=== PATIENT | male | born 1990 | race African-American/Black ===

== ENCOUNTER 2022-11-08 18:42 | Emergency (ER) | payer OTHER ==
[2022-11-08] MEDS ORDERED: ACETAMINOPHEN 325 MG TABLET ONE (19:11)
[2022-11-08] MEDS ORDERED: ONDANSETRON 4 MG (ODT) TAB ONE (19:11)
--- OUTSIDE RECORDS SUMMARY | 2022-11-08 19:25 | XMS REPORT | Continuity of Care Document ---
:1990 Author Organization [facility] t Address [address] [place] [address] Care Team Providers Name Role Phone .nader Attending Clinician Unavailable BHAVANI MCPHERSON Attending Clinician [phone] SAIRA JOHNSON Attending Clinician Unavailable SAIRA JOHNSON Attending Clinician [phone] NURSE, NURSE Attending Clinician Unavailable VENTURA, SON Attending Clinician Unavailable VENTURA, SON Attending Clinician [phone] SHAWANDA Attending Clinician Unavailable LAMONT AVILEZ Attending Clinician [phone] LEONIDES BOLANOS Attending Clinician [phone] bertram Attending Clinician Unavailable [facility] PROVIDER Attending Clinician Unavailable MARLEN IBANEZ Attending Clinician [phone] KAROLINA NAVARRO Attending Clinician Unavailable Jordan Box III Attending Clinician LOIS RUSSELL Attending Clinician Unavailable WILFRID MANCILLA Attending Clinician Unavailable WING BERRIOS Attending Clinician [phone] DAISHARAMIREZPat Admitting Clinician Unavailable bertram Admitting Clinician Unavailable Payers Payer Name Policy Type Policy Number Effective Date Expiration Date S ource *Avel Gordon [id number] 2015 2016 0-100% 00:00:00 00:00:00 *Avel Hillman [id number] 2017 2018 0-100% 00:00:00 00:00:00 ALLIED BENEFIT [id number] SYSTEMS (PPO) Problems Condition Condition Condition Status Onset Resolution Last Treating Co mments Source Name Details Category Date Date Treatment Clinician Date VOMITING VOMITING Diagnosis Active 2016-062017-05-17 Memoria Active 07-13 08:39:00 l 05/13/2017 08:00: Jose Cruz thomas [address] History of Past Illness Condition Condition Condition Status Onset Resolution Last Treating Co mments Source Name Details Category Date Date Treatment Clinician Date Fever, Fever, Problem 2016-062017-05-16 2017-05-16 Memoria unspecifie unspecifie 07-13 04:28:29 04:28:29 l d d 06:00: [facility] 05/13/2017 00 05/16/2017 [facility] Allergies, Adverse Reactions, Alerts Allergy Allergy Status Severity Reaction(s) Onset Inactive Treating Comm ents Source Name Type Date Date Clinician codeine drug Active Unknown 2020-0 [facility] - [facility] 00:00: 00 TRAMADOL drug Active Unknown 2019-0 [facility] HCL allergy - [facility] 00:00: 00 PENICILL drug Active Hives / Skin 0 [facility] IN allergy Rash 07-17 [facility] 00:00: 00 Social History Social Habit Start Date Stop Date Quantity Comments Source History of tobacco 2019-08-01 Cigarette smoker [facility] use 00:00:00 Health-related 2019-07-17 [facility] Behavior 00:00:00 Tobacco use and 2019-07-17 : No Details [facility] exposure 00:00:00 Available Quantity Details - : No Details Available Alcohol intake [facility] Sex Assigned At Male [facility] Smoking Status Start Date Stop Date Source Unknown if [facility] Never smoker [facility] Social History 2017-05-13 18:23:59 [facility] Medications Ordered Filled Start Stop Current Ordering Indication Dosage Frequency Signature Comments Components Source Medication Medication Date Date Medication? Clinician (SIG) Name Name amaris No take 1 [facility] rol 4-13 capsule by [facility] (vitamin 00:00: oral route D2) 1,250 00 every week mcg (50,000 unit) capsule Biktarvy 50 0 No 1{table Q1D take 1 [facility] mg-200 4-13 t} tablet by [facility]alth mg-25 mg 00:00: oral route tablet 00 every day ergocalcife No take 1 [facility] rol 4-13 capsule by [facility] (vitamin 00:00: oral route D2) 1,250 00 every week mcg (50,000 unit) capsule Biktarvy 50 0 No 1{table Q1D take 1 [facility] mg-200 4-13 t} tablet by [facility] mg-25 mg 00:00: oral route tablet 00 every day Biktarvy 50 0 No 1{table Q1D take 1 [facility] mg-200 1-19 t} tablet by [facility] mg-25 mg 00:00: oral route tablet 00 every day Biktarvy 50 0 No 1{table Q1D take 1 [facility] mg-200 1-19 t} tablet by [facility] mg-25 mg 00:00: oral route tablet 00 every day Biktarvy 50 2022-0 No 1{table Q1D take 1 [facility] mg-200 1-19 t} tablet by [facility] mg-25 mg 00:00: oral route tablet 00 every day Biktarvy 50 2022-0 No 1{table Q1D take 1 [facility] mg-200 1-19 t} tablet by [facility] mg-25 mg 00:00: oral route tablet 00 every day Biktarvy 50 0 No 1{table Q1D take 1 [facility] mg-200 1-19 t} tablet by [facility] mg-25 mg 00:00: oral route tablet 00 every day Biktarvy 50 0 2022- No 1{table Q1D take 1 [facility] mg-200 1-19 04-13 t} tablet by [facility] mg-25 mg 00:00: 00:00 oral route tablet 00 :00 every day Biktarvy 50 3- No 1{table Q1D take 1 [facility] mg-200 1-19 04-13 t} tablet by [facility] mg-25 mg 00:00: 00:00 oral route tablet 00 :00 every day Biktarvy 50 2021-06 No 1{table Q1D take 1 [facility] mg-200 2- t} tablet by [facility] mg-25 mg 00:00: oral route tablet 00 every day Biktarvy 50 2021-06- No 1{table Q1D take 1 [facility] mg-200 2-07-15 t} tablet by [facility] mg-25 mg 00:00: 00:00 oral route tablet 00 :00 every day Biktarvy 50 2021-06- No 1{table Q1D take 1 [facility] mg-200 2-07-15 t} tablet by [facility] mg-25 mg 00:00: 00:00 oral route tablet 00 :00 every day Biktarvy 50 2021-06- No 1{table Q1D take 1 [facility] mg-200 2-07-15 t} tablet by [facility] mg-25 mg 00:00: 00:00 oral route tablet 00 :00 every day Biktarvy 50 2021-06- No 1{table Q1D take 1 [facility] mg-200 2-07-15 t} tablet by [facility] mg-25 mg 00:00: 00:00 oral route tablet 00 :00 every day Biktarvy 50 2021-06- No 1{table Q1D take 1 [facility] mg-200 2-07-15 t} tablet by [facility] mg-25 mg 00:00: 00:00 oral route tablet 00 :00 every day Biktarvy 50 2021-06- No 1{table Q1D take 1 [facility] mg-200 2-07-15 t} tablet by [facility] mg-25 mg 00:00: 00:00 oral route tablet 00 :00 every day Biktarvy 50 2021-06- No 1{table Q1D take 1 [facility] mg-200 2-06 01-19 t} tablet by [facility] mg-25 mg 00:00: 00:00 oral route tablet 00 :00 every day ergocalcife 2022-0 No take 1 [facility] rol 5-13 capsule by [facility] (vitamin 00:00: oral route D2) 1,250 00 every week mcg (50,000 unit) capsule ergocalcife 2022-0 No take 1 [facility] rol 5-13 capsule by [facility] (vitamin 00:00: oral route D2) 1,250 00 every mcg (50,000 week unit) capsule ergocalcife 2-0 No take 1 [facility] rol 5-13 capsule by [facility] (vitamin 00:00: oral route D2) 1,250 00 every week mcg (50,000 unit) capsule ergocalcife 2-0 No take 1 [facility] rol 5-13 capsule by [facility] (vitamin 00:00: oral route D2) 1,250 00 every week mcg (50,000 unit) capsule ergocalcife 2-0 No take 1 [facility] rol 5-13 capsule by [facility] (vitamin 00:00: oral route D2) 1,250 00 every week mcg (50,000 unit) capsule ergocalcife 2-0 No take 1 [facility] rol 5-13 capsule by [facility] (vitamin 00:00: oral route D2) 1,250 00 every week mcg (50,000 unit) capsule Biktarvy 50 2021-0 No 1{table Q1D take 1 [facility] mg-200 5-13 t} tablet by [facility] mg-25 mg 00:00: oral route tablet 00 every day ergocalcife 2022-0 No take 1 [facility] rol 5-13 capsule by [facility] (vitamin 00:00: oral route D2) 1,250 00 every week mcg (50,000 unit) capsule Biktarvy 50 2021-0 No 1{table Q1D take 1 [facility] mg-200 5-13 t} tablet by [facility] mg-25 mg 00:00: oral route tablet 00 every day ergocalcife 2022-0 No take 1 [facility] rol 5-13 capsule by [facility] (vitamin 00:00: oral route D2) 1,250 00 every week mcg (50,000 unit) capsule Biktarvy 50 No 1{table Q1D take 1 [facility] mg-200 5-13 t} tablet by [facility] mg-25 mg 00:00: oral route tablet 00 every day ergocalcife 2021-0 No take 1 [facility] rol 5-13 capsule by [facility] (vitamin 00:00: oral route D2) 1,250 00 every week mcg (50,000 unit) capsule Biktarvy 50 0 No 1{table Q1D take 1 [facility] mg-200 5-13 t} tablet by [facility] mg-25 mg 00:00: oral route tablet 00 every day ergocalcife 0 No take 1 [facility] rol 5-13 capsule by [facility] (vitamin 00:00: oral route D2) 1,250 00 every week mcg (50,000 unit) capsule ergocalcife 2022- No take 1 [facility] rol 5-13 04-13 capsule by [facility] (vitamin 00:00: 00:00 oral route D2) 1,250 00 :00 every week mcg (50,000 unit) capsule ergocalcife 0 2022- No take 1 [facility] rol 5-13 04-13 capsule by [facility] (vitamin 00:00: 00:00 oral route D2) 1,250 00 :00 every week mcg (50,000 unit) capsule Biktarvy 50 2021- No 1{table Q1D take 1 [facility] mg-200 5-13 12-06 t} tablet by [facility] mg-25 mg 00:00: 00:00 oral route tablet 00 :00 every day Biktarvy 50 2021- No 1{table Q1D take 1 [facility] mg-200 5-13 12-06 t} tablet by [facility] mg-25 mg 00:00: 00:00 oral route tablet 00 :00 every day Biktarvy 50 2021- No 1{table Q1D take 1 [facility] mg-200 5-13 12-06 t} tablet by [facility] mg-25 mg 00:00: 00:00 oral route tablet 00 :00 every day Biktarvy 50 0 2021- No 1{table Q1D take 1 [facility] mg-200 5-13 12-06 t} tablet by [facility] mg-25 mg 00:00: 00:00 oral route tablet 00 :00 every day Biktarvy 50 0 2021- No 1{table Q1D take 1 [facility] mg-200 5-13 12-06 t} tablet by [facility] mg-25 mg 00:00: 00:00 oral route tablet 00 :00 every day Biktarvy 50 0 2021- No 1{table Q1D take 1 [facility] mg-200 5-13 12-06 t} tablet by [facility] mg-25 mg 00:00: 00:00 oral route tablet 00 :00 every day Biktarvy 50 0 2021- No 1{table Q1D take 1 [facility] mg-200 5-13 12-06 t} tablet by [facility] mg-25 mg 00:00: 00:00 oral route tablet 00 :00 every day Biktarvy 50 0 2021- No 1{table Q1D take 1 [facility] mg-200 5-13 12-06 t} tablet by [facility] mg-25 mg 00:00: 00:00 oral route tablet 00 :00 every day Biktarvy 50 2021-0 No 1{table Q1D take 1 [facility] mg-200 2-17 t} tablet by [facility] mg-25 mg 00:00: oral route tablet 00 every day Biktarvy 50 2021-0 No 1{table Q1D take 1 [facility] mg-200 2-17 t} tablet by [facility] mg-25 mg 00:00: oral route tablet 00 every day Biktarvy 50 0 No 1{table Q1D take 1 [facility] mg-200 2-17 t} tablet by [facility] mg-25 mg 00:00: oral route tablet 00 every day Biktarvy 50 0 2021- No 1{table Q1D take 1 [facility] mg-200 2-17 05-13 t} tablet by [facility] mg-25 mg 00:00: 00:00 oral route tablet 00 :00 every day Biktarvy 50 2021- No 1{table Q1D take 1 [facility] mg-200 2-17 05-13 t} tablet by [facility] mg-25 mg 00:00: 00:00 oral route tablet 00 :00 every day Biktarvy 50 2021- No 1{table Q1D take 1 [facility] mg-200 2-17 05-13 t} tablet by [facility] mg-25 mg 00:00: 00:00 oral route tablet 00 :00 every day Biktarvy 50 2021- No 1{table Q1D take 1 [facility] mg-200 2-17 05-13 t} tablet by [facility] mg-25 mg 00:00: 00:00 oral route tablet 00 :00 every day Biktarvy 50 2021- No 1{table Q1D take 1 [facility] mg-200 2-17 05-13 t} tablet by [facility] mg-25 mg 00:00: 00:00 oral route tablet 00 :00 every day ktarvy 50 2021- No 1{table Q1D take 1 [facility] mg-200 2-17 05-13 t} tablet by [facility] mg-25 mg 00:00: 00:00 oral route tablet 00 :00 every day ktarvy 50 2021- No 1{table Q1D take 1 [facility] mg-200 2-17 05-13 t} tablet by [facility] mg-25 mg 00:00: 00:00 oral route tablet 00 :00 every day ktarvy 50 2021- No 1{table Q1D take 1 [facility] mg-200 2-17 05-13 t} tablet by [facility] mg-25 mg 00:00: 00:00 oral route tablet 00 :00 every day Biktarvy 50 2021- No 1{table Q1D take 1 [facility] mg-200 2-17 05-13 t} tablet by [facility] mg-25 mg 00:00: 00:00 oral route tablet 00 :00 every day Biktarvy 50 2021- No 1{table Q1D take 1 [facility] mg-200 2-17 05-13 t} tablet by [facility] mg-25 mg 00:00: 00:00 oral route tablet 00 :00 every day Biktarvy 50 0 2021- No 1{table Q1D take 1 [facility] mg-200 2-17 05-13 t} tablet by [facility] mg-25 mg 00:00: 00:00 oral route tablet 00 :00 every day Biktarvy 50 0 2021- No 1{table Q1D take 1 [facility] mg-200 2-17 05-13 t} tablet by [facility] mg-25 mg 00:00: 00:00 oral route tablet 00 :00 every day Biktarvy 50 0 No 1{table Q1D take 1 [facility] mg-200 8-31 t} tablet by [facility] mg-25 mg 00:00: oral route tablet 00 every day ergocalcife No take 1 [facility] rol 8-31 capsule by [facility] (vitamin 00:00: oral route D2) 1,250 00 every week mcg (50,000 unit) capsule Biktarvy 50 No 1{table Q1D take 1 [facility] mg-200 8-31 t} tablet by [facility] mg-25 mg 00:00: oral route tablet 00 every day ergocalcife No take 1 [facility] rol 8-31 capsule by [facility] (vitamin 00:00: oral route D2) 1,250 00 every week mcg (50,000 unit) capsule Biktarvy 50 No 1{table Q1D take 1 [facility] mg-200 8-31 t} tablet by [facility] mg-25 mg 00:00: oral route tablet 00 every day ergocalcife No take 1 [facility] rol 8-31 capsule by [facility] (vitamin 00:00: oral route D2) 1,250 00 every week mcg (50,000 unit) capsule ergocalcife 0 No take 1 [facility] rol 8-31 capsule by [facility] (vitamin 00:00: oral route D2) 1,250 00 every week mcg (50,000 unit) capsule ergocalcife 0 No take 1 [facility] rol 8-31 capsule by [facility] (vitamin 00:00: oral route D2) 1,250 00 every week mcg (50,000 unit) capsule ergocalcife 0 No take 1 [facility] rol 8-31 capsule by [facility] (vitamin 00:00: oral route D2) 1,250 00 every week mcg (50,000 unit) capsule ergocalcife 2020-2021- No take 1 [facility]:00 oral route D2) 1,250 00 :00 every week mcg (50,000 unit) capsule ergocalcife 2020-2021- No take 1 [facility]:00: 00:00 oral route D2) 1,250 00 :00 every week mcg (50,000 unit) capsule ergocalcife 2020-2021- No take 1 [facility] rol 8-31 [facility]:00: 00:00 oral route D2) 1,250 00 :00 every week mcg (50,000 unit) capsule ergocalcife 2020-2021- No take 1 [facility] rol 8-31 [facility]:00: 00:00 oral route D2) 1,250 00 :00 every week mcg (50,000 unit) capsule ergocalcife 2020-2021- No take 1 [facility] rol 8-31 [facility]:00: 00:00 oral route D2) 1,250 00 :00 every week mcg (50,000 unit) capsule ergocalcife 2020-0 2021- No take 1 [facility] rol 8-31 [facility]:00: 00:00 oral route D2) 1,250 00 :00 every week mcg (50,000 unit) capsule ergocalcife 2020-0 2021- No take 1 [facility] rol 8-31 05-13 capsule by [facility] (vitamin 00:00: 00:00 oral route D2) 1,250 00 :00 every week mcg (50,000 unit) capsule ergocalcife 2020-0 2021- No take 1 [facility] rol 8-31 05-13 capsule by [facility] (vitamin 00:00: 00:00 oral route D2) 1,250 00 :00 every week mcg (50,000 unit) capsule ergocalcife 2021- No take 1 [facility] rol 811-06 capsule by [facility] (vitamin 00:00: 00:00 oral route D2) 1,250 00 :00 every week mcg (50,000 unit) capsule ergocalcife 2021- No take 1 [facility]:00: 00:00 oral route D2) 1,250 00 :00 every week mcg (50,000 unit) capsule ergocalcife 2021- No take 1 [facility] rol 811-[facility] 00:00: 00:00 oral route D2) 1,250 00 :00 every week mcg (50,000 unit) capsule ergocalcife 2021- No take 1 [facility] 00:00: 00:00 oral route D2) 1,250 00 :00 every week mcg (50,000 unit) capsule Biktarvy 50 2021- No 1{table Q1D take 1 [facility] mg-200 02-24-17 t} tablet by [facility] mg-25 mg 00:00: 00:00 oral route tablet 00 :00 every day Biktarvy 50 2021- No 1{table Q1D take 1 [facility] mg-200 02-24-17 t} tablet by [facility] mg-25 mg 00:00: 00:00 oral route tablet 00 :00 every day Biktarvy 50 2021- No 1{table Q1D take 1 [facility] mg-200 8 02-17 t} tablet by [facility] mg-25 mg 00:00: 00:00 oral route tablet 00 :00 every day Biktarvy 50 2021- No 1{table Q1D take 1 [facility] mg-200 8 02-17 t} tablet by [facility] mg-25 mg 00:00: 00:00 oral route tablet 00 :00 every day Biktarvy 50 0 2021- No 1{table Q1D take 1 [facility] mg-200 8-31 02-17 t} tablet by [facility] mg-25 mg 00:00: 00:00 oral route tablet 00 :00 every day Biktarvy 50 0 2021- No 1{table Q1D take 1 [facility] mg-200 8-31 02-17 t} tablet by [facility] mg-25 mg 00:00: 00:00 oral route tablet 00 :00 every day Biktarvy 50 2021- No 1{table Q1D take 1 [facility] mg-200 8- 02-17 t} tablet by [facility] mg-25 mg 00:00: 00:00 oral route tablet 00 :00 every day Biktarvy 50 2021- No 1{table Q1D take 1 [facility] mg-200 8- 02-17 t} tablet by [facility] mg-25 mg 00:00: 00:00 oral route tablet 00 :00 every day Biktarvy 50 2021- No 1{table Q1D take 1 [facility] mg-200 8--17 t} tablet by [facility] mg-25 mg 00:00: 00:00 oral route tablet 00 :00 every day Biktarvy 50 2021- No 1{table Q1D take 1 [facility] mg-200 8--17 t} tablet by [facility] mg-25 mg 00:00: 00:00 oral route tablet 00 :00 every day Biktarvy 50 2021- No 1{table Q1D take 1 [facility] mg-200 8- 02-17 t} tablet by [facility] mg-25 mg 00:00: 00:00 oral route tablet 00 :00 every day Biktarvy 50 0 2021- No 1{table Q1D take 1 [facility] mg-200 8- 02-17 t} tablet by [facility] mg-25 mg 00:00: 00:00 oral route tablet 00 :00 every day Biktarvy 50 2021- No 1{table Q1D take 1 [facility] mg-200 8- 02-17 t} tablet by [facility] mg-25 mg 00:00: 00:00 oral route tablet 00 :00 every day Biktarvy 50 0 2021- No 1{table Q1D take 1 [facility] mg-200 8-31 02-17 t} tablet by [facility] mg-25 mg 00:00: 00:00 oral route tablet 00 :00 every day Biktarvy 50 0 2021- No 1{table Q1D take 1 [facility] mg-200 8-31 02-17 t} tablet by [facility] mg-25 mg 00:00: 00:00 oral route tablet 00 :00 every day Biktarvy 50 0 No 1{table Q1D take 1 [facility] mg-200 7-22 t} tablet by [facility] mg-25 mg 00:00: oral route tablet 00 every day Biktarvy 50 2020-0 No 1{table Q1D take 1 [facility] mg-200 7-22 t} tablet by [facility] mg-25 mg 00:00: oral route tablet 00 every day Biktarvy 50 0 2020- No 1{table Q1D take 1 [facility] mg-200 7-22 08-31 t} tablet by [facility] mg-25 mg 00:00: 00:00 oral route tablet 00 :00 every day Biktarvy 50 0 2020- No 1{table Q1D take 1 [facility] mg-200 7-22 08-31 t} tablet by [facility] mg-25 mg 00:00: 00:00 oral route tablet 00 :00 every day Biktarvy 50 0 2020- No 1{table Q1D take 1 [facility] mg-200 7-22 08-31 t} tablet by [facility] mg-25 mg 00:00: 00:00 oral route tablet 00 :00 every day Biktarvy 50 0 2020- No 1{table Q1D take 1 [facility] mg-200 7-22 08-31 t} tablet by [facility] mg-25 mg 00:00: 00:00 oral route tablet 00 :00 every day Biktarvy 50 0 2020- No 1{table Q1D take 1 [facility] mg-200 7-22 08-31 t} tablet by [facility] mg-25 mg 00:00: 00:00 oral route tablet 00 :00 every day Biktarvy 50 0 2020- No 1{table Q1D take 1 [facility] mg-200 7-22 08-31 t} tablet by [facility] mg-25 mg 00:00: 00:00 oral route tablet 00 :00 every day Biktarvy 50 0 202- No 1{table Q1D take 1 [facility] mg-200 7-22 08-31 t} tablet by [facility] mg-25 mg 00:00: 00:00 oral route tablet 00 :00 every day Biktarvy 50 0 2020- No 1{table Q1D take 1 [facility] mg-200 7-22 08-31 t} tablet by [facility] mg-25 mg 00:00: 00:00 oral route tablet 00 :00 every day Biktarvy 50 0 2020- No 1{table Q1D take 1 [facility] mg-200 7-22 08-31 t} tablet by [facility] mg-25 mg 00:00: 00:00 oral route tablet 00 :00 every day Biktarvy 50 0 202- No 1{table Q1D take 1 [facility] mg-200 7-22 08-31 t} tablet by [facility] mg-25 mg 00:00: 00:00 oral route tablet 00 :00 every day Biktarvy 50 0 202- No 1{table Q1D take 1 [facility] mg-200 7-22 08-31 t} tablet by [facility] mg-25 mg 00:00: 00:00 oral route tablet 00 :00 every day Biktarvy 50 0 202- No 1{table Q1D take 1 [facility] mg-200 7-22 08-31 t} tablet by [facility] mg-25 mg 00:00: 00:00 oral route tablet 00 :00 every day Biktarvy 50 0 202- No 1{table Q1D take 1 [facility] mg-200 7-22 08-31 t} tablet by [facility] mg-25 mg 00:00: 00:00 oral route tablet 00 :00 every day Biktarvy 50 2021-0 202- No 1{table Q1D take 1 [facility] mg-200 7-22 08-31 t} tablet by [facility] mg-25 mg 00:00: 00:00 oral route tablet 00 :00 every day Biktarvy 50 0 2020- No 1{table Q1D take 1 [facility] mg-200 7-22 08-31 t} tablet by [facility] mg-25 mg 00:00: 00:00 oral route tablet 00 :00 every day Biktarvy 50 0 2020- No 1{table Q1D take 1 [facility] mg-200 7-22 08-31 t} tablet by [facility] mg-25 mg 00:00: 00:00 oral route tablet 00 :00 every day Biktarvy 50 2020- No 1{table Q1D take 1 [facility] mg-200 7-22 08-31 t} tablet by [facility] mg-25 mg 00:00: 00:00 oral route tablet 00 :00 every day Biktarvy 50 0 2020- No 1{table Q1D take 1 [facility] mg-200 7-22 08-31 t} tablet by [facility] mg-25 mg 00:00: 00:00 oral route tablet 00 :00 every day Biktarvy 50 0 No 1{table Q1D take 1 [facility] mg-200 3-18 t} tablet by [facility] mg-25 mg 00:00: oral route tablet 00 every day Biktarvy 50 0 2020- No 1{table Q1D take 1 [facility] mg-200 3-18 07-22 t} tablet by [facility] mg-25 mg 00:00: 00:00 oral route tablet 00 :00 every day Biktarvy 50 0 2020- No 1{table Q1D take 1 [facility] mg-200 3-18 07-22 t} tablet by [facility] mg-25 mg 00:00: 00:00 oral route tablet 00 :00 every day Biktarvy 50 0 2020- No 1{table Q1D take 1 [facility] mg-200 3-18 07-22 t} tablet by [facility] mg-25 mg 00:00: 00:00 oral route tablet 00 :00 every day Biktarvy 50 2020- No 1{table Q1D take 1 [facility] mg-200 3-18 07-22 t} tablet by [facility] mg-25 mg 00:00: 00:00 oral route tablet 00 :00 every day Biktarvy 50 2020- No 1{table Q1D take 1 [facility] mg-200 3-18 07-22 t} tablet by [facility] mg-25 mg 00:00: 00:00 oral route tablet 00 :00 every day Biktarvy 50 2020- No 1{table Q1D take 1 [facility] mg-200 3-18 07-22 t} tablet by [facility] mg-25 mg 00:00: 00:00 oral route tablet 00 :00 every day Biktarvy 50 2020- No 1{table Q1D take 1 [facility] mg-200 3-18 07-22 t} tablet by [facility] mg-25 mg 00:00: 00:00 oral route tablet 00 :00 every day Biktarvy 50 2020- No 1{table Q1D take 1 [facility] mg-200 3-18 07-22 t} tablet by [facility] mg-25 mg 00:00: 00:00 oral route tablet 00 :00 every day Biktarvy 50 2020- No 1{table Q1D take 1 [facility] mg-200 3-18 07-22 t} tablet by [facility] mg-25 mg 00:00: 00:00 oral route tablet 00 :00 every day Biktarvy 50 2020- No 1{table Q1D take 1 [facility] mg-200 3-18 07-22 t} tablet by [facility] mg-25 mg 00:00: 00:00 oral route tablet 00 :00 every day Biktarvy 50 2020- No 1{table Q1D take 1 [facility] mg-200 3-18 07-22 t} tablet by [facility] mg-25 mg 00:00: 00:00 oral route tablet 00 :00 every day Biktarvy 50 2020- No 1{table Q1D take 1 [facility] mg-200 3-18 07-22 t} tablet by [facility] mg-25 mg 00:00: 00:00 oral route tablet 00 :00 every day Biktarvy 50 0 2020- No 1{table Q1D take 1 [facility] mg-200 3-18 07-22 t} tablet by [facility] mg-25 mg 00:00: 00:00 oral route tablet 00 :00 every day Biktarvy 50 0 2020- No 1{table Q1D take 1 [facility] mg-200 3-18 07-22 t} tablet by [facility] mg-25 mg 00:00: 00:00 oral route tablet 00 :00 every day Biktarvy 50 0 2020- No 1{table Q1D take 1 [facility] mg-200 3-18 07-22 t} tablet by [facility] mg-25 mg 00:00: 00:00 oral route tablet 00 :00 every day Biktarvy 50 2020- No 1{table Q1D take 1 [facility] mg-200 3-18 07-22 t} tablet by [facility] mg-25 mg 00:00: 00:00 oral route tablet 00 :00 every day Biktarvy 50 0 2020- No 1{table Q1D take 1 [facility] mg-200 3-18 07-22 t} tablet by [facility] mg-25 mg 00:00: 00:00 oral route tablet 00 :00 every day Biktarvy 50 0 2020- No 1{table Q1D take 1 [facility] mg-200 3-18 07-22 t} tablet by [facility] mg-25 mg 00:00: 00:00 oral route tablet 00 :00 every day Biktarvy 50 0 2020- No 1{table Q1D take 1 [facility] mg-200 3-18 07-22 t} tablet by [facility] mg-25 mg 00:00: 00:00 oral route tablet 00 :00 every day Biktarvy 50 0 2020- No 1{table Q1D take 1 [facility] mg-200 3-18 07-22 t} tablet by [facility] mg-25 mg 00:00: 00:00 oral route tablet 00 :00 every day Biktarvy 50 2020-1 No 1{table Q1D take 1 needs f/u [facility] mg-200 2-16 t} tablet by [facility] mg-25 mg 00:00: oral route tablet 00 every day [place] [id number] 2019-06 No 1{table Q1D take 1 needs f/u [facility] mg-200 2-16 03-18 t} tablet by [facility]t [facility] mg-25 mg 00:00: 00:00 oral route tablet 00 :00 every day [place] [id number] 2019-06- No 1{table Q1D take 1 needs f/u [facility] mg-200 2-16 03-18 t} tablet by [facility]t [facility] mg-25 mg 00:00: 00:00 oral route tablet 00 :00 every day [place] [id number] 2019-06- No 1{table Q1D take 1 needs f/u [facility] mg-200 2-16 03-18 t} tablet by appt ealth mg-25 mg 00:00: 00:00 oral route tablet 00 :00 every day [place] [id number] 2019-06- No 1{table Q1D take 1 needs f/u [facility] mg-200 2-16 03-18 t} tablet by appt ealth mg-25 mg 00:00: 00:00 oral route tablet 00 :00 every day [place] [id number] 2019-06- No 1{table Q1D take 1 needs f/u [facility] mg-200 2-16 03-18 t} tablet by appt ealth mg-25 mg 00:00: 00:00 oral route tablet 00 :00 every day [place] [id number] 2019-06- No 1{table Q1D take 1 needs f/u [facility] mg-200 2-16 03-18 t} tablet by appt ealth mg-25 mg 00:00: 00:00 oral route tablet 00 :00 every day [place] [id number] 2019-06 No 1{table Q1D take 1 needs f/u [facility] mg-200 2-16 03-18 t} tablet by appt ealth mg-25 mg 00:00: 00:00 oral route tablet 00 :00 every day [place] [id number] 2019-06- No 1{table Q1D take 1 needs f/u [facility] mg-200 2-16 03-18 t} tablet by appt ealth mg-25 mg 00:00: 00:00 oral route tablet 00 :00 every day [place] [id number] 2019-06- No 1{table Q1D take 1 needs f/u [facility] mg-200 2-16 03-18 t} tablet by appt ealth mg-25 mg 00:00: 00:00 oral route tablet 00 :00 every day [place] [id number] 2019-06- No 1{table Q1D take 1 needs f/u [facility] mg-200 2-16 03-18 t} tablet by appt [facility] mg-25 mg 00:00: 00:00 oral route tablet 00 :00 every day [place] [address] 2019-06- No 1{table Q1D take 1 needs f/u [facility] mg-200 2-16 03-18 t} tablet by appt [facility] mg-25 mg 00:00: 00:00 oral route tablet 00 :00 every day [place] [address] 2019-06- No 1{table Q1D take 1 needs f/u [facility] mg-200 2-16 03-18 t} tablet by appt [facility] mg-25 mg 00:00: 00:00 oral route tablet 00 :00 every day [place] [address] 2019-06- No 1{table Q1D take 1 needs f/u [facility] mg-200 2-16 03-18 t} tablet by appt [facility] mg-25 mg 00:00: 00:00 oral route tablet 00 :00 every day [place] [address] 2019-06- No 1{table Q1D take 1 needs f/u [facility] mg-200 2-16 03-18 t} tablet by appt [facility] mg-25 mg 00:00: 00:00 oral route tablet 00 :00 every day [place] 50 2019-06- No 1{table Q1D take 1 needs f/u [facility] mg-200 2-16 03-18 t} tablet by appt [facility] mg-25 mg 00:00: 00:00 oral route tablet 00 :00 every day [place] [address] 2019-06- No 1{table Q1D take 1 needs f/u [facility] mg-200 2-16 03-18 t} tablet by appt [facility] mg-25 mg 00:00: 00:00 oral route tablet 00 :00 every day [place] [address] 2019-06- No 1{table Q1D take 1 needs f/u [facility] mg-200 2-16 03-18 t} tablet by appt [facility] mg-25 mg 00:00: 00:00 oral route tablet 00 :00 every day [place] [address] 2019-06- No 1{table Q1D take 1 needs f/u [facility] mg-200 2-16 03-18 t} tablet by appt [facility] mg-25 mg 00:00: 00:00 oral route tablet 00 :00 every day [place] [address] 2019-06- No 1{table Q1D take 1 needs f/u [facility] mg-200 2-16 03-18 t} tablet by appt [facility] mg-25 mg 00:00: 00:00 oral route tablet 00 :00 every day [place] [address] 2019-06- No 1{table Q1D take 1 needs f/u [facility] mg-200 2-16 03-18 t} tablet by appt [facility] mg-25 mg 00:00: 00:00 oral route tablet 00 :00 every day [place] [address] 2019-06- No 1{table Q1D take 1 needs f/u [facility] mg-200 2-16 03-18 t} tablet by appt [facility] mg-25 mg 00:00: 00:00 oral route tablet 00 :00 every day [place] [address] 2019- No 1{table Q1D take 1 [facility] mg-200 4-14 12-16 t} tablet by ealth mg-25 mg 00:00: 00:00 oral route tablet 00 :00 [facility] day [facility] No 1{table Q1D take 1 [facility] mg-200 4-14 12-16 t} tablet by ealth mg-25 mg 00:00: 00:00 oral route tablet 00 :00 every day ktarv 50 2019- No 1{table Q1D take 1 [facility] mg-200 4-14 12-16 t} tablet by ealth mg-25 mg 00:00: 00:00 oral route tablet 00 :00 every day Bik[place] 50 2019- 2020- No 1{table Q1D take 1 [facility] mg-200 4-14 12-16 t} tablet by ealth mg-25 mg 00:00: 00:00 oral route tablet 00 :00 every day Bik[place] 50 2020- No 1{table Q1D take 1 [facility] mg-200 4-14 12-16 t} tablet by ealth mg-25 mg 00:00: 00:00 oral route tablet 00 :00 every day Biktarvy 50 2020- No 1{table Q1D take 1 [facility] mg-200 4-14 12-16 t} tablet by ealth mg-25 mg 00:00: 00:00 oral route tablet 00 :00 every day Biktarvy 50 2020- No 1{table Q1D take 1 [facility] mg-200 4-14 12-16 t} tablet by ealth mg-25 mg 00:00: 00:00 oral route tablet 00 :00 every day Bik[place] 50 2020- No 1{table Q1D take 1 [facility] mg-200 4-14 12-16 t} tablet by ealth mg-25 mg 00:00: 00:00 oral route tablet 00 :00 every day Biktarvy 50 2020- No 1{table Q1D take 1 [facility] mg-200 4-14 12-16 t} tablet by ealth mg-25 mg 00:00: 00:00 oral route tablet 00 :00 every day Biktarvy 50 2020- No 1{table Q1D take 1 [facility] mg-200 4-14 12-16 t} tablet by ealth mg-25 mg 00:00: 00:00 oral route tablet 00 :00 every day Biktarvy 50 2020- No 1{table Q1D take 1 [facility] mg-200 4-14 12-16 t} tablet by ealth mg-25 mg 00:00: 00:00 oral route tablet 00 :00 every day Biktarvy 50 2020- No 1{table Q1D take 1 [facility] mg-200 4-14 12-16 t} tablet by ealth mg-25 mg 00:00: 00:00 oral route tablet 00 :00 every day Bik[place] 50 2019- 2020- No 1{table Q1D take 1 [facility] mg-200 4-14 12-16 t} tablet by ealth mg-25 mg 00:00: 00:00 oral route tablet 00 :00 every day Biktar[place] 50 2020- No 1{table Q1D take 1 [facility] mg-200 4-14 12-16 t} tablet by ealth mg-25 mg 00:00: 00:00 oral route tablet 00 :00 every day Bik[place] 50 2020- No 1{table Q1D take 1 [facility] mg-200 4-14 12-16 t} tablet by ealth mg-25 mg 00:00: 00:00 oral route tablet 00 :00 every day Biktar[place] 50 2020- No 1{table Q1D take 1 [facility] mg-200 4-14 12-16 t} tablet by ealth mg-25 mg 00:00: 00:00 oral route tablet 00 :00 every day Biktarvy 50 2020- No 1{table Q1D take 1 [facility] mg-200 4-14 12-16 t} tablet by ealth mg-25 mg 00:00: 00:00 oral route tablet 00 :00 every day Biktar[place] 50 2020- No 1{table Q1D take 1 [facility] mg-200 4-14 12-16 t} tablet by ealth mg-25 mg 00:00: 00:00 oral route tablet 00 :00 every day Bik[place] 50 2020- No 1{table Q1D take 1 [facility] mg-200 4-14 12-16 t} tablet by ealth mg-25 mg 00:00: 00:00 oral route tablet 00 :00 every day [place] 50 2019-0 2020- No 1{table Q1D take 1 [facility] mg-200 4-14 12-16 t} tablet by ealth mg-25 mg 00:00: 00:00 oral route tablet 00 :00 every day Biktar[place] 50 2020- No 1{table Q1D take 1 [facility] mg-200 4-14 12-16 t} tablet by ealth mg-25 mg 00:00: 00:00 oral route tablet 00 :00 every day [facility] 50 2020-0 2020- No 1{table Q1D take 1 [facility] mg-200 4-14 12-16 t} tablet by ealth mg-25 mg 00:00: 00:00 oral route tablet 00 :00 every day ergocalcife 2020-0 No take 1 [facility] rol 2-05 capsule by [facility] (vitamin 00:00: oral route D2) 50,000 00 every week unit capsule ergocalcife 2020-0 No take 1 [facility] rol 2-05 capsule by [facility] (vitamin 00:00: oral route D2) 50,000 00 every week unit capsule ergocalcife 2020-0 No take 1 [facility] rol 2-05 capsule by e[facility] (vitamin 00:00: oral route D2) 50,000 00 every week unit capsule ergocalcife 2020-0 No take 1 [facility] rol 2-05 capsule by [facility] (vitamin 00:00: oral route D2) 50,000 00 every week unit capsule ergocalcife 2020-0 2020- No take 1 [facility] rol 2-05 08-31 capsule by [facility] (vitamin 00:00: 00:00 oral route D2) 50,000 00 :00 every week unit capsule ergocalcife 2020-0 2021- No take 1 [facility] rol 2-05 08-31 capsule by [facility] (vitamin 00:00: 00:00 oral route D2) 50,000 00 :00 every week unit capsule ergocalcife 2020-0 2020- No take 1 [facility] rol 2-05 08-31 capsule by [facility] (vitamin 00:00: 00:00 oral route D2) 50,000 00 :00 every week unit capsule ergocalcife 2020-0 1- No take 1 [facility] rol 2-05 08-31 capsule by [facility] (vitamin 00:00: 00:00 oral route D2) 50,000 00 :00 every week unit capsule ergocalcife 2020-0 2020- No take 1 [facility] rol 2-05 08-31 capsule by [facility] (vitamin 00:00: 00:00 oral route D2) 50,000 00 :00 every week unit capsule ergocalcife 2020-0 202- No take 1 [facility] rol 2-05 08-31 capsule by e[facility] (vitamin 00:00: 00:00 oral route D2) 50,000 00 :00 every week unit capsule ergocalcife 2020-0 202- No take 1 [facility] rol 2-05 08-31 capsule by [facility] (vitamin 00:00: 00:00 oral route D2) 50,000 00 :00 every week unit capsule ergocalcife 2020-0 202- No take 1 [facility] rol 2-05 08-31 capsule by [facility] (vitamin 00:00: 00:00 oral route D2) 50,000 00 :00 every week unit capsule ergocalcife 2020-0 202- No take 1 [facility] rol 2-05 08-31 capsule by [facility] (vitamin 00:00: 00:00 oral route D2) 50,000 00 :00 every week unit capsule ergocalcife 2020-0 202- No take 1 [facility] rol 2-05 08-31 capsule by [facility] (vitamin 00:00: 00:00 oral route D2) 50,000 00 :00 every week unit capsule ergocalcife 2020-0 202- No take 1 [facility] rol 2-05 08-31 capsule by [facility] (vitamin 00:00: 00:00 oral route D2) 50,000 00 :00 every week unit capsule ergocalcife 2020-0 2021- No take 1 [facility] rol 2-05 08-31 capsule by [facility] (vitamin 00:00: 00:00 oral route D2) 50,000 00 :00 every week unit capsule ergocalcife 2020-0 202- No take 1 [facility] rol 2-05 08-31 capsule by [facility] (vitamin 00:00: 00:00 oral route D2) 50,000 00 :00 every week unit capsule ergocalcife 2020-0 202- No take 1 [facility] rol 2-05 08-31 capsule by [facility] (vitamin 00:00: 00:00 oral route D2) 50,000 00 :00 every week unit capsule ergocalcife 2020-0 202- No take 1 [facility] rol 2-05 08-31 capsule by [facility] (vitamin 00:00: 00:00 oral route D2) 50,000 00 :00 every week unit capsule ergocalcife 2020-0 2020- No take 1 [facility] rol 2-05 08-31 capsule by [facility] (vitamin 00:00: 00:00 oral route D2) 50,000 00 :00 every week unit capsule ergocalcife 2020-0 2020- No take 1 [facility] oral route D2) 50,000 00 :00 every week unit capsule ergocalcife 2019-0 2020- No take 1 [facility]: 00:00 oral route D2) 50,000 00 :00 every week unit capsule doxycycline 2019-0 2020- No 1{capsu Q12H take 1 [facility] hyclate 100 2-05 05-05 le} capsule by e alth mg capsule 00:00: 00:00 oral route 00 :00 2 times every day doxycycline 2020-0 2020- No 1{capsu Q12H take 1 [facility] hyclate 100 2-05 05-05 le} capsule by e alth mg capsule 00:00: 00:00 oral route 00 :00 2 times every day doxycycline 2020-0 2020- No 1{capsu Q12H take 1 [facility] hyclate 100 2-05 05-05 le} capsule by e alth mg capsule 00:00: 00:00 oral route 00 :00 2 times every day doxycycline 2020-0 2020- No 1{capsu Q12H take 1 [facility] hyclate 100 2-05 05-05 le} capsule by e alth mg capsule 00:00: 00:00 oral route 00 :00 2 times every day doxycycline 2020-0 2020- No 1{capsu Q12H take 1 [facility] hyclate 100 2-05 05-05 le} capsule by e alth mg capsule 00:00: 00:00 oral route 00 :00 2 times every day doxycycline 2020-0 2020- No 1{capsu Q12H take 1 [facility] hyclate 100 2-05 05-05 le} capsule by e alth mg capsule 00:00: 00:00 oral route 00 :00 2 times every day doxycycline 2020-0 2020- No 1{capsu Q12H take 1 [facility] hyclate 100 2-05 05-05 le} capsule by e alth mg capsule 00:00: 00:00 oral route 00 :00 2 times every day doxycycline 2020-0 2020- No 1{capsu Q12H take 1 [facility] hyclate 100 2-05 05-05 le} capsule by e alth mg capsule 00:00: 00:00 oral route 00 :00 2 times every day doxycycline 2019-0 2020- No 1{capsu Q12H take 1 [facility] hyclate 100 2-05 05-05 le} capsule by e alth mg capsule 00:00: 00:00 oral route 00 :00 2 times every day doxycycline 2019-0 2020- No 1{capsu Q12H take 1 [facility] hyclate 100 2-05 05-05 le} capsule by e alth mg capsule 00:00: 00:00 oral route 00 :00 2 times every day doxycycline 2020-0 2020- No 1{capsu Q12H take 1 [facility] hyclate 100 2-05 05-05 le} capsule by e alth mg capsule 00:00: 00:00 oral route 00 :00 2 times every day doxycycline 2020-0 2020- No 1{capsu Q12H take 1 [facility] hyclate 100 2-05 05-05 le} capsule by e alth mg capsule 00:00: 00:00 oral route 00 :00 2 times every day doxycycline 2020-0 2020- No 1{capsu Q12H take 1 [facility] hyclate 100 2-05 05-05 le} capsule by e alth mg capsule 00:00: 00:00 oral route 00 :00 2 times every day doxycycline 2020-0 2020- No 1{capsu Q12H take 1 [facility] hyclate 100 2-05 05-05 le} capsule by e alth mg capsule 00:00: 00:00 oral route 00 :00 2 times every day doxycycline 2020-0 2020- No 1{capsu Q12H take 1 [facility] hyclate 100 2-05 05-05 le} capsule by e alth mg capsule 00:00: 00:00 oral route 00 :00 2 times every day doxycycline 2020-0 2020- No 1{capsu Q12H take 1 [facility] hyclate 100 2-05 05-05 le} capsule by e alth mg capsule 00:00: 00:00 oral route 00 :00 2 times every day doxycycline 2020-0 2020- No 1{capsu Q12H take 1 [facility] hyclate 100 2-05 05-05 le} capsule by e alth mg capsule 00:00: 00:00 oral route 00 :00 2 times every day doxycycline 2020-0 2020- No 1{capsu Q12H take 1 [facility] hyclate 100 2-05 05-05 le} capsule by e alth mg capsule 00:00: 00:00 oral route 00 :00 2 times every day doxycycline 2019-0 2020- No 1{capsu Q12H take 1 [facility] hyclate 100 2-05 05-05 le} capsule by e alth mg capsule 00:00: 00:00 oral route 00 :00 2 times every day doxycycline 2019-0 2020- No 1{capsu Q12H take 1 [facility] hyclate 100 2-05 05-05 le} capsule by e alth mg capsule 00:00: 00:00 oral route 00 :00 2 times every day doxycycline 2019-0 2020- No 1{capsu Q12H take 1 [facility] hyclate 100 2-05 05-05 le} capsule by e alth mg capsule 00:00: 00:00 oral route 00 :00 2 times every day doxycycline 2020-0 2020- No 1{capsu Q12H take 1 [facility] hyclate 100 2-05 05-05 le} capsule by e alth mg capsule 00:00: 00:00 oral route 00 :00 2 times every day [place] 50 2019-0 2020- No 1{table Q1D take 1 [facility] mg-200 1-21 04-14 t} tablet by ealth mg-25 mg 00:00: 00:00 oral route tablet 00 :00 every day [place]ik[place] 50 2019-0 2020- No 1{table Q1D take 1 [facility] mg-200 1-21 04-14 t} tablet by ealth mg-25 mg 00:00: 00:00 oral route tablet 00 :00 every day Bik[place] 50 2019-0 2020- No 1{table Q1D take 1 [facility] mg-200 1-21 04-14 t} tablet by ealth mg-25 mg 00:00: 00:00 oral route tablet 00 :00 every day Bik[place] 50 2019-0 2020- No 1{table Q1D take 1 [facility] mg-200 1-21 04-14 t} tablet by ealth mg-25 mg 00:00: 00:00 oral route tablet 00 :00 every day Biktarvy 50 2019-0 2020- No 1{table Q1D take 1 [facility] mg-200 1-21 04-14 t} tablet by ealth mg-25 mg 00:00: 00:00 oral route tablet 00 :00 every day Biktarvy 50 2020- No 1{table Q1D take 1 [facility] mg-200 1-21 04-14 t} tablet by ealth mg-25 mg 00:00: 00:00 oral route tablet 00 :00 every day Biktarvy 50 2019- No 1{table Q1D take 1 [facility] mg-200 1-21 04-14 t} tablet by ealth mg-25 mg 00:00: 00:00 oral route tablet 00 :00 every day Biktarvy 50 2019- No 1{table Q1D take 1 [facility] mg-200 1-21 04-14 t} tablet by ealth mg-25 mg 00:00: 00:00 oral route tablet 00 :00 every day Biktarvy 50 2020- No 1{table Q1D take 1 [facility] mg-200 1-21 04-14 t} tablet by ealth mg-25 mg 00:00: 00:00 oral route tablet 00 :00 every day Biktar[place] 50 0 2020- No 1{table Q1D take 1 [facility] mg-200 1-21 04-14 t} tablet by ealth mg-25 mg 00:00: 00:00 oral route tablet 00 :00 every day Biktarvy 50 0 2020- No 1{table Q1D take 1 [facility] mg-200 1-21 04-14 t} tablet by ealth mg-25 mg 00:00: 00:00 oral route tablet 00 :00 every day Biktarvy 50 2019-0 2020- No 1{table Q1D take 1 [facility] mg-200 1-21 04-14 t} tablet by ealth mg-25 mg 00:00: 00:00 oral route tablet 00 :00 every day Biktarvy 50 2020-0 2020- No 1{table Q1D take 1 [facility] mg-200 1-21 04-14 t} tablet by ealth mg-25 mg 00:00: 00:00 oral route tablet 00 :00 every day Biktarvy 50 2019-0 2020- No 1{table Q1D take 1 [facility] mg-200 1-21 04-14 t} tablet by ealth mg-25 mg 00:00: 00:00 oral route tablet 00 :00 every day Biktarvy 50 2019-0 2020- No 1{table Q1D take 1 [facility] mg-200 1-21 04-14 t} tablet by ealth mg-25 mg 00:00: 00:00 oral route tablet 00 :00 every day Biktarvy 50 0 2020- No 1{table Q1D take 1 [facility] mg-200 1-21 04-14 t} tablet by ealth mg-25 mg 00:00: 00:00 oral route tablet 00 :00 every day Biktarvy 50 0 2020- No 1{table Q1D take 1 [facility] mg-200 1-21 04-14 t} tablet by ealth mg-25 mg 00:00: 00:00 oral route tablet 00 :00 every day Biktarvy 50 2019-0 2020- No 1{table Q1D take 1 [facility] mg-200 1-21 04-14 t} tablet by ealth mg-25 mg 00:00: 00:00 oral route tablet 00 :00 every day Biktarvy 50 2019-0 2020- No 1{table Q1D take 1 [facility] mg-200 1-21 04-14 t} tablet by ealth mg-25 mg 00:00: 00:00 oral route tablet 00 :00 every day Biktarvy 50 2019-0 2020- No 1{table Q1D take 1 [facility] mg-200 1-21 04-14 t} tablet by ealth mg-25 mg 00:00: 00:00 oral route tablet 00 :00 every day Biktarvy 50 2019-0 2020- No 1{table Q1D take 1 [facility] mg-200 1-21 04-14 t} tablet by ealth mg-25 mg 00:00: 00:00 oral route tablet 00 :00 every day Biktarvy 50 2019- 1{table Q1D take 1 [facility] mg-200 1-21 04-14 t} tablet by ealth mg-25 mg 00:00: 00:00 oral route tablet 00 :00 every day [place] 150 2019- take 1 [facility] mg-150 -30 -21 tablet by [facility]alth mg-200 00:00: 00:00 oral route mg-10 mg 00 :00 once daily tablet with food [place] 150 take 1 [facility] mg-150 30 - tablet by [facility] mg-200 00:00: 00:00 oral route mg-10 mg 00 :00 once daily tablet with food [place] 150 take 1 [facility] mg-150 30 - tablet by [facility] mg-200 00:00: 00:00 oral route mg-10 mg 00 :00 once daily tablet with food [place] 150 take 1 [facility] mg-150 07-26- tablet by ealth mg-200 00:00: 00:00 oral route mg-10 mg 00 :00 once daily tablet with food [place] 150 take 1 [facility] mg-150 30 - tablet by [facility] mg-200 00:00: 00:00 oral route mg-10 mg 00 :00 once daily tablet with food [place] 150 take 1 [facility] mg-150 30 - tablet by [facility] mg-200 00:00: 00:00 oral route mg-10 mg 00 :00 once daily tablet with food [place] 150 take 1 [facility] mg-150 30 - tablet by [facility] mg-200 00:00: 00:00 oral route mg-10 mg 00 :00 once daily tablet with food [place] 150 take 1 [facility] mg-150 30 - tablet by [facility] mg-200 00:00: 00:00 oral route mg-10 mg 00 :00 once daily tablet with food [place] 150 take 1 [facility] mg-150 1-30 - tablet by ealth mg-200 00:00: 00:00 oral route mg-10 mg 00 :00 once daily tablet with food [place] 150 take 1 [facility] mg-150 -30 - tablet by [facility]alth mg-200 00:00: 00:00 oral route mg-10 mg 00 :00 once daily tablet with food [place] 150 take 1 [facility] mg-150 30 - tablet by [facility] mg-200 00:00: 00:00 oral route mg-10 mg 00 :00 once daily tablet with food [place] 150 take 1 [facility] mg-150 07-26 tablet by ealth mg-200 00:00: 00:00 oral route mg-10 mg 00 :00 once daily tablet with food [place] 150 take 1 [facility] mg-150 07-26 tablet by ealth mg-200 00:00: 00:00 oral route mg-10 mg 00 :00 once daily tablet with food [place] 150 take 1 [facility] mg-150 07-26 tablet by ealth mg-200 00:00: 00:00 oral route mg-10 mg 00 :00 once daily tablet with food [place] 150 take 1 [facility] mg-150 07-26 tablet by ealth mg-200 00:00: 00:00 oral route mg-10 mg 00 :00 once daily tablet with food [place] 150 take 1 [facility] mg-150 30 07-17 tablet by ealth mg-200 00:00: 00:00 oral route mg-10 mg 00 :00 once daily tablet with food [place] 150 take 1 [facility] mg-150 30 - tablet by [facility] mg-200 00:00: 00:00 oral route mg-10 mg 00 :00 once daily tablet with food [place] 150 take 1 [facility] mg-150 30 - tablet by [facility] mg-200 00:00: 00:00 oral route mg-10 mg 00 :00 once daily tablet with food [place] 150 2019- No take 1 [facility] mg-150 -30 - tablet by [facility] mg-200 00:00: 00:00 oral route mg-10 mg 00 :00 once daily tablet with food [place] 150 No take 1 [facility] mg-150 -30 - tablet by [facility] mg-200 00:00: 00:00 oral route mg-10 mg 00 :00 once daily tablet with food [place] 150 2019- No take 1 [facility] mg-150 -30 07-17 tablet by ealth mg-200 00:00: 00:00 oral route mg-10 mg 00 :00 once daily tablet with food [place] 150 No take 1 [facility] mg-150 -30 07-17 tablet by ealth mg-200 00:00: 00:00 oral route mg-10 mg 00 :00 once daily tablet with food cetirizine No take 1 [facility] 10 mg 9-24 tablet (10 ealth tablet 00:00: mg) by 00 oral route once daily cetirizine No take 1 [facility] 10 mg 9-24 tablet (10 [facility] tablet 00:00: mg) by 00 oral route once daily cetirizine No take 1 [facility] 10 mg 9-24 tablet (10 [facility] tablet 00:00: mg) by 00 oral route once daily cetirizine No take 1 [facility] 10 mg 9-24 tablet (10 e[facility] tablet 00:00: mg) by 00 oral route once daily cetirizine No take 1 [facility] 10 mg 9-24 tablet (10 e[facility] tablet 00:00: mg) by 00 oral route once daily cetirizine No take 1 [facility] 10 mg 9-24 tablet (10 e[facility] tablet 00:00: mg) by 00 oral route once daily cetirizine No take 1 [facility] 10 mg 9-24 tablet (10 e[facility] tablet 00:00: mg) by 00 oral route once daily cetirizine No take 1 [facility] 10 mg 9-24 tablet (10 ealth tablet 00:00: mg) by 00 oral route once daily cetirizine No take 1 [facility] 10 mg 9-24 tablet (10 e[facility] tablet 00:00: mg) by 00 oral route once daily cetirizine No take 1 [facility] 10 mg 9-24 tablet (10 e[facility] tablet 00:00: mg) by 00 oral route once daily cetirizine No take 1 [facility] 10 mg 9-24 tablet (10 e[facility] tablet 00:00: mg) by 00 oral route once daily cetirizine No take 1 [facility] 10 mg 9-24 tablet (10 ealth tablet 00:00: mg) by 00 oral route once daily cetirizine No take 1 [facility] 10 mg 9-24 tablet (10 ealth tablet 00:00: mg) by 00 oral route once daily cetirizine No take 1 [facility] 10 mg 9-24 tablet (10 e[facility] tablet 00:00: mg) by 00 oral route once daily cetirizine No take 1 [facility] 10 mg 9-24 tablet (10 e[facility] tablet 00:00: mg) by 00 oral route once daily cetirizine No take 1 [facility] 10 mg 9-24 tablet (10 ealth tablet 00:00: mg) by 00 oral route once daily cetirizine No take 1 [facility] 10 mg 9-24 tablet (10 e[facility] tablet 00:00: mg) by 00 oral route once daily cetirizine No take 1 [facility] 10 mg 9-24 tablet (10 e[facility] tablet 00:00: mg) by 00 oral route once daily cetirizine No take 1 [facility] 10 mg 9-24 tablet (10 ealth tablet 00:00: mg) by 00 oral route once daily cetirizine No take 1 [facility] 10 mg 9-24 tablet (10 ealth tablet 00:00: mg) by 00 oral route once daily cetirizine No take 1 [facility] 10 mg 9-24 tablet (10 e[facility] tablet 00:00: mg) by 00 oral route once daily cetirizine 2018-0 No take 1 [facility] 10 mg 9-24 tablet (10 e[facility] tablet 00:00: mg) by 00 oral route once daily permethrin 2018-0 No apply by [facility] 5 % topical 6-21 Topical [facility] cream 00:00: route 1 00 time per day apply to skin from neck down and leave it for 8-14 hours. then rinse. permethrin 2018-0 No apply by [facility] 5 % topical 6-21 Topical ealth cream 00:00: route 1 00 time per day apply to skin from neck down and leave it for 8-14 hours. then rinse. permethrin 2018-0 No apply by [facility] 5 % topical 6-21 Topical ealth cream 00:00: route 1 00 time per day apply to skin from neck down and leave it for 8-14 hours. then rinse. permethrin 2018-0 No apply by [facility] 5 % topical 6-21 Topical ealth cream 00:00: route 1 00 time per day apply to skin from neck down and leave it for 8-14 hours. then rinse. permethrin 2018-0 No apply by [facility] 5 % topical 6-21 Topical ealth cream 00:00: route 1 00 time per day apply to skin from neck down and leave it for 8-14 hours. then rinse. permethrin 2018-0 No apply by [facility] 5 % topical 6-21 Topical ealth cream 00:00: route 1 00 time per day apply to skin from neck down and leave it for 8-14 hours. then rinse. permethrin 2018-0 No apply by [facility] 5 % topical 6-21 Topical ealth cream 00:00: route 1 00 time per day apply to skin from neck down and leave it for 8-14 hours. then rinse. permethrin 2018-0 No apply by [facility] 5 % topical 6-21 Topical ealth cream 00:00: route 1 00 time per day apply to skin from neck down and leave it for 8-14 hours. then rinse. permethrin 2018-0 No apply by [facility] 5 % topical 6-21 Topical ealth cream 00:00: route 1 00 time per day apply to skin from neck down and leave it for 8-14 hours. then rinse. permethrin 2018-0 No apply by [facility] 5 % topical 6-21 Topical ealth cream 00:00: route 1 00 time per day apply to skin from neck down and leave it for 8-14 hours. then rinse. permethrin 2018-0 No apply by [facility] 5 % topical 6-21 Topical ealth cream 00:00: route 1 00 time per day apply to skin from neck down and leave it for 8-14 hours. then rinse. permethrin 2018-0 No apply by [facility] 5 % topical 6-21 Topical ealth cream 00:00: route 1 00 time per day apply to skin from neck down and leave it for 8-14 hours. then rinse. permethrin 2018-0 No apply by [facility] 5 % topical 6-21 Topical ealth cream 00:00: route 1 00 time per day apply to skin from neck down and leave it for 8-14 hours. then rinse. permethrin 2018-0 No apply by [facility] 5 % topical 6-21 Topical ealth cream 00:00: route 1 00 time per day apply to skin from neck down and leave it for 8-14 hours. then rinse. permethrin 2018-0 No apply by [facility] 5 % topical 6-21 Topical ealth cream 00:00: route 1 00 time per day apply to skin from neck down and leave it for 8-14 hours. then rinse. permethrin 2018-0 No apply by [facility] 5 % topical 6-21 Topical ealth cream 00:00: route 1 00 time per day apply to skin from neck down and leave it for 8-14 hours. then rinse. permethrin 2018-0 No apply by [facility] 5 % topical 6-21 Topical ealth cream 00:00: route 1 00 time per day apply to skin from neck down and leave it for 8-14 hours. then rinse. permethrin 2018-0 No apply by [facility] 5 % topical 6-21 Topical ealth cream 00:00: route 1 00 time per day apply to skin from neck down and leave it for 8-14 hours. then rinse. permethrin 2018-0 No apply by [facility] 5 % topical 6-21 Topical ealth cream 00:00: route 1 00 time per day apply to skin from neck down and leave it for 8-14 hours. then rinse. permethrin 2018-0 No apply by [facility] 5 % topical 6-21 Topical ealth cream 00:00: route 1 00 time per day apply to skin from neck down and leave it for 8-14 hours. then rinse. permethrin 2018-0 No apply by [facility] 5 % topical 6-21 Topical ealth cream 00:00: route 1 00 time per day apply to skin from neck down and leave it for 8-14 hours. then rinse. permethrin 2018-0 No apply by [facility] 5 % topical 6-21 Topical ealth cream 00:00: route 1 00 time per day apply to skin from neck down and leave it for 8-14 hours. then rinse. Acetaminoph 2016- No Notes: Do M emoria en 17 not exceed l 18:07: 4 gm/day. Oneil 00 (Same as: Tylenol) Immunizations Ordered Filled Date Status Comments Source Immunization Name Immunization Name Tdap 2022-09-25 Completed Source: [facility] 3 Immunization 00:00:00 Record Tdap 2022-09-25 Completed Source: [facility] 3 Immunization 00:00:00 Record Vital Signs Vital Name Observation Time Observation Value Comments Source Body height 2022-10-07 15:08:00 162.56 cm [facility] Body Weight 2022-10-07 15:08:00 59.058 kg [facility] Systolic 2022-10-07 15:08:00 117 mm[Hg] [facility] 2022-10-07 15:08:00 83 mm[Hg] [facility] Diastolic Heart Rate 2022-10-07 15:08:00 100 /min [facility] Body Temperature 2022-10-07 15:08:00 36.44 [facility] Respiratory rate 2022-10-07 15:08:00 18 /min [facility] Body mass index 2022-10-07 15:08:00 22.35 [facility]2 [facility] 2022-10-07 15:08:00 96 /min [facility] Body height 2022-06-01 15:42:00 162.56 cm [facility] Body Weight 2022-06-01 15:42:00 60.781 kg [facility] Systolic 2022-06-01 15:42:00 111 mm[Hg] [facility] 2022-06-01 15:42:00 78 mm[Hg] [facility] Diastolic Heart Rate 2022-06-01 15:42:00 90 /min [facility] Body Temperature 2022-06-01 15:42:00 36.89 [facility] Respiratory rate 2022-06-01 15:42:00 18 /min [facility] Body mass index 2022-06-01 15:42:00 23.00 [facility] P[facility]Ox 2022-06-01 15:42:00 96 /min [facility] Body height 2021-10-27 16:34:00 162.56 cm [facility] Body Weight 2021-10-27 16:34:00 58.060 kg [facility] Systolic 2021-10-27 16:34:00 112 mm[Hg] [facility] 2021-10-27 16:34:00 73 mm[Hg] [facility] Diastolic Heart Rate 2021-10-27 16:34:00 79 /min [facility] Body Temperature 2021-10-27 16:34:00 36.89 [facility] Respiratory rate 2021-10-27 16:34:00 18 /min [facility] Body mass index 2021-10-27 16:34:00 21.97 kg/m2 [facility] % [facility] PulseOx 2021-10-27 16:34:00 98 /min [facility] Body height 2021-02-17 09:44:00 162.56 cm [facility] Body Weight 2021-02-17 09:44:00 58.967 kg [facility] Systolic 2021-02-17 09:44:00 107 mm[Hg] [facility] 2021-02-17 09:44:00 71 mm[Hg] [facility] Diastolic Heart Rate 2021-02-17 09:44:00 96 /min [facility] Body Temperature 2021-02-17 09:44:00 37.00 [facility] Body mass index 2021-02-17 09:44:00 22.31 kg/m2 [facility] Body height 2019-08-01 07:48:00 162.56 cm [facility] Body Weight 2019-08-01 07:48:00 55.973 kg [facility] Systolic 2019-08-01 07:48:00 105 mm[Hg] [facility] 2019-08-01 07:48:00 65 mm[Hg] [facility] Diastolic Heart Rate 2019-08-01 07:48:00 92 /min [facility] Body Temperature 2019-08-01 07:48:00 36.67 [facility] Respiratory rate 2019-08-01 07:48:00 18 /min [facility] Body mass index 2019-08-01 07:48:00 21.18 kg/m2 [facility] Body height 2019-07-17 09:49:00 162.56 cm [facility] Body Weight 2019-07-17 09:49:00 54.613 kg [facility] Systolic 2019-07-17 09:49:00 104 mm[Hg] [facility] 2019-07-17 09:49:00 69 mm[Hg] [facility] Diastolic Heart Rate 2019-07-17 09:49:00 73 /min [facility] Body Temperature 2019-07-17 09:49:00 36.89 [facility] Respiratory rate 2019-07-17 09:49:00 18 /min [facility] Body mass index 2019-07-17 09:49:00 20.67 kg/m2 [facility] Body height 2018-07-26 11:23:00 64.00 [in_i] [facility] Body Weight 2018-07-26 11:23:00 115.40 [lb_av] [facility] Systolic 2018-07-26 11:23:00 110 mm[Hg] [facility] 2018-07-26 11:23:00 74 mm[Hg] [facility] Diastolic Heart Rate 2018-07-26 11:23:00 95 /min [facility] Body Temperature 2018-07-26 11:23:00 97.20 [degF] [facility] Respiratory rate 2018-07-26 11:23:00 18 /min [facility] Body mass index 2018-07-26 11:23:00 19.80 kg/m2 [facility] Body height 2018-01-04 08:43:00 64.00 [in_i] [facility] Body Weight 2018-01-04 08:43:00 119.20 [lb_av] [facility] Systolic 2018-01-04 08:43:00 109 mm[Hg] [facility] 2018-01-04 08:43:00 71 mm[Hg] [facility] Diastolic Heart Rate 2018-01-04 08:43:00 99 /min [facility] Body Temperature 2018-01-04 08:43:00 98.90 [degF] [facility] Respiratory rate 2018-01-04 08:43:00 18 /min [facility] Body mass index 2018-01-04 08:43:00 20.50 kg/m2 [facility] Body height 2017-12-15 10:17:00 64.00 [in_i] [facility] Body Weight 2017-12-15 10:17:00 120.00 [lb_av] [facility] Systolic 2017-12-15 10:17:00 94 mm[Hg] [facility] 2017-12-15 10:17:00 62 mm[Hg] [facility] Diastolic Heart Rate 2017-12-15 10:17:00 117 /min [facility] Body Temperature 2017-12-15 10:17:00 99.30 [degF] [facility] Respiratory rate 2017-12-15 10:17:00 18 /min [facility] Body mass index 2017-12-15 10:17:00 20.60 kg/m2 [facility] Body height 2017-08-19 08:44:00 64.00 [in_i] [facility] Body Weight 2017-08-19 08:44:00 119.40 [lb_av] [facility] Systolic 2017-08-19 08:44:00 106 mm[Hg] [facility] 2017-08-19 08:44:00 60 mm[Hg] [facility] Diastolic Heart Rate 2017-08-19 08:44:00 77 /min [facility] Body Temperature 2017-08-19 08:44:00 96.80 [degF] [facility] Respiratory rate 2017-08-19 08:44:00 18 /min [facility] Body mass index 2017-08-19 08:44:00 20.50 kg/m2 [facility] Diastolic (mm Hg) 2017-05-13 20:13:00 [facility] Temperature Oral (F) 2017-05-13 20:13:00 100.4 F [facility] Heart Rate 2017-05-13 20:13:00 [facility] Respitory Rate 2017-05-13 20:13:00 [facility] Systolic (mm Hg) 2017-05-13 20:13:00 [facility] Temperature Oral (F) 2017-05-13 18:26:00 100.3 F [facility] Weight 2017-05-13 16:17:00 [facility] BMI Calculated 2017-05-13 16:17:00 [facility] Heart Rate 2017-05-13 16:17:00 [facility] Temperature Oral (F) 2017-05-13 16:17:00 100 F [facility] Respitory Rate 2017-05-13 16:17:00 [facility] Height 2017-05-13 16:17:00 160.02 cm [facility] Systolic (mm Hg) 2017-05-13 16:17:00 [facility] Diastolic (mm Hg) 2017-05-13 16:17:00 [facility] Body height 2016-07-28 14:26:00 64.00 [in_i] [facility] Body Weight 2016-07-28 14:26:00 117.40 [lb_av] [facility] Systolic 2016-07-28 14:26:00 110 mm[Hg] [facility] 2016-07-28 14:26:00 71 mm[Hg] [facility] Diastolic Heart Rate 2016-07-28 14:26:00 86 /min [facility] Body Temperature 2016-07-28 14:26:00 98.10 [degF] [facility] Respiratory rate 2016-07-28 14:26:00 18 /min [facility] Body mass index 2016-07-28 14:26:00 20.10 kg/m2 [facility] Body height 2016-05-31 13:56:00 64.00 [in_i] [facility] Body Weight 2016-05-31 13:56:00 115.08 [lb_av] [facility] Systolic 2016-05-31 13:56:00 111 mm[Hg] [facility] 2016-05-31 13:56:00 80 mm[Hg] [facility] Diastolic Heart Rate 2016-05-31 13:56:00 74 /min [facility] Body Temperature 2016-05-31 13:56:00 98.00 [degF] [facility] Respiratory rate 2016-05-31 13:56:00 16 /min [facility] Body mass index 2016-05-31 13:56:00 19.80 kg/m2 [facility] Body height 2016-03-10 11:18:00 64.00 [in_i] [facility] Body Weight 2016-03-10 11:18:00 117.04 [lb_av] [facility] Systolic 2016-03-10 11:18:00 117 mm[Hg] [facility] 2016-03-10 11:18:00 71 mm[Hg] [facility] Diastolic Heart Rate 2016-03-10 11:18:00 88 /min [facility] Body Temperature 2016-03-10 11:18:00 97.90 [degF] [facility] Respiratory rate 2016-03-10 11:18:00 16 /min [facility] Body mass index 2016-03-10 11:18:00 20.10 kg/m2 [facility] Body height 2015-12-18 10:59:00 64.00 [in_i] [facility] Body Weight 2015-12-18 10:59:00 115.00 [lb_av] [facility] Systolic 2015-12-18 10:59:00 113 mm[Hg] [facility] 2015-12-18 10:59:00 79 mm[Hg] [facility] Diastolic Heart Rate 2015-12-18 10:59:00 107 /min [facility] Body Temperature 2015-12-18 10:59:00 98.30 [degF] [facility] Respiratory rate 2015-12-18 10:59:00 20 /min [facility] Body mass index 2015-12-18 10:59:00 19.70 kg/m2 [facility] Body height 2015-10-22 15:23:00 64.00 [in_i] [facility] Body Weight 2015-10-22 15:23:00 118.00 [lb_av] [facility] Systolic 2015-10-22 15:23:00 120 mm[Hg] [facility] 2015-10-22 15:23:00 83 mm[Hg] [facility] Diastolic Heart Rate 2015-10-22 15:23:00 75 /min [facility] Body Temperature 2015-10-22 15:23:00 97.80 [degF] [facility] Respiratory rate 2015-10-22 15:23:00 18 /min [facility] Body mass index 2015-10-22 15:23:00 20.30 kg/m2 [facility] Procedures Procedure Date / Time Performed Performing Clinician [facility] e IMMUNIZATION ADMIN 2022-10-07 00:00:00 [facility] TDAP VACCINE 7 YRS/> IM 2022-10-07 00:00:00 [facility] OFFICE/OUTPATIENT VISIT EST 2022-10-07 00:[facility]/RATIO 2022-09-21 00:00[facility] COMPREHEN METABOLIC PANEL 2022-09-21 00:00:00 [facility] LIPID PANEL 2022-09-21 00:00:00 [facility] ACUTE HEPATITIS PANEL 2022-09-21 00:00:00 [facility] CHYLMD TRACH DNA AMP PROBE 2022-09-21 00:00:00 [facility] HIV-1 QUANT&REVRSE TRNSCRPJ 2022-09-21 00:00:00 [facility] IMMUNOASSAY INFECTIOUS AGENT 2022-09-21 00:00:00 [facility] VITAMIN D 25 HYDROXY 2022-09-21 00:00:00 [facility] PREV VISIT EST AGE 18-39 2022-06-01 00:00[facility] 2021-10-27 00:00[facility] T CELL ABSOLUTE COUNT/RATIO 2021-10-27 00:00:00 [facility] COMPREHEN METABOLIC PANEL 2021-10-27 00:00:00 [facility] LIPID PANEL 2021-10-27 00:00:00 [facility] HIV-1 QUANT&REVRSE TRNSCRPJ 2021-10-27 00:00:00 [facility] VITAMIN D 25 HYDROXY 2021-10-27 00:00:00 [facility] MEDICAL LEGAL PROGRAM 2021-04-23 00:00:00 [facility] PHONE CALL TO 2021-04-23 00:00:[facility] 2021-04-23 00:00:00 [facility] PHONE CALL TO 2021-04-23 00:00:00 [facility] OFFICE/OUTPATIENT VISIT EST 2021-02-17 00:00:00 [facility] T CELL ABSOLUTE COUNT/RATIO 2021-02-17 00:00:00 [facility] COMPREHEN METABOLIC PANEL 2021-02-17 00:00:00 [facility] CHYLMD TRACH DNA AMP PROBE 2021-02-17 00:00:00 [facility] HIV-1 QUANT&REVRSE TRNSCRPJ 2021-02-17 00:00:00 [facility] SYPHILIS TEST NON-TREP QUAL 2021-02-17 00:00:00 [facility] VIT D 1 25-DIHYDROXY 2021-02-17 00:00:00 [facility] T CELL ABSOLUTE COUNT/RATIO 2019-11-06 00:00:00 [facility] COMPREHEN METABOLIC PANEL 2019-11-06 00:00:00 [facility] LIPID PANEL 2019-11-06 00:00:00 [facility] HIV-1 QUANT&REVRSE TRNSCRPJ 2019-11-06 00:00:00 [facility] SYPHILIS TEST NON-TREP QUAL 2019-11-06 00:00:00 [facility] OFFICE/OUTPATIENT VISIT EST 2019-10-30 00:00:00 [facility] OFFICE/OUTPATIENT VISIT EST 2019-08-01 00:00:00 [facility] PREV VISIT EST AGE 18-39 2019-07-17 00:00:00 [facility] T CELL ABSOLUTE COUNT/RATIO 2019-07-17 00:00:00 [facility] COMPREHEN METABOLIC PANEL 2019-07-17 00:00:00 [facility] LIPID PANEL 2019-07-17 00:00:00 [facility] CHYLMD TRACH DNA AMP PROBE 2019-07-17 00:00:00 [facility] HIV-1 QUANT&REVRSE TRNSCRPJ 2019-07-17 00:00:00 [facility] VITAMIN D 25 HYDROXY 2019-07-17 00:00:00 [facility] SYPHILIS TEST NON-TREP QUAL 2019-07-17 00:00:00 [facility] Encounters Start End Encounter Admission Attending Care Care Encounter Source Date/Time Date/Time Type Type Clinicians Facility Department ID 2022-09-30 Outpatient l[facility] [id number] [facility] 15:49:03 [id number] [facility] 2022-09-24 Outpatient .[facility] [id number] [facility] 14:07:05 [id number] Critical access hospital 2022-09-23 Outpatient l[facility] [id number] [facility] 07:55:01 [id number] Critical access hospital 2022-10-18 2022-10-18 Outpatient [facility], [facility] [id number] Access 13:13:00 13:13:00 BHAVANI [facility] 2022-10-18 2022-10-18 Outpatient [facility], [facility] [id number] Access 13:13:00 13:13:00 BHAVANI [id number] [facility] [id number] c82 [id number] 2022-10-07 2022-10-07 Outpatient JOHNSON, [facility] [id number] [facility] 14:45:00 14:45:00 SAIRA [facility] 2022-10-07 2022-10-07 OFFICE/OUT JOHNSON, [facility] [id number] [facility] 14:45:00 14:45:00 PATIENT SAIRA [id number] [facility] [id number] [id number] 2022-09-28 2022-09-28 Outpatient JOHNSON, [facility] [id number] [facility] 12:24:00 12:24:00 SAIRA [facility] 2022-09-28 2022-09-28 Outpatient JOHNSON, [facility] [id number] Access 12:24:00 12:24:00 SAIRA [id number] [id number] [facility] [id number] 0f4 [id number] 2022-09-27 2022-09-27 Outpatient [facility], [facility] [id number] [facility] 09:37:00 09:37:00 BHAVANI [facility] 2022-09-23 2022-09-23 Outpatient [facility], [facility] [id number] [facility] 01:38:00 01:38:00 BHAVANI macias 2022-09-23 2022-09-23 [id number] Access 01:38:00 01:38:00 BHAVANI [id number] ealth [id number] 2022-09-22 2022-09-22 Outpatient VIDA, [facility] [id number] Access 11:29:00 11:29:00 BHAVNAI ea 2022-09-22 2022-09-22 [id number] Access 11:29:00 11:29:00 BHAVANI [id number] ealt [id number] 2022-09-21 2022-09-21 Outpatient VIDA, [facility] [id number] Access 15:25:00 15:25:00 BHAVANI ealt 2022-09-21 2022-09-21 [id number] Access 15:25:00 15:25:00 BHAVANI [id number] ealt [id number] [id number] 2022-09-21 2022-09-21 Outpatient VIDA, [facility] [id number] Access 14:42:00 14:42:00 BHAVANI ealt 2022-09-21 2022-09-21 [id number] Access 14:42:00 14:42:00 BHAVANI [id number] ealt [id number] [id number] 2022-09-21 2022-09-21 Outpatient VIDA, [facility] [id number] Access 14:39:00 14:39:00 BHAVANI ealt 2022-07-19 2022-07-19 Outpatient NURSE, [facility] [id number] [facility] 10:19:00 10:19:00 [facility] 2022-07-19 2022-07-19 Outpatient NURSE, [facility] [id number] [facility] 10:19:00 10:19:00 NURSE [id number] [id number] [facility] [id number] 0f4 [id number] 2022-07-15 2022-07-15 Outpatient JOHNSON, [facility] [id number] Access 06:52:00 06:52:00 KATELINE ealt 2022-07-15 2022-07-15 Outpatient JOHNSON, [facility] [id number] [facility] 06:52:00 06:52:00 KATELINE [id number] [id number] lt [id number] [id number] 2022-07-14 2022-07-14 Outpatient JOHNSON, [facility] [id number] Access 16:13:00 16:13:00 KATELINE ealt 2022-07-14 2022-07-14 Outpatient JOHNSON, [facility] [id number] [facility] 16:13:00 16:13:00 KATELINE [id number] [facility] [id number] c82 [id number] 2022-06-01 2022-06-01 Outpatient JOHNSON, [facility] [id number] [facility] 16:00:00 16:00:00 KATELINE ealt 2022-06-01 2022-06-01 PREV VISIT JOHNSON, [facility] [id number] [facility] 16:00:00 16:00:00 EST AGE KATELINE [id number] [id number] [facility] [id number] 2022-04-14 2022-04-14 Outpatient VENTURA, [facility] [id number] [facility] 13:05:00 13:05:00 ealt 2022-04-14 2022-04-14 Outpatient YEE VENTURA [facility] [id number] [facility] 13:05:00 13:05:00 [id number] [id number] ealt [id number] 0f4 [id number] 2022-01-11 2022-01-11 [facility] [id number] [place] 02:47:00 02:47:00 HAN 0718 [facility] 2021-12-15 2021-12-15 Outpatient JOHNSON, [facility] [id number] Access 14:33:00 14:33:00 KATELINE ealt 2021-12-15 2021-12-15 Outpatient JOHNSON, [facility] [id number] Access 14:33:00 14:33:00 KATELINE [id number] [id number] [facility] [id number] 0f4 [id number] 2021-11-18 2021-11-18 Outpatient JOHNSON, [facility] [id number] Access 14:30:00 14:30:00 KATELINE ealt 2021-11-18 2021-11-18 Outpatient JOHNSON, [facility] [id number] Access 14:30:00 14:30:00 KATELINE e2-2qv5-94g [id number] ealt [id number] 0f4 [id number] 2021-11-06 2021-11-06 Outpatient JOHNSON, [facility] [id number] Access 09:50:00 09:50:00 KATELINE ealt 2021-11-06 2021-11-06 Outpatient JOHNSON, [facility] [id number] [facility] 09:50:00 09:50:00 SAIRA e2-5sa1-14u [id number] [facility] [id number] 2021-10-27 2021-10-27 Outpatient JOHNSON, [facility] [id number] Access 16:00:00 16:00:00 SAIRA [facility] 2021-10-27 2021-10-27 OFFICE/OUT JOHNSON, [facility] [id number] Access 16:00:00 16:00:00 PATIENT SAIRA [id number] [id number] [facility] VISIT [facility] [id number] 2021-09-08 2021-09-08 Outpatient NURSE, [facility] [id number] Access 07:18:00 07:18:00 NURSE [facility] 2021-09-08 2021-09-08 Outpatient NURSE, [facility] [id number] Access 07:18:00 07:18:00 NURSE [id number] [facility] [id number] c82 [id number] 2021-08-13 2021-08-13 Outpatient NURSE, [facility] [id number] Access 14:34:00 14:34:00 NURSE [facility] 2021-08-13 2021-08-13 Outpatient NURSE, [facility] [id number] Access 14:34:00 14:34:00 NURSE e2-3yz7-42i [id number] [facility] [id number] [id number] [id number] 2021-04-23 2021-04-23 Outpatient LAMONT AVILEZ [facility] [id number] Access 14:48:00 14:48:00 [facility] 2021-04-23 2021-04-23 Outpatient LAMONT AVILEZ [facility] [id number] Access 14:48:00 14:48:00 e2-5af1-81p [id number] [facility] [id number] [id number] 2021-02-24 2021-02-24 Outpatient NURSE, [facility] [id number] Access 09:15:00 09:15:00 NURSE [facility] 2021-02-24 2021-02-24 Outpatient NURSE, [facility] [id number] Access 09:15:00 09:15:00 NURSE [id number] [facility] [id number] 2021-02-17 Outpatient BOLANOS, [facility] [id number] Access 11:13:00 11:13:00 LEONIDES [facility] 2021-02-17 2021-02-17 Outpatient CICI, [facility] [id number] Access 11:13:00 11:13:00 LEONIDES [id number] [facility] [id number] c82 [id number] 2021-02-17 2021-02-17 Outpatient JOHNSON, [facility] [id number] Access 09:30:00 09:30:00 KATYSABEL [facility] 2021-02-17 2021-02-17 OFFICE/OUT JOHNSON, [facility] [id number] Access 09:30:00 09:30:00 PATIENT SAIRA [id number] [facility] VISIT EST [id number] 2021-01-21 2021-01-21 Outpatient CICI, [facility] [id number] Access 09:22:00 09:22:00 LEONIDES lt 2021-01-21 2021-01-21 Outpatient CICI, [facility] [id number] Access 09:22:00 09:22:00 LEONIDES [id number] 2021-01-15 2021-01-15 Outpatient CICI, [facility] [id number] Access 15:19:00 15:19:00 LEONIDES [facility] 2021-01-15 2021-01-15 Outpatient CICI, [facility] gttl53xq-b4 e8b ty57m-y Access 15:19:00 15:19:00 LEONIDES e9-44df-910 t86-0hs0-2 lt 4-2j8s7pt46 81d-941145 c82 76476n 2020-09-11 2020-09-11 Outpatient NURSE, [facility] [id number] Access 13:07:00 13:07:00 NURSE [facility] 2020-09-11 2020-09-11 Outpatient NURSE, [facility] 7tp2c7q1-5d 72f 0002d-8 Access 13:07:00 13:07:00 NURSE e2-7nk2-18i 43d-4af5-b ealt 0-ia5ojd366 120-43r306 0f4 6aaff9 2020-06-11 2020-06-11 Outpatient NURSE, [facility] [id number] Access 09:56:00 09:56:00 NURSE [facility] 2020-06-11 2020-06-11 Outpatient NURSE, [facility] 7of6t4n1-3v 897 m621e-s Access 09:56:00 09:56:00 NURSE e2-7eb6-19u 223-47b8-a lt 0-mv7qru694 491-1x784h 0f4 8a4ac9 2020-05-14 2020-05-14 Outpatient baljinder_nam [facility] [address] 02:38:00 02:38:00 [facility] 2019-11-21 2019-11-21 Outpatient NURSE, [facility] 5fb7i1w5-2i e0d [id number]-h Access 15:45:00 15:45:00 NURSE e2-5dx4-76f 44c-4e3d-b ealt 0-ps9tjq018 301-s7455n 0f4 31beab 2019-11-21 2019-11-21 Outpatient NURSE, [facility] 3vo5e6f6-0d 59b [id number]-1 [facility] 10:40:00 10:40:00 NURSE e2-2bg4-59d 517-43ea-b ealth 0-hh0vpj369 99b-d986b7 0f4 2l593u 2019-11-14 2019-11-14 Outpatient JOHNSON, [facility] 5ig2l5r8-5j b6c 46z91-0 [facility] 16:23:00 16:23:00 KATELINE e2-2lz2-13w 920-41e5- 9 ealth 0-il6rhf239 aaf-8a5dca 0f4 rz0619 2019-10-30 2019-10-30 OFFICE/OUT JOHNSON, [facility] 5rn0a8n5-3o e89 736fe-7 [facility] 14:32:00 14:32:00 PATIENT KATELINE e2-8sg2-14n 3p5-9fn2- 9 ealth VISIT EST 0-pj8woi336 bed-d33d53 0f4 8adf63 2019-10-30 2019-10-30 Outpatient JOHNSON, [facility] 1cj2u0i8-6g 32f 8d15b-3 [facility] 14:30:00 14:30:00 KATELINE e2-4yb1-95u c46-503q- b ealth 0-dd6aje867 05d-lk3646 0f4 9ef5bf 2019-10-24 2019-10-24 Outpatient JOHNSON, [facility] 7kd2x2s5-7p 8fb x8nq3-6 [facility] 14:37:00 14:37:00 KATELINE e2-2oz0-91z 7k5-4gg9- a ealth 0-na0xsn615 5cf-d881fd 0f4 bf35bc 2019-10-08 2019-10-08 Outpatient JOHNSON, [facility] jcus93xr-u1 6c7 dy8l1-4 [facility] 16:07:00 16:07:00 KATELINE e9-44df-910 f58-9911- 9 ealth 4-7g6w1jd22 2e3-o12838 c82 af73ae 2019-08-08 2019-08-08 Outpatient NURSE, [facility] 7jx9o6e6-8n e1d [id number] [facility] 10:50:00 10:50:00 NURSE e2-9vz4-81m 4x3-2814-l ealth 0-gy2ydn270 5l8-5b3z58 0f4 75v318 2019-08-01 2019-08-01 OFFICE/OUT JOHNSON, [facility] 3jv6w2p4-2z cbf 365h1-3 Access[facility] 07:30:00 07:30:00 PATIENT SAIRA e2-4xp3-19a ac6-4667- 8 ealth VISIT EST 0-nl0itz993 de4-387d93 0f4 63605s 2019-07-26 2019-07-26 Outpatient NURSE, [facility] 1vo9j5g4-8o ab4 [id number] [facility] 09:43:00 09:43:00 NURSE e2-6tc5-25v 090-4a04-b ealth 0-hm1pie778 2g3-579128 0f4 4fcaca 2019-07-25 2019-07-25 Outpatient JOHNSON, [facility] 4pz7h1s9-9w 021 fec08-b Access[facility] 15:54:00 15:54:00 SAIRA e2-9lx5-11q 86e-4991- a ealth 0-pz9eth303 04c-e01ff7 0f4 c2fcc7 2019-07-17 2019-07-17 Outpatient BOLANOS, [facility] 3vp6l2w2-6e 390 7963f-7 Access[facility] 15:59:00 15:59:00 LEONIDES e2-2wt6-97g c4p-56a1-9 ealth 0-jn8tzo753 404-7t1921 0f4 3l446s 2019-07-17 2019-07-17 PREV VISIT JOHNSON, [facility] 3lj8g6f1-2f 4b4 7n38r-7 Access[facility] 09:30:00 09:30:00 EST AGE SAIRA e2-9im6-36u ff6-428c- 9 ealth 18-39 0-ph0bdv975 253-t28462 0f4 ozj692 2018-08-07 2018-08-07 Outpatient JOHNSON, [facility] 0kp3u8u0-8d 05f j4731-1 Access[facility] 00:00:00 00:00:00 KATELINE e2-4ih4-18v 870-4c7e- 8 ealt 0-nr4acb372 8bf-6bcaee 0f4 5dc7bc 2018-07-26 2018-07-26 Outpatient JOHNSON, HC 8vv1c4m5-1t 4eb 19bbe-3 Access[facility] 11:23:00 11:23:00 KATELINE e2-9cz4-53e 832-4030- b ealt 0-gx7ofr862 8q4-9gje17 0f4 f46f43 2018-07-26 2018-07-26 Outpatient [facility] 126 [id number] Access[facility] 00:00:00 00:00:00 H, PROVIDER samantha [facility] 2018-07-26 2018-07-26 Outpatient [facility] 2nq9d6j1-2m x1000s65-s Access[facility] 00:00:00 00:00:00 H, PROVIDER e2-3qm1-45v 85c-4a 21-8 ealt 0-sa9yiz270 72e-n9109m 0f4 4k0214 2018-07-26 2018-07-26 Outpatient [facility] 8rr3u3f8-4u 1n5p7fq2-7 Access[facility] 00:00:00 00:00:00 , e2-0nm2-41p 218-4917-8 ealt MARLEN 0-ra7uzv253 029-e18cf 6 0f4 32714a 2018-06-14 2018-06-14 Outpatient [facility] 126 [id number] Access[facility] 00:00:00 00:00:00 H, PROVIDER [facility] 2018-06-14 2018-06-14 Outpatient [facility] 5hj2i0w1-9w c1y3s92t-u Access[facility] 00:00:00 00:00:00 H, PROVIDER e2-2cc9-95j 6bb-49 76-a ealth 0-rk2uxi258 769-5acbe3 0f4 6962d3 2018-03-28 2018-03-28 Outpatient [facility] 126 [id number] Access 00:00:00 00:00:00 H, PROVIDER samantha sequeira 2018-03-28 2018-03-28 Outpatient [facility] 2ar7q9k1-8l 2r4h6742-e Access 00:00:00 00:00:00 H, PROVIDER derick3gx1-12p 015-40 38-a [facility] 0-tl5tje192 dbc-c043c2 0f4 d0c42e 2018-03-22 2018-03-22 Outpatient [facility] 126 [id number] Access 00:00:00 00:00:00 H, PROVIDER samantha sequeira 2018-03-22 2018-03-22 Outpatient [facility] 7si9k7v5-8s tu82ehee-5 Access 00:00:00 00:00:00 H, PROVIDER mona3im3-77d 5d7-47 6f-b [facility] 0-xt5ayz699 c1r-j8914b 0f4 d625c5 2018-03-20 2018-03-20 Outpatient [facility] 126 [id number] Access 00:00:00 00:00:00 H, PROVIDER samantha sequeira 2018-03-20 2018-03-20 Outpatient [facility] 9if7x7g8-0a 9f7634q9-6 Access 00:00:00 00:00:00 H, PROVIDER pratik9na9-36v 1f9-41 f3-9 [facility] 0-rb6vtp024 280-a4j044 0f4 adbcef 2018-03-20 2018-03-20 Outpatient JOHNSON, HC 2jv5q5b7-9z d78 m6zo9-2 Access 00:00:00 00:00:00 KATELINE yuly-4cd4-92i 3s6-611c- b [facility] 0-gr2yzl280 2ea-50cb25 0f4 f11cc6 2018-03-10 2018-03-10 Outpatient [facility] 126 [id number] Access 00:00:00 00:00:00 H, PROVIDER [facility] 2018-03-10 2018-03-10 Outpatient [facility] 2zm5g5w6-4b n34w0428-4 Access[facility] 00:00:00 00:00:00 H, PROVIDER e2-2it7-68b a00-41 e4-9 ealt 0-ds2hho625 q88-0ja474 0f4 c1ed76 2018-03-10 2018-03-10 Outpatient [facility] 9tl7b8x9-0u 1n384198-1 Access[facility] 00:00:00 00:00:00 , e2-0cm7-51v 991-46aa-8 [facility] MARLEN 0-dh9yma306 df9-4005c 3 0f4 q42812 2018-03-09 2018-03-09 Outpatient [facility] 126 [id number] Access[facility] 00:00:00 00:00:00 H, PROVIDER [facility] 2018-03-09 2018-03-09 Outpatient [facility] 9gk2f2d0-2t uy8yx5e9-7 Access[facility] 00:00:00 00:00:00 H, PROVIDER e2-6fi0-33o 0c7-4b c7-9 [facility] 0-js0brs256 17d-c6f66a 0f4 b3ad68 2018-02-17 2018-02-17 Outpatient [facility] 126 [id number] Access[facility] 00:00:00 00:00:00 H, PROVIDER [facility] 2018-02-17 2018-02-17 Outpatient JOHNSON, [facility] 1ty4y5a9-8v d07 2554a-8 Access[facility] 00:00:00 00:00:00 KATELINE e2-5gg6-12d v23-1ofu- a ealt 0-aw7iea853 63c-043a56 0f4 517ca5 2018-02-17 2018-02-17 Outpatient JOHNSON, [facility] uwow44sh-r7 e2b 01b7f-7 Access[facility] 00:00:00 00:00:00 KATELINE e9-44df-910 j17-770t- b ealt 4-9g4l0zg69 311-5s233l c82 b397be 2018-02-17 2018-02-17 Outpatient [facility] 4je3e1c3-7j 56586g96-2 Access[facility] 00:00:00 00:00:00 H, PROVIDER e2-5es6-13l 93e-47 88-9 ealt 0-iv6fih473 80b-822069 0f4 bc3ffc 2018-02-14 2018-02-14 Outpatient [facility] 126 [id number] Access[facility] 00:00:00 00:00:00 H, PROVIDER samantha lt 2018-02-14 2018-02-14 Outpatient [facility] 0lb8m8k4-7k 534g1877-y Access[facility] 00:00:00 00:00:00 H, PROVIDER e2-6ru1-60p 219-43 41-9 ealth 0-bd0qpt540 79f-l93515 0f4 a737f1 2018-02-14 2018-02-14 Outpatient JOHNSON, HC 0ml4d2f7-2p 843 814i1-8 Access[facility] 00:00:00 00:00:00 KATELINE e2-4lq5-54d 9fd-4d54- 8 ealt 0-gn4qak479 g49-5z7647 0f4 7e9395 2018-02-14 2018-02-14 Outpatient [facility] 0ua4h8t5-7t 5sg6ml2k-i Access[facility] 00:00:00 00:00:00 , e2-9mv2-52t 0k1-51ff-u ealth MARLEN 0-qm6ybe553 7eb-d0547 a 0f4 8db6c9 2018-02-07 2018-02-07 Outpatient [facility] 126 [id number] Access[facility] 00:00:00 00:00:00 H, PROVIDER samantha ltshagufta 2018-02-07 2018-02-07 Outpatient [facility] 4wt6d6t6-3f h2w372mb-1 Access[facility] 00:00:00 00:00:00 H, PROVIDER e2-8ne0-47j 5e7-4a 45-a ealth 0-qt7wch752 bf5-41ca6a 0f4 a93cef 2018-02-02 2018-02-02 Outpatient [facility] 126 [id number] Access[facility] 00:00:00 00:00:00 H, PROVIDER [facility] 2018-02-02 2018-02-02 Outpatient [facility] 4zp9f0c9-3c ylo52t8s-v Access[facility] 00:00:00 00:00:00 H, PROVIDER e2-6kt8-88n 3a4-4f d4-b ealt 0-jt5vsy569 10a-529033 0f4 32f544 2018-01-05 2018-01-05 Outpatient JOHNSON, HC 8jq8c3n3-4h 760 06re6-h Access[facility] 00:00:00 00:00:00 KATELINE e2-4fb7-70a x13-6ht5- 9 ealt 0-xo8cjn967 732-27dfc9 0f4 442308 7337-07-11 2018-01-04 Outpatient JOHNSON, HC 7kc4i1n2-8q 112 q90s4-j Access[facility] 08:43:00 08:43:00 KATELINE e2-8pg9-33h 298-417b- 8 ealt 0-nm6bpr915 9i9-pq38e1 0f4 519267 5703-07-11 2018-01-04 Outpatient [facility] 126 [id number] Access[facility] 00:00:00 00:00:00 H, PROVIDER [facility] 2018-01-04 2018-01-04 Outpatient [facility] 6wp8y7l3-9t 7d7f10d5-1 Access[facility] 00:00:00 00:00:00 H, PROVIDER e2-4qi6-65m 0eb-47 39-9 ealth 0-cu7sol184 k8c-9224i3 0f4 51de0b 2018-01-04 2018-01-04 Outpatient [facility] 9su0q0m6-9y 0vc315b3-8 Access[facility] 00:00:00 00:00:00 , e2-1ur8-18m v3g-1827-7 ealth MARLEN 0-oq0edd989 h8p-83t43 2 0f4 f2d88e 2018-01-04 2018-01-04 Outpatient BELLOW, HC 6zy0p1i5-8u 615 bc253-p Access[facility] 00:00:00 00:00:00 KAROLINA e2-4fb7-81w 9z0-9a13-s ealth 0-bg3him202 3u9-7t74tz 0f4 ho800m 2017-12-26 2017-12-26 Outpatient JOHNSON, HC 6oo0i6g1-2h b98 06076-1 Access[facility] 00:00:00 00:00:00 KATELINE e2-6zp2-70k 14c-4f1d- b ealth 0-uh8ibx854 dbd-f839fb 0f4 hr491n 2017-12-22 2017-12-22 Outpatient [facility] 126 [id number] Access[facility] 00:00:00 00:00:00 H, PROVIDER samantha sequeira 2017-12-22 2017-12-22 Outpatient [facility] 2tj7r4l2-7s 34fqx85k-9 Access[facility] 00:00:00 00:00:00 H, PROVIDER e2-5sl0-01f 836-42 e4-9 ealth 0-gx2fco725 0t3-300q7s 0f4 4sd426 2017-12-19 2017-12-19 Outpatient JOHNSON, HC 2dl6g8j4-0d d55 769a3-q Access[facility] 00:00:00 00:00:00 KATELINE e2-3qz8-01w 7eb-440e- 8 ealth 0-iu3voa340 34e-75f0b9 0f4 000892 5657-06-21 2017-12-15 Outpatient JOHNSON, HC 0bg2j8q8-3o 144 979j8-k Access[facility] 10:17:00 10:17:00 KATELINE e2-7kd5-99w y67-67l0- 9 ealth 0-pr1iqr204 s41-i1g568 0f4 i6g188 2017-12-15 2017-12-15 Outpatient [facility] 126 [id number] Access[facility] 00:00:00 00:00:00 H, PROVIDER [facility] 2017-12-15 2017-12-15 Outpatient [facility] 4sp4l7i3-0x 37c3d886-3 Access[facility] 00:00:00 00:00:00 H, PROVIDER derick3ze6-27v 4e2-4c 78-b ealt 0-qs8qss939 671-ce5f39 0f4 6e590b 2017-12-15 2017-12-15 Outpatient BELLOW, [facility] 1yr6z4z9-9l 6d5 c57fp-l Access[facility] 00:00:00 00:00:00 KAROLINA yuly-6pl4-68e ba2-4055-b ealt 0-kn4eua685 83c-d317e5 0f4 97w580 2017-12-15 2017-12-15 Outpatient [facility] 8am9l6w2-1s 79033k0q-9 Access[facility] 00:00:00 00:00:00 , pratik8tc6-68f h1i-2965-s [facility] MARLEN 0-di9hub864 5df-56078 a 0f4 e420d5 2017-12-14 2017-12-14 Outpatient [facility] 126 [id number] Access[facility] 00:00:00 00:00:00 H, PROVIDER [facility] 2017-12-14 2017-12-14 Outpatient [facility] 0ro3b7f3-0q o540548s-d Access[facility] 00:00:00 00:00:00 H, PROVIDER derick8xw8-99q 239-43 83-b ealt 0-zy1ifi947 0h0-54s93b 0f4 622262 1814-06-13 2017-12-07 Outpatient [facility] 126 [id number] Access[facility] 00:00:00 00:00:00 H, PROVIDER samantha azul 2017-12-07 2017-12-07 Outpatient [facility] 2op2i2h4-0y gp268t8m-9 Access[facility] 00:00:00 00:00:00 H, PROVIDER pratik7dv9-08v 46e-47 42-9 ealt 0-an4gcs896 5l0-z60zr5 0f4 e3t963 2017-09-26 2017-09-26 Outpatient [facility] 126 [id number] Access[facility] 00:00:00 00:00:00 H, PROVIDER samantha azul 2017-09-26 2017-09-26 Outpatient [facility] 4ng0k3f2-9c 5j249w16-2 Access[facility] 00:00:00 00:00:00 H, PROVIDER pratik9mz3-26t ae8-46 b4-b [facility] 0-gc9zhw174 7h3-1yhx24 0f4 8c1b9b 2017-08-31 2017-08-31 Outpatient [facility] 126 [id number] Access[facility] 00:00:00 00:00:00 H, PROVIDER samantha sequeira 2017-08-31 2017-08-31 Outpatient [facility] 2vh9e1q4-3d 0w2040hl-g Access 00:00:00 00:00:00 H, PROVIDER pratik9yp8-31h 9f3-49 68-8 [facility] 0-ay4ycw075 6dc-9d49ab 0f4 ef0df0 2017-08-29 2017-08-29 Outpatient [facility] 126 [id number] Access 00:00:00 00:00:00 H, PROVIDER samantha azul 2017-08-29 2017-08-29 Outpatient [facility] 6os3p8a6-8f a34n7641-2 Access 00:00:00 00:00:00 H, PROVIDER pratik7xo8-14n 120-49 70-8 [facility] 0-uz6odh409 3h4-021254 0f4 9g192p 2017-08-25 2017-08-25 Outpatient JOHNSON, HC 4hm5f0o1-2n 51c t3795-9 Access[facility] 00:00:00 00:00:00 KATELINE pratik1xo6-54s 571-447e- a [facility] 0-ta2bvx032 58d-8v0806 0f4 586d81 2017-08-19 2017-08-19 Outpatient JOHNSON, HC 6sm5t6i0-1d 75d 110eb-f Access[facility] 08:44:00 08:44:00 KATELINE e2-2bl1-63j cc7-4e4a- b ealth 0-on6tqg781 3i3-0363a8 0f4 388caa 2017-08-19 2017-08-19 Outpatient [facility] [id number] Access[facility] 00:00:00 00:00:00 H, PROVIDER samantha lt 2017-08-19 2017-08-19 Outpatient [facility] 6gv6p3s5-1q 33y00f4p-8 Access[facility] 00:00:00 00:00:00 H, PROVIDER e2-8oq4-82h 32c-43 b5-8 ealt 0-jx5joa063 9z4-0309bu 0f4 bv3093 2017-08-19 2017-08-19 Outpatient BELLOW, [facility] 7at6p5n6-1g e4c x6e76-w Access[facility] 00:00:00 00:00:00 KAROLINA e2-3if3-15n o34-1389-7 ealt 0-yf1nzd234 be9-cb2da8 0f4 7p355l 2017-08-19 2017-08-19 Outpatient [facility] 1fa7j4g3-0w 5237d2dd-9 Access[facility] 00:00:00 00:00:00 , e2-9pv2-67q 8e0-156f-c ealt MARLEN 0-zo7xvt345 4cb-8b460 d 0f4 mxa622 2017-08-09 2017-08-09 Outpatient JOHNSON, [facility] 8zz3d4c9-4g 78c 2gqq4-0 Access[facility] 00:00:00 00:00:00 KATELINE e2-1ve5-68h 63b-4bd0- b ealth 0-hj6mew982 8b7-74q1wj 0f4 505ece 2017-07-29 2017-07-29 Outpatient [facility] [id number] Access[facility] 00:00:00 00:00:00 H, PROVIDER samantha lth 2017-07-29 2017-07-29 Outpatient [facility] 8ch9x9v5-1b lq7ng669-7 Access[facility] 00:00:00 00:00:00 H, PROVIDER e2-6fg4-90g 662-43 b9-a ealt 0-fn5pri529 203-1b4d38 0f4 95ca7e 2017-07-29 2017-07-29 Outpatient JOHNSON, HC 3da1p6m6-9e 8b4 n2h52-l [facility] 00:00:00 00:00:00 KATELINE e2-1jd1-81p 2ee-4b7d- 8 ealt 0-ur4qvw407 45c-cd01ae 0f4 d0w324 2017-07-29 2017-07-29 Outpatient [facility] 9nc6q4c5-8f 338a3cz5-5 [facility] 00:00:00 00:00:00 , e2-8wg6-22b 185-4185-a ealt MARLEN 0-th8sjf925 68d-af4ef 1 0f4 220149 4134-01-30 2017-07-26 Outpatient [facility] 126 [id number] [facility] 00:00:00 00:00:00 H, PROVIDER [facility] 2017-07-26 2017-07-26 Outpatient [facility] 8rv5g5y4-9l x5h9p44y-8 Access[facility] 00:00:00 00:00:00 H, PROVIDER e2-5bd9-89p 2c5-46 ae-b ealt 0-tx8pmt456 706-94be52 0f4 91323w 2017-05-13 2017-05-13 Emergency [facility] [id number] [facility] 20:28:00 nadeen Riggs 00 [facility] 2017-05-13 2017-05-[address] [facility] [id number] 10:09:00 14:28:00 Jordan Self 2016-12-08 2016-12-08 Outpatient [facility] 126 [id number] [facility] 00:00:00 00:00:00 H, PROVIDER [facility] 2016-12-08 2016-12-08 Outpatient [facility] 3mi0r9l6-6h hmc65487-0 Access[facility] 00:00:00 00:00:00 H, PROVIDER e2-0tf2-77p eee-4d b1-a ealth 0-yv5lio363 ef6-d34c9f 0f4 2a36c7 2016-08-17 2016-08-17 Outpatient [facility] 126 [id number] [facility] 00:00:00 00:00:00 H, PROVIDER samantha sequeira 2016-08-17 2016-08-17 Outpatient [facility] 1am3w8q4-5t 857j79k3-4 Access[facility] 00:00:00 00:00:00 H, PROVIDER e2-3vs0-03l fad-4c 25-a ealth 0-az0jxi797 2c8-o76u5y 0f4 j0587k 2016-08-13 2016-08-13 Outpatient [facility] 126 [id number] [facility] 00:00:00 00:00:00 H, PROVIDER samantha sequeira 2016-08-13 2016-08-13 Outpatient [facility] 8bm1v2n2-3j h724a8uv-h Access[facility] 00:00:00 00:00:00 H, PROVIDER e2-1lh2-15p fe3-4c e8-9 ealth 0-ao8moo052 r79-69rbw1 0f4 d7f41d 2016-08-06 2016-08-06 Outpatient [place], [facility] 0tq1x5n6-9j ffb s250c-l Access[facility] 00:00:00 00:00:00 MEHJABIN e2-5he4-28c 679-4152- b ealth 0-an3iyw224 520-3d42fe 0f4 9f99fb 2016-07-28 2016-07-28 Outpatient [place], [facility] 2zl0w1e1-1z 72b uz793-w Access[facility] 14:26:00 14:26:00 MEHJABIN e2-3ia5-60v 8l2-71te- 9 ealth 0-qz7fwm620 aeb-4669dd 0f4 f7da75 2016-07-28 2016-07-28 Outpatient [facility] [id number] Access 00:00:00 00:00:00 H, PROVIDER [facility] 2016-07-28 2016-07-28 Outpatient [facility] 9sb2r3k3-4f 55h7i77d-e Access[facility] 00:00:00 00:00:00 H, PROVIDER e2-6pf2-62h a0d-49 fd-b ealth 0-vy8ajm454 85f-ee08d6 0f4 279b6e 2016-07-28 2016-07-28 [facility] 7jq5a3y9-4q b76r525c-9 [facility] 00:00:00 00:00:00 , e2-4uf8-96m 7c2-6g0h-7 ealth MARLEN 0-vw2kub562 067-2c30a a 0f4 51569u 2016-05-31 2016-05-31 Outpatient [facility] 126 [id number] [facility] 00:00:00 00:00:00 H, PROVIDER [facility] 2016-05-31 2016-05-31 Outpatient [facility] 6tg9p8g0-7r 41kx4xdk-b Access[facility] 00:00:00 00:00:00 H, PROVIDER e2-8au0-52b 4d8-4f 11-a ealth 0-fm3hjf646 7j0-j0am21 0f4 ff5abb 2016-05-31 2016-05-31 [facility] 1td4p4l3-2p g21wr09e-5 [facility] 00:00:00 00:00:00 , e2-7tu9-54r be2-4ce4-b ealth MARLEN 0-dj5rda190 l6v-12202 a 0f4 daca3a 2016-05-31 2016-05-31 Outpatient CHARO, [facility] 0do4x4b4-4e 73ir0302-1 Access[facility] 00:00:00 00:00:00 WILFRID e2-6zt9-47t 979-4b7d-a ealth 0-xa3zoz651 433-46fd0b 0f4 3t4134 2016-05-28 2016-05-28 Outpatient [facility] [id number] [facility] 00:00:00 00:00:00 H, PROVIDER [facility] 2016-05-28 2016-05-28 Outpatient [facility] 3at1o1g6-1s h7315331-w [facility] 00:00:00 00:00:00 H, PROVIDER yuly-9im9-33j 1b6-49 22-a ealt 0-cw0xeg704 fbf-14376h 0f4 5e0e2f 2016-05-07 2016-05-07 Outpatient [facility] 126 [id number] [facility] 00:00:00 00:00:00 H, PROVIDER [facility] 2016-05-07 2016-05-07 Outpatient [facility] 3yg9s0m1-5f v1816grs-c [facility] 00:00:00 00:00:00 H, PROVIDER yuly-6yf1-32s 512-43 c6-a [facility] 0-ez1mkw732 eed-2bc1b7 0f4 24cf55 2016-05-07 2016-05-07 Outpatient [facility] 4co7x7u4-2l 38gx644h-2 [facility] 00:00:00 00:00:00 , yuly-8rp8-82l bcd-4c70-a [facility] MARLEN 0-sk6oab611 959-bb523 3 0f4 b53148 2016-05-06 2016-05-06 Outpatient [facility] [id number] Access 00:00:00 00:00:00 H, PROVIDER [facility] 2016-05-06 2016-05-06 Outpatient [facility] 0nd3l5n2-1a 480389gs-v [facility] 00:00:00 00:00:00 , e2-6ku6-11f dfc-4d0f-9 ealth MARLEN 0-tp4dpd206 x00-b51ib 0 0f4 e209a1 2016-05-06 2016-05-06 Outpatient [facility] 1ig3k7y0-3w 0mi5059g-3 [facility] 00:00:00 00:00:00 H, PROVIDER yuly-4tm4-40y 5b7-4a 0a-8 [facility] 0-qx9fuj623 385-20e3d0 0f4 u8403v 2016-04-30 2016-04-30 Outpatient [facility] [id number] [facility] 00:00:00 00:00:00 H, PROVIDER [facility] 2016-04-30 2016-04-30 Outpatient [facility] 0kx9w8u6-5m dup9n300-c [facility] 00:00:00 00:00:00 H, PROVIDER e2-1lj9-54g cf1-4f 32-b ealt 0-wt2aec937 1g7-avk1gw 0f4 efb98a 2016-04-30 2016-04-30 Outpatient [facility] 4dq9y3f6-7y ajwg4632-8 [facility] 00:00:00 00:00:00 , yuly-5eq8-39f fc3-4e58-b ealth MARLEN 0-da0lgq831 f0q-330qd b 0f4 eo399b 2016-04-29 2016-04-29 Outpatient [facility] [id number] [facility] 00:00:00 00:00:00 H, PROVIDER [facility] 2016-04-29 2016-04-29 Outpatient [facility] [id number] Access 00:00:00 00:00:00 H, PROVIDER yuly-1vu4-98p 930-49 d4-9 ealt 0-pf7ecg230 9ca-1x6974 0f4 99eb50 2016-04-29 2016-04-29 Outpatient [facility] [id number] [id number] Access[facility] 00:00:00 00:00:00 , e2-1zx7-24y 33e-441e-9 ealth MARLEN 0-fa6ukp220 p4c-720b1 7 0f4 e8c9af 2016-04-07 2016-04-07 Outpatient CHARO, [facility] 4fl6f4n4-3f [id number]-p Access[facility] 00:00:00 00:00:00 [place] e2-4oa1-81f 5cc-4856-a [facility] 0-ig0icj061 78c-5t248w 0f4 3edda2 2016-04-06 2016-04-06 Outpatient [facility] [id number] Access[facility] 00:00:00 00:00:00 H, PROVIDER [facility] 2016-04-06 2016-04-06 Outpatient [facility] 8oj3a2g5-6m [id number]-q Access[facility] 00:00:00 00:00:00 H, PROVIDER e2-9it6-21v 0f1-4c 7b-a [facility] 0-jt6ryn835 2f2-7v677z 0f4 s03093 2016-04-06 2016-04-06 Outpatient [facility] [id number] [id number] Access[facility] 00:00:00 00:00:00 , e2-6cm8-67n o56-658m-u [facility] MARLEN 0-ja7ngj935 2a5-6h626 2 0f4 8f0d60 2016-03-13 2016-03-13 Outpatient CHARO [facility] 2ns7b8l0-2u [id number] Access[facility] 00:00:00 00:00:00 [place] e2-7ku8-30v o3q-64r8-9 lt 0-en7rlj288 t9w-75l1io 0f4 31s185 2016-03-10 2016-03-10 Outpatient CHARO [facility] 4zq0v0x8-6e [id number] Access[facility] 11:18:00 11:18:00 [place] e2-8pc2-96s 0f6-2owe-0 ealt 0-uv4sld277 h6e-s02got 0f4 35b336 2016-03-10 2016-03-10 Outpatient [facility] [id number] Access[facility] 00:00:00 00:00:00 H, PROVIDER [facility] 2016-03-10 2016-03-10 [facility] 0bu4q1h9-6s [id number] Access[facility] 00:00:00 00:00:00 , e2-9ci7-71y c7h-16q4-c ealt MARLEN 0-po3amm887 af4-eb20e 5 0f4 995dcf 2016-03-10 2016-03-10 Outpatient OMORI, [facility] 1ik1v5s3-8v 53b xa98x-u Access[facility] 00:00:00 00:00:00 WING e2-8ip4-24m 762-4ae2- a ealt 0-zp0kgs826 92e-39y566 0f4 9837cf 2016-03-10 2016-03-10 Outpatient [facility] 1tg2v0r0-3v [id number]-[id number] Access[facility] 00:00:00 00:00:00 H, PROVIDER e2-8oc3-95q 30b-44 5d-a ealt 0-au5gcw488 85d-66845i 0f4 57ec84 2016-02-16 2016-02-16 Outpatient [facility] [id number] Access[facility] 00:00:00 00:00:00 H, PROVIDER [facility] 2016-02-16 2016-02-16 Outpatient [facility] 7hq8k2i8-1q [id number]-y Access[facility] 00:00:00 00:00:00 H, PROVIDER e2-7vi5-48d 8ca-4a 7a-[facility] 0-eu5uku577 690-013e39 0f4 74j306 2016-02-16 2016-02-16 Outpatient [facility] 6bt3b2p2-3w [id number] Access[facility] 00:00:00 00:00:00 , e2-9va5-64q l8k-708c-3 ealt MARLEN 0-bt2jnx638 u2a-it5mv b 0f4 fd27c4 2016-01-27 2016-01-27 Outpatient [facility] [id number] [facility] 00:00:00 00:00:00 H, PROVIDER [facility] 2016-01-27 2016-01-27 Outpatient [facility] 2xb9o3x6-4q [id number] Access[facility] 00:00:00 00:00:00 H, PROVIDER e2-5bd8-77u 8a2-4b 24-b ealt 0-ei6eqa292 r0u-o12008 0f4 x4e653 2016-01-27 2016-01-27 Outpatient [facility] 9jg6e9z2-4q [id number] Access[facility] 00:00:00 00:00:00 , e2-8ug0-92j d49-5g39-g [facility] 0-pl0fst005 487-90d60 7 0f4 f506f7 2016-01-23 2016-01-23 Outpatient [facility] [id number] [facility] 00:00:00 00:00:00 H, PROVIDER [facility] 2016-01-23 2016-01-23 Outpatient [facility] 7df4n6j0-6m [id number]-p Access[facility] 00:00:00 00:00:00 H, PROVIDER e2-1eu3-89z 825-47 04-b ealt 0-zw6gek718 2bc-24w069 0f4 057ffd 2016-01-23 2016-01-23 Outpatient [facility] 0sm8m8q3-9a [id number] Access[facility] 00:00:00 00:00:00 , e2-2ph6-38f u7m-3692-l ealt [facility] 0-nw5axx559 aef-ac63f 8 0f4 878ed7 2016-01-21 2016-01-21 Outpatient [facility] [id number] [facility] 00:00:00 00:00:00 H, PROVIDER [facility] 2016-01-21 2016-01-21 Outpatient [facility] [id number] [id number] Access[facility] 00:00:00 00:00:00 H, PROVIDER e2-9fe2-79g 774-41 33-8 ealth 0-sh3pci457 y75-i9n80c 0f4 25770s 2016-01-21 2016-01-21 [facility] 7ne8v1k7-6g [id number] Access[facility] 00:00:00 00:00:00 , e2-8uu5-56a 228-4e1c-8 [facility] 0-nb9ylz495 1p8-5818x 9 0f4 [id number] 2016-01-12 2016-01-12 Outpatient [facility] [id number] [facility] 00:00:00 00:00:00 H, PROVIDER [facility] 2016-01-12 2016-01-12 Outpatient [facility] 1ai5p2t2-2y [id number] Access[facility] 00:00:00 00:00:00 H, PROVIDER e2-5dr1-87m f55-4c e0-b ealt 0-vb2uok007 ecf-2lg671 0f4 80383a 2016-01-12 2016-01-12 [facility] 4wk4k[facility]-6x dn1uq0t2-6 [facility] 00:00:00 00:00:00 , e2-1wf0-90z 3be-4b1b-9 [facility] 0-gl6flh115 d1c-yhc32 1 0f4 cc5c86 2016-01-02 2016-01-02 Outpatient [facility] [id number] [facility] 00:00:00 00:00:00 H, PROVIDER [facility] 2016-01-02 2016-01-02 Outpatient [facility] 3nu3k8u7-6u [id number] Access[facility] 00:00:00 00:00:00 H, PROVIDER yuly-2sq2-27s 918-43 2a-b ealt 0-bm8nos495 ebc-ccb102 0f4 504a64 2015-12-31 2015-12-31 Outpatient [facility] [id number] [facility] 00:00:00 00:00:00 H, PROVIDER [facility] 2015-12-31 2015-12-31 Outpatient [facility] 4tr7o9a7-8z [id number] Access[facility] 00:00:00 00:00:00 H, PROVIDER e2-6eq9-28k fa9-44 5e-8 [facility] 0-vx0ztf706 461-08df0e 0f4 34db1e 2015-12-31 2015-12-31 Outpatient [facility] 4dq2q4i1-9c [id number] [facility] 00:00:00 00:00:00 , e2-5fp0-90d 76a-4fc7-9 [facility] MARLEN 0-jc1fur772 y8o-385y0 0 0f4 f11dbc 2015-12-23 2015-12-23 Outpatient [facility] [id number] [facility] 00:00:00 00:00:00 H, PROVIDER [facility] 2015-12-23 2015-12-23 Outpatient [facility] 8ji6l9a9-9x [id number] [facility] 00:00:00 00:00:00 H, PROVIDER yuly-0jk7-91z b94-47 50-b [facility] 0-lj8vol304 024-eedc32 0f4 47a5b9 2015-12-19 2015-12-19 Outpatient [facility] [id number] [facility] 00:00:00 00:00:00 H, PROVIDER [facility] 2015-12-19 2015-12-19 Outpatient [facility] [id number] [id number] [facility] 00:00:00 00:00:00 H, PROVIDER e2-5fq3-43p b58-49 48-8 [facility] 0-xy4hby241 6l0-e2s996 0f4 bf7a17 2015-12-18 2015-12-18 Outpatient OMORI, [facility] [id number] Access[facility] 10:59:00 10:59:00 WING 22-4926-a4f ae9-4f1e- a [facility] f-87636149o 894-5ff5b0 natasha 6w1287 2015-12-18 2015-12-18 Outpatient [facility] [id number] [facility] 00:00:00 00:00:00 H, PROVIDER [facility] 2015-12-18 2015-12-18 Outpatient [facility] 2ah0d9f3-4p [id number] [facility] 00:00:00 00:00:00 H, PROVIDER e2-9sg0-53t f01-44 d7-9 [facility] 0-uz9hcn787 34b-68d3af 0f4 a645cd 2015-12-18 2015-12-18 [facility] 3mi3w8s7-2z [id number] [facility] 00:00:00 00:00:00 , e2-0uv2-16d 9p7-18x2-c ealth MAR[facility] 0-nq5ctj267 640-f9c58 4 0f4 27b8b2 2015-12-18 2015-12-18 [address]patient [facility] umd701kf-5o [id number] [facility] 00:00:00 00:00:00 , 22-4926-a4f cd6-48d8-b ealth MARLEN f-78280277g n6m-k4756 7 natasha 7a59ff 2015-12-17 2015-12-17 Outpatient [facility] [id number] [facility] 00:00:00 00:00:00 H, PROVIDER samantha ltshagufta 2015-12-17 2015-12-17 Outpatient [facility] 8hi1d2k6-0f [id number] [facility] 00:00:00 00:00:00 H, PROVIDER e2-7oe9-03f add-48 cf-8 [facility] 0-ky9pmh731 da1-ad99d9 0f4 n26875 2015-12-17 2015-12-17 Outpatient [facility] 4gy8l1k2-1o [id number] [facility] 00:00:00 00:00:00 , e2-4nu0-96o o81-4v4g-i ealth [facility] 0-bn8cwj431 64d-72ac2 c 0f4 4a8f09 2015-12-12 2015-12-12 Outpatient [facility] [id number] Access 00:00:00 00:00:00 H, PROVIDER [facility] 2015-12-12 2015-12-12 Outpatient [facility] 7kn3k0e8-7q [id number] [facility] 00:00:00 00:00:00 H, PROVIDER yuly-7kn2-06f 70c-4b 32-8 [facility] 0-qs8ial609 u88-e37022 0f4 2ql730 2015-12-11 2015-12-11 Outpatient [facility] [id number] Access 00:00:00 00:00:00 H, PROVIDER [facility] 2015-12-11 2015-12-11 Outpatient [facility] 5os9f0g2-2h [id number] [facility] 00:00:00 00:00:00 H, PROVIDER derick1xp6-37h 05c-41 a4-a [facility] 0-tf9pxg993 869-n75295 0f4 cd05ac 2015-12-08 2015-12-08 Outpatient [facility] [id number] Access 00:00:00 00:00:00 H, PROVIDER [facility] 2015-12-08 2015-12-08 Outpatient [facility] 2rj6k3l9-0a [id number] [facility] 00:00:00 00:00:00 H, PROVIDER yuly-3yf1-72c 0b5-45 78-a [facility] 0-bb6rhu151 ffd-529a72 0f4 f09a9d 2015-12-08 2015-12-08 [facility]patient [facility] 8gw4w6s0-1p [id number] [facility] 00:00:00 00:00:00 , yuly-6xi9-03a 0a8-5475-7 [facility] MARLEN 0-ri2xzi395 69f-41d08 c 0f4 e6fad9 2015-12-05 2015-12-05 Outpatient [facility] [id number] [facility] 00:00:00 00:00:00 H, PROVIDER [facility] 2015-12-05 2015-12-05 Outpatient [facility] 3yx8k3i6-6o [id number] [facility] 00:00:00 00:00:00 H, PROVIDER e2-7pj4-05x 874-4e 8d-9 [facility] 0-fw4zap318 4fb-x5o888 0f4 19eb25 2015-12-05 2015-12-05 Outpatient [facility] 9mx4w2r8-7m [id number] [facility] 00:00:00 00:00:00 , e2-9pk8-72b bca-45af-a [facility] MARLEN 0-ta2dlm319 62b-7ef95 9 0f4 84d917 2015-12-03 2015-12-03 Outpatient [facility] [id number] Access 00:00:00 00:00:00 H, PROVIDER samantha azul 2015-12-03 2015-12-03 Outpatient [facility] 7jv2w1l5-8c [id number]-d Access 00:00:00 00:00:00 H, PROVIDER yuly-9od5-36f 721-46 d2-a [facility] 0-td4amo264 8v1-36zgr2 0f4 257269 8896-06-06 2015-12-01 Outpatient [facility] [id number] Access 00:00:00 00:00:00 H, PROVIDER samantha azul 2015-12-01 2015-12-01 Outpatient [facility] 9nm1s0w9-4y [id number] Access 00:00:00 00:00:00 H, PROVIDER yuly-6kh1-25x a81-4c c2-b [facility] 0-ji1jyk476 5j6-xz007x 0f4 2dfcb7 2015-12-01 2015-12-01 [facility] 3ud7d5n4-3p [id number] [facility] 00:00:00 00:00:00 , e2-5pb2-41p 05b-4d18-9 [facility] MARLEN 0-yb9gtb725 q40-2oqrf 1 0f4 04dfd3 2015-11-11 2015-11-11 Outpatient [facility] [id number] [facility] 00:00:00 00:00:00 H, PROVIDER [facility] 2015-11-11 2015-11-11 Outpatient [facility] 6cq7i1l0-8y [id number] Access[facility] 00:00:00 00:00:00 H, PROVIDER e2-7kd4-77b 9b6-4b 8e-b ealt 0-vw9kvv487 489-18c90d 0f4 2a9e55 2015-11-10 2015-11-10 Outpatient CHARO, [facility] 8zo4m7z6-0h [id number]-n Access[facility] 00:00:00 00:00:00 WILFRID yuly-6kf7-55b 6k3-2j58-y [facility] 0-po1nbu010 g15-804zkb 0f4 7b0a4b 2015-11-08 2015-11-08 Outpatient CHARO, [facility] 4et9c9l0-0o [id number] [facility] 00:00:00 00:00:00 WILFRID yuly-7rd1-15y 9u5-40i6-c ealt 0-lu1ucz650 80f-4e3b5c 0f4 c0d054 2015-11-05 2015-11-05 Outpatient [facility] [id number] Access 00:00:00 00:00:00 H, PROVIDER [facility] 2015-11-05 2015-11-05 Outpatient [facility] 9rr5h2o8-2n [id number] Access 00:00:00 00:00:00 , e2-9li7-19z 883-4ecc-9 [facility] MARLEN 0-oj7gcc661 08c-2d45e 4 0f4 7b60f6 2015-11-05 2015-11-05 Outpatient CHARO, [facility] 2ya7m6m0-7a [id number] [facility] 00:00:00 00:00:00 WILFRID e2-4ok9-42d 132-4998-b ealt 0-ou8xux797 dab-o27436 0f4 68w409 2015-11-05 2015-11-05 Outpatient [facility] 2yz7s1z2-2y [id number] [facility] 00:00:00 00:00:00 H, PROVIDER yuly-3gx2-10s c62-42 f4-8 [facility] 0-bk3nzc749 7l7-28c299 0f4 2785e5 2015-11-04 2015-11-04 Outpatient [facility] [id number] [facility] 00:00:00 00:00:00 H, PROVIDER [facility] 2015-11-04 2015-11-04 Outpatient [facility] 5nb2y0t7-5s [id number] [facility] 00:00:00 00:00:00 H, PROVIDER yuly-8la8-49o a9b-4f 59-a [facility] 0-nt9pmn595 ceb-1b87e1 0f4 1wh697 2015-11-04 2015-11-04 Outpatient [facility] 7vx0o4t9-9m [id number] [facility] 00:00:00 00:00:00 , mnoa9hx4-10j j8k-7ot0-1 [facility] MARLEN 0-qf4cxn554 3i9-95a26 1 0f4 2146bb 2015-10-28 2015-10-28 Outpatient [facility] [id number] [facility] 00:00:00 00:00:00 H, PROVIDER [facility] 2015-10-28 2015-10-28 Outpatient [facility] 1ok3f8d0-1g [id number] [facility] 00:00:00 00:00:00 H, PROVIDER pratik7mb0-64f 927-4f f5-a [facility] 0-rs8wpy045 0ee-f746b3 0f4 9c87eb 2015-10-24 2015-10-24 Outpatient [facility] [id number] [facility] 00:00:00 00:00:00 H, PROVIDER [facility] 2015-10-24 2015-10-24 Outpatient [facility] 6xm9w7n5-6p [id number]-j [facility] 00:00:00 00:00:00 H, PROVIDER pratik0zm8-86p 798-49 ed-9 ealt 0-uf5rqz051 9bf-c37dc7 0f4 a1de3c 2015-10-22 2015-10-22 Outpatient MELANIE, [facility] 7sm3e5o6-4e 641 s4r3a-v [facility] 15:23:00 15:23:00 KAROLINA e2-8zu1-25u 51d-4e5f-9 [facility] 0-or2axb053 dc9-bf9b22 0f4 afe6d7 2015-10-22 2015-10-22 Outpatient [facility] [id number] [facility] 00:00:00 00:00:00 H, PROVIDER [facility] 2015-10-22 2015-10-22 Outpatient [facility] 9kw9u0d7-1t [id number] [facility] 00:00:00 00:00:00 H, PROVIDER e2Kal9ih2-56g 236-43 ca-a [facility] 0-ua0ftj691 151-e2e022 0f4 5e0cd6 2015-10-22 2015-10-22 Outpatient [facility] 1gi3k1q1-8a [id number] [facility] 00:00:00 00:00:00 , e2-0mr4-35e a6q-3b5g-h [facility] MARLEN 0-ic7giw555 10d-ca9b4 f 0f4 c80f73 2015-10-20 2015-10-20 Outpatient [facility] [id number] [facility] 00:00:00 00:00:00 H, PROVIDER [facility] 2015-10-20 2015-10-20 Outpatient [facility] 4lp4j7j6-2o [id number] [facility] 00:00:00 00:00:00 H, PROVIDER e2-6yy0-96s judith-4d e2-a ealth 0-qt4gwn761 5v3-57c229 0f4 b08ee9 2015-10-20 2015-10-20 Outpatient [facility] 2if9w4x8-6j [id number] [facility] 00:00:00 00:00:00 , e2-1mm0-73m 932-497c-9 [facility] MARLEN 0-os4xru710 fb6-29ae5 f 0f4 0k0846 2015-10-03 2015-10-03 Outpatient [facility] [id number] [facility] 00:00:00 00:00:00 H, PROVIDER [facility] 2015-10-03 2015-10-03 Outpatient [facility] 8ez3l0d4-4i [id number] [facility] 00:00:00 00:00:00 , e2-8yd2-32a 0a0-5844-t [facility] MARLEN 0-oy5mwm370 432-6d7f3 8 0f4 3c50c1 2015-10-03 2015-10-03 Outpatient [facility] 9iw8p1x5-0q [id number] [facility] 00:00:00 00:00:00 H, PROVIDER e2-7au5-17l c7b-43 8a-b [facility] 0-hf9pvy765 1c5-j23095 0f4 f1t186 2015-08-19 2015-08-19 Outpatient OMORI, [facility] 6vp9l6d0-9q da7 j6cx9-l [facility] 00:00:00 00:00:00 WING e2-3hc7-97r 12b-4f56- 8 [facility] 0-of5ump959 00d-b48cb0 0f4 019241 3641-02-19 2015-08-15 Outpatient [facility] [id number] Access 00:00:00 00:00:00 H, PROVIDER [facility] 2015-08-15 2015-08-15 Outpatient [facility] 4xy7p5r9-6j [id number] [facility] 00:00:00 00:00:00 H, PROVIDER e2-9uo7-57n 531-40 0d-8 ealt 0-iz5sqi277 r52-8d29u0 0f4 1180da 2015-08-14 2015-08-14 Outpatient [facility] [id number] Access 00:00:00 00:00:00 H, PROVIDER samantha sequeira 2015-08-14 2015-08-14 Outpatient [facility] 8ak8u1q0-4n [id number] [facility] 00:00:00 00:00:00 H, PROVIDER e2-9uj1-90x 8f8-49 3d-b ealt 0-jr2vfe638 da9-dddefc 0f4 0k009s 2015-08-14 2015-08-14 Outpatient OMORI, [facility] 8lw5j2f9-9q 0ac 1962a-c [facility] 00:00:00 00:00:00 WING e2-2rs9-93l 8dc-4fc9- b ealt 0-tq4gby359 g85-776182 0f4 fadd56 2015-08-14 2015-08-14 Outpatient [facility] 2lg4i7c4-8k [id number] [facility] 00:00:00 00:00:00 , yuly-1qe2-14m 78b-4de8-9 [facility] MARLEN 0-aq2hfn061 fc4-bf012 2 0f4 mf388r 2015-05-29 2015-05-29 Outpatient [facility] [id number] [facility] 00:00:00 00:00:00 H, PROVIDER samantha azul 2015-05-29 2015-05-29 [facility]patient [facility] 3wu9z3o0-3s 3sx5xp9l-c [facility] 00:00:00 00:00:00 H, PROVIDER yuly-1ig9-31b 376-4d c3-9 ealt 0-lf7lyc399 u2u-4m8fst 0f4 d8d8a8 2015-05-09 2015-05-09 Outpatient [facility] [id number] [facility] 00:00:00 00:00:00 H, PROVIDER samantha azul 2015-05-09 2015-05-09 [facility]patient [facility] 1gu2n8n3-3s 1oxj7v0l-3 [facility] 00:00:00 00:00:00 H, PROVIDER derick5xx8-76s 3bf-47 99-a ealt 0-tt6vfs659 j08-4ij7id 0f4 22v256 2015-05-08 2015-05-08 Outpatient [facility] [id number] [facility] 00:00:00 00:00:00 H, PROVIDER samantha azul 2015-05-08 2015-05-08 Outpatient [facility] 9zg1t2l9-6r 1ch2n3u8-t [facility] 00:00:00 00:00:00 H, PROVIDER yuly-8sn8-43d 2be-4d fc-8 [facility] 0-wb9akj450 690-d432fc 0f4 wge239 2015-05-07 2015-05-07 Outpatient [facility] [id number] [facility] 00:00:00 00:00:00 H, PROVIDER samantha azul 2015-05-07 2015-05-07 Outpatient [facility] 6ne1h6u9-4v [id number] [facility] 00:00:00 00:00:00 H, PROVIDER derick9fx3-62w 77c-4e 5d-9 [facility] 0-hh1rab753 6r2-62891l 0f4 l51686 2015-04-15 2015-04-15 Outpatient [facility] [id number] [facility] 00:00:00 00:00:00 H, PROVIDER samantha azul 2015-04-15 2015-04-15 [facility]patient [facility] 8bs2e0n5-3x [id number] [facility] 00:00:00 00:00:00 H, PROVIDER derick0sr9-72m bf1-49 46-8 [facility] 0-nm4vyq470 cb9-d8ce48 0f4 f6811u 2015-04-14 2015-04-14 Outpatient [facility] [id number] [facility] 00:00:00 00:00:00 H, PROVIDER samantha sequeira 2015-04-14 2015-04-14 [facility]patient [facility] 0ij9l8c0-5s [id number]-6 [facility] 00:00:00 00:00:00 H, PROVIDER derick3gg1-85d a42-4c 93-9 [facility] 0-kc6jcx218 013-f9eebe 0f4 11b54c 2015-04-09 2015-04-09 Outpatient [facility] [id number] [facility] 00:00:00 00:00:00 H, PROVIDER samantha sequeira 2015-04-09 2015-04-09 Outpatient [facility] 1wz0m6k9-1s [id number] [facility] 00:00:00 00:00:00 H, PROVIDER derick2kb0-22l 1bc-4f 2c-9 [facility] 0-hs4dby612 2cc-dbcc00 0f4 9d5fa0 2015-02-06 2015-02-06 Outpatient [facility] [id number] [facility] 00:00:00 00:00:00 H, PROVIDER samantha sequeira 2015-02-06 2015-02-06 Outpatient [facility] 1hw4d2m1-3l t56yfve3-6 [facility] 00:00:00 00:00:00 H, PROVIDER yuly-5yk0-97z 25f-4e 69-9 [facility] 0-sm6ebo568 6t9-961620 0f4 cf6de3 2015-02-03 2015-02-03 Outpatient [facility] [id number] [facility] 00:00:00 00:00:00 H, PROVIDER samantha sequeira 2015-02-03 2015-02-03 Outpatient [facility] 4fj3v1w1-4l [id number] [facility] 00:00:00 00:00:00 H, PROVIDER yuly-1oh1-64s 7b3-4e 11-9 [facility] 0-xk9htl128 9e3-u150m7 0f4 395273 8943-07-28 2015-01-21 Outpatient [facility] [id number] [facility] 00:00:00 00:00:00 H, PROVIDER samantha sequeira 2015-01-21 2015-01-21 Outpatient [facility] 3bi6c5t1-3g [id number] [facility] 00:00:00 00:00:00 H, PROVIDER yuly-7qv1-20m b86-4f 22-8 [facility] 0-au6csx946 6t1-4cd46o 0f4 b2cc01 2015-01-08 2015-01-08 Outpatient [facility] [id number] Access 00:00:00 00:00:00 H, PROVIDER samantha sequeira 2015-01-08 2015-01-08 Outpatient [facility] 9up2e2a4-4w [id number] [facility] 00:00:00 00:00:00 H, PROVIDER e2-7nz4-28j cbc-4e 29-9 [facility] 0-vk6nwz906 c66-n7jtty 0f4 2li352 2014-11-14 2014-11-14 Outpatient [facility] [id number] Access 00:00:00 00:00:00 H, PROVIDER samantha sequeira 2014-11-14 2014-11-14 Outpatient [facility] 0qf4a6g2-3o [id number] [facility] 00:00:00 00:00:00 H, PROVIDER yuly-0mb5-36c e04-43 07-8 [facility] 0-bg5unf402 4de-7ffec7 0f4 65ce44 2014-11-07 2014-11-07 Outpatient [facility] [id number] Access 00:00:00 00:00:00 H, PROVIDER samantha sequeira 2014-11-07 2014-11-07 Outpatient [facility] 4zs4i3w8-9c [id number] Access 00:00:00 00:00:00 H, PROVIDER yuly-4qu4-15q 949-47 05-9 [facility] 0-bv6ccs586 14c-591851 0f4 043648 7029-04-29 2014-10-23 Outpatient [facility] [id number] Access 00:00:00 00:00:00 H, PROVIDER samantha azul 2014-10-23 2014-10-23 Outpatient [facility] 2mc1s7f0-3t [id number] [facility] 00:00:00 00:00:00 H, PROVIDER yuly-5hu7-76r b45-43 79-9 ealt 0-jj4dft393 5m1-hi17y4 0f4 e674f1 2014-10-21 2014-10-21 Outpatient [facility] [id number] Access 00:00:00 00:00:00 H, PROVIDER samantha azul 2014-10-21 2014-10-21 Outpatient [facility] 6lw1v7h0-3k [id number] [facility] 00:00:00 00:00:00 H, PROVIDER derick9rc7-04q 021-4e fe-8 [facility] 0-gw5qkm069 022-07m999 0f4 71113j 2014-10-08 2014-10-08 Outpatient [facility] [id number] Access 00:00:00 00:00:00 H, PROVIDER samantha azul 2014-10-08 2014-10-08 Outpatient [facility] 6jq4e9r4-0s [id number] Access 00:00:00 00:00:00 H, PROVIDER derick2mw8-06z b2d-4e 76-b [facility] 0-ta6hqc743 h1w-76764e 0f4 19d8d1 2014-10-03 2014-10-03 Outpatient [facility] [id number] Access 00:00:00 00:00:00 H, PROVIDER samantha azul 2014-10-03 2014-10-03 Outpatient [facility] 8lg9t6u1-8h [id number] Access 00:00:00 00:00:00 H, PROVIDER derick0ma5-57k 3ed-4f 7b-b [facility] 0-sg8boy135 a8i-z6z71b 0f4 m4071p 2014-09-04 2014-09-04 Outpatient [facility] [id number] Access 00:00:00 00:00:00 H, PROVIDER samantha azul 2014-09-04 2014-09-04 Outpatient [facility] 6zd2e2g7-0a [id number] Access 00:00:00 00:00:00 H, PROVIDER derick4sw7-13y 4ed-46 18-b ealt 0-zb0pwf353 eb9-1d2ad4 0f4 dcda11 2014-08-27 2014-08-27 Outpatient [facility] [id number] Access 00:00:00 00:00:00 H, PROVIDER samantha azul 2014-08-27 2014-08-27 Outpatient [facility] 9li3g7a7-2r [id number]-q [facility] 00:00:00 00:00:00 H, PROVIDER derick1uc3-89w da5-49 6c-8 [facility] 0-jh1xwi993 24a-bd7c89 0f4 fge506 2014-07-05 2014-07-05 Outpatient [facility] [id number] Access 00:00:00 00:00:00 H, PROVIDER [facility] 2014-07-05 2014-07-05 Outpatient [facility] 6om4t5i6-1a [id number] Access 00:00:00 00:00:00 H, PROVIDER derick6yi6-00q 67b-42 a6-8 [facility] 0-ak8lzm494 k96-40239w 0f4 a33ecd 2014-07-02 2014-07-02 Outpatient [facility] [id number] Access 00:00:00 00:00:00 H, PROVIDER [facility] 2014-07-02 2014-07-02 Outpatient [facility] 0pm5y8b2-1r [id number] Access 00:00:00 00:00:00 H, PROVIDER derick5tn7-26i 3fa-45 1b-9 [facility] 0-tq7kbd690 bd3-53dee5 0f4 1da88b 2014-05-09 2014-05-09 Outpatient [facility] [id number] Access 00:00:00 00:00:00 H, PROVIDER [facility] 2014-05-09 2014-05-09 Outpatient [facility] 2mv9w6n9-6c [id number] Access 00:00:00 00:00:00 H, PROVIDER derick4cn9-46u afb-49 3d-a [facility] 0-hw4hsw685 836-d05f98 0f4 018e74 2014-05-07 2014-05-07 Outpatient [facility] [id number] Access 00:00:00 00:00:00 H, PROVIDER [facility] 2014-05-07 2014-05-07 Outpatient [facility] 6pc1u8l3-1g [id number] [facility] 00:00:00 00:00:00 H, PROVIDER derick2zx4-32u f21-41 23-8 [facility] 0-aw9qvb970 t12-9546kr 0f4 1rj345 2014-05-03 2014-05-03 Outpatient [facility] [id number] Access 00:00:00 00:00:00 H, PROVIDER [facility] 2014-05-03 2014-05-03 Outpatient [facility] 0kj8z6g9-0u [id number] Access 00:00:00 00:00:00 H, PROVIDER derick5cs5-10c b24-46 7a-b [facility] 0-fl0rwo890 i5w-s11305 0f4 f79ca7 2014-05-02 2014-05-02 Outpatient [facility] [id number] Access 00:00:00 00:00:00 H, PROVIDER samantha [facility] 2014-05-02 2014-05-02 Outpatient [facility] [id number] Access 00:00:00 00:00:00 H, PROVIDER derick9bz6-13p 2c8-48 fc-9 [facility] [id number] 0f4 [id number] 2014-04-22 2014-04-22 Outpatient [facility] [id number] Access 00:00:00 00:00:00 H, PROVIDER samantha [facility] 2014-04-22 2014-04-22 Outpatient [facility] [id number] Access 00:00:00 00:00:00 H, PROVIDER derick6iw8-53d 880-43 9c-b [facility] [id number] 0f4 [id number] 2014-03-20 2014-03-20 Outpatient [facility] [id number] Access 00:00:00 00:00:00 H, PROVIDER samantha sequeira 2014-03-20 2014-03-20 Outpatient [facility] [id number] AccessH 00:00:00 00:00:00 H, PROVIDER derick8dm9-04s 9fb-46 71-a [facility] [id number] 0f4 [id number] 2014-03-19 2014-03-19 Outpatient [facility] [id number] Access 00:00:00 00:00:00 H, PROVIDER samantha [facility] 2014-03-19 2014-03-19 Outpatient [facility] [id number] AccessH 00:00:00 00:00:00 H, PROVIDER derick4rq5-87j a7c-43 0e-8 [facility] [id number] 0f4 [id number] 2014-03-18 2014-03-18 Outpatient [facility] [id number] Access 00:00:00 00:00:00 H, PROVIDER samantha azul 2014-03-18 2014-03-18 Outpatient [facility] [id number] Access 00:00:00 00:00:00 H, PROVIDER derick5qc8-22e 303-4d e8-9 [facility] [id number] 0f4 [id number] 2014-02-26 2014-02-26 Outpatient [facility] [id number] Access 00:00:00 00:00:00 H, PROVIDER samantha azul 2014-02-26 2014-02-26 Outpatient [facility] [id number] AccessH 00:00:00 00:00:00 H, PROVIDER pratik4af3-21t 935-45 0f-9 [facility] [id number] 0f4 [id number] 2014-02-08 2014-02-08 Outpatient [facility] [id number] Access 00:00:00 00:00:00 H, PROVIDER samantha [facility] 2014-02-08 2014-02-08 Outpatient [facility] [id number] AccessH 00:00:00 00:00:00 H, PROVIDER derick3xl6-69p 86d-48 7d-a [facility] [id number] 0f4 [id number] 2014-02-04 2014-02-04 Outpatient [facility] [id number] AccessH 00:00:00 00:00:00 H, PROVIDER samantha [facility] 2014-02-04 2014-02-04 Outpatient [facility] [id number] AccessH 00:00:00 00:00:00 H, PROVIDER derick4wi3-95n ea3-45 1b-a [facility] [id number] 0f4 [id number] 2014-01-31 2014-01-31 Outpatient [facility] [id number] Access[facility] 00:00:00 00:00:00 H, PROVIDER samantha [facility] 2014-01-31 2014-01-31 Outpatient [facility] [id number] AccessH 00:00:00 00:00:00 H, PROVIDER derick8if9-65n 40c-45 93-9 [facility] [id number] 0f4 [id number] 2013-12-12 2013-12-12 Outpatient [facility] [id number] Access[facility] 00:00:00 00:00:00 H, PROVIDER samantha [facility] 2013-12-12 2013-12-12 Outpatient [facility] [id number] AccessH 00:00:00 00:00:00 H, PROVIDER derick7cb2-52w a2b-47 0b-b [facility] [id number] 0f4 [id number] 2013-11-29 2013-11-29 Outpatient [facility] [id number] Access[facility] 00:00:00 00:00:00 H, PROVIDER samantha azul 2013-11-29 2013-11-29 Outpatient [facility] [id number] Access[facility] 00:00:00 00:00:00 H, PROVIDER derick6pk0-13k a01-45 2f-8 [facility] 0-[id number] 0f4 [id number] 2013-11-28 2013-11-28 Outpatient [facility] [id number] Access[facility] 00:00:00 00:00:00 H, PROVIDER samantha [facility] 2013-11-28 2013-11-28 Outpatient [facility] [id number] Access[facility] 00:00:00 00:00:00 H, PROVIDER derick4op7-01d e79-4b 4c-b [facility] [id number] 0f4 [id number] 2013-11-23 2013-11-23 Outpatient [facility] [id number] Access[facility] 00:00:00 00:00:00 H, PROVIDER samantha [facility] 2013-11-23 2013-11-23 Outpatient [facility] [id number] Access[facility] 00:00:00 00:00:00 H, PROVIDER derick4wc0-65j d45-48 9e-9 [facility] 0-[id number] 0f4 [id number] 2013-11-21 2013-11-21 Outpatient [facility] [id number] Access 00:00:00 00:00:00 H, PROVIDER samantha [facility] 2013-11-21 2013-11-21 Outpatient [facility] [id number] AccessH 00:00:00 00:00:00 H, PROVIDER derick7ax4-56p 01b-41 ca-a [facility] [id number] 0f4 [id number] 2013-11-13 2013-11-13 Outpatient [facility] [id number] Access[facility] 00:00:00 00:00:00 H, PROVIDER samantha [facility] 2013-11-13 2013-11-13 Outpatient [facility] [id number] AccessH 00:00:00 00:00:00 H, PROVIDER [id number] 494-4c 7f-9 [facility] [id number] 0f4 [id number] 2013-11-07 2013-11-07 Outpatient [facility] [id number] Access[facility] 00:00:00 00:00:00 H, PROVIDER [facility] 2013-11-07 2013-11-07 Outpatient [facility] [id number] [facility] 00:00:00 00:00:00 H, PROVIDER [id number] cf-b [facility] [id number] 2013-10-22 2013-10-22 Outpatient [facility] [id number] [facility] 00:00:00 00:00:00 H, PROVIDER [facility] 2013-10-22 2013-10-22 [facility] [id number] [facility] 00:00:00 00:00:00 H, PROVIDER [id number] bf-a [facility] [id number] Results Test Description Test Time Test Comments Results Result Comments Source Panel Description: Chlamydia/GC Amplification 2022-09-23 10: 05:00 Test Item Value Reference Range Interpretation Comme nts Chlamydia trachomatis, ULYSSES (test code = 23687-4) Negative Negat eleonora Neisseria gonorrhoeae, ULYSSES (test code = 95491-2) Negative Negat eleonora [facility] Description: Chlamydia/GC [id number] 10:05:00 Test Item Value Reference Range Interpretation Comments Chlamydia trachomatis, ULYSSES (test Negative Negative code = 09423-0) Neisseria gonorrhoeae, ULYSSES (test Negative Negative code = 13120-2) [facility] Description: Chlamydia/GC [id number] 10:05:00 Test Item Value Reference Range Interpretation Comments Chlamydia trachomatis, ULYSSES (test Negative Negative code = 03774-0) Neisseria gonorrhoeae, ULYSSES (test Negative Negative code = 05276-2) [facility] Description: Chlamydia/GC [id number] 10:05:00 Test Item Value Reference Range Interpretation Comments Chlamydia trachomatis, ULYSSES (test Negative Negative code = 62743-1) Neisseria gonorrhoeae, ULYSSES (test Negative Negative code = 92398-9) [facility] Description: QuantiFERON-TB Gold [id number] 21:52:00 Test Item Value Reference Range Interpretation Comments QuantiFERON Comment QuantiFERON-TB Gold Plus Criteria (test is a qualitat eleonora indirect code = 8251-1) test forM tub erculosis infection (incl uding disease) and is intended for usein conju nction with risk assessment , radiography, an d other medicaland diag nostic evaluations. Th e QuantiFERON-TB Gold Plus result isdeterm ined by subtracting the Nil value from either TB antigen (Ag)value. The Mitogen tube serves as a control for the test.Pe rformed by:[facility] [place] ([place]) QuantiFERON TB1 Ag 0.17 IU/mL Value (test code = 95356-6) QuantiFERON TB2 Ag 0.16 IU/mL Value (test code = 18075-0) QuantiFERON Nil 0.21 IU/mL Value (test code = 12998-4) QuantiFERON >10.00 Mitogen Value (test code = 78324-9) QuantiFERON-TB Negative Negative No response t o M Gold Plus (test tuberculosis antigens code = 58528-6) detected.Inf ection with M tuberculosis is unlikely, but high riskin dividuals should be consi dered for additional testing(ATS/IDS A/CDC Clinical Practi ce Guidelines, 201 7). Thereference ra nge is an Antigen minus N il result of <0.35 IU/mL.Chemilumi nescence immunoassay methodologyPerf ormed by:[facility] [place] ([place]) [facility] Description: QuantiFERON-TB Gold [id number] 21:52:00 Test Item Value Reference Range Interpretation Comments QuantiFERON Comment QuantiFERON-TB Gold Plus Criteria (test is a qualitat eleonora indirect code = 8251-1) test forM tub erculosis infection (incl uding disease) and is intended for usein conju nction with risk assessment , radiography, an d other medicaland diag nostic evaluations. Th e QuantiFERON-TB Gold Plus result isdeterm ined by subtracting the Nil value from either TB antigen (Ag)value. The Mitogen tube serves as a control for the test.Pe rformed by:[facility] [place] [facility] ([place]) QuantiFERON TB1 Ag 0.17 IU/mL Value (test code = 26496-3) QuantiFERON TB2 Ag 0.16 IU/mL Value (test code = 58866-8) QuantiFERON Nil 0.21 IU/mL Value (test code = 07633-7) QuantiFERON >10.00 Mitogen Value (test code = 44877-7) QuantiFERON-TB Negative Negative No response t o M Gold Plus (test tuberculosis antigens code = 49270-4) detected.Inf ection with M tuberculosis is unlikely, but high riskin dividuals should be consi dered for additional testing(ATS/IDS A/CDC Clinical Practi ce Guidelines, 201 7). Thereference ra nge is an Antigen minus N il result of <0.35 IU/mL.Chemilumi nescence immunoassay methodologyPerf ormed by:[facility] gonzalez ([place]) [facility] Description: QuantiFERON-TB Gold [id number] 21:52:00 Test Item Value Reference Range Interpretation Comments QuantiFERON Comment QuantiFERON-TB Gold Plus Criteria (test is a qualitat eleonora indirect code = 8251-1) test forM tub erculosis infection (incl uding disease) and is intended for usein conju nction with risk assessment , radiography, an d other medicaland diag nostic evaluations. Th e QuantiFERON-TB Gold Plus result isdeterm ined by subtracting the Nil value from either TB antigen (Ag)value. The Mitogen tube serves as a control for the test.Pe rformed by:[facility] ([place]) QuantiFERON TB1 Ag 0.17 IU/mL Value (test code = 41168-5) QuantiFERON TB2 Ag 0.16 IU/mL Value (test code = 11699-0) QuantiFERON Nil 0.21 IU/mL Value (test code = 01290-8) QuantiFERON >10.00 Mitogen Value (test code = 31987-9) QuantiFERON-TB Negative Negative No response t o M Gold Plus (test tuberculosis antigens code = 53554-0) detected.Inf ection with M tuberculosis is unlikely, but high riskin dividuals should be consi dered for additional testing(ATS/IDS A/CDC Clinical Practi ce Guidelines, 201 7). Thereference ra nge is an Antigen minus N il result of <0.35 IU/mL.Chemilumi nescence immunoassay methodologyPerf ormed by:[facility] ([place]) [facility] Description: QuantiFERON-TB Gold [id number] 21:52:00 Test Item Value Reference Range Interpretation Comments QuantiFERON Comment QuantiFERON-TB Gold Plus Criteria (test is a qualitat eleonora indirect code = 8251-1) test forM tub erculosis infection (incl uding disease) and is intended for usein conju nction with risk assessment , radiography, an d other medicaland diag nostic evaluations. Th e QuantiFERON-TB Gold Plus result isdeterm ined by subtracting the Nil value from either TB antigen (Ag)value. The Mitogen tube serves as a control for the test.Pe rformed by:[facility] [place] ([place]) QuantiFERON TB1 Ag 0.17 IU/mL Value (test code = 51730-2) QuantiFERON TB2 Ag 0.16 IU/mL Value (test code = 46499-2) QuantiFERON Nil 0.21 IU/mL Value (test code = 77397-5) QuantiFERON >10.00 Mitogen Value (test code = 27567-7) QuantiFERON-TB Negative Negative No response t o M Gold Plus (test tuberculosis antigens code = 29706-0) detected.Inf ection with M tuberculosis is unlikely, but high riskin dividuals should be consi dered for additional testing(ATS/IDS A/CDC Clinical Practi ce Guidelines, 201 7). Thereference ra nge is an Antigen minus N il result of <0.35 IU/mL.Chemilumi nescence immunoassay methodologyPerf ormed by:[facility] ([place]) [facility] Description: CD4/CD8 Ratio [id number] 16:02:00 Test Item Value Reference Range Interpretation Comments Absolute CD 4 [place] (test code 1160 /uL 359-1519 = 96293-0) % CD 4 Pos. Lymph. (test code = 46.4 % 30.8-58.5 8123-2) Abs. CD 8 Suppressor (test code 785 /uL 109-897 = 34647-3) % CD 8 Pos. Lymph. (test code = 31.4 % 12.0-35.5 8101-8) CD4/CD8 Ratio (test code = 1.48 0.92-3.72 24858-9) WBC (test code = 6690-2) 6.0 x10E3/uL 3.4-10.8 RBC (test code = 789-8) 4.90 x10E6/uL 4.14-5.80 Hemoglobin (test code = 718-7) 15.3 g/dL 13.0-17.7 Hematocrit (test code = 4544-3) 44.7 % 37.5-51.0 MCV (test code = 787-2) 91 fL 79-97 MCH (test code = 785-6) 31.2 pg 26.6-33.0 MCHC (test code = 786-4) 34.2 g/dL 31.5-35.7 RDW (test code = 788-0) 12.6 % 11.6-15.4 Platelets (test code = 777-3) 280 x10E3/uL 150-450 Neutrophils (test code = 770-8) 44 % Not Estab. Lymphs (test code = 736-9) 41 % Not Estab. Monocytes (test code = 5905-5) 13 % Not Estab. Eos (test code = 713-8) 2 % Not Estab. Basos (test code = 706-2) 0 % Not Estab. Neutrophils (Absolute) (test 2.6 x10E3/uL 1.4-7.0 code = 751-8) Lymphs (Absolute) (test code = 2.5 x10E3/uL 0.7-3.1 731-0) Monocytes(Absolute) (test code 0.8 x10E3/uL 0.1-0.9 = 742-7) Eos (Absolute) (test code = 0.1 x10E3/uL 0.0-0.4 711-2) Baso (Absolute) (test code = 0.0 x10E3/uL 0.0-0.2 704-7) Immature Granulocytes (test 0 % Not Estab. code = 66093-4) Immature Grans (Abs) (test code 0.0 x10E3/uL 0.0-0.1 = 95368-9) NRBC (test code = 65995-6) Hematology Comments: (test code = 05031-5) [facility] Description: CD4/CD8 Ratio [id number] 16:02:00 Test Item Value Reference Range Interpretation Comments Absolute CD 4 [place] (test code 1160 /uL 359-1519 = 67106-9) % CD 4 Pos. Lymph. (test code = 46.4 % 30.8-58.5 8123-2) Abs. CD 8 Suppressor (test code 785 /uL 109-897 = 06937-5) % CD 8 Pos. Lymph. (test code = 31.4 % 12.0-35.5 8101-8) CD4/CD8 Ratio (test code = 1.48 0.92-3.72 52583-0) WBC (test code = 6690-2) 6.0 x10E3/uL 3.4-10.8 RBC (test code = 789-8) 4.90 x10E6/uL 4.14-5.80 Hemoglobin (test code = 718-7) 15.3 g/dL 13.0-17.7 Hematocrit (test code = 4544-3) 44.7 % 37.5-51.0 MCV (test code = 787-2) 91 fL 79-97 MCH (test code = 785-6) 31.2 pg 26.6-33.0 MCHC (test code = 786-4) 34.2 g/dL 31.5-35.7 RDW (test code = 788-0) 12.6 % 11.6-15.4 Platelets (test code = 777-3) 280 x10E3/uL 150-450 Neutrophils (test code = 770-8) 44 % Not Estab. Lymphs (test code = 736-9) 41 % Not Estab. Monocytes (test code = 5905-5) 13 % Not Estab. Eos (test code = 713-8) 2 % Not Estab. Basos (test code = 706-2) 0 % Not Estab. Neutrophils (Absolute) (test 2.6 x10E3/uL 1.4-7.0 code = 751-8) Lymphs (Absolute) (test code = 2.5 x10E3/uL 0.7-3.1 731-0) Monocytes(Absolute) (test code 0.8 x10E3/uL 0.1-0.9 = 742-7) Eos (Absolute) (test code = 0.1 x10E3/uL 0.0-0.4 711-2) Baso (Absolute) (test code = 0.0 x10E3/uL 0.0-0.2 704-7) Immature Granulocytes (test 0 % Not Estab. code = 79844-2) Immature Grans (Abs) (test code 0.0 x10E3/uL 0.0-0.1 = 50242-9) NRBC (test code = 55537-9) Hematology Comments: (test code = 40617-9) [facility] Description: CD4/CD8 Ratio [id number] 16:02:00 Test Item Value Reference Range Interpretation Comments Absolute CD 4 [place] (test code 1160 /uL 359-1519 = 67446-2) % CD 4 Pos. Lymph. (test code = 46.4 % 30.8-58.5 8123-2) Abs. CD 8 Suppressor (test code 785 /uL 109-897 = 33515-1) % CD 8 Pos. Lymph. (test code = 31.4 % 12.0-35.5 8101-8) CD4/CD8 Ratio (test code = 1.48 0.92-3.72 31268-3) WBC (test code = 6690-2) 6.0 x10E3/uL 3.4-10.8 RBC (test code = 789-8) 4.90 x10E6/uL 4.14-5.80 Hemoglobin (test code = 718-7) 15.3 g/dL 13.0-17.7 Hematocrit (test code = 4544-3) 44.7 % 37.5-51.0 MCV (test code = 787-2) 91 fL 79-97 MCH (test code = 785-6) 31.2 pg 26.6-33.0 MCHC (test code = 786-4) 34.2 g/dL 31.5-35.7 RDW (test code = 788-0) 12.6 % 11.6-15.4 Platelets (test code = 777-3) 280 x10E3/uL 150-450 Neutrophils (test code = 770-8) 44 % Not Estab. Lymphs (test code = 736-9) 41 % Not Estab. Monocytes (test code = 5905-5) 13 % Not Estab. Eos (test code = 713-8) 2 % Not Estab. Basos (test code = 706-2) 0 % Not Estab. Neutrophils (Absolute) (test 2.6 x10E3/uL 1.4-7.0 code = 751-8) Lymphs (Absolute) (test code = 2.5 x10E3/uL 0.7-3.1 731-0) Monocytes(Absolute) (test code 0.8 x10E3/uL 0.1-0.9 = 742-7) Eos (Absolute) (test code = 0.1 x10E3/uL 0.0-0.4 711-2) Baso (Absolute) (test code = 0.0 x10E3/uL 0.0-0.2 704-7) Immature Granulocytes (test 0 % Not Estab. code = 75030-8) Immature Grans (Abs) (test code 0.0 x10E3/uL 0.0-0.1 = 80436-1) NRBC (test code = 50354-5) Hematology Comments: (test code = 41663-2) [facility] Description: CD4/CD8 Ratio [id number] 16:02:00 Test Item Value Reference Range Interpretation Comments Absolute CD 4 [place] (test code 1160 /uL 359-1519 = 03654-1) % CD 4 Pos. Lymph. (test code = 46.4 % 30.8-58.5 8123-2) Abs. CD 8 Suppressor (test code 785 /uL 109-897 = 78079-5) % CD 8 Pos. Lymph. (test code = 31.4 % 12.0-35.5 8101-8) CD4/CD8 Ratio (test code = 1.48 0.92-3.72 44629-6) WBC (test code = 6690-2) 6.0 x10E3/uL 3.4-10.8 RBC (test code = 789-8) 4.90 x10E6/uL 4.14-5.80 Hemoglobin (test code = 718-7) 15.3 g/dL 13.0-17.7 Hematocrit (test code = 4544-3) 44.7 % 37.5-51.0 MCV (test code = 787-2) 91 fL 79-97 MCH (test code = 785-6) 31.2 pg 26.6-33.0 MCHC (test code = 786-4) 34.2 g/dL 31.5-35.7 RDW (test code = 788-0) 12.6 % 11.6-15.4 Platelets (test code = 777-3) 280 x10E3/uL 150-450 Neutrophils (test code = 770-8) 44 % Not Estab. Lymphs (test code = 736-9) 41 % Not Estab. Monocytes (test code = 5905-5) 13 % Not Estab. Eos (test code = 713-8) 2 % Not Estab. Basos (test code = 706-2) 0 % Not Estab. Neutrophils (Absolute) (test 2.6 x10E3/uL 1.4-7.0 code = 751-8) Lymphs (Absolute) (test code = 2.5 x10E3/uL 0.7-3.1 731-0) Monocytes(Absolute) (test code 0.8 x10E3/uL 0.1-0.9 = 742-7) Eos (Absolute) (test code = 0.1 x10E3/uL 0.0-0.4 711-2) Baso (Absolute) (test code = 0.0 x10E3/uL 0.0-0.2 704-7) Immature Granulocytes (test 0 % Not Estab. code = 18804-7) Immature Grans (Abs) (test code 0.0 x10E3/uL 0.0-0.1 = 36844-7) NRBC (test code = 87962-8) Hematology Comments: (test code = 16010-7) [facility] Description: 25-hydroxyvitamin D3 [Mass/volume] in Serum or [id number] 06:01:00 Test Item Value Reference Range Interpretation Comments Vitamin D, 9.1 ng/mL 30.0-100.0 L Vitamin D defic iency has 25-Hydroxy (test been define d by the code = 84207-5) [place] of [employer] and an Endocrine [facility] guidel ine as alevel of serum 25-OH vitamin D less than 20 ng/mL (1,2).The Endocrine Society went on to further define vitamin Dinsufficiency as a level between 21 and 29 ng/mL (2).1. IOM (Ins titute of Medicine). 2010 . Dietary reference intak es for calcium and D. [facility]: [employer] .2. Savanna Macias, Nadege KINCAID, et al. Evaluation, treatment, and prevention of vitamin D de ficiency: an Endocrine So [facility] clinical practi ce guideline. JCEM . 2010; 96(7):1911-30.P erformed by:[facility] ([place]) [facility] Description: 25-hydroxyvitamin D3 [Mass/volume] in Serum or [id number] 06:01:00 Test Item Value Reference Range Interpretation Comments Vitamin D, 9.1 ng/mL 30.0-100.0 L Vitamin D defic iency has 25-Hydroxy (test been define d by the code = 95066-6) [place] [employer] and an Endocrine So [facility] practice guidel ine as alevel of serum 25-OH vitamin D less than 20 ng/mL (1,2).The Endocrine Society went on to further define vitamin Dinsufficiency as a level between 21 and 29 ng/mL (2).1. IOM (Ins titute of Medicine). 2010 . Dietary reference intak es for calcium and D. [facility]: [employer] .2. Savanna Macias, Nadege KINCAID, et al. Evaluation, treatment, and prevention of vitamin D de ficiency: an Endocrine So [facility] clinical practi ce guideline. JCEM . 2010; 96(7):1911-.P erformed by:[facility] ([place]) [facility] Description: 25-hydroxyvitamin D3 [Mass/volume] in Serum or [id number] 06:01:00 Test Item Value Reference Range Interpretation Comments Vitamin D, 9.1 ng/mL 30.0-100.0 L Vitamin D defic iency has 25-Hydroxy (test been define d by the code = 52571-8) [place] [employer] and an Endocrine [facility] guidel ine as alevel of serum 25-OH vitamin D less than 20 ng/mL (1,2).The Endocrine Society went on to further define vitamin Dinsufficiency as a level between 21 and 29 ng/mL (2).1. IOM (Ins titute of Medicine). 2010 . Dietary reference intak es for calcium and D. [place]: [employer] .2. Savanna Macias, Nadege KINCAID, et al. Evaluation, treatment, and prevention of vitamin D de ficiency: an Endocrine So [facility] clinical practi ce guideline. JCEM . 2010; 96(7):191-.P erformed by:[facility] [place] ([place]) [facility] Description: 25-hydroxyvitamin D3 [Mass/volume] in Serum or [id number] 06:01:00 Test Item Value Reference Range Interpretation Comments Vitamin D, 9.1 ng/mL 30.0-100.0 L Vitamin D defic iency has 25-Hydroxy (test been define d by the code = 96082-1) [place] [employer] and an Endocrine So [facility] practice guidel ine as alevel of serum 25-OH vitamin D less than 20 ng/mL (1,2).The Endocrine Society went on to further define vitamin Dinsufficiency as a level between 21 and 29 ng/mL (2).1. IOM (Ins titute of Medicine). 2010 . Dietary reference intak es for calcium and D. [place]: [employer] .2. Savanna Macias, Nadege KINCAID, et al. Evaluation, treatment, and prevention of vitamin D de ficiency: an Endocrine So [facility] clinical practi ce guideline. JCEM . 2010; 96(7):1911-30.P erformed by:Jania gonzalez ([place]) [facility] Description: Acute [id number] 05:36:00 Test Item Value Reference Range Interpretation Comments Hep A Ab, IgM (test code = Negative Negative 53181-5) HBsAg Screen (test code = Negative Negative 5196-1) Hep B Core Ab, IgM (test code = Negative Negative 28331-1) HCV Ab (test code = 91765-4) Non Reactive Non Reactive [facility] Description: Interpretation:2022-09-22 05:36:00 Test Item Value Reference Range Interpretation Comments Interpretation: Comment Not infected with HCV (test code = unless early or acute 51318-7) infection issus pected (which may be d elayed in an immunocompromis edindividua l), or other ev idence exists to indic ate HCV infection.Perfo rmed by:Jania gonzalez ([place]) [facility] Description: Hepatitis B Surf Ab [id number] 05:36:00 Test Item Value Reference Range Interpretation Comments Hepatitis B Surf Ab 262.7 mIU/mL See_Comment Status of Immunity Quant (test code = Anti-HBs Level 46673-7) --- Inconsistent wi th Immunity 0.0 - 9.9 Consistent with Immunity >9.9Pe rformed by:Jania gonzalez ([place]) [Automated message] The sy stem which generated this result transmit lucrecia reference range : Immunity>9.9. T he reference range was not used to int erpret this result as normal/abnormal . [facility] Description: Acute [id number] 05:36:00 Test Item Value Reference Range Interpretation Comments Hep A Ab, IgM (test code = Negative Negative 38477-1) HBsAg Screen (test code = Negative Negative 5196-1) Hep B Core Ab, IgM (test code = Negative Negative 89963-2) HCV Ab (test code = 70414-9) Non Reactive Non Reactive [facility] Description: Interpretation:2022-09-22 05:36:00 Test Item Value Reference Range Interpretation Comments Interpretation: Comment Not infected with HCV (test code = unless early or acute 31418-7) infection issus pected (which may be d elayed in an immunocompromis edindividua l), or other ev idence exists to indic ate HCV infection.Perfo rmed by:Jania gonzalez ([place]) [facility] Description: Hepatitis B Surf Ab [id number] 05:36:00 Test Item Value Reference Range Interpretation Comments Hepatitis B Surf Ab 262.7 mIU/mL See_Comment Status of Immunity Quant (test code = Anti-HBs Level 27037-1) --- Inconsistent wi th Immunity 0.0 - 9.9 Consistent with Immunity >9.9Pe rformed by:Jania gonzalez ([place]) [Automated message] The [employer] stem which generated this result transmit lucrecia reference range : Immunity>9.9. T he reference range was not used to int erpret this result as normal/abnormal . [facility] Description: Acute [id number] 05:36:00 Test Item Value Reference Range Interpretation Comments Hep A Ab, IgM (test code = Negative Negative 74748-9) HBsAg Screen (test code = Negative Negative 5196-1) Hep B Core Ab, IgM (test code = Negative Negative 22049-6) HCV Ab (test code = 36206-4) Non Reactive Non Reactive [facility] Description: Interpretation:2022-09-22 05:36:00 Test Item Value Reference Range Interpretation Comments Interpretation: Comment Not infected with HCV (test code = unless early or acute 42034-1) infection issus pected (which may be d elayed in an immunocompromis edindividua l), or other ev idence exists to indic ate HCV infection.Perfo rmed by:Jania gonzalez ([place]) [facility] Description: Hepatitis B Surf Ab [id number] 05:36:00 Test Item Value Reference Range Interpretation Comments Hepatitis B Surf Ab 262.7 mIU/mL See_Comment Status of Immunity Quant (test code = Anti-HBs Level 25531-5) --- Inconsistent wi th Immunity 0.0 - 9.9 Consistent with Immunity >9.9Performed by:Jania gonzalez ([employer]) [Automated message] The sy stem which generated this result transmit lucrecia reference range : Immunity>9.9. T he reference range was not used to int erpret this result as normal/abnormal . [facility] Description: Acute [id number] 05:36:00 Test Item Value Reference Range Interpretation Comments Hep A Ab, IgM (test code = Negative Negative 51633-3) HBsAg Screen (test code = Negative Negative 5196-1) Hep B Core Ab, IgM (test code = Negative Negative 73189-8) HCV Ab (test code = 44989-9) Non Reactive Non Reactive [facility] Description: Interpretation:2022-09-22 05:36:00 Test Item Value Reference Range Interpretation Comments Interpretation: Comment Not infected with HCV (test code = unless early or acute 70257-7) infection issus pected (which may be d elayed in an immunocompromis edindividua l), or other ev idence exists to indic ate HCV infection.Perfo rmed by:Jania gonzalez ([employer]) [facility] Description: Hepatitis B Surf Ab [id number] 05:36:00 Test Item Value Reference Range Interpretation Comments Hepatitis B Surf Ab 262.7 mIU/mL See_Comment Status of Immunity Quant (test code = Anti-HBs Level 14933-5) --- Inconsistent wi th Immunity 0.0 - 9.9 Consistent with Immunity >9.9Pe rformed by:Jania gonzalez ([place]) [Automated message] The sy stem which generated this result transmit lucrecia reference range : Immunity>9.9. T he reference range was not used to int erpret this result as normal/abnormal . [facility] Description: Lipid [id number] 03:10:00 Test Item Value Reference Range Interpretation Comments Cholesterol, Total (test code = 159 mg/dL 673-028 2916-3) Triglycerides (test code = 2571-8) 110 mg/dL 0-149 HDL Cholesterol (test code = 50 mg/dL >39 2084-9) VLDL Cholesterol Geoffrey (test code = 20 mg/dL 5-40 08931-9) LDL Chol Calc (NIH) (test code = 89 mg/dL 0-99 44236-8) Comment: (test code = 60394-6) [facility] Description: Lipid [id number] 03:10:00 Test Item Value Reference Range Interpretation Comments Cholesterol, Total (test code = 159 mg/dL 887-652 0976-3) Triglycerides (test code = 2571-8) 110 mg/dL 0-149 HDL Cholesterol (test code = 50 mg/dL >39 2085-9) VLDL Cholesterol Geoffrey (test code = 20 mg/dL 5-40 71459-4) LDL Chol Calc (NIH) (test code = 89 mg/dL 0-99 67481-9) Comment: (test code = 50314-1) [facility] Description: Lipid [id number] 03:10:00 Test Item Value Reference Range Interpretation Comments Cholesterol, Total (test code = 159 mg/dL 882-532 4495-3) Triglycerides (test code = 2571-8) 110 mg/dL 0-149 HDL Cholesterol (test code = 50 mg/dL >39 2085-9) VLDL Cholesterol Geoffrey (test code = 20 mg/dL 5-40 75703-2) LDL Chol Calc (NIH) (test code = 89 mg/dL 0-99 26152-3) Comment: (test code = 75707-4) [facility] Description: Lipid [id number] 03:10:00 Test Item Value Reference Range Interpretation Comments Cholesterol, Total (test code = 159 mg/dL 664-715 4141-3) Triglycerides (test code = 2571-8) 110 mg/dL 0-149 HDL Cholesterol (test code = 50 mg/dL >39 2085-9) VLDL Cholesterol Geoffrey (test code = 20 mg/dL 5-40 10574-5) LDL Chol Calc (NIH) (test code = 89 mg/dL 0-99 59782-1) Comment: (test code = 98630-4) [facility] Description: Comp. Metabolic Panel (14)2022-09-22 02:26:00 Test Item Value Reference Range Interpretation Comments Glucose (test code = 2345-7) 85 mg/dL 70-99 BUN (test code = 3094-0) 13 mg/dL 6-20 Creatinine (test code = 1.02 mg/dL 0.76-1.27 2160-0) eGFR (test code = 53271-8) 100 mL/min/1.73 >59 BUN/Creatinine Ratio (test 03-16 code = 3097-3) Sodium (test code = 2951-2) 138 mmol/L 134-144 Potassium (test code = 4.0 mmol/L 3.5-5.2 2823-3) Chloride (test code = 2075-0) 98 mmol/L 96-106 Carbon Dioxide, Total (test 26 mmol/L code = 8-9) Calcium (test code = 27109-3) 9.7 mg/dL 8.7-10.2 Protein, Total (test code = 7.7 g/dL 6.0-8.5 2885-2) Albumin (test code = 1751-7) 4.8 g/dL 4.0-5.0 Globulin, Total (test code = 2.9 g/dL 1.5-4.5 19906-1) A/G Ratio (test code = 1.7 1.2-2.2 1759-0) Bilirubin, Total (test code = 0.3 mg/dL 0.0-1.2 1975-2) Alkaline Phosphatase (test 101 IU/L 44-121 code = 6768-6) AST (SGOT) (test code = 24 IU/L 0-40 1920-8) ALT (SGPT) (test code = 21 IU/L 0-44 1742-6) [facility] Description: Comp. Metabolic Panel (14)2022-09-22 02:26:00 Test Item Value Reference Range Interpretation Comments Glucose (test code = 2345-7) 85 mg/dL 70-99 BUN (test code = 3094-0) 13 mg/dL 6-20 Creatinine (test code = 1.02 mg/dL 0.76-1.27 2160-0) eGFR (test code = 57042-9) 100 mL/min/1.73 >59 BUN/Creatinine Ratio (test 13 03-16 code = 3097-3) Sodium (test code = 2951-2) 138 mmol/L 134-144 Potassium (test code = 4.0 mmol/L 3.5-5.2 2823-3) Chloride (test code = 2075-0) 98 mmol/L 96-106 Carbon Dioxide, Total (test 26 mmol/L code = 2027-) Calcium (test code = 40432-0) 9.7 mg/dL 8.7-10.2 Protein, Total (test code = 7.7 g/dL 6.0-8.5 2885-2) Albumin (test code = 1751-7) 4.8 g/dL 4.0-5.0 Globulin, Total (test code = 2.9 g/dL 1.5-4.5 32079-3) A/G Ratio (test code = 1.7 1.2-2.2 1759-0) Bilirubin, Total (test code = 0.3 mg/dL 0.0-1.2 1975-2) Alkaline Phosphatase (test 101 IU/L 44-121 code = 6768-6) AST (SGOT) (test code = 24 IU/L 0-40 1920-8) ALT (SGPT) (test code = 21 IU/L 0-44 1742-6) [facility] Description: Comp. Metabolic Panel (14)2022-09-22 02:26:00 Test Item Value Reference Range Interpretation Comments Glucose (test code = 2345-7) 85 mg/dL 70-99 BUN (test code = 3094-0) 13 mg/dL 6-20 Creatinine (test code = 1.02 mg/dL 0.76-1.27 2160-0) eGFR (test code = 32498-2) 100 mL/min/1.73 >59 BUN/Creatinine Ratio (test 13 -20 code = 3097-3) Sodium (test code = 2951-2) 138 mmol/L 134-144 Potassium (test code = 4.0 mmol/L 3.5-5.2 2823-3) Chloride (test code = 2075-0) 98 mmol/L 96-106 Carbon Dioxide, Total (test 26 mmol/L code = 2027-9) Calcium (test code = 67837-1) 9.7 mg/dL 8.7-10.2 Protein, Total (test code = 7.7 g/dL 6.0-8.5 2885-2) Albumin (test code = 1751-7) 4.8 g/dL 4.0-5.0 Globulin, Total (test code = 2.9 g/dL 1.5-4.5 23162-3) A/G Ratio (test code = 1.7 1.2-2.2 1759-0) Bilirubin, Total (test code = 0.3 mg/dL 0.0-1.2 1974-) Alkaline Phosphatase (test 101 IU/L 44-121 code = 6768-6) AST (SGOT) (test code = 24 IU/L 0-40 1920-8) ALT (SGPT) (test code = 21 IU/L 0-44 1742-6) [facility] Description: Comp. Metabolic Panel (14)2022-09-22 02:26:00 Test Item Value Reference Range Interpretation Comments Glucose (test code = 2345-7) 85 mg/dL 70-99 BUN (test code = 3094-0) 13 mg/dL 6-20 Creatinine (test code = 1.02 mg/dL 0.76-1.27 2160-0) eGFR (test code = 34645-1) 100 mL/min/1.73 >59 BUN/Creatinine Ratio (test 13 9-20 code = 3097-3) Sodium (test code = 2951-2) 138 mmol/L 134-144 Potassium (test code = 4.0 mmol/L 3.5-5.2 2823-3) Chloride (test code = 2075-0) 98 mmol/L 96-106 Carbon Dioxide, Total (test 26 mmol/L - code = 8-9) Calcium (test code = 41246-0) 9.7 mg/dL 8.7-10.2 Protein, Total (test code = 7.7 g/dL 6.0-8.5 2885-2) Albumin (test code = 1751-7) 4.8 g/dL 4.0-5.0 Globulin, Total (test code = 2.9 g/dL 1.5-4.5 94606-6) A/G Ratio (test code = 1.7 1.2-2.2 1759-0) Bilirubin, Total (test code = 0.3 mg/dL 0.0-1.2 1974-) Alkaline Phosphatase (test 101 IU/L 44-121 code = 6768-6) AST (SGOT) (test code = 24 IU/L 0-40 1920-8) ALT (SGPT) (test code = 21 IU/L 0-44 1742-6) [facility] Description: RealTime [id number] 02:14:00 Test Item Value Reference Range Interpretation Comments HIV-1 RNA by PCR <40 HIV-1 RNA not detected .The (test code = reportable rang e for this ) assay is 40 to 10,000,000copie s HIV-1 RNA/mL. .Perfor med by:Jania gonzalez () log10 HIV-1 RNA TNP Unable to ca lculate result (test code = [place] result 55131-4) obtained forcom ponent test.Performed by:CyrusOne [place] () [facility] Description: RealTime [id number] 02:14:00 Test Item Value Reference Range Interpretation Comments HIV-1 RNA by PCR <40 HIV-1 RNA not detected .The (test code = reportable rang e for this ) assay is 40 to 10,000,000copie s HIV-1 RNA/mL. .Perfor med by:Jania gonzalez () log10 HIV-1 RNA TNP Unable to ca lculate result (test code = since non-numer ic result 47157-6) obtained forcom ponent test.Performed by:[facility] [place] () [facility] Description: RealTime [id number] 02:14:00 Test Item Value Reference Range Interpretation Comments HIV-1 RNA by PCR <40 HIV-1 RNA not detected .The (test code = reportable rang e for this ) assay is 40 to 10,000,000copie s HIV-1 RNA/mL. .Perfor med by:Jania gonzalez () log10 HIV-1 RNA TNP Unable to ca lculate result (test code = since non-numer ic result 71665-3) obtained forcom ponent test.Performed by:CyrusOne Tate () [facility] Description: RealTime [id number] 02:14:00 Test Item Value Reference Range Interpretation Comments HIV-1 RNA by PCR <40 HIV-1 RNA not detected (test code = .The reportable range for ) this assay is 4 0 to 10,000,000copie s HIV-1 RNA/mL. .Perfor med by:Jania gonzalez () log10 HIV-1 RNA TNP Unable to ca lculate result (test code = since non-numer ic result 24364-2) obtained forcom ponent test.Performed by:Jania Tate () [facility] Description: RealTime [id number] 02:14:00 Test Item Value Reference Range Interpretation Comments HIV-1 RNA by PCR <40 HIV-1 RNA not detected (test code = .The reportable range for ) this assay is 4 0 to 10,000,000copie s HIV-1 RNA/mL. .Perfor med by:Jania gonzalez () log10 HIV-1 RNA TNP Unable to ca lculate result (test code = since non-numer ic result 23491-9) obtained forcom ponent test.Performed by:Jania Tate () [facility] Description: RealTime [id number] 02:14:00 Test Item Value Reference Range Interpretation Comments HIV-1 RNA by PCR <40 HIV-1 RNA not detected (test code = .The reportable range for ) this assay is 4 0 to 10,000,000copie s HIV-1 RNA/mL. .Perfor med by:Jania gonzalez () log10 HIV-1 RNA TNP Unable to ca lculate result (test code = since non-numer ic result 06696-4) obtained forcom ponent test.Performed by:Jania Tate () [facility] Description: RealTime [id number] 02:14:00 Test Item Value Reference Range Interpretation Comments HIV-1 RNA by PCR <40 HIV-1 RNA not detected (test code = .The reportable range for ) this assay is 4 0 to 10,000,000copie s HIV-1 RNA/mL. .Perfor med by:Jania gonzalez () log10 HIV-1 RNA TNP Unable to ca lculate result (test code = since non-numer ic result 68928-7) obtained forcom ponent test.Performed by:Jania Tate () [facility] Description: RealTime [id number] 02:14:00 Test Item Value Reference Range Interpretation Comments HIV-1 RNA by PCR <40 HIV-1 RNA not detected (test code = .The reportable range for ) this assay is 4 0 to 10,000,000copie s HIV-1 RNA/mL. .Perfor med by:Jania gonzalez () log10 HIV-1 RNA TNP Unable to ca lculate result (test code = since non-numer ic result 44189-0) obtained forcom ponent test.Performed by:Coupz [place] () [facility] Description: RealTime [id number] 02:14:00 Test Item Value Reference Range Interpretation Comments HIV-1 RNA by PCR <40 HIV-1 RNA not detected (test code = .The reportable range for ) this assay is 4 0 to 10,000,000copie s HIV-1 RNA/mL. .Perfor med by:Jania gonzalez () log10 HIV-1 RNA TNP Unable to ca lculate result (test code = since non-numer ic result 65443-8) obtained forcom ponent test.Performed by:Jordani[facility]se Mediachristiano Tate () [facility] Description: RealTime [id number] 02:14:00 Test Item Value Reference Range Interpretation Comments HIV-1 RNA by PCR <40 HIV-1 RNA not detected (test code = .The reportable range for ) this assay is 4 0 to 10,000,000copie s HIV-1 RNA/mL. .
< br/>Performed by:
Jania Tate ()

log10 HIV-1 RNA TNP Unable to ca lculate result (test code = since non-numer ic result 83694-5) obtained forcom ponent test.

Performed by:
Jania Tate ()

[facility] Description: RealTime [id number] 02:14:00 Test Item Value Reference Range Interpretation Comments HIV-1 RNA by PCR <40 HIV-1 RNA not detected .The (test code = reportable rang e for this ) assay is 40 to 10,000,000copie s HIV-1 RNA/mL. .
< br/>Performed by:
[facility] [place] ([place])

log10 HIV-1 RNA TNP Unable to ca lculate result (test code = since non-numer ic result 97590-5) obtained forcom ponent test.

Performed by:
[facility] [place] ()

[facility] Description: RealTime [id number] 02:14:00 Test Item Value Reference Range Interpretation Comments HIV-1 RNA by PCR <40 HIV-1 RNA not detected .The (test code = reportable rang e for this ) assay is 40 to 10,000,000copie s HIV-1 RNA/mL. .
< br/>Performed by:
CyrusOne Tate ()

log10 HIV-1 RNA TNP Unable to ca lculate result (test code = since non-numer ic result 20836-6) obtained forcom ponent test.

Performed by:
[facility] [place] ()

[facility] Description: CD4/CD8 Ratio [id number] 16:09:00 Test Item Value Reference Range Interpretation Comments Absolute CD 4 [place] (test code 1076 /uL 359-1519 = 27034-9) % CD 4 Pos. Lymph. (test code = 41.4 % 30.8-58.5 8123-2) Abs. CD 8 Suppressor (test code 894 /uL 109-897 = 74219-6) % CD 8 Pos. Lymph. (test code = 34.4 % 12.0-35.5 8101-8) CD4/CD8 Ratio (test code = 1.20 0.92-3.72 53401-2) WBC (test code = 6690-2) 5.8 x10E3/uL 3.4-10.8 RBC (test code = 789-8) 4.29 x10E6/uL 4.14-5.80 Hemoglobin (test code = 718-7) 13.4 g/dL 13.0-17.7 Hematocrit (test code = 4544-3) 39.6 % 37.5-51.0 MCV (test code = 787-2) 92 fL 79-97 MCH (test code = 785-6) 31.2 pg 26.6-33.0 MCHC (test code = 786-4) 33.8 g/dL 31.5-35.7 RDW (test code = 788-0) 14.2 % 11.6-15.4 Platelets (test code = 777-3) 240 x10E3/uL 150-450 Neutrophils (test code = 770-8) 43 % Not Estab. Lymphs (test code = 736-9) 45 % Not Estab. Monocytes (test code = 5905-5) 11 % Not Estab. Eos (test code = 713-8) 1 % Not Estab. Basos (test code = 706-2) 0 % Not Estab. Neutrophils (Absolute) (test 2.5 x10E3/uL 1.4-7.0 code = 751-8) Lymphs (Absolute) (test code = 2.6 x10E3/uL 0.7-3.1 731-0) Monocytes(Absolute) (test code 0.6 x10E3/uL 0.1-0.9 = 742-7) Eos (Absolute) (test code = 0.0 x10E3/uL 0.0-0.4 711-2) Baso (Absolute) (test code = 0.0 x10E3/uL 0.0-0.2 704-7) Immature Granulocytes (test 0 % Not Estab. code = 07629-3) Immature Grans (Abs) (test code 0.0 x10E3/uL 0.0-0.1 = 31771-5) NRBC (test code = 23514-8) Hematology Comments: (test code = 56355-5) [facility] Description: CD4/CD8 Ratio [id number] 16:09:00 Test Item Value Reference Range Interpretation Comments Absolute CD 4 [place] (test code 1076 /uL 359-1519 = 32024-6) % CD 4 Pos. Lymph. (test code = 41.4 % 30.8-58.5 8123-2) Abs. CD 8 Suppressor (test code 894 /uL 109-897 = 38286-7) % CD 8 Pos. Lymph. (test code = 34.4 % 12.0-35.5 8101-8) CD4/CD8 Ratio (test code = 1.20 0.92-3.72 68753-3) WBC (test code = 6690-2) 5.8 x10E3/uL 3.4-10.8 RBC (test code = 789-8) 4.29 x10E6/uL 4.14-5.80 Hemoglobin (test code = 718-7) 13.4 g/dL 13.0-17.7 Hematocrit (test code = 4544-3) 39.6 % 37.5-51.0 MCV (test code = 787-2) 92 fL 79-97 MCH (test code = 785-6) 31.2 pg 26.6-33.0 MCHC (test code = 786-4) 33.8 g/dL 31.5-35.7 RDW (test code = 788-0) 14.2 % 11.6-15.4 Platelets (test code = 777-3) 240 x10E3/uL 150-450 Neutrophils (test code = 770-8) 43 % Not Estab. Lymphs (test code = 736-9) 45 % Not Estab. Monocytes (test code = 5905-5) 11 % Not Estab. Eos (test code = 713-8) 1 % Not Estab. Basos (test code = 706-2) 0 % Not Estab. Neutrophils (Absolute) (test 2.5 x10E3/uL 1.4-7.0 code = 751-8) Lymphs (Absolute) (test code = 2.6 x10E3/uL 0.7-3.1 731-0) Monocytes(Absolute) (test code 0.6 x10E3/uL 0.1-0.9 = 742-7) Eos (Absolute) (test code = 0.0 x10E3/uL 0.0-0.4 711-2) Baso (Absolute) (test code = 0.0 x10E3/uL 0.0-0.2 704-7) Immature Granulocytes (test 0 % Not Estab. code = 57496-5) Immature Grans (Abs) (test code 0.0 x10E3/uL 0.0-0.1 = 45847-1) NRBC (test code = 23237-3) Hematology Comments: (test code = 33292-7) [facility] Description: CD4/CD8 Ratio [id number] 16:09:00 Test Item Value Reference Range Interpretation Comments Absolute CD 4 [place] (test code 1076 /uL 359-1519 = 22936-9) % CD 4 Pos. Lymph. (test code = 41.4 % 30.8-58.5 8123-2) Abs. CD 8 Suppressor (test code 894 /uL 109-897 = 23746-7) % CD 8 Pos. Lymph. (test code = 34.4 % 12.0-35.5 8101-8) CD4/CD8 Ratio (test code = 1.20 0.92-3.72 36357-0) WBC (test code = 6690-2) 5.8 x10E3/uL 3.4-10.8 RBC (test code = 789-8) 4.29 x10E6/uL 4.14-5.80 Hemoglobin (test code = 718-7) 13.4 g/dL 13.0-17.7 Hematocrit (test code = 4544-3) 39.6 % 37.5-51.0 MCV (test code = 787-2) 92 fL 79-97 MCH (test code = 785-6) 31.2 pg 26.6-33.0 MCHC (test code = 786-4) 33.8 g/dL 31.5-35.7 RDW (test code = 788-0) 14.2 % 11.6-15.4 Platelets (test code = 777-3) 240 x10E3/uL 150-450 Neutrophils (test code = 770-8) 43 % Not Estab. Lymphs (test code = 736-9) 45 % Not Estab. Monocytes (test code = 5905-5) 11 % Not Estab. Eos (test code = 713-8) 1 % Not Estab. Basos (test code = 706-2) 0 % Not Estab. Neutrophils (Absolute) (test 2.5 x10E3/uL 1.4-7.0 code = 751-8) Lymphs (Absolute) (test code = 2.6 x10E3/uL 0.7-3.1 731-0) Monocytes(Absolute) (test code 0.6 x10E3/uL 0.1-0.9 = 742-7) Eos (Absolute) (test code = 0.0 x10E3/uL 0.0-0.4 711-2) Baso (Absolute) (test code = 0.0 x10E3/uL 0.0-0.2 704-7) Immature Granulocytes (test 0 % Not Estab. code = 50381-6) Immature Grans (Abs) (test code 0.0 x10E3/uL 0.0-0.1 = 72741-1) NRBC (test code = 01454-9) Hematology Comments: (test code = 70976-9) [facility] Description: CD4/CD8 Ratio [id number] 16:09:00 Test Item Value Reference Range Interpretation Comments Absolute CD 4 [place] (test code 1076 /uL 359-1519 = 37290-3) % CD 4 Pos. Lymph. (test code = 41.4 % 30.8-58.5 8123-2) Abs. CD 8 Suppressor (test code 894 /uL 109-897 = 54040-3) % CD 8 Pos. Lymph. (test code = 34.4 % 12.0-35.5 8101-8) CD4/CD8 Ratio (test code = 1.20 0.92-3.72 64667-1) WBC (test code = 6690-2) 5.8 x10E3/uL 3.4-10.8 RBC (test code = 789-8) 4.29 x10E6/uL 4.14-5.80 Hemoglobin (test code = 718-7) 13.4 g/dL 13.0-17.7 Hematocrit (test code = 4544-3) 39.6 % 37.5-51.0 MCV (test code = 787-2) 92 fL 79-97 MCH (test code = 785-6) 31.2 pg 26.6-33.0 MCHC (test code = 786-4) 33.8 g/dL 31.5-35.7 RDW (test code = 788-0) 14.2 % 11.6-15.4 Platelets (test code = 777-3) 240 x10E3/uL 150-450 Neutrophils (test code = 770-8) 43 % Not Estab. Lymphs (test code = 736-9) 45 % Not Estab. Monocytes (test code = 5905-5) 11 % Not Estab. Eos (test code = 713-8) 1 % Not Estab. Basos (test code = 706-2) 0 % Not Estab. Neutrophils (Absolute) (test 2.5 x10E3/uL 1.4-7.0 code = 751-8) Lymphs (Absolute) (test code = 2.6 x10E3/uL 0.7-3.1 731-0) Monocytes(Absolute) (test code 0.6 x10E3/uL 0.1-0.9 = 742-7) Eos (Absolute) (test code = 0.0 x10E3/uL 0.0-0.4 711-2) Baso (Absolute) (test code = 0.0 x10E3/uL 0.0-0.2 704-7) Immature Granulocytes (test 0 % Not Estab. code = 36748-0) Immature Grans (Abs) (test code 0.0 x10E3/uL 0.0-0.1 = 59760-9) NRBC (test code = 67748-3) Hematology Comments: (test code = 39518-4) [facility] Description: CD4/CD8 Ratio [id number] 16:09:00 Test Item Value Reference Range Interpretation Comments Absolute CD 4 [place] (test code 1076 /uL 359-1519 = 88196-8) % CD 4 Pos. Lymph. (test code = 41.4 % 30.8-58.5 8123-2) Abs. CD 8 Suppressor (test code 894 /uL 109-897 = 36337-0) % CD 8 Pos. Lymph. (test code = 34.4 % 12.0-35.5 8101-8) CD4/CD8 Ratio (test code = 1.20 0.92-3.72 83298-1) WBC (test code = 6690-2) 5.8 x10E3/uL 3.4-10.8 RBC (test code = 789-8) 4.29 x10E6/uL 4.14-5.80 Hemoglobin (test code = 718-7) 13.4 g/dL 13.0-17.7 Hematocrit (test code = 4544-3) 39.6 % 37.5-51.0 MCV (test code = 787-2) 92 fL 79-97 MCH (test code = 785-6) 31.2 pg 26.6-33.0 MCHC (test code = 786-4) 33.8 g/dL 31.5-35.7 RDW (test code = 788-0) 14.2 % 11.6-15.4 Platelets (test code = 777-3) 240 x10E3/uL 150-450 Neutrophils (test code = 770-8) 43 % Not Estab. Lymphs (test code = 736-9) 45 % Not Estab. Monocytes (test code = 5905-5) 11 % Not Estab. Eos (test code = 713-8) 1 % Not Estab. Basos (test code = 706-2) 0 % Not Estab. Neutrophils (Absolute) (test 2.5 x10E3/uL 1.4-7.0 code = 751-8) Lymphs (Absolute) (test code = 2.6 x10E3/uL 0.7-3.1 731-0) Monocytes(Absolute) (test code 0.6 x10E3/uL 0.1-0.9 = 742-7) Eos (Absolute) (test code = 0.0 x10E3/uL 0.0-0.4 711-2) Baso (Absolute) (test code = 0.0 x10E3/uL 0.0-0.2 704-7) Immature Granulocytes (test 0 % Not Estab. code = 16860-7) Immature Grans (Abs) (test code 0.0 x10E3/uL 0.0-0.1 = 95170-0) NRBC (test code = 67788-3) Hematology Comments: (test code = 53542-3) [facility] Description: CD4/CD8 Ratio [id number] 16:09:00 Test Item Value Reference Range Interpretation Comments Absolute CD 4 [place] (test code 1076 /uL 359-1519 = 90752-5) % CD 4 Pos. Lymph. (test code = 41.4 % 30.8-58.5 8123-2) Abs. CD 8 Suppressor (test code 894 /uL 109-897 = 07597-7) % CD 8 Pos. Lymph. (test code = 34.4 % 12.0-35.5 8101-8) CD4/CD8 Ratio (test code = 1.20 0.92-3.72 60536-3) WBC (test code = 6690-2) 5.8 x10E3/uL 3.4-10.8 RBC (test code = 789-8) 4.29 x10E6/uL 4.14-5.80 Hemoglobin (test code = 718-7) 13.4 g/dL 13.0-17.7 Hematocrit (test code = 4544-3) 39.6 % 37.5-51.0 MCV (test code = 787-2) 92 fL 79-97 MCH (test code = 785-6) 31.2 pg 26.6-33.0 MCHC (test code = 786-4) 33.8 g/dL 31.5-35.7 RDW (test code = 788-0) 14.2 % 11.6-15.4 Platelets (test code = 777-3) 240 x10E3/uL 150-450 Neutrophils (test code = 770-8) 43 % Not Estab. Lymphs (test code = 736-9) 45 % Not Estab. Monocytes (test code = 5905-5) 11 % Not Estab. Eos (test code = 713-8) 1 % Not Estab. Basos (test code = 706-2) 0 % Not Estab. Neutrophils (Absolute) (test 2.5 x10E3/uL 1.4-7.0 code = 751-8) Lymphs (Absolute) (test code = 2.6 x10E3/uL 0.7-3.1 731-0) Monocytes(Absolute) (test code 0.6 x10E3/uL 0.1-0.9 = 742-7) Eos (Absolute) (test code = 0.0 x10E3/uL 0.0-0.4 711-2) Baso (Absolute) (test code = 0.0 x10E3/uL 0.0-0.2 704-7) Immature Granulocytes (test 0 % Not Estab. code = 19245-5) Immature Grans (Abs) (test code 0.0 x10E3/uL 0.0-0.1 = 91297-3) NRBC (test code = 50338-3) Hematology Comments: (test code = 27679-0) [facility] Description: CD4/CD8 Ratio [id number] 16:09:00 Test Item Value Reference Range Interpretation Comments Absolute CD 4 [place] (test code 1076 /uL 359-1519 = 37817-5) % CD 4 Pos. Lymph. (test code = 41.4 % 30.8-58.5 8123-2) Abs. CD 8 Suppressor (test code 894 /uL 109-897 = 89193-8) % CD 8 Pos. Lymph. (test code = 34.4 % 12.0-35.5 8101-8) CD4/CD8 Ratio (test code = 1.20 0.92-3.72 84641-4) WBC (test code = 6690-2) 5.8 x10E3/uL 3.4-10.8 RBC (test code = 789-8) 4.29 x10E6/uL 4.14-5.80 Hemoglobin (test code = 718-7) 13.4 g/dL 13.0-17.7 Hematocrit (test code = 4544-3) 39.6 % 37.5-51.0 MCV (test code = 787-2) 92 fL 79-97 MCH (test code = 785-6) 31.2 pg 26.6-33.0 MCHC (test code = 786-4) 33.8 g/dL 31.5-35.7 RDW (test code = 788-0) 14.2 % 11.6-15.4 Platelets (test code = 777-3) 240 x10E3/uL 150-450 Neutrophils (test code = 770-8) 43 % Not Estab. Lymphs (test code = 736-9) 45 % Not Estab. Monocytes (test code = 5905-5) 11 % Not Estab. Eos (test code = 713-8) 1 % Not Estab. Basos (test code = 706-2) 0 % Not Estab. Neutrophils (Absolute) (test 2.5 x10E3/uL 1.4-7.0 code = 751-8) Lymphs (Absolute) (test code = 2.6 x10E3/uL 0.7-3.1 731-0) Monocytes(Absolute) (test code 0.6 x10E3/uL 0.1-0.9 = 742-7) Eos (Absolute) (test code = 0.0 x10E3/uL 0.0-0.4 711-2) Baso (Absolute) (test code = 0.0 x10E3/uL 0.0-0.2 704-7) Immature Granulocytes (test 0 % Not Estab. code = 30742-6) Immature Grans (Abs) (test code 0.0 x10E3/uL 0.0-0.1 = 57057-7) NRBC (test code = 04569-9) Hematology Comments: (test code = 25747-7) [facility] Description: CD4/CD8 Ratio [id number] 16:09:00 Test Item Value Reference Range Interpretation Comments Absolute CD 4 [place] (test code 1076 /uL 359-1519 = 36444-6) % CD 4 Pos. Lymph. (test code = 41.4 % 30.8-58.5 8123-2) Abs. CD 8 Suppressor (test code 894 /uL 109-897 = 47271-3) % CD 8 Pos. Lymph. (test code = 34.4 % 12.0-35.5 8101-8) CD4/CD8 Ratio (test code = 1.20 0.92-3.72 30196-9) WBC (test code = 6690-2) 5.8 x10E3/uL 3.4-10.8 RBC (test code = 789-8) 4.29 x10E6/uL 4.14-5.80 Hemoglobin (test code = 718-7) 13.4 g/dL 13.0-17.7 Hematocrit (test code = 4544-3) 39.6 % 37.5-51.0 MCV (test code = 787-2) 92 fL 79-97 MCH (test code = 785-6) 31.2 pg 26.6-33.0 MCHC (test code = 786-4) 33.8 g/dL 31.5-35.7 RDW (test code = 788-0) 14.2 % 11.6-15.4 Platelets (test code = 777-3) 240 x10E3/uL 150-450 Neutrophils (test code = 770-8) 43 % Not Estab. Lymphs (test code = 736-9) 45 % Not Estab. Monocytes (test code = 5905-5) 11 % Not Estab. Eos (test code = 713-8) 1 % Not Estab. Basos (test code = 706-2) 0 % Not Estab. Neutrophils (Absolute) (test 2.5 x10E3/uL 1.4-7.0 code = 751-8) Lymphs (Absolute) (test code = 2.6 x10E3/uL 0.7-3.1 731-0) Monocytes(Absolute) (test code 0.6 x10E3/uL 0.1-0.9 = 742-7) Eos (Absolute) (test code = 0.0 x10E3/uL 0.0-0.4 711-2) Baso (Absolute) (test code = 0.0 x10E3/uL 0.0-0.2 704-7) Immature Granulocytes (test 0 % Not Estab. code = 56865-6) Immature Grans (Abs) (test code 0.0 x10E3/uL 0.0-0.1 = 45054-7) NRBC (test code = 37640-5) Hematology Comments: (test code = 79492-9) [facility] Description: CD4/CD8 Ratio [id number] 16:09:00 Test Item Value Reference Range Interpretation Comments Absolute CD 4 [place] (test code 1076 /uL 359-1519 = 27671-8) % CD 4 Pos. Lymph. (test code = 41.4 % 30.8-58.5 8123-2) Abs. CD 8 Suppressor (test code 894 /uL 109-897 = 42370-0) % CD 8 Pos. Lymph. (test code = 34.4 % 12.0-35.5 8101-8) CD4/CD8 Ratio (test code = 1.20 0.92-3.72 71096-6) WBC (test code = 6690-2) 5.8 x10E3/uL 3.4-10.8 RBC (test code = 789-8) 4.29 x10E6/uL 4.14-5.80 Hemoglobin (test code = 718-7) 13.4 g/dL 13.0-17.7 Hematocrit (test code = 4544-3) 39.6 % 37.5-51.0 MCV (test code = 787-2) 92 fL 79-97 MCH (test code = 785-6) 31.2 pg 26.6-33.0 MCHC (test code = 786-4) 33.8 g/dL 31.5-35.7 RDW (test code = 788-0) 14.2 % 11.6-15.4 Platelets (test code = 777-3) 240 x10E3/uL 150-450 Neutrophils (test code = 770-8) 43 % Not Estab. Lymphs (test code = 736-9) 45 % Not Estab. Monocytes (test code = 5905-5) 11 % Not Estab. Eos (test code = 713-8) 1 % Not Estab. Basos (test code = 706-2) 0 % Not Estab. Neutrophils (Absolute) (test 2.5 x10E3/uL 1.4-7.0 code = 751-8) Lymphs (Absolute) (test code = 2.6 x10E3/uL 0.7-3.1 731-0) Monocytes(Absolute) (test code 0.6 x10E3/uL 0.1-0.9 = 742-7) Eos (Absolute) (test code = 0.0 x10E3/uL 0.0-0.4 711-2) Baso (Absolute) (test code = 0.0 x10E3/uL 0.0-0.2 704-7) Immature Granulocytes (test 0 % Not Estab. code = 91828-4) Immature Grans (Abs) (test code 0.0 x10E3/uL 0.0-0.1 = 97625-2) NRBC (test code = 40285-0) Hematology Comments: (test code = 80416-3) [facility] Description: CD4/CD8 Ratio [id number] 16:09:00 Test Item Value Reference Range Interpretation Comments Absolute CD 4 [place] (test code 1076 /uL 359-1519 = 86814-7) % CD 4 Pos. Lymph. (test code = 41.4 % 30.8-58.5 8123-2) Abs. CD 8 Suppressor (test code 894 /uL 109-897 = 04114-7) % CD 8 Pos. Lymph. (test code = 34.4 % 12.0-35.5 8101-8) CD4/CD8 Ratio (test code = 1.20 0.92-3.72 25520-9) WBC (test code = 6690-2) 5.8 x10E3/uL 3.4-10.8 RBC (test code = 789-8) 4.29 x10E6/uL 4.14-5.80 Hemoglobin (test code = 718-7) 13.4 g/dL 13.0-17.7 Hematocrit (test code = 4544-3) 39.6 % 37.5-51.0 MCV (test code = 787-2) 92 fL 79-97 MCH (test code = 785-6) 31.2 pg 26.6-33.0 MCHC (test code = 786-4) 33.8 g/dL 31.5-35.7 RDW (test code = 788-0) 14.2 % 11.6-15.4 Platelets (test code = 777-3) 240 x10E3/uL 150-450 Neutrophils (test code = 770-8) 43 % Not Estab. Lymphs (test code = 736-9) 45 % Not Estab. Monocytes (test code = 5905-5) 11 % Not Estab. Eos (test code = 713-8) 1 % Not Estab. Basos (test code = 706-2) 0 % Not Estab. Neutrophils (Absolute) (test 2.5 x10E3/uL 1.4-7.0 code = 751-8) Lymphs (Absolute) (test code = 2.6 x10E3/uL 0.7-3.1 731-0) Monocytes(Absolute) (test code 0.6 x10E3/uL 0.1-0.9 = 742-7) Eos (Absolute) (test code = 0.0 x10E3/uL 0.0-0.4 711-2) Baso (Absolute) (test code = 0.0 x10E3/uL 0.0-0.2 704-7) Immature Granulocytes (test 0 % Not Estab. code = 86608-4) Immature Grans (Abs) (test code 0.0 x10E3/uL 0.0-0.1 = 36611-3) NRBC (test code = 55381-2) Hematology Comments: (test code = 94258-7) [facility] Description: CD4/CD8 Ratio [id number] 16:09:00 Test Item Value Reference Range Interpretation Comments Absolute CD 4 [place] (test code 1076 /uL 359-1519 = 44648-3) % CD 4 Pos. Lymph. (test code = 41.4 % 30.8-58.5 8123-2) Abs. CD 8 Suppressor (test code 894 /uL 109-897 = 98313-4) % CD 8 Pos. Lymph. (test code = 34.4 % 12.0-35.5 8101-8) CD4/CD8 Ratio (test code = 1.20 0.92-3.72 41921-3) WBC (test code = 6690-2) 5.8 x10E3/uL 3.4-10.8 RBC (test code = 789-8) 4.29 x10E6/uL 4.14-5.80 Hemoglobin (test code = 718-7) 13.4 g/dL 13.0-17.7 Hematocrit (test code = 4544-3) 39.6 % 37.5-51.0 MCV (test code = 787-2) 92 fL 79-97 MCH (test code = 785-6) 31.2 pg 26.6-33.0 MCHC (test code = 786-4) 33.8 g/dL 31.5-35.7 RDW (test code = 788-0) 14.2 % 11.6-15.4 Platelets (test code = 777-3) 240 x10E3/uL 150-450 Neutrophils (test code = 770-8) 43 % Not Estab. Lymphs (test code = 736-9) 45 % Not Estab. Monocytes (test code = 5905-5) 11 % Not Estab. Eos (test code = 713-8) 1 % Not Estab. Basos (test code = 706-2) 0 % Not Estab. Neutrophils (Absolute) (test 2.5 x10E3/uL 1.4-7.0 code = 751-8) Lymphs (Absolute) (test code = 2.6 x10E3/uL 0.7-3.1 731-0) Monocytes(Absolute) (test code 0.6 x10E3/uL 0.1-0.9 = 742-7) Eos (Absolute) (test code = 0.0 x10E3/uL 0.0-0.4 711-2) Baso (Absolute) (test code = 0.0 x10E3/uL 0.0-0.2 704-7) Immature Granulocytes (test 0 % Not Estab. code = 42818-2) Immature Grans (Abs) (test code 0.0 x10E3/uL 0.0-0.1 = 03873-6) NRBC (test code = 97914-2) Hematology Comments: (test code = 38223-9) [facility] Description: CD4/CD8 Ratio [id number] 16:09:00 Test Item Value Reference Range Interpretation Comments Absolute CD 4 [place] (test code 1076 /uL 359-1519 = 06326-3) % CD 4 Pos. Lymph. (test code = 41.4 % 30.8-58.5 8123-2) Abs. CD 8 Suppressor (test code 894 /uL 109-897 = 83891-8) % CD 8 Pos. Lymph. (test code = 34.4 % 12.0-35.5 8101-8) CD4/CD8 Ratio (test code = 1.20 0.92-3.72 96653-2) WBC (test code = 6690-2) 5.8 x10E3/uL 3.4-10.8 RBC (test code = 789-8) 4.29 x10E6/uL 4.14-5.80 Hemoglobin (test code = 718-7) 13.4 g/dL 13.0-17.7 Hematocrit (test code = 4544-3) 39.6 % 37.5-51.0 MCV (test code = 787-2) 92 fL 79-97 MCH (test code = 785-6) 31.2 pg 26.6-33.0 MCHC (test code = 786-4) 33.8 g/dL 31.5-35.7 RDW (test code = 788-0) 14.2 % 11.6-15.4 Platelets (test code = 777-3) 240 x10E3/uL 150-450 Neutrophils (test code = 770-8) 43 % Not Estab. Lymphs (test code = 736-9) 45 % Not Estab. Monocytes (test code = 5905-5) 11 % Not Estab. Eos (test code = 713-8) 1 % Not Estab. Basos (test code = 706-2) 0 % Not Estab. Neutrophils (Absolute) (test 2.5 x10E3/uL 1.4-7.0 code = 751-8) Lymphs (Absolute) (test code = 2.6 x10E3/uL 0.7-3.1 731-0) Monocytes(Absolute) (test code 0.6 x10E3/uL 0.1-0.9 = 742-7) Eos (Absolute) (test code = 0.0 x10E3/uL 0.0-0.4 711-2) Baso (Absolute) (test code = 0.0 x10E3/uL 0.0-0.2 704-7) Immature Granulocytes (test 0 % Not Estab. code = 71341-3) Immature Grans (Abs) (test code 0.0 x10E3/uL 0.0-0.1 = 67614-5) NRBC (test code = 17528-1) Hematology Comments: (test code = 15424-2) [facility] Description: 25-hydroxyvitamin D3 [Mass/volume] in Serum or [id number] 08:25:00 Test Item Value Reference Range Interpretation Comments Vitamin D, 25.8 ng/mL 30.0-100.0 L Vitamin D defic iency has 25-Hydroxy (test been define d by the code = 63869-0) [place] [employer] and an Endocrine [facility] practice guidel ine as alevel of serum 25-OH vitamin D less than 20 ng/mL (1,2).The Endocrine Society went on to further define vitamin Dinsufficiency as a level between 21 and 29 ng/mL (2).1. IOM (Ins titute of Medicine). 2010 . Dietary reference intak es for calcium and D. [facility]: [employer] .2. Mary Ellen BRYAN, Savanna NARAYAN, Nadege KINCAID, et al. Evaluation, treatment, and prevention of vitamin D de ficiency: an Endocrine [facility] clinical practi ce guideline. JCEM . 2010; 96(7):1911-30.P erformed by:[facility] ([place]) [facility] Description: 25-hydroxyvitamin D3 [Mass/volume] in Serum or [id number] 08:25:00 Test Item Value Reference Range Interpretation Comments Vitamin D, 25.8 ng/mL 30.0-100.0 L Vitamin D defic iency has 25-Hydroxy (test been define d by the code = 07878-1) [place] [employer] [place] and an Endocrine [facility] practice guidel ine as alevel of serum 25-OH vitamin D less than 20 ng/mL (1,2).The Endocrine Society went on to further define vitamin Dinsufficiency as a level between 21 and 29 ng/mL (2).1. IOM (Ins titute of Medicine). 2010 . Dietary reference intak es for calcium and D. [facility]: [employer] .2. Mary Ellen BRYAN, Savanna NARAYAN, Nadege KINCAID, et al. Evaluation, treatment, and prevention of vitamin D de ficiency: an Endocrine [facility] clinical practi ce guideline. JCEM . 2010; 96(7):1911-30.P erformed by:[facility] [place] [facility] ([place]) [facility] Description: 25-hydroxyvitamin D3 [Mass/volume] in Serum or [id number] 08:25:00 Test Item Value Reference Range Interpretation Comments Vitamin D, 25.8 ng/mL 30.0-100.0 L Vitamin D defic iency has 25-Hydroxy (test been define d by the code = 97574-2) [place] [employer] [place] and an Endocrine [facility] practice guidel ine as alevel of serum 25-OH vitamin D less than 20 ng/mL (1,2).The Endocrine Society went on to further define vitamin Dinsufficiency as a level between 21 and 29 ng/mL (2).1. IOM (Ins titute of Medicine). 2010 . Dietary reference intak es for calcium and D. [facility]: [employer] .2. Savanna Macias, Nadege KINCAID, et al. Evaluation, treatment, and prevention of vitamin D de ficiency: an Endocrine [facility] clinical practi ce guideline. JCEM . 2010; 96(7):1911-30.P erformed by:[facility] [facility] ([place]) [facility] Description: 25-hydroxyvitamin D3 [Mass/volume] in Serum or [id number] 08:25:00 Test Item Value Reference Range Interpretation Comments Vitamin D, 25.8 ng/mL 30.0-100.0 L Vitamin D defic iency has 25-Hydroxy (test been define d by the code = 14033-4) [place] [employer] [place] and an Endocrine [facility] practice guidel ine as alevel of serum 25-OH vitamin D less than 20 ng/mL (1,2).The Endocrine Society went on to further define vitamin Dinsufficiency as a level between 21 and 29 ng/mL (2).1. IOM (Ins titute of Medicine). 2010 . Dietary reference intak es for calcium and D. [facility]: [employer] .2. Savanna Macias, Nadege KINCAID, et al. Evaluation, treatment, and prevention of vitamin D de ficiency: an Endocrine [facility] clinical practi ce guideline. JCEM . 2010; 96(7):1911-30.P erformed by:[facility] ([place]) [facility] Description: 25-hydroxyvitamin D3 [Mass/volume] in Serum or [id number] 08:25:00 Test Item Value Reference Range Interpretation Comments Vitamin D, 25.8 ng/mL 30.0-100.0 L Vitamin D defic iency has 25-Hydroxy (test been define d by the code = 69584-1) [place] [employer] [place] [facility] an Endocrine [facility] guidel ine as alevel of serum 25-OH vitamin D less than 20 ng/mL (1,2).The Endocrine Society went on to further define vitamin Dinsufficiency as a level between 21 and 29 ng/mL (2).1. IOM (Ins titute of Medicine). 2010 . Dietary reference intak es for calcium and D. [facility]: [employer] .2. Savanna Macias, Nadege KINCAID, et al. Evaluation, treatment, and prevention of vitamin D de ficiency: an Endocrine [facility] clinical practi ce guideline. JCEM . 2010; 96(7):1911-30.P erformed by:[facility] ([place]) [facility] Description: 25-hydroxyvitamin D3 [Mass/volume] in Serum or [id number] 08:25:00 Test Item Value Reference Range Interpretation Comments Vitamin D, 25.8 ng/mL 30.0-100.0 L Vitamin D defic iency has 25-Hydroxy (test been define d by the code = 36536-0) [place] [facility] [place] [facility] guidel [facility]e as alevel of serum 25-OH vitamin D less than 20 ng/mL (1,2).The Endocrine Society went on to further define vitamin Dinsufficiency as a level between 21 and 29 ng/mL (2).1. IOM (Ins titute of Medicine). 2010 . Dietary reference intak es for calcium and D. [facility]: [employer] .2. Savanna Macias, Nadege KINCAID, et al. Evaluation, treatment, and prevention of vitamin D de ficiency: an Endocrine [facility] clinical practi ce guideline. JCEM . 2010; 96(7):1911-30.P erformed by:[facility] ([place]) [facility] Description: 25-hydroxyvitamin D3 [Mass/volume] in Serum or [id number] 08:25:00 Test Item Value Reference Range Interpretation Comments Vitamin D, 25.8 ng/mL 30.0-100.0 L Vitamin D defic iency has 25-Hydroxy (test been define d by the code = 46320-4) [place] [employer] [place] and an Endocrine [facility] practice guidel ine as alevel of serum 25-OH vitamin D less than 20 ng/mL (1,2).The Endocrine Society went on to further define vitamin Dinsufficiency as a level between 21 and 29 ng/mL (2).1. IOM (Ins [facility]). 2010 . Dietary reference intak es for calcium and D. [facility]: [employer] .2. Savanna Macias, Nadege KINCAID, et al. Evaluation, treatment, and prevention of vitamin D de ficiency: an Endocrine [facility] clinical practi ce guideline. JCEM . 2010; 96(7):1911-30.P erformed by:[facility] ([place]) [facility] Description: 25-hydroxyvitamin D3 [Mass/volume] in Serum or [id number] 08:25:00 Test Item Value Reference Range Interpretation Comments Vitamin D, 25.8 ng/mL 30.0-100.0 L Vitamin D defic iency has 25-Hydroxy (test been define d by the code = 73539-6) [place] [employer] [place] and an Endocrine [facility] practice guidel ine as alevel of serum 25-OH vitamin D less than 20 ng/mL (1,2).The Endocrine Society went on to further define vitamin Dinsufficiency as a level between 21 and 29 ng/mL (2).1. IOM (Ins [facility]). 2010 . Dietary reference intak es for calcium and D. [facility]: [employer] .2. Savanna Macias, Nadege KINCAID, et al. Evaluation, treatment, and prevention of vitamin D de ficiency: an Endocrine [facility] clinical practi ce guideline. JCEM . 2010; 96(7):1911-30.P erformed by:[facility] ([place]) [facility] Description: 25-hydroxyvitamin D3 [Mass/volume] in Serum or [id number] 08:25:00 Test Item Value Reference Range Interpretation Comments Vitamin D, 25.8 ng/mL 30.0-100.0 L Vitamin D defic iency has 25-Hydroxy (test been define d by the code = 69374-4) [place] [employer] [place] and an Endocrine [facility] practice guidel ine as alevel of serum 25-OH vitamin D less than 20 ng/mL (1,2).The Endocrine Society went on to further define vitamin Dinsufficiency as a level between 21 and 29 ng/mL (2).1. IOM (Ins titute of Medicine). 2010 . Dietary reference intak es for calcium and D. [facility]: [employer] .2. Savanna Macias, Nadege KINCAID, et al. Evaluation, treatment, and prevention of vitamin D de ficiency: an Endocrine [facility] clinical practi ce guideline. JCEM . 2010; 96(7):1911-30.P erformed by:Jania gonzalez (VEE) [facility] Description: 25-hydroxyvitamin D3 [Mass/volume] in Serum or [id number] 08:25:00 Test Item Value Reference Range Interpretation Comments Vitamin D, 25.8 ng/mL 30.0-100.0 L Vitamin D defic iency has 25-Hydroxy (test been define d by the code = 43725-7) [place] [employer] [place] and an Endocrine [facility] practice guidel ine as alevel of serum 25-OH vitamin D less than 20 ng/mL (1,2).The Endocrine Society went on to further define vitamin Dinsufficiency as a level between 21 and 29 ng/mL (2).1. IOM (Ins [facility]). 2010 . Dietary reference intak es for calcium and D. [place]: [employer] .2. Savanna Macias, Nadege KINCAID, et al. Evaluation, treatment, and prevention of vitamin D de ficiency: an Endocrine [facility] clinical practi ce guideline. JCEM . 2010; 96(7):1911-30.& lt;br/>
Performed by:
Jania Tate (VEE)

[facility] Description: 25-hydroxyvitamin D3 [Mass/volume] in Serum or [id number] 08:25:00 Test Item Value Reference Range Interpretation Comments Vitamin D, 25.8 ng/mL 30.0-100.0 L Vitamin D defic iency has 25-Hydroxy (test been define d by the code = 69218-8) [place] [employer] [place] and an Endocrine So ciety practice guidel ine as alevel of serum 25-OH vitamin D less than 20 ng/mL (1,2).The Endocrine Society went on to further define vitamin Dinsufficiency as a level between 21 and 29 ng/mL (2).1. IOM (Ins titute of Medicine). 2010 . Dietary reference intak es for calcium and D. [facility]: [employer] .2. Savanna Macias, Nadege KINCAID, et al. Evaluation, treatment, and prevention of vitamin D de ficiency: an Endocrine [facility] clinical practi ce guideline. JCEM . 2010; 96(7):191-.& lt;br/>
Performed by:
ISORG ([place])

[facility] Description: 25-hydroxyvitamin D3 [Mass/volume] in Serum or [id number] 08:25:00 Test Item Value Reference Range Interpretation Comments Vitamin D, 25.8 ng/mL 30.0-100.0 L Vitamin D defic iency has 25-Hydroxy (test been define d by the code = 36591-5) [place] [employer] [place] and an Endocrine [facility] practice guidel ine as alevel of serum 25-OH vitamin D less than 20 ng/mL (1,2).The Endocrine Society went on to further define vitamin Dinsufficiency as a level between 21 and 29 ng/mL (2).1. IOM (Ins titute of Medicine). 2010 . Dietary reference intak es for calcium and D. [facility]: [employer] .2. Savanna Macias, Nadege KINCAID, et al. Evaluation, treatment, and prevention of vitamin D de ficiency: an Endocrine [facility] clinical practi ce guideline. EM . 2010; 96(7):191-30.& lt;br/>
Performed by:
ISORG ([place])

[facility] Description: Lipid [id number] 08:13:00 Test Item Value Reference Range Interpretation Comments Cholesterol, Total (test code = 158 mg/dL 561-147 0596-3) Triglycerides (test code = 2571-8) 85 mg/dL 0-149 HDL Cholesterol (test code = 45 mg/dL >39 2085-9) VLDL Cholesterol Geoffrey (test code = 16 mg/dL 5-40 96954-3) LDL Chol Calc (NIH) (test code = 97 mg/dL 0-99 46520-0) Comment: (test code = 14320-8) [facility] Description: Lipid [id number] 08:13:00 Test Item Value Reference Range Interpretation Comments Cholesterol, Total (test code = 158 mg/dL 236-471 9897-3) Triglycerides (test code = 2571-8) 85 mg/dL 0-149 HDL Cholesterol (test code = 45 mg/dL >39 2085-9) VLDL Cholesterol Geoffrey (test code = 16 mg/dL 5-40 68799-7) LDL Chol Calc (NIH) (test code = 97 mg/dL 0-99 56304-9) Comment: (test code = 35347-8) [facility] Description: Lipid [id number] 08:13:00 Test Item Value Reference Range Interpretation Comments Cholesterol, Total (test code = 158 mg/dL 395-627 6276-3) Triglycerides (test code = 2571-8) 85 mg/dL 0-149 HDL Cholesterol (test code = 45 mg/dL >39 2085-9) VLDL Cholesterol Geoffrey (test code = 16 mg/dL 5-40 37350-0) LDL Chol Calc (NIH) (test code = 97 mg/dL 0-99 08246-6) Comment: (test code = 02452-5) [facility] Description: Lipid [id number] 08:13:00 Test Item Value Reference Range Interpretation Comments Cholesterol, Total (test code = 158 mg/dL 601-246 9107-3) Triglycerides (test code = 2571-8) 85 mg/dL 0-149 HDL Cholesterol (test code = 45 mg/dL >39 2085-9) VLDL Cholesterol Geoffrey (test code = 16 mg/dL 5-40 74443-7) LDL Chol Calc (NIH) (test code = 97 mg/dL 0-99 16164-0) Comment: (test code = 84399-0) [facility] Description: Lipid [id number] 08:13:00 Test Item Value Reference Range Interpretation Comments Cholesterol, Total (test code = 158 mg/dL 608-015 4066-3) Triglycerides (test code = 2571-8) 85 mg/dL 0-149 HDL Cholesterol (test code = 45 mg/dL >39 2085-9) VLDL Cholesterol [place] (test code = 16 mg/dL 5-40 40782-6) LDL Chol Calc (NIH) (test code = 97 mg/dL 0-99 12942-1) Comment: (test code = 22202-0) [facility] Description: Lipid [id number] 08:13:00 Test Item Value Reference Range Interpretation Comments Cholesterol, Total (test code = 158 mg/dL 701-337 3106-3) Triglycerides (test code = 2571-8) 85 mg/dL 0-149 HDL Cholesterol (test code = 45 mg/dL >39 2085-9) VLDL Cholesterol [place] (test code = 16 mg/dL 5-40 02254-7) LDL Chol Calc (NIH) (test code = 97 mg/dL 0-99 27503-3) Comment: (test code = 15477-5) [facility] Description: Lipid [id number] 08:13:00 Test Item Value Reference Range Interpretation Comments Cholesterol, Total (test code = 158 mg/dL 882-706 8921-3) Triglycerides (test code = 2571-8) 85 mg/dL 0-149 HDL Cholesterol (test code = 45 mg/dL >39 2085-9) VLDL Cholesterol Geoffrey (test code = 16 mg/dL 5-40 10283-2) LDL Chol Calc (NIH) (test code = 97 mg/dL 0-99 88115-8) Comment: (test code = 33953-7) [facility] Description: Lipid [id number] 08:13:00 Test Item Value Reference Range Interpretation Comments Cholesterol, Total (test code = 158 mg/dL 790-915 4397-3) Triglycerides (test code = 2571-8) 85 mg/dL 0-149 HDL Cholesterol (test code = 45 mg/dL >39 2085-9) VLDL Cholesterol [place] (test code = 16 mg/dL 5-40 63483-4) LDL Chol Calc (NIH) (test code = 97 mg/dL 0-99 86374-5) Comment: (test code = 21795-6) [facility] Description: Lipid [id number] 08:13:00 Test Item Value Reference Range Interpretation Comments Cholesterol, Total (test code = 158 mg/dL 815-589 4295-3) Triglycerides (test code = 2571-8) 85 mg/dL 0-149 HDL Cholesterol (test code = 45 mg/dL >39 2085-9) VLDL Cholesterol [place] (test code = 16 mg/dL 5-40 58583-0) LDL Chol Calc (NIH) (test code = 97 mg/dL 0-99 07329-3) Comment: (test code = 60604-0) [facility] Description: Lipid [id number] 08:13:00 Test Item Value Reference Range Interpretation Comments Cholesterol, Total (test code = 158 mg/dL 322-253 3187-3) Triglycerides (test code = 2571-8) 85 mg/dL 0-149 HDL Cholesterol (test code = 45 mg/dL >39 2085-9) VLDL Cholesterol Geoffrey (test code = 16 mg/dL 5-40 28864-3) LDL Chol Calc (NIH) (test code = 97 mg/dL 0-99 66141-9) Comment: (test code = 44030-3) [facility] Description: Lipid [id number] 08:13:00 Test Item Value Reference Range Interpretation Comments Cholesterol, Total (test code = 158 mg/dL 228-463 4729-3) Triglycerides (test code = 2571-8) 85 mg/dL 0-149 HDL Cholesterol (test code = 45 mg/dL >39 2085-9) VLDL Cholesterol Geoffrey (test code = 16 mg/dL 5-40 28365-3) LDL Chol Calc (NIH) (test code = 97 mg/dL 0-99 32504-6) Comment: (test code = 48585-9) [facility] Description: Lipid [id number] 08:13:00 Test Item Value Reference Range Interpretation Comments Cholesterol, Total (test code = 158 mg/dL 082-536 5962-3) Triglycerides (test code = 2571-8) 85 mg/dL 0-149 HDL Cholesterol (test code = 45 mg/dL >39 2085-9) VLDL Cholesterol Geoffrey (test code = 16 mg/dL 5-40 81492-2) LDL Chol Calc (NIH) (test code = 97 mg/dL 0-99 70066-3) Comment: (test code = 96015-6) [facility] Description: Comp. Metabolic Panel (14)2021-10-28 08:04:00 Test Item Value Reference Range Interpretation Comments Glucose (test code = 2345-7) 89 mg/dL 65-99 BUN (test code = 3094-0) 8 mg/dL 6-20 Creatinine (test code = 1.02 mg/dL 0.76-1.27 2160-0) eGFR (test code = 80466-9) 101 mL/min/1.73 >59 BUN/Creatinine Ratio (test 8 9-20 L code = 3097-3) Sodium (test code = 2951-2) 141 mmol/L 134-144 Potassium (test code = 4.2 mmol/L 3.5-5.2 2823-3) Chloride (test code = 2075-0) 102 mmol/L 96-106 Carbon Dioxide, Total (test 24 mmol/L 20-29 code = 2027-9) Calcium (test code = 40469-5) 9.7 mg/dL 8.7-10.2 Protein, Total (test code = 6.9 g/dL 6.0-8.5 2885-2) Albumin (test code = 1751-7) 4.3 g/dL 4.0-5.0 Globulin, Total (test code = 2.6 g/dL 1.5-4.5 04060-0) A/G Ratio (test code = 1.7 1.2-2.2 1759-0) Bilirubin, Total (test code = 0.4 mg/dL 0.0-1.2 1975-2) Alkaline Phosphatase (test 90 IU/L 44-121 code = 6768-6) AST (SGOT) (test code = 18 IU/L 0-40 1920-8) ALT (SGPT) (test code = 15 IU/L 0-44 1742-6) [facility] Description: Comp. Metabolic Panel (14)2021-10-28 08:04:00 Test Item Value Reference Range Interpretation Comments Glucose (test code = 2345-7) 89 mg/dL 65-99 BUN (test code = 3094-0) 8 mg/dL 6-20 Creatinine (test code = 1.02 mg/dL 0.76-1.27 2160-0) eGFR (test code = 78680-9) 101 mL/min/1.73 >59 BUN/Creatinine Ratio (test 8 9-20 L code = 3097-3) Sodium (test code = 2951-2) 141 mmol/L 134-144 Potassium (test code = 4.2 mmol/L 3.5-5.2 2823-3) Chloride (test code = 2075-0) 102 mmol/L 96-106 Carbon Dioxide, Total (test 24 mmol/L 20-29 code = 2027-9) Calcium (test code = 96224-7) 9.7 mg/dL 8.7-10.2 Protein, Total (test code = 6.9 g/dL 6.0-8.5 2885-2) Albumin (test code = 1751-7) 4.3 g/dL 4.0-5.0 Globulin, Total (test code = 2.6 g/dL 1.5-4.5 24754-2) A/G Ratio (test code = 1.7 1.2-2.2 1759-0) Bilirubin, Total (test code = 0.4 mg/dL 0.0-1.2 1975-2) Alkaline Phosphatase (test 90 IU/L 44-121 code = 6768-6) AST (SGOT) (test code = 18 IU/L 0-40 1920-8) ALT (SGPT) (test code = 15 IU/L 0-44 1742-6) [facility]: Comp. Metabolic Panel (14)2021-10-28 08:04:00 Test Item Value Reference Range Interpretation Comments Glucose (test code = 2345-7) 89 mg/dL 65-99 BUN (test code = 3094-0) 8 mg/dL 6-20 Creatinine (test code = 1.02 mg/dL 0.76-1.27 2160-0) eGFR (test code = 78465-2) 101 mL/min/1.73 >59 BUN/Creatinine Ratio (test 8 9-20 L code = 3097-3) Sodium (test code = 2951-2) 141 mmol/L 134-144 Potassium (test code = 4.2 mmol/L 3.5-5.2 2823-3) Chloride (test code = 2075-0) 102 mmol/L 96-106 Carbon Dioxide, Total (test 24 mmol/L -29 code = 2027-) Calcium (test code = 24120-2) 9.7 mg/dL 8.7-10.2 Protein, Total (test code = 6.9 g/dL 6.0-8.5 2885-2) Albumin (test code = 1751-7) 4.3 g/dL 4.0-5.0 Globulin, Total (test code = 2.6 g/dL 1.5-4.5 58804-1) A/G Ratio (test code = 1.7 1.2-2.2 1759-0) Bilirubin, Total (test code = 0.4 mg/dL 0.0-1.2 1974-2) Alkaline Phosphatase (test 90 IU/L 44-121 code = 6768-6) AST (SGOT) (test code = 18 IU/L 0-40 1920-8) ALT (SGPT) (test code = 15 IU/L 0-44 1742-6) [facility] Description: Comp. Metabolic Panel (14)2021-10-28 08:04:00 Test Item Value Reference Range Interpretation Comments Glucose (test code = 2345-7) 89 mg/dL 65-99 BUN (test code = 3094-0) 8 mg/dL 6-20 Creatinine (test code = 1.02 mg/dL 0.76-1.27 2160-0) eGFR (test code = 15895-9) 101 mL/min/1.73 >59 BUN/Creatinine Ratio (test 8 9-20 L code = 3097-3) Sodium (test code = 2951-2) 141 mmol/L 134-144 Potassium (test code = 4.2 mmol/L 3.5-5.2 2823-3) Chloride (test code = 2075-0) 102 mmol/L 96-106 Carbon Dioxide, Total (test 24 mmol/L -29 code = 2027-) Calcium (test code = 83705-1) 9.7 mg/dL 8.7-10.2 Protein, Total (test code = 6.9 g/dL 6.0-8.5 2885-2) Albumin (test code = 1751-7) 4.3 g/dL 4.0-5.0 Globulin, Total (test code = 2.6 g/dL 1.5-4.5 52257-8) A/G Ratio (test code = 1.7 1.2-2.2 1759-0) Bilirubin, Total (test code = 0.4 mg/dL 0.0-1.2 1975-2) Alkaline Phosphatase (test 90 IU/L 44-121 code = 6768-6) AST (SGOT) (test code = 18 IU/L 0-40 1920-8) ALT (SGPT) (test code = 15 IU/L 0-44 1742-6) [facility] Description: Comp. Metabolic Panel (14)2021-10-28 08:04:00 Test Item Value Reference Range Interpretation Comments Glucose (test code = 2345-7) 89 mg/dL 65-99 BUN (test code = 3094-0) 8 mg/dL 6-20 Creatinine (test code = 1.02 mg/dL 0.76-1.27 2160-0) eGFR (test code = 20652-2) 101 mL/min/1.73 >59 BUN/Creatinine Ratio (test 8 9-20 L code = 3097-3) Sodium (test code = 2951-2) 141 mmol/L 134-144 Potassium (test code = 4.2 mmol/L 3.5-5.2 2823-3) Chloride (test code = 2075-0) 102 mmol/L 96-106 Carbon Dioxide, Total (test 24 mmol/L 20-29 code = 2027-9) Calcium (test code = 78252-5) 9.7 mg/dL 8.7-10.2 Protein, Total (test code = 6.9 g/dL 6.0-8.5 2885-2) Albumin (test code = 1751-7) 4.3 g/dL 4.0-5.0 Globulin, Total (test code = 2.6 g/dL 1.5-4.5 95761-3) A/G Ratio (test code = 1.7 1.2-2.2 1759-0) Bilirubin, Total (test code = 0.4 mg/dL 0.0-1.2 1974-) Alkaline Phosphatase (test 90 IU/L 44-121 code = 6768-6) AST (SGOT) (test code = 18 IU/L 0-40 1920-8) ALT (SGPT) (test code = 15 IU/L 0-44 1742-6) [facility] Description: Comp. Metabolic Panel (14)2021-10-28 08:04:00 Test Item Value Reference Range Interpretation Comments Glucose (test code = 2345-7) 89 mg/dL 65-99 BUN (test code = 3094-0) 8 mg/dL 6-20 Creatinine (test code = 1.02 mg/dL 0.76-1.27 2160-0) eGFR (test code = 59793-0) 101 mL/min/1.73 >59 BUN/Creatinine Ratio (test 8 9-20 L code = 3097-3) Sodium (test code = 2951-2) 141 mmol/L 134-144 Potassium (test code = 4.2 mmol/L 3.5-5.2 2823-3) Chloride (test code = 2075-0) 102 mmol/L 96-106 Carbon Dioxide, Total (test 24 mmol/L 20-29 code = 2027-9) Calcium (test code = 19177-2) 9.7 mg/dL 8.7-10.2 Protein, Total (test code = 6.9 g/dL 6.0-8.5 2885-2) Albumin (test code = 1751-7) 4.3 g/dL 4.0-5.0 Globulin, Total (test code = 2.6 g/dL 1.5-4.5 52488-5) A/G Ratio (test code = 1.7 1.2-2.2 1758-0) Bilirubin, Total (test code = 0.4 mg/dL 0.0-1.2 1974-07) Alkaline Phosphatase (test 90 IU/L 44-121 code = 6768-6) AST (SGOT) (test code = 18 IU/L 0-40 1920-8) ALT (SGPT) (test code = 15 IU/L 0-44 1742-6) [facility] Description: Comp. Metabolic Panel (14)2021-10-28 08:04:00 Test Item Value Reference Range Interpretation Comments Glucose (test code = 2345-7) 89 mg/dL 65-99 BUN (test code = 3094-0) 8 mg/dL 6-20 Creatinine (test code = 1.02 mg/dL 0.76-1.27 2160-0) eGFR (test code = 91630-6) 101 mL/min/1.73 >59 BUN/Creatinine Ratio (test 8 9-20 L code = 3097-3) Sodium (test code = 2951-2) 141 mmol/L 134-144 Potassium (test code = 4.2 mmol/L 3.5-5.2 2823-3) Chloride (test code = 2075-0) 102 mmol/L 96-106 Carbon Dioxide, Total (test 24 mmol/L 20-29 code = 8-9) Calcium (test code = 56342-5) 9.7 mg/dL 8.7-10.2 Protein, Total (test code = 6.9 g/dL 6.0-8.5 2885-2) Albumin (test code = 1751-7) 4.3 g/dL 4.0-5.0 Globulin, Total (test code = 2.6 g/dL 1.5-4.5 38537-8) A/G Ratio (test code = 1.7 1.2-2.2 1759-0) Bilirubin, Total (test code = 0.4 mg/dL 0.0-1.2 1975-2) Alkaline Phosphatase (test 90 IU/L 44-121 code = 6768-6) AST (SGOT) (test code = 18 IU/L 0-40 1920-8) ALT (SGPT) (test code = 15 IU/L 0-44 1742-6) [facility] Description: Comp. Metabolic Panel (14)2021-10-28 08:04:00 Test Item Value Reference Range Interpretation Comments Glucose (test code = 2345-7) 89 mg/dL 65-99 BUN (test code = 3094-0) 8 mg/dL 6-20 Creatinine (test code = 1.02 mg/dL 0.76-1.27 2160-0) eGFR (test code = 24164-3) 101 mL/min/1.73 >59 BUN/Creatinine Ratio (test 8 9-20 L code = 3097-3) Sodium (test code = 2951-2) 141 mmol/L 134-144 Potassium (test code = 4.2 mmol/L 3.5-5.2 2823-3) Chloride (test code = 2075-0) 102 mmol/L 96-106 Carbon Dioxide, Total (test 24 mmol/L 20-29 code = 2027-9) Calcium (test code = 28842-7) 9.7 mg/dL 8.7-10.2 Protein, Total (test code = 6.9 g/dL 6.0-8.5 2885-2) Albumin (test code = 1751-7) 4.3 g/dL 4.0-5.0 Globulin, Total (test code = 2.6 g/dL 1.5-4.5 06215-2) A/G Ratio (test code = 1.7 1.2-2.2 1759-0) Bilirubin, Total (test code = 0.4 mg/dL 0.0-1.2 1974-2) Alkaline Phosphatase (test 90 IU/L 44-121 code = 6768-6) AST (SGOT) (test code = 18 IU/L 0-40 1920-8) ALT (SGPT) (test code = 15 IU/L 0-44 1742-6) [facility] Description: Comp. Metabolic Panel (14)2021-10-28 08:04:00 Test Item Value Reference Range Interpretation Comments Glucose (test code = 2345-7) 89 mg/dL 65-99 BUN (test code = 3094-0) 8 mg/dL 6-20 Creatinine (test code = 1.02 mg/dL 0.76-1.27 2160-0) eGFR (test code = 96818-8) 101 mL/min/1.73 >59 BUN/Creatinine Ratio (test 8 9-20 L code = 3097-3) Sodium (test code = 2951-2) 141 mmol/L 134-144 Potassium (test code = 4.2 mmol/L 3.5-5.2 2823-3) Chloride (test code = 2075-0) 102 mmol/L 96-106 Carbon Dioxide, Total (test 24 mmol/L - code = 2027-9) Calcium (test code = 29233-5) 9.7 mg/dL 8.7-10.2 Protein, Total (test code = 6.9 g/dL 6.0-8.5 2885-2) Albumin (test code = 1751-7) 4.3 g/dL 4.0-5.0 Globulin, Total (test code = 2.6 g/dL 1.5-4.5 02051-8) A/G Ratio (test code = 1.7 1.2-2.2 1759-0) Bilirubin, Total (test code = 0.4 mg/dL 0.0-1.2 1975-2) Alkaline Phosphatase (test 90 IU/L 44-121 code = 6768-6) AST (SGOT) (test code = 18 IU/L 0-40 1920-8) ALT (SGPT) (test code = 15 IU/L 0-44 1742-6) [facility]: Comp. Metabolic Panel (14)2021-10-28 08:04:00 Test Item Value Reference Range Interpretation Comments Glucose (test code = 2345-7) 89 mg/dL 65-99 BUN (test code = 3094-0) 8 mg/dL 6-20 Creatinine (test code = 1.02 mg/dL 0.76-1.27 2160-0) eGFR (test code = 37516-0) 101 mL/min/1.73 >59 BUN/Creatinine Ratio (test 8 9-20 L code = 3097-3) Sodium (test code = 2951-2) 141 mmol/L 134-144 Potassium (test code = 4.2 mmol/L 3.5-5.2 2823-3) Chloride (test code = 2075-0) 102 mmol/L 96-106 Carbon Dioxide, Total (test 24 mmol/L -29 code = 2027-9) Calcium (test code = 01359-5) 9.7 mg/dL 8.7-10.2 Protein, Total (test code = 6.9 g/dL 6.0-8.5 2885-2) Albumin (test code = 1751-7) 4.3 g/dL 4.0-5.0 Globulin, Total (test code = 2.6 g/dL 1.5-4.5 77110-0) A/G Ratio (test code = 1.7 1.2-2.2 1758-0) Bilirubin, Total (test code = 0.4 mg/dL 0.0-1.2 1974-07) Alkaline Phosphatase (test 90 IU/L 44-121 code = 6768-6) AST (SGOT) (test code = 18 IU/L 0-40 1919-8) ALT (SGPT) (test code = 15 IU/L 0-44 1741-6) [facility] Description: Comp. Metabolic Panel (14)2021-10-28 08:04:00 Test Item Value Reference Range Interpretation Comments Glucose (test code = 2345-7) 89 mg/dL 65-99 BUN (test code = 3094-0) 8 mg/dL 6-20 Creatinine (test code = 1.02 mg/dL 0.76-1.27 2160-0) eGFR (test code = 66636-4) 101 mL/min/1.73 >59 BUN/Creatinine Ratio (test 8 9-20 L code = 3097-3) Sodium (test code = 2951-2) 141 mmol/L 134-144 Potassium (test code = 4.2 mmol/L 3.5-5.2 2823-3) Chloride (test code = 2075-0) 102 mmol/L 96-106 Carbon Dioxide, Total (test 24 mmol/L 20-29 code = 8-9) Calcium (test code = 18417-3) 9.7 mg/dL 8.7-10.2 Protein, Total (test code = 6.9 g/dL 6.0-8.5 2885-2) Albumin (test code = 1751-7) 4.3 g/dL 4.0-5.0 Globulin, Total (test code = 2.6 g/dL 1.5-4.5 26664-4) A/G Ratio (test code = 1.7 1.2-2.2 9-0) Bilirubin, Total (test code = 0.4 mg/dL 0.0-1.2 1974-07) Alkaline Phosphatase (test 90 IU/L 44-121 code = 6768-6) AST (SGOT) (test code = 18 IU/L 0-40 1920-8) ALT (SGPT) (test code = 15 IU/L 0-44 1742-6) [facility]: Comp[facility] Met[facility] (14)2021-10-28 08:04:00 Test Item Value Reference Range Interpretation Comments Glucose (test code = 2345-7) 89 mg/dL 65-99 BUN (test code = 3094-0) 8 mg/dL 6-20 Creatinine (test code = 1.02 mg/dL 0.76-1.27 2160-0) eGFR (test code = 30150-2) 101 mL/min/1.73 >59 BUN/Creatinine Ratio (test 8 9-20 L code = 3097-3) Sodium (test code = 2951-2) 141 mmol/L 134-144 Potassium (test code = 4.2 mmol/L 3.5-5.2 2823-3) Chloride (test code = 2075-0) 102 mmol/L 96-106 Carbon Dioxide, Total (test 24 mmol/L 20-29 code = 2027-9) Calcium (test code = 45548-4) 9.7 mg/dL 8.7-10.2 Protein, Total (test code = 6.9 g/dL 6.0-8.5 2885-2) Albumin (test code = 1751-7) 4.3 g/dL 4.0-5.0 Globulin, Total (test code = 2.6 g/dL 1.5-4.5 76908-3) A/G Ratio (test code = 1.7 1.2-2.2 1759-0) Bilirubin, Total (test code = 0.4 mg/dL 0.0-1.2 1975-2) Alkaline Phosphatase (test 90 IU/L 44-121 code = 6768-6) AST (SGOT) (test code = 18 IU/L 0-40 0-8) ALT (SGPT) (test code = 15 IU/L 0-44 1742-6) [facility] Description: Chlamydia/GC Ceynfrigovtre5374-25-85 22:30:00 Test Item Value Reference Range Interpretation Comments Chlamydia trachomatis, ULYSSES (test Negative Negative code = 00608-0) Neisseria gonorrhoeae, ULYSSES (test Negative Negative code = 54457-9) [facility] Description: Chlamydia/GC Rjsmwdqgqpxty1641-73-28 22:30:00 Test Item Value Reference Range Interpretation Comments Chlamydia trachomatis, ULYSSES (test Negative Negative code = 04188-7) Neisseria gonorrhoeae, ULYSSES (test Negative Negative code = 43665-5) [facility] Description: Chlamydia/GC Jeruoolqtennh7007-47-45 22:30:00 Test Item Value Reference Range Interpretation Comments Chlamydia trachomatis, ULYSSES (test Negative Negative code = 29007-7) Neisseria gonorrhoeae, ULYSSES (test Negative Negative code = 30849-5) [facility] Description: Chlamydia/GC Ekwshhbydbthg9197-81-04 22:30:00 Test Item Value Reference Range Interpretation Comments Chlamydia trachomatis, ULYSSES (test Negative Negative code = 25407-5) Neisseria gonorrhoeae, ULYSSES (test Negative Negative code = 96063-8) [facility] Description: Chlamydia/GC Phbvzbjazrapj6429-11-24 22:30:00 Test Item Value Reference Range Interpretation Comments Chlamydia trachomatis, ULYSSES (test Negative Negative code = 14050-2) Neisseria gonorrhoeae, ULYSSES (test Negative Negative code = 14448-1) [facility] Description: Chlamydia/GC Avnbcwjdbcsrn1822-74-84 22:30:00 Test Item Value Reference Range Interpretation Comments Chlamydia trachomatis, ULYSSES (test Negative Negative code = 54956-0) Neisseria gonorrhoeae, ULYSSES (test Negative Negative code = 10307-1) [facility] Description: Chlamydia/GC Ojtlxxkehpkvd0114-69-16 22:30:00 Test Item Value Reference Range Interpretation Comments Chlamydia trachomatis, ULYSSES (test Negative Negative code = 58955-0) Neisseria gonorrhoeae, ULYSSES (test Negative Negative code = 97249-0) [facility] Description: Chlamydia/GC Afsovrhfzpwpb0359-18-57 22:30:00 Test Item Value Reference Range Interpretation Comments Chlamydia trachomatis, ULYSSES (test Negative Negative code = 78332-9) Neisseria gonorrhoeae, ULYSSES (test Negative Negative code = 29865-8) [facility] Description: Chlamydia/GC Viwbagdclblgg8507-02-17 22:30:00 Test Item Value Reference Range Interpretation Comments Chlamydia trachomatis, ULYSSES (test Negative Negative code = 29414-3) Neisseria gonorrhoeae, ULYSSES (test Negative Negative code = 37538-3) [facility] Description: Chlamydia/GC Lqkwjotookzvo1060-41-18 22:30:00 Test Item Value Reference Range Interpretation Comments Chlamydia trachomatis, ULYSSES (test Negative Negative code = 56162-9) Neisseria gonorrhoeae, ULYSSES (test Negative Negative code = 43364-2) [facility] Description: Chlamydia/GC Yrqbtthambugk6036-03-06 22:30:00 Test Item Value Reference Range Interpretation Comments Chlamydia trachomatis, ULYSSES (test Negative Negative code = 58151-9) Neisseria gonorrhoeae, ULYSSES (test Negative Negative code = 64964-1) [facility] Description: Chlamydia/GC Pwqffnexpyjib7679-77-37 22:30:00 Test Item Value Reference Range Interpretation Comments Chlamydia trachomatis, ULYSSES (test Negative Negative code = 58163-6) Neisseria gonorrhoeae, ULYSSES (test Negative Negative code = 19491-4) [facility] Description: Chlamydia/GC Agqzuauepddhc0416-56-76 22:30:00 Test Item Value Reference Range Interpretation Comments Chlamydia trachomatis, ULYSSES (test Negative Negative code = 54649-5) Neisseria gonorrhoeae, ULYSSES (test Negative Negative code = 90814-1) [facility] Description: Chlamydia/GC Ccbywkfegmxze1664-32-72 22:30:00 Test Item Value Reference Range Interpretation Comments Chlamydia trachomatis, ULYSSES (test Negative Negative code = 00064-4) Neisseria gonorrhoeae, ULYSSES (test Negative Negative code = 78480-6) [facility] Description: Chlamydia/GC Dxientbvvarkr7735-50-95 22:30:00 Test Item Value Reference Range Interpretation Comments Chlamydia trachomatis, ULYSSES (test Negative Negative code = 92097-5) Neisseria gonorrhoeae, ULYSSES (test Negative Negative code = 82575-7) [facility] Description: Chlamydia/GC Xqdjdxgtfstzj6985-88-48 22:30:00 Test Item Value Reference Range Interpretation Comments Chlamydia trachomatis, ULYSSES (test Negative Negative code = 98377-2) Neisseria gonorrhoeae, ULYSSES (test Negative Negative code = 64712-8) [facility] Description: Chlamydia/GC Dfjeegsefdntf0472-07-23 22:30:00 Test Item Value Reference Range Interpretation Comments Chlamydia trachomatis, ULYSSES (test Negative Negative code = 60988-8) Neisseria gonorrhoeae, ULYSSES (test Negative Negative code = 32584-3) [facility] Description: Chlamydia/GC Sgnorlmhrokdl4229-30-64 22:30:00 Test Item Value Reference Range Interpretation Comments Chlamydia trachomatis, ULYSSES (test Negative Negative code = 32054-4) Neisseria gonorrhoeae, ULYSSES (test Negative Negative code = 48175-1) [facility] Description: RealTime [id number] 16:37:00 Test Item Value Reference Range Interpretation Comments HIV-1 RNA by PCR <40 HIV-1 RNA not detected (test code = .The reportable range for ) this assay is 4 0 to 10,000,000copie s HIV-1 RNA/mL. .Perfor med by:Jania gonzalez () log10 HIV-1 RNA TNP Unable to ca lculate result (test code = [place] result 93155-9) obtained forcom ponent test.Performed by:[facility] Tate () [employer] Description: RealTime Boespw9841-91-07 16:37:00 Test Item Value Reference Range Interpretation Comments HIV-1 RNA by PCR <40 HIV-1 RNA not detected (test code = .The reportable range for ) this assay is 4 0 to 10,000,000copie s HIV-1 RNA/mL. .Perfor med by:Jania gonzalez () log10 HIV-1 RNA TNP Unable to ca lculate result (test code = since non-numer ic result 75984-2) obtained forcom ponent test.Performed by:[facility] Tate () [employer] Description: RealTime Xihkuo8121-26-23 16:37:00 Test Item Value Reference Range Interpretation Comments HIV-1 RNA by PCR <40 HIV-1 RNA not detected .The (test code = reportable rang e for this ) assay is 40 to 10,000,000copie s HIV-1 RNA/mL. .Perfor med by:Jania gonzalez () log10 HIV-1 RNA TNP Unable to ca lculate result (test code = since non-numer ic result 11853-0) obtained forcom ponent test.Performed by:[facility] Tate () [employer] Description: RealTime [id number] 16:37:00 Test Item Value Reference Range Interpretation Comments HIV-1 RNA by PCR <40 HIV-1 RNA not detected .The (test code = reportable rang e for this ) assay is 40 to 10,000,000copie s HIV-1 RNA/mL. .Perfo rmed by:Jania gonzalez () log10 HIV-1 RNA TNP Unable to ca lculate result (test code = since non-numer ic result 92485-0) obtained forcom ponent test.Performed by:Jania Tate () [facility] Description: RealTime [id number] 16:37:00 Test Item Value Reference Range Interpretation Comments HIV-1 RNA by PCR <40 HIV-1 RNA not detected (test code = .The reportable range for ) this assay is 4 0 to 10,000,000copie s HIV-1 RNA/mL. .Perfo rmed by:Jania gonzalez () log10 HIV-1 RNA TNP Unable to ca lculate result (test code = since non-numer ic result 55315-9) obtained forcom ponent test.Performed by:Jania Tate () [facility] Description: RealTime Qzvwrr0993-36-17 16:37:00 Test Item Value Reference Range Interpretation Comments HIV-1 RNA by PCR <40 HIV-1 RNA not detected .The (test code = reportable rang e for this ) assay is 40 to 10,000,000copie s HIV-1 RNA/mL. .Perfo rmed by:Jania gonzalez () log10 HIV-1 RNA TNP Unable to ca lculate result (test code = since non-numer ic result 49392-8) obtained forcom ponent test.Performed by:JordanAlchristiano Tate () [facility] Description: RealTime [id number] 16:37:00 Test Item Value Reference Range Interpretation Comments HIV-1 RNA by PCR <40 HIV-1 RNA not detected .The (test code = reportable rang e for this ) assay is 40 to 10,000,000copie s HIV-1 RNA/mL. .Perfo rmed by:Jania gonzalez () log10 HIV-1 RNA TNP Unable to ca lculate result (test code = since non-numer ic result 36976-8) obtained forcom ponent test.Performed by:JordanAlchristiano Tate () [employer] Description: RealTime [id number] 16:37:00 Test Item Value Reference Range Interpretation Comments HIV-1 RNA by PCR <40 HIV-1 RNA not detected .The (test code = reportable rang e for this ) assay is 40 to 10,000,000copie s HIV-1 RNA/mL. .Perfor med by:Jania gonzalez () log10 HIV-1 RNA TNP Unable to ca lculate result (test code = since non-numer ic result 75617-0) obtained forcom ponent test.Performed by:Coupzchristiano Tate () [employer] Description: RealTime [id number] 16:37:00 Test Item Value Reference Range Interpretation Comments HIV-1 RNA by PCR <40 HIV-1 RNA not detected .The (test code = reportable rang e for this ) assay is 40 to 10,000,000copie s HIV-1 RNA/mL. .Perfor med by:Coupzchristiano gonzalez () log10 HIV-1 RNA TNP Unable to ca lculate result (test code = since non-numer ic result 73026-0) obtained forcom ponent test.Performed by:Coupzchristiano Tate () [facility] Description: RealTime [id number] 16:37:00 Test Item Value Reference Range Interpretation Comments HIV-1 RNA by PCR <40 HIV-1 RNA not detected .The (test code = reportable rang e for this ) assay is 40 to 10,000,000copie s HIV-1 RNA/mL. .
< br/>Performed by:
Jania Tate ()

log10 HIV-1 RNA TNP Unable to ca lculate result (test code = since non-numer ic result 90343-3) obtained forcom ponent test.

Performed by:
Jania Tate ()

[facility] Description: RealTime [id number] 16:37:00 Test Item Value Reference Range Interpretation Comments HIV-1 RNA by PCR <40 HIV-1 RNA not detected .The (test code = reportable rang e for this ) assay is 40 to 10,000,000copie s HIV-1 RNA/mL. .

Perf ormed by:
[facility] ()

log10 HIV-1 RNA TNP Unable to ca lculate result (test code = since non-numer ic result 12316-5) obtained forcom ponent test.

Performed by:
[employer] Tate ()

[facility] Description: RealTime Kpccec6644-88-32 16:37:00 Test Item Value Reference Range Interpretation Comments HIV-1 RNA by PCR <40 HIV-1 RNA not detected .The (test code = reportable rang e for this ) assay is 40 to 10,000,000copie s HIV-1 RNA/mL. .
< br/>Performed by:
[facility] ()

log10 HIV-1 RNA TNP Unable to ca lculate result (test code = since non-numer ic result 94819-2) obtained forcom ponent test.

Performed by:
CyrusOne Tate ()

[facility] Description: RealTime [id number] 16:37:00 Test Item Value Reference Range Interpretation Comments HIV-1 RNA by PCR <40 HIV-1 RNA not detected .The (test code = reportable rang e for this ) assay is 40 to 10,000,000copie s HIV-1 RNA/mL. .

Perf ormed by:
[employer] Tate ()

log10 HIV-1 RNA TNP Unable to ca lculate result (test code = since non-numer ic result 59065-9) obtained forcom ponent test.

Performed by:
[employer] Tate ()

[facility] Description: RealTime [id number] 16:37:00 Test Item Value Reference Range Interpretation Comments HIV-1 RNA by PCR <40 HIV-1 RNA not detected (test code = .The reportable range for ) this assay is 4 0 to 10,000,000copie s HIV-1 RNA/mL. .
< br/>Performed by:
Coupzrp Tate ()

log10 HIV-1 RNA TNP Unable to ca lculate result (test code = since non-numer ic result 65426-4) obtained forcom ponent test.

Performed by:
CyrusOne Tate ()

[facility] Description: RealTime Toxgte6692-27-17 16:37:00 Test Item Value Reference Range Interpretation Comments HIV-1 RNA by PCR <40 HIV-1 RNA not detected .The (test code = reportable rang e for this ) assay is 40 to 10,000,000copie s HIV-1 RNA/mL. .
< br/>Performed by:
[facility] ()

log10 HIV-1 RNA TNP Unable to ca lculate result (test code = since non-numer ic result 16868-6) obtained forcom ponent test.

Performed by:
CyrusOne Tate ()

[facility] Description: RealTime [id number] 16:37:00 Test Item Value Reference Range Interpretation Comments HIV-1 RNA by PCR <40 HIV-1 RNA not detected (test code = .The reportable range for ) this assay is 4 0 to 10,000,000copie s HIV-1 RNA/mL. .
< br/>Performed by:
[facility] ()

log10 HIV-1 RNA TNP Unable to ca lculate result (test code = since [place] ic result 40132-8) obtained forcom ponent test.

Performed by:
CyrusOne Tate ()

[facility] Description: RealTime [id number] 16:37:00 Test Item Value Reference Range Interpretation Comments HIV-1 RNA by PCR <40 HIV-1 RNA not detected .The (test code = reportable rang e for this ) assay is 40 to 10,000,000copie s HIV-1 RNA/mL. .
< br/>Performed by:
[facility] ()

log10 HIV-1 RNA TNP Unable to ca lculate result (test code = since [place] result 33900-9) obtained forcom ponent test.

Performed by:
CyrusOne Tate ()

[facility] Description: RealTime Tjkcxt2135-66-12 16:37:00 Test Item Value Reference Range Interpretation Comments HIV-1 RNA by PCR <40 HIV-1 RNA not detected .The (test code = reportable rang e for this ) assay is 40 to 10,000,000copie s HIV-1 RNA/mL. .

Perf ormed by:
CyrusOne Tate ()

log10 HIV-1 RNA TNP Unable to ca lculate result (test code = since non-numer ic result 24594-4) obtained forcom ponent test.

Performed by:
CyrusOne Tate ()

[facility] Description: Calcitriol [Mass/volume] in Serum or Plasma 2021-02-19 13:33:00 Test Item Value Reference Range Interpretation Comments Calcitriol(1,25 di-OH Vit D) (test 42.8 pg/mL 19.9-79.3 code = 29809-6) [facility] Description: Calcitriol [Mass/volume] in Serum or Plasma 2021-02-19 13:33:00 Test Item Value Reference Range Interpretation Comments Calcitriol(1,25 di-OH Vit D) (test 42.8 pg/mL 19.9-79.3 code = 57506-7) [facility] Description: Calcitriol [Mass/volume] in Serum or Plasma 2021-02-19 13:33:00 Test Item Value Reference Range Interpretation Comments Calcitriol(1,25 di-OH Vit D) (test 42.8 pg/mL 19.9-79.3 code = 42541-1) [facility] Description: Calcitriol [Mass/volume] in Serum or Plasma 2021-02-19 13:33:00 Test Item Value Reference Range Interpretation Comments Calcitriol(1,25 di-OH Vit D) (test 42.8 pg/mL 19.9-79.3 code = 61572-2) [facility] Description: Calcitriol [Mass/volume] in Serum or Plasma 2021-02-19 13:33:00 Test Item Value Reference Range Interpretation Comments Calcitriol(1,25 di-OH Vit D) (test 42.8 pg/mL 19.9-79.3 code = 21375-2) [facility] Description: Calcitriol [Mass/volume] in Serum or Plasma 2021-02-19 13:33:00 Test Item Value Reference Range Interpretation Comments Calcitriol(1,25 di-OH Vit D) (test 42.8 pg/mL 19.9-79.3 code = 12847-7) [facility] Description: Calcitriol [Mass/volume] in Serum or Plasma 2021-02-19 13:33:00 Test Item Value Reference Range Interpretation Comments Calcitriol(1,25 di-OH Vit D) (test 42.8 pg/mL 19.9-79.3 code = 31732-2) [facility] Description: Calcitriol [Mass/volume] in Serum or Plasma 2021-02-19 13:33:00 Test Item Value Reference Range Interpretation Comments Calcitriol(1,25 di-OH Vit D) (test 42.8 pg/mL 19.9-79.3 code = 28393-0) [facility] Description: Calcitriol [Mass/volume] in Serum or Plasma 2021-02-19 13:33:00 Test Item Value Reference Range Interpretation Comments Calcitriol(1,25 di-OH Vit D) (test 42.8 pg/mL 19.9-79.3 code = 19703-4) [facility] Description: Calcitriol [Mass/volume] in Serum or Plasma 2021-02-19 13:33:00 Test Item Value Reference Range Interpretation Comments Calcitriol(1,25 di-OH Vit D) (test 42.8 pg/mL 19.9-79.3 code = 05042-3) [facility] Description: Calcitriol [Mass/volume] in Serum or Plasma 2021-02-19 13:33:00 Test Item Value Reference Range Interpretation Comments Calcitriol(1,25 di-OH Vit D) (test 42.8 pg/mL 19.9-79.3 code = 14535-8) [facility] Description: Calcitriol [Mass/volume] in Serum or Plasma 2021-02-19 13:33:00 Test Item Value Reference Range Interpretation Comments Calcitriol(1,25 di-OH Vit D) (test 42.8 pg/mL 19.9-79.3 code = 24207-6) [facility] Description: Calcitriol [Mass/volume] in Serum or Plasma 2021-02-19 13:33:00 Test Item Value Reference Range Interpretation Comments Calcitriol(1,25 di-OH Vit D) (test 42.8 pg/mL 19.9-79.3 code = 27216-4) [facility] Description: Calcitriol [Mass/volume] in Serum or Plasma 2021-02-19 13:33:00 Test Item Value Reference Range Interpretation Comments Calcitriol(1,25 di-OH Vit D) (test 42.8 pg/mL 19.9-79.3 code = 03609-6) [facility] Description: Calcitriol [Mass/volume] in Serum or Plasma 2021-02-19 13:33:00 Test Item Value Reference Range Interpretation Comments Calcitriol(1,25 di-OH Vit D) (test 42.8 pg/mL 19.9-79.3 code = 21250-9) [facility] Description: Calcitriol [Mass/volume] in Serum or Plasma 2021-02-19 13:33:00 Test Item Value Reference Range Interpretation Comments Calcitriol(1,25 di-OH Vit D) (test 42.8 pg/mL 19.9-79.3 code = 20314-0) [facility] Description: Calcitriol [Mass/volume] in Serum or Plasma 2021-02-19 13:33:00 Test Item Value Reference Range Interpretation Comments Calcitriol(1,25 di-OH Vit D) (test 42.8 pg/mL 19.9-79.3 code = 70447-4) [facility] Description: Calcitriol [Mass/volume] in Serum or Plasma 2021-02-19 13:33:00 Test Item Value Reference Range Interpretation Comments Calcitriol(1,25 di-OH Vit D) (test 42.8 pg/mL 19.9-79.3 code = 57423-6) [facility]: QuantiFERON-TB Gold [id number] 20:16:00 Test Item Value Reference Range Interpretation Comments QuantiFERON Comment The QuantiFERON -TB Gold Criteria (test Plus result i s determined code = 8251-1) by subtractin gthe Nil value from [facility] TB antigen (Ag) be. The mitogen tubeser ves as a control for the test.Performed by:Jania Tate () QuantiFERON TB1 Ag 0.62 IU/mL Value (test code = 61542-6) QuantiFERON TB2 Ag 0.63 IU/mL Value (test code = 01718-5) QuantiFERON Nil 0.55 IU/mL Value (test code = 78409-4) QuantiFERON >10.00 Mitogen Value (test code = 72401-6) QuantiFERON-TB Negative Negative Chemiluminesc ence Gold Plus (test immunoassay code = 77484-9) methodologyP erformed by:Jania gonzalez () [facility] Description: QuantiFERON-TB Gold [id number] 20:16:00 Test Item Value Reference Range Interpretation Comments QuantiFERON Comment The QuantiFERON -TB Gold Criteria (test Plus result i s determined code = 8251-1) by subtractin gthe Nil value from [facility] TB antigen (Ag) be. The mitogen tubeser ves as a control for the test.Performed by:JordaniVerse Mediachristiano Tate () QuantiFERON TB1 Ag 0.62 IU/mL Value (test code = 62107-6) QuantiFERON TB2 Ag 0.63 IU/mL Value (test code = 82047-6) QuantiFERON Nil 0.55 IU/mL Value (test code = 80512-1) QuantiFERON >10.00 Mitogen Value (test code = 93463-0) QuantiFERON-TB Negative Negative Chemiluminesc ence Gold Plus (test immunoassay code = 68581-6) methodologyP erformed by:C[employer] [place] gonzalez () [facility] Description: QuantiFERON-TB Gold [id number] 20:16:00 Test Item Value Reference Range Interpretation Comments QuantiFERON Comment The QuantiFERON -TB Gold Criteria (test Plus result i s determined code = 8251-1) by subtractin gthe Nil value from [facility] TB antigen (Ag) tu be. The mitogen tubeser ves as a control for the test.Performed by:Jania Tate () QuantiFERON TB1 Ag 0.62 IU/mL Value (test code = 93884-0) QuantiFERON TB2 Ag 0.63 IU/mL Value (test code = 66661-0) QuantiFERON Nil 0.55 IU/mL Value (test code = 98249-3) QuantiFERON >10.00 Mitogen Value (test code = 45576-2) QuantiFERON-TB Negative Negative Chemiluminesc ence Gold Plus (test immunoassay code = 67138-0) methodologyP erformed by:C[employer] [place] gonzalez () [facility] Description: QuantiFERON-TB Gold [id number] 20:16:00 Test Item Value Reference Range Interpretation Comments QuantiFERON Comment The QuantiFERON -TB Gold Criteria (test Plus result i s determined code = 8251-1) by subtractin gthe Nil value from [facility] TB antigen (Ag) tu be. The mitogen tubeser ves as a control for the test.Performed by:Jordani[employer]se Mediachristiano Tate () QuantiFERON TB1 Ag 0.62 IU/mL Value (test code = 05709-6) QuantiFERON TB2 Ag 0.63 IU/mL Value (test code = 13156-0) QuantiFERON Nil 0.55 IU/mL Value (test code = 69918-0) QuantiFERON >10.00 Mitogen Value (test code = 72476-8) QuantiFERON-TB Negative Negative Chemiluminesc ence Gold Plus (test immunoassay code = 82574-4) methodologyP erformed by:Coupzchristiano gonzalez () [facility] Description: QuantiFERON-TB Gold [id number] 20:16:00 Test Item Value Reference Range Interpretation Comments QuantiFERON Comment The QuantiFERON -TB Gold Criteria (test Plus result i s determined code = 8251-1) by subtractin gthe Nil value from [facility] TB antigen (Ag) tu be. The mitogen tubeser ves as a control for the test.Performed by:Jania Tate () QuantiFERON TB1 Ag 0.62 IU/mL Value (test code = 13747-5) QuantiFERON TB2 Ag 0.63 IU/mL Value (test code = 00848-0) QuantiFERON Nil 0.55 IU/mL Value (test code = 09325-5) QuantiFERON >10.00 Mitogen Value (test code = 43753-1) QuantiFERON-TB Negative Negative Chemiluminesc ence Gold Plus (test immunoassay code = 63401-7) methodologyP erformed by:Jania gonzalez () [facility] Description: QuantiFERON-TB Gold [id number] 20:16:00 Test Item Value Reference Range Interpretation Comments QuantiFERON Comment The QuantiFERON -TB Gold Criteria (test Plus result i s determined code = 8251-1) by subtractin gthe Nil value from [facility] TB antigen (Ag) be. The mitogen tubeser ves as a control for the test.Performed by:Jania Tate () QuantiFERON TB1 Ag 0.62 IU/mL Value (test code = 94875-8) QuantiFERON TB2 Ag 0.63 IU/mL Value (test code = 98950-2) QuantiFERON Nil 0.55 IU/mL Value (test code = 47372-2) QuantiFERON >10.00 Mitogen Value (test code = 66022-0) QuantiFERON-TB Negative Negative Chemiluminesc ence Gold Plus (test immunoassay code = 58611-6) methodologyP erformed by:Jania gonzalez () [facility] Description: QuantiFERON-TB Gold [id number] 20:16:00 Test Item Value Reference Range Interpretation Comments QuantiFERON Comment The QuantiFERON -TB Gold Criteria (test Plus result i s determined code = 8251-1) by subtractin gthe Nil value from [facility] TB antigen (Ag) be. The mitogen tubeser ves as a control for the test.Performed by:Jania Tate () QuantiFERON TB1 Ag 0.62 IU/mL Value (test code = 60681-2) QuantiFERON TB2 Ag 0.63 IU/mL Value (test code = 52585-6) QuantiFERON Nil 0.55 IU/mL Value (test code = 48410-1) QuantiFERON >10.00 Mitogen Value (test code = 11684-7) QuantiFERON-TB Negative Negative Chemiluminesc ence Gold Plus (test immunoassay code = 54915-8) methodologyP erformed by:Jania gonzalez () [facility] Description: QuantiFERON-TB Gold [id number] 20:16:00 Test Item Value Reference Range Interpretation Comments QuantiFERON Comment The QuantiFERON -TB Gold Criteria (test Plus result i s determined code = 8251-1) by subtractin gthe Nil value from [facility] TB antigen (Ag) tu be. The mitogen tubeser ves as a control for the test.Performed by:Jania Tate () QuantiFERON TB1 Ag 0.62 IU/mL Value (test code = 79906-3) QuantiFERON TB2 Ag 0.63 IU/mL Value (test code = 18242-9) QuantiFERON Nil 0.55 IU/mL Value (test code = 01731-6) QuantiFERON >10.00 Mitogen Value (test code = 66510-8) QuantiFERON-TB Negative Negative Chemiluminesc ence Gold Plus (test immunoassay code = 60194-1) methodologyP erformed by:Jania gonzalez () [facility] Description: QuantiFERON-TB Gold [id number] 20:16:00 Test Item Value Reference Range Interpretation Comments QuantiFERON Comment The QuantiFERON -TB Gold Criteria (test Plus result i s determined code = 8251-1) by subtractin gthe Nil value from [facility] TB antigen (Ag) tu be. The mitogen tubeser ves as a control for the test.Performed by:Jania Tate () QuantiFERON TB1 Ag 0.62 IU/mL Value (test code = 18783-0) QuantiFERON TB2 Ag 0.63 IU/mL Value (test code = 53285-2) QuantiFERON Nil 0.55 IU/mL Value (test code = 33447-0) QuantiFERON >10.00 Mitogen Value (test code = 46163-9) QuantiFERON-TB Negative Negative Chemiluminesc ence Gold Plus (test immunoassay code = 48744-0) methodologyP erformed by:Jania gonzalez () [facility] Description: QuantiFERON-TB Gold [id number] 20:16:00 Test Item Value Reference Range Interpretation Comments QuantiFERON Comment The QuantiFERON -TB Gold Criteria (test code Plus res ult is = 8251-1) determined by subtractingthe Nil value from either TB antigen (Ag) tube. The mitogen tubeserves as a control for the test.

Performed by:
Jania Tate ()

QuantiFERON TB1 Ag 0.62 IU/mL Value (test code = 42914-7) QuantiFERON TB2 Ag 0.63 IU/mL Value (test code = 15681-2) QuantiFERON Nil 0.55 IU/mL Value (test code = 84286-0) QuantiFERON Mitogen >10.00 Value (test code = 30864-3) QuantiFERON-TB Gold Negative Negative Chemilum inescence Plus (test code = immunoassa y 58553-1) methodology<br/ >
Per formed by:
Jania Tate ()

[facility] Description: QuantiFERON-TB Gold [id number] 20:16:00 Test Item Value Reference Range Interpretation Comments QuantiFERON Comment The QuantiFERON -TB Gold Criteria (test code Plus res ult is = 8251-1) determined by subtractingthe Nil value from either TB antigen (Ag) tube. The mitogen tubeserves as a control for the test.

Performed by:
Jania Tate ()

QuantiFERON TB1 Ag 0.62 IU/mL Value (test code = 87671-5) QuantiFERON TB2 Ag 0.63 IU/mL Value (test code = 56209-3) QuantiFERON Nil 0.55 IU/mL Value (test code = 21015-0) QuantiFERON Mitogen >10.00 Value (test code = 24114-7) QuantiFERON-TB Gold Negative Negative Chemilum inescence Plus (test code = immunoassa y 68346-8) methodology<br/ >
Per formed by:
Jania Tate ()

[facility] Description: QuantiFERON-TB Gold [id number] 20:16:00 Test Item Value Reference Range Interpretation Comments QuantiFERON Comment The QuantiFERON -TB Gold Criteria (test code Plus res ult is = 8251-1) determined by subtractingthe Nil value from either TB antigen (Ag) tube. The mitogen tubeserves as a control for the test.

Performed by:
Jania Tate ()

QuantiFERON TB1 Ag 0.62 IU/mL Value (test code = 62341-4) QuantiFERON TB2 Ag 0.63 IU/mL Value (test code = 11075-1) QuantiFERON Nil 0.55 IU/mL Value (test code = 16644-1) QuantiFERON Mitogen >10.00 Value (test code = 40774-0) QuantiFERON-TB Gold Negative Negative Chemilum inescence Plus (test code = immunoassa y 34369-2) methodology<br/ >
Per formed by:
Jania Tate ()

[facility] Description: QuantiFERON-TB Gold [id number] 20:16:00 Test Item Value Reference Range Interpretation Comments QuantiFERON Comment The QuantiFERON -TB Gold Criteria (test code Plus res ult is = 8251-1) determined by subtractingthe Nil value from either TB antigen (Ag) tube. The mitogen tubeserves as a control for the test.

Performed by:
Jania Tate ()

QuantiFERON TB1 Ag 0.62 IU/mL Value (test code = 71941-5) QuantiFERON TB2 Ag 0.63 IU/mL Value (test code = 80607-1) QuantiFERON Nil 0.55 IU/mL Value (test code = 63788-4) QuantiFERON Mitogen >10.00 Value (test code = 08120-1) QuantiFERON-TB Gold Negative Negative Chemilum inescence Plus (test code = immunoassa y 50538-9) methodology<br/ >
Per formed by:
Jania Tate ()

[facility] Description: QuantiFERON-TB Gold [id number] 20:16:00 Test Item Value Reference Range Interpretation Comments QuantiFERON Comment The QuantiFERON -TB Gold Criteria (test code Plus res ult is = 8251-1) determined by subtractingthe Nil value from either TB antigen (Ag) tube. The mitogen tubeserves as a control for the test.

Performed by:
Jania Tate ()

QuantiFERON TB1 Ag 0.62 IU/mL Value (test code = 58472-8) QuantiFERON TB2 Ag 0.63 IU/mL Value (test code = 76857-5) QuantiFERON Nil 0.55 IU/mL Value (test code = 75531-7) QuantiFERON Mitogen >10.00 Value (test code = 23612-3) QuantiFERON-TB Gold Negative Negative Chemilum inescence Plus (test code = immunoassa y 04297-1) methodology<br/ >
Per formed by:
Jania Tate ()

[facility] Description: QuantiFERON-TB Gold [id number] 20:16:00 Test Item Value Reference Range Interpretation Comments QuantiFERON Comment The QuantiFERON -TB Gold Criteria (test code Plus res ult is = 8251-1) determined by subtractingthe Nil value from either TB antigen (Ag) tube. The mitogen tubeserves as a control for the test.

Performed by:
Jania Tate ()

QuantiFERON TB1 Ag 0.62 IU/mL Value (test code = 66800-2) QuantiFERON TB2 Ag 0.63 IU/mL Value (test code = 69102-3) QuantiFERON Nil 0.55 IU/mL Value (test code = 76345-1) QuantiFERON Mitogen >10.00 Value (test code = 64560-4) QuantiFERON-TB Gold Negative Negative Chemilum inescence Plus (test code = immunoassa y 02542-4) methodology<br/ >
Per formed by:
Jania Tate ()

[facility] Description: QuantiFERON-TB Gold [id number] 20:16:00 Test Item Value Reference Range Interpretation Comments QuantiFERON Comment The QuantiFERON -TB Gold Criteria (test code Plus res ult is = 8251-1) determined by subtractingthe Nil value from either TB antigen (Ag) tube. The mitogen tubeserves as a control for the test.

Performed by:
Jania Tate ()

QuantiFERON TB1 Ag 0.62 IU/mL Value (test code = 50048-6) QuantiFERON TB2 Ag 0.63 IU/mL Value (test code = 72280-4) QuantiFERON Nil 0.55 IU/mL Value (test code = 03673-2) QuantiFERON Mitogen >10.00 Value (test code = 62353-0) QuantiFERON-TB Gold Negative Negative Chemilum inescence Plus (test code = immunoassa y 12470-5) methodology<br/ >
Per formed by:
Jania Tate ()

[facility] Description: QuantiFERON-TB Gold [id number] 20:16:00 Test Item Value Reference Range Interpretation Comments QuantiFERON Comment The QuantiFERON -TB Gold Criteria (test code Plus res ult is = 8251-1) determined by subtractingthe Nil value from either TB antigen (Ag) tube. The mitogen tubeserves as a control for the test.

Performed by:
Jania Tate ()

QuantiFERON TB1 Ag 0.62 IU/mL Value (test code = 94998-4) QuantiFERON TB2 Ag 0.63 IU/mL Value (test code = 01326-5) QuantiFERON Nil 0.55 IU/mL Value (test code = 00217-9) QuantiFERON Mitogen >10.00 Value (test code = 79351-7) QuantiFERON-TB Gold Negative Negative Chemilum inescence Plus (test code = immunoassa y 50792-6) methodology<br/ >
Per formed by:
Jania Tate ()

[facility] Description: QuantiFERON-TB Gold [id number] 20:16:00 Test Item Value Reference Range Interpretation Comments QuantiFERON Comment The QuantiFERON -TB Gold Criteria (test code Plus res ult is = 8251-1) determined by subtractingthe Nil value from either TB antigen (Ag) tube. The mitogen tubeserves as a control for the test.

Performed by:
Jania Tate ()

QuantiFERON TB1 Ag 0.62 IU/mL Value (test code = 34786-5) QuantiFERON TB2 Ag 0.63 IU/mL Value (test code = 43481-8) QuantiFERON Nil 0.55 IU/mL Value (test code = 82238-7) QuantiFERON Mitogen >10.00 Value (test code = 96172-2) QuantiFERON-TB Gold Negative Negative Chemilum inescence Plus (test code = immunoassa y 97595-5) methodology<br/ >
Per formed by:
Jania Tate ()

[facility] Description: CD4/CD8 Ratio [id number] 15:31:00 Test Item Value Reference Range Interpretation Comments Absolute CD 4 [place] (test code 635 /uL 359-1519 = 60881-3) % CD 4 Pos. Lymph. (test code = 42.3 % 30.8-58.5 8123-2) Abs. CD 8 Suppressor (test code 401 /uL 109-897 = 22471-8) % CD 8 Pos. Lymph. (test code = 26.7 % 12.0-35.5 8101-8) CD4/CD8 Ratio (test code = 1.58 0.92-3.72 48324-5) WBC (test code = 6690-2) 7.9 x10E3/uL 3.4-10.8 RBC (test code = 789-8) 4.84 x10E6/uL 4.14-5.80 Hemoglobin (test code = 718-7) 15.1 g/dL 13.0-17.7 Hematocrit (test code = 4544-3) 45.2 % 37.5-51.0 MCV (test code = 787-2) 93 fL 79-97 MCH (test code = 785-6) 31.2 pg 26.6-33.0 MCHC (test code = 786-4) 33.4 g/dL 31.5-35.7 RDW (test code = 788-0) 13.0 % 11.6-15.4 Platelets (test code = 777-3) 266 x10E3/uL 150-450 Neutrophils (test code = 770-8) 70 % Not Estab. Lymphs (test code = 736-9) 19 % Not Estab. Monocytes (test code = 5905-5) 10 % Not Estab. Eos (test code = 713-8) 1 % Not Estab. Basos (test code = 706-2) 0 % Not Estab. Neutrophils (Absolute) (test 5.6 x10E3/uL 1.4-7.0 code = 751-8) Lymphs (Absolute) (test code = 1.5 x10E3/uL 0.7-3.1 731-0) Monocytes(Absolute) (test code 0.8 x10E3/uL 0.1-0.9 = 742-7) Eos (Absolute) (test code = 0.1 x10E3/uL 0.0-0.4 711-2) Baso (Absolute) (test code = 0.0 x10E3/uL 0.0-0.2 704-7) Immature Granulocytes (test 0 % Not Estab. code = 72178-7) Immature Grans (Abs) (test code 0.0 x10E3/uL 0.0-0.1 = 45568-8) NRBC (test code = 72049-4) Hematology Comments: (test code = 76509-0) [facility] Description: CD4/CD8 Ratio [id number] 15:31:00 Test Item Value Reference Range Interpretation Comments Absolute CD 4 [place] (test code 635 /uL 359-1519 = 23023-8) % CD 4 Pos. Lymph. (test code = 42.3 % 30.8-58.5 8123-2) Abs. CD 8 Suppressor (test code 401 /uL 109-897 = 46178-2) % CD 8 Pos. Lymph. (test code = 26.7 % 12.0-35.5 8101-8) CD4/CD8 Ratio (test code = 1.58 0.92-3.72 88003-1) WBC (test code = 6690-2) 7.9 x10E3/uL 3.4-10.8 RBC (test code = 789-8) 4.84 x10E6/uL 4.14-5.80 Hemoglobin (test code = 718-7) 15.1 g/dL 13.0-17.7 Hematocrit (test code = 4544-3) 45.2 % 37.5-51.0 MCV (test code = 787-2) 93 fL 79-97 MCH (test code = 785-6) 31.2 pg 26.6-33.0 MCHC (test code = 786-4) 33.4 g/dL 31.5-35.7 RDW (test code = 788-0) 13.0 % 11.6-15.4 Platelets (test code = 777-3) 266 x10E3/uL 150-450 Neutrophils (test code = 770-8) 70 % Not Estab. Lymphs (test code = 736-9) 19 % Not Estab. Monocytes (test code = 5905-5) 10 % Not Estab. Eos (test code = 713-8) 1 % Not Estab. Basos (test code = 706-2) 0 % Not Estab. Neutrophils (Absolute) (test 5.6 x10E3/uL 1.4-7.0 code = 751-8) Lymphs (Absolute) (test code = 1.5 x10E3/uL 0.7-3.1 731-0) Monocytes(Absolute) (test code 0.8 x10E3/uL 0.1-0.9 = 742-7) Eos (Absolute) (test code = 0.1 x10E3/uL 0.0-0.4 711-2) Baso (Absolute) (test code = 0.0 x10E3/uL 0.0-0.2 704-7) Immature Granulocytes (test 0 % Not Estab. code = 02057-2) Immature Grans (Abs) (test code 0.0 x10E3/uL 0.0-0.1 = 98344-8) NRBC (test code = 36350-8) Hematology Comments: (test code = 41261-7) [facility] Description: CD4/CD8 Ratio [id number] 15:31:00 Test Item Value Reference Range Interpretation Comments Absolute CD 4 [place] (test code 635 /uL 359-1519 = 73780-6) % CD 4 Pos. Lymph. (test code = 42.3 % 30.8-58.5 8123-2) Abs. CD 8 Suppressor (test code 401 /uL 109-897 = 33015-9) % CD 8 Pos. Lymph. (test code = 26.7 % 12.0-35.5 8101-8) CD4/CD8 Ratio (test code = 1.58 0.92-3.72 73355-4) WBC (test code = 6690-2) 7.9 x10E3/uL 3.4-10.8 RBC (test code = 789-8) 4.84 x10E6/uL 4.14-5.80 Hemoglobin (test code = 718-7) 15.1 g/dL 13.0-17.7 Hematocrit (test code = 4544-3) 45.2 % 37.5-51.0 MCV (test code = 787-2) 93 fL 79-97 MCH (test code = 785-6) 31.2 pg 26.6-33.0 MCHC (test code = 786-4) 33.4 g/dL 31.5-35.7 RDW (test code = 788-0) 13.0 % 11.6-15.4 Platelets (test code = 777-3) 266 x10E3/uL 150-450 Neutrophils (test code = 770-8) 70 % Not Estab. Lymphs (test code = 736-9) 19 % Not Estab. Monocytes (test code = 5905-5) 10 % Not Estab. Eos (test code = 713-8) 1 % Not Estab. Basos (test code = 706-2) 0 % Not Estab. Neutrophils (Absolute) (test 5.6 x10E3/uL 1.4-7.0 code = 751-8) Lymphs (Absolute) (test code = 1.5 x10E3/uL 0.7-3.1 731-0) Monocytes(Absolute) (test code 0.8 x10E3/uL 0.1-0.9 = 742-7) Eos (Absolute) (test code = 0.1 x10E3/uL 0.0-0.4 711-2) Baso (Absolute) (test code = 0.0 x10E3/uL 0.0-0.2 704-7) Immature Granulocytes (test 0 % Not Estab. code = 79103-0) Immature Grans (Abs) (test code 0.0 x10E3/uL 0.0-0.1 = 91097-2) NRBC (test code = 77588-8) Hematology Comments: (test code = 74052-9) [facility] Description: CD4/CD8 Ratio [id number] 15:31:00 Test Item Value Reference Range Interpretation Comments Absolute CD 4 [place] (test code 635 /uL 359-1519 = 06523-6) % CD 4 Pos. Lymph. (test code = 42.3 % 30.8-58.5 8123-2) Abs. CD 8 Suppressor (test code 401 /uL 109-897 = 62877-2) % CD 8 Pos. Lymph. (test code = 26.7 % 12.0-35.5 8101-8) CD4/CD8 Ratio (test code = 1.58 0.92-3.72 66776-8) WBC (test code = 6690-2) 7.9 x10E3/uL 3.4-10.8 RBC (test code = 789-8) 4.84 x10E6/uL 4.14-5.80 Hemoglobin (test code = 718-7) 15.1 g/dL 13.0-17.7 Hematocrit (test code = 4544-3) 45.2 % 37.5-51.0 MCV (test code = 787-2) 93 fL 79-97 MCH (test code = 785-6) 31.2 pg 26.6-33.0 MCHC (test code = 786-4) 33.4 g/dL 31.5-35.7 RDW (test code = 788-0) 13.0 % 11.6-15.4 Platelets (test code = 777-3) 266 x10E3/uL 150-450 Neutrophils (test code = 770-8) 70 % Not Estab. Lymphs (test code = 736-9) 19 % Not Estab. Monocytes (test code = 5905-5) 10 % Not Estab. Eos (test code = 713-8) 1 % Not Estab. Basos (test code = 706-2) 0 % Not Estab. Neutrophils (Absolute) (test 5.6 x10E3/uL 1.4-7.0 code = 751-8) Lymphs (Absolute) (test code = 1.5 x10E3/uL 0.7-3.1 731-0) Monocytes(Absolute) (test code 0.8 x10E3/uL 0.1-0.9 = 742-7) Eos (Absolute) (test code = 0.1 x10E3/uL 0.0-0.4 711-2) Baso (Absolute) (test code = 0.0 x10E3/uL 0.0-0.2 704-7) Immature Granulocytes (test 0 % Not Estab. code = 34529-9) Immature Grans (Abs) (test code 0.0 x10E3/uL 0.0-0.1 = 61278-4) NRBC (test code = 97766-6) Hematology Comments: (test code = 36593-7) [facility] Description: CD4/CD8 Ratio [id number] 15:31:00 Test Item Value Reference Range Interpretation Comments Absolute CD 4 [place] (test code 635 /uL 359-1519 = 87148-9) % CD 4 Pos. Lymph. (test code = 42.3 % 30.8-58.5 8123-2) Abs. CD 8 Suppressor (test code 401 /uL 109-897 = 72838-2) % CD 8 Pos. Lymph. (test code = 26.7 % 12.0-35.5 8101-8) CD4/CD8 Ratio (test code = 1.58 0.92-3.72 56179-1) WBC (test code = 6690-2) 7.9 x10E3/uL 3.4-10.8 RBC (test code = 789-8) 4.84 x10E6/uL 4.14-5.80 Hemoglobin (test code = 718-7) 15.1 g/dL 13.0-17.7 Hematocrit (test code = 4544-3) 45.2 % 37.5-51.0 MCV (test code = 787-2) 93 fL 79-97 MCH (test code = 785-6) 31.2 pg 26.6-33.0 MCHC (test code = 786-4) 33.4 g/dL 31.5-35.7 RDW (test code = 788-0) 13.0 % 11.6-15.4 Platelets (test code = 777-3) 266 x10E3/uL 150-450 Neutrophils (test code = 770-8) 70 % Not Estab. Lymphs (test code = 736-9) 19 % Not Estab. Monocytes (test code = 5905-5) 10 % Not Estab. Eos (test code = 713-8) 1 % Not Estab. Basos (test code = 706-2) 0 % Not Estab. Neutrophils (Absolute) (test 5.6 x10E3/uL 1.4-7.0 code = 751-8) Lymphs (Absolute) (test code = 1.5 x10E3/uL 0.7-3.1 731-0) Monocytes(Absolute) (test code 0.8 x10E3/uL 0.1-0.9 = 742-7) Eos (Absolute) (test code = 0.1 x10E3/uL 0.0-0.4 711-2) Baso (Absolute) (test code = 0.0 x10E3/uL 0.0-0.2 704-7) Immature Granulocytes (test 0 % Not Estab. code = 69115-1) Immature Grans (Abs) (test code 0.0 x10E3/uL 0.0-0.1 = 72238-5) NRBC (test code = 29662-7) Hematology Comments: (test code = 46184-9) [facility] Description: CD4/CD8 Ratio [id number] 15:31:00 Test Item Value Reference Range Interpretation Comments Absolute CD 4 [place] (test code 635 /uL 359-1519 = 55281-0) % CD 4 Pos. Lymph. (test code = 42.3 % 30.8-58.5 8123-2) Abs. CD 8 Suppressor (test code 401 /uL 109-897 = 80109-5) % CD 8 Pos. Lymph. (test code = 26.7 % 12.0-35.5 8101-8) CD4/CD8 Ratio (test code = 1.58 0.92-3.72 72690-7) WBC (test code = 6690-2) 7.9 x10E3/uL 3.4-10.8 RBC (test code = 789-8) 4.84 x10E6/uL 4.14-5.80 Hemoglobin (test code = 718-7) 15.1 g/dL 13.0-17.7 Hematocrit (test code = 4544-3) 45.2 % 37.5-51.0 MCV (test code = 787-2) 93 fL 79-97 MCH (test code = 785-6) 31.2 pg 26.6-33.0 MCHC (test code = 786-4) 33.4 g/dL 31.5-35.7 RDW (test code = 788-0) 13.0 % 11.6-15.4 Platelets (test code = 777-3) 266 x10E3/uL 150-450 Neutrophils (test code = 770-8) 70 % Not Estab. Lymphs (test code = 736-9) 19 % Not Estab. Monocytes (test code = 5905-5) 10 % Not Estab. Eos (test code = 713-8) 1 % Not Estab. Basos (test code = 706-2) 0 % Not Estab. Neutrophils (Absolute) (test 5.6 x10E3/uL 1.4-7.0 code = 751-8) Lymphs (Absolute) (test code = 1.5 x10E3/uL 0.7-3.1 731-0) Monocytes(Absolute) (test code 0.8 x10E3/uL 0.1-0.9 = 742-7) Eos (Absolute) (test code = 0.1 x10E3/uL 0.0-0.4 711-2) Baso (Absolute) (test code = 0.0 x10E3/uL 0.0-0.2 704-7) Immature Granulocytes (test 0 % Not Estab. code = 85897-8) Immature Grans (Abs) (test code 0.0 x10E3/uL 0.0-0.1 = 33548-6) NRBC (test code = 90765-1) Hematology Comments: (test code = 70421-6) [facility] Description: CD4/CD8 Ratio [id number] 15:31:00 Test Item Value Reference Range Interpretation Comments Absolute CD 4 [place] (test code 635 /uL 359-1519 = 97812-1) % CD 4 Pos. Lymph. (test code = 42.3 % 30.8-58.5 8123-2) Abs. CD 8 Suppressor (test code 401 /uL 109-897 = 60216-5) % CD 8 Pos. Lymph. (test code = 26.7 % 12.0-35.5 8101-8) CD4/CD8 Ratio (test code = 1.58 0.92-3.72 66249-8) WBC (test code = 6690-2) 7.9 x10E3/uL 3.4-10.8 RBC (test code = 789-8) 4.84 x10E6/uL 4.14-5.80 Hemoglobin (test code = 718-7) 15.1 g/dL 13.0-17.7 Hematocrit (test code = 4544-3) 45.2 % 37.5-51.0 MCV (test code = 787-2) 93 fL 79-97 MCH (test code = 785-6) 31.2 pg 26.6-33.0 MCHC (test code = 786-4) 33.4 g/dL 31.5-35.7 RDW (test code = 788-0) 13.0 % 11.6-15.4 Platelets (test code = 777-3) 266 x10E3/uL 150-450 Neutrophils (test code = 770-8) 70 % Not Estab. Lymphs (test code = 736-9) 19 % Not Estab. Monocytes (test code = 5905-5) 10 % Not Estab. Eos (test code = 713-8) 1 % Not Estab. Basos (test code = 706-2) 0 % Not Estab. Neutrophils (Absolute) (test 5.6 x10E3/uL 1.4-7.0 code = 751-8) Lymphs (Absolute) (test code = 1.5 x10E3/uL 0.7-3.1 731-0) Monocytes(Absolute) (test code 0.8 x10E3/uL 0.1-0.9 = 742-7) Eos (Absolute) (test code = 0.1 x10E3/uL 0.0-0.4 711-2) Baso (Absolute) (test code = 0.0 x10E3/uL 0.0-0.2 704-7) Immature Granulocytes (test 0 % Not Estab. code = 37496-8) Immature Grans (Abs) (test code 0.0 x10E3/uL 0.0-0.1 = 57384-5) NRBC (test code = 07771-6) Hematology Comments: (test code = 15091-6) [facility] Description: CD4/CD8 Ratio [id number] 15:31:00 Test Item Value Reference Range Interpretation Comments Absolute CD 4 [place] (test code 635 /uL 359-1519 = 86856-5) % CD 4 Pos. Lymph. (test code = 42.3 % 30.8-58.5 8123-2) Abs. CD 8 Suppressor (test code 401 /uL 109-897 = 81730-8) % CD 8 Pos. Lymph. (test code = 26.7 % 12.0-35.5 8101-8) CD4/CD8 Ratio (test code = 1.58 0.92-3.72 36975-3) WBC (test code = 6690-2) 7.9 x10E3/uL 3.4-10.8 RBC (test code = 789-8) 4.84 x10E6/uL 4.14-5.80 Hemoglobin (test code = 718-7) 15.1 g/dL 13.0-17.7 Hematocrit (test code = 4544-3) 45.2 % 37.5-51.0 MCV (test code = 787-2) 93 fL 79-97 MCH (test code = 785-6) 31.2 pg 26.6-33.0 MCHC (test code = 786-4) 33.4 g/dL 31.5-35.7 RDW (test code = 788-0) 13.0 % 11.6-15.4 Platelets (test code = 777-3) 266 x10E3/uL 150-450 Neutrophils (test code = 770-8) 70 % Not Estab. Lymphs (test code = 736-9) 19 % Not Estab. Monocytes (test code = 5905-5) 10 % Not Estab. Eos (test code = 713-8) 1 % Not Estab. Basos (test code = 706-2) 0 % Not Estab. Neutrophils (Absolute) (test 5.6 x10E3/uL 1.4-7.0 code = 751-8) Lymphs (Absolute) (test code = 1.5 x10E3/uL 0.7-3.1 731-0) Monocytes(Absolute) (test code 0.8 x10E3/uL 0.1-0.9 = 742-7) Eos (Absolute) (test code = 0.1 x10E3/uL 0.0-0.4 711-2) Baso (Absolute) (test code = 0.0 x10E3/uL 0.0-0.2 704-7) Immature Granulocytes (test 0 % Not Estab. code = 44516-0) Immature Grans (Abs) (test code 0.0 x10E3/uL 0.0-0.1 = 62130-8) NRBC (test code = 52419-0) Hematology Comments: (test code = 94464-6) [facility] Description: CD4/CD8 Ratio [id number] 15:31:00 Test Item Value Reference Range Interpretation Comments Absolute CD 4 [place] (test code 635 /uL 359-1519 = 53001-4) % CD 4 Pos. Lymph. (test code = 42.3 % 30.8-58.5 8123-2) Abs. CD 8 Suppressor (test code 401 /uL 109-897 = 19009-2) % CD 8 Pos. Lymph. (test code = 26.7 % 12.0-35.5 8101-8) CD4/CD8 Ratio (test code = 1.58 0.92-3.72 25865-7) WBC (test code = 6690-2) 7.9 x10E3/uL 3.4-10.8 RBC (test code = 789-8) 4.84 x10E6/uL 4.14-5.80 Hemoglobin (test code = 718-7) 15.1 g/dL 13.0-17.7 Hematocrit (test code = 4544-3) 45.2 % 37.5-51.0 MCV (test code = 787-2) 93 fL 79-97 MCH (test code = 785-6) 31.2 pg 26.6-33.0 MCHC (test code = 786-4) 33.4 g/dL 31.5-35.7 RDW (test code = 788-0) 13.0 % 11.6-15.4 Platelets (test code = 777-3) 266 x10E3/uL 150-450 Neutrophils (test code = 770-8) 70 % Not Estab. Lymphs (test code = 736-9) 19 % Not Estab. Monocytes (test code = 5905-5) 10 % Not Estab. Eos (test code = 713-8) 1 % Not Estab. Basos (test code = 706-2) 0 % Not Estab. Neutrophils (Absolute) (test 5.6 x10E3/uL 1.4-7.0 code = 751-8) Lymphs (Absolute) (test code = 1.5 x10E3/uL 0.7-3.1 731-0) Monocytes(Absolute) (test code 0.8 x10E3/uL 0.1-0.9 = 742-7) Eos (Absolute) (test code = 0.1 x10E3/uL 0.0-0.4 711-2) Baso (Absolute) (test code = 0.0 x10E3/uL 0.0-0.2 704-7) Immature Granulocytes (test 0 % Not Estab. code = 26189-3) Immature Grans (Abs) (test code 0.0 x10E3/uL 0.0-0.1 = 53920-4) NRBC (test code = 31161-0) Hematology Comments: (test code = 31373-1) [facility] Description: CD4/CD8 Ratio [id number] 15:31:00 Test Item Value Reference Range Interpretation Comments Absolute CD 4 [place] (test code 635 /uL 359-1519 = 43100-9) % CD 4 Pos. Lymph. (test code = 42.3 % 30.8-58.5 8123-2) Abs. CD 8 Suppressor (test code 401 /uL 109-897 = 38143-5) % CD 8 Pos. Lymph. (test code = 26.7 % 12.0-35.5 8101-8) CD4/CD8 Ratio (test code = 1.58 0.92-3.72 54177-5) WBC (test code = 6690-2) 7.9 x10E3/uL 3.4-10.8 RBC (test code = 789-8) 4.84 x10E6/uL 4.14-5.80 Hemoglobin (test code = 718-7) 15.1 g/dL 13.0-17.7 Hematocrit (test code = 4544-3) 45.2 % 37.5-51.0 MCV (test code = 787-2) 93 fL 79-97 MCH (test code = 785-6) 31.2 pg 26.6-33.0 MCHC (test code = 786-4) 33.4 g/dL 31.5-35.7 RDW (test code = 788-0) 13.0 % 11.6-15.4 Platelets (test code = 777-3) 266 x10E3/uL 150-450 Neutrophils (test code = 770-8) 70 % Not Estab. Lymphs (test code = 736-9) 19 % Not Estab. Monocytes (test code = 5905-5) 10 % Not Estab. Eos (test code = 713-8) 1 % Not Estab. Basos (test code = 706-2) 0 % Not Estab. Neutrophils (Absolute) (test 5.6 x10E3/uL 1.4-7.0 code = 751-8) Lymphs (Absolute) (test code = 1.5 x10E3/uL 0.7-3.1 731-0) Monocytes(Absolute) (test code 0.8 x10E3/uL 0.1-0.9 = 742-7) Eos (Absolute) (test code = 0.1 x10E3/uL 0.0-0.4 711-2) Baso (Absolute) (test code = 0.0 x10E3/uL 0.0-0.2 704-7) Immature Granulocytes (test 0 % Not Estab. code = 49204-7) Immature Grans (Abs) (test code 0.0 x10E3/uL 0.0-0.1 = 11046-4) NRBC (test code = 71811-8) Hematology Comments: (test code = 44612-8) [facility] Description: CD4/CD8 Ratio [id number] 15:31:00 Test Item Value Reference Range Interpretation Comments Absolute CD 4 [place] (test code 635 /uL 359-1519 = 90573-8) % CD 4 Pos. Lymph. (test code = 42.3 % 30.8-58.5 8123-2) Abs. CD 8 Suppressor (test code 401 /uL 109-897 = 00342-3) % CD 8 Pos. Lymph. (test code = 26.7 % 12.0-35.5 8101-8) CD4/CD8 Ratio (test code = 1.58 0.92-3.72 24679-7) WBC (test code = 6690-2) 7.9 x10E3/uL 3.4-10.8 RBC (test code = 789-8) 4.84 x10E6/uL 4.14-5.80 Hemoglobin (test code = 718-7) 15.1 g/dL 13.0-17.7 Hematocrit (test code = 4544-3) 45.2 % 37.5-51.0 MCV (test code = 787-2) 93 fL 79-97 MCH (test code = 785-6) 31.2 pg 26.6-33.0 MCHC (test code = 786-4) 33.4 g/dL 31.5-35.7 RDW (test code = 788-0) 13.0 % 11.6-15.4 Platelets (test code = 777-3) 266 x10E3/uL 150-450 Neutrophils (test code = 770-8) 70 % Not Estab. Lymphs (test code = 736-9) 19 % Not Estab. Monocytes (test code = 5905-5) 10 % Not Estab. Eos (test code = 713-8) 1 % Not Estab. Basos (test code = 706-2) 0 % Not Estab. Neutrophils (Absolute) (test 5.6 x10E3/uL 1.4-7.0 code = 751-8) Lymphs (Absolute) (test code = 1.5 x10E3/uL 0.7-3.1 731-0) Monocytes(Absolute) (test code 0.8 x10E3/uL 0.1-0.9 = 742-7) Eos (Absolute) (test code = 0.1 x10E3/uL 0.0-0.4 711-2) Baso (Absolute) (test code = 0.0 x10E3/uL 0.0-0.2 704-7) Immature Granulocytes (test 0 % Not Estab. code = 72669-1) Immature Grans (Abs) (test code 0.0 x10E3/uL 0.0-0.1 = 65961-1) NRBC (test code = 06054-6) Hematology Comments: (test code = 37079-7) [facility] Description: CD4/CD8 Ratio [id number] 15:31:00 Test Item Value Reference Range Interpretation Comments Absolute CD 4 [place] (test code 635 /uL 359-1519 = 62256-0) % CD 4 Pos. Lymph. (test code = 42.3 % 30.8-58.5 8123-2) Abs. CD 8 Suppressor (test code 401 /uL 109-897 = 81018-2) % CD 8 Pos. Lymph. (test code = 26.7 % 12.0-35.5 8101-8) CD4/CD8 Ratio (test code = 1.58 0.92-3.72 53989-9) WBC (test code = 6690-2) 7.9 x10E3/uL 3.4-10.8 RBC (test code = 789-8) 4.84 x10E6/uL 4.14-5.80 Hemoglobin (test code = 718-7) 15.1 g/dL 13.0-17.7 Hematocrit (test code = 4544-3) 45.2 % 37.5-51.0 MCV (test code = 787-2) 93 fL 79-97 MCH (test code = 785-6) 31.2 pg 26.6-33.0 MCHC (test code = 786-4) 33.4 g/dL 31.5-35.7 RDW (test code = 788-0) 13.0 % 11.6-15.4 Platelets (test code = 777-3) 266 x10E3/uL 150-450 Neutrophils (test code = 770-8) 70 % Not Estab. Lymphs (test code = 736-9) 19 % Not Estab. Monocytes (test code = 5905-5) 10 % Not Estab. Eos (test code = 713-8) 1 % Not Estab. Basos (test code = 706-2) 0 % Not Estab. Neutrophils (Absolute) (test 5.6 x10E3/uL 1.4-7.0 code = 751-8) Lymphs (Absolute) (test code = 1.5 x10E3/uL 0.7-3.1 731-0) Monocytes(Absolute) (test code 0.8 x10E3/uL 0.1-0.9 = 742-7) Eos (Absolute) (test code = 0.1 x10E3/uL 0.0-0.4 711-2) Baso (Absolute) (test code = 0.0 x10E3/uL 0.0-0.2 704-7) Immature Granulocytes (test 0 % Not Estab. code = 92782-6) Immature Grans (Abs) (test code 0.0 x10E3/uL 0.0-0.1 = 67365-6) NRBC (test code = 24765-6) Hematology Comments: (test code = 08288-2) [facility] Description: CD4/CD8 Ratio [id number] 15:31:00 Test Item Value Reference Range Interpretation Comments Absolute CD 4 [place] (test code 635 /uL 359-1519 = 60433-2) % CD 4 Pos. Lymph. (test code = 42.3 % 30.8-58.5 8123-2) Abs. CD 8 Suppressor (test code 401 /uL 109-897 = 82517-8) % CD 8 Pos. Lymph. (test code = 26.7 % 12.0-35.5 8101-8) CD4/CD8 Ratio (test code = 1.58 0.92-3.72 62652-0) WBC (test code = 6690-2) 7.9 x10E3/uL 3.4-10.8 RBC (test code = 789-8) 4.84 x10E6/uL 4.14-5.80 Hemoglobin (test code = 718-7) 15.1 g/dL 13.0-17.7 Hematocrit (test code = 4544-3) 45.2 % 37.5-51.0 MCV (test code = 787-2) 93 fL 79-97 MCH (test code = 785-6) 31.2 pg 26.6-33.0 MCHC (test code = 786-4) 33.4 g/dL 31.5-35.7 RDW (test code = 788-0) 13.0 % 11.6-15.4 Platelets (test code = 777-3) 266 x10E3/uL 150-450 Neutrophils (test code = 770-8) 70 % Not Estab. Lymphs (test code = 736-9) 19 % Not Estab. Monocytes (test code = 5905-5) 10 % Not Estab. Eos (test code = 713-8) 1 % Not Estab. Basos (test code = 706-2) 0 % Not Estab. Neutrophils (Absolute) (test 5.6 x10E3/uL 1.4-7.0 code = 751-8) Lymphs (Absolute) (test code = 1.5 x10E3/uL 0.7-3.1 731-0) Monocytes(Absolute) (test code 0.8 x10E3/uL 0.1-0.9 = 742-7) Eos (Absolute) (test code = 0.1 x10E3/uL 0.0-0.4 711-2) Baso (Absolute) (test code = 0.0 x10E3/uL 0.0-0.2 704-7) Immature Granulocytes (test 0 % Not Estab. code = 05851-7) Immature Grans (Abs) (test code 0.0 x10E3/uL 0.0-0.1 = 65860-7) NRBC (test code = 63899-5) Hematology Comments: (test code = 73795-7) [facility] Description: CD4/CD8 Ratio [id number] 15:31:00 Test Item Value Reference Range Interpretation Comments Absolute CD 4 [place] (test code 635 /uL 359-1519 = 40796-4) % CD 4 Pos. Lymph. (test code = 42.3 % 30.8-58.5 8123-2) Abs. CD 8 Suppressor (test code 401 /uL 109-897 = 23934-8) % CD 8 Pos. Lymph. (test code = 26.7 % 12.0-35.5 8101-8) CD4/CD8 Ratio (test code = 1.58 0.92-3.72 04700-8) WBC (test code = 6690-2) 7.9 x10E3/uL 3.4-10.8 RBC (test code = 789-8) 4.84 x10E6/uL 4.14-5.80 Hemoglobin (test code = 718-7) 15.1 g/dL 13.0-17.7 Hematocrit (test code = 4544-3) 45.2 % 37.5-51.0 MCV (test code = 787-2) 93 fL 79-97 MCH (test code = 785-6) 31.2 pg 26.6-33.0 MCHC (test code = 786-4) 33.4 g/dL 31.5-35.7 RDW (test code = 788-0) 13.0 % 11.6-15.4 Platelets (test code = 777-3) 266 x10E3/uL 150-450 Neutrophils (test code = 770-8) 70 % Not Estab. Lymphs (test code = 736-9) 19 % Not Estab. Monocytes (test code = 5905-5) 10 % Not Estab. Eos (test code = 713-8) 1 % Not Estab. Basos (test code = 706-2) 0 % Not Estab. Neutrophils (Absolute) (test 5.6 x10E3/uL 1.4-7.0 code = 751-8) Lymphs (Absolute) (test code = 1.5 x10E3/uL 0.7-3.1 731-0) Monocytes(Absolute) (test code 0.8 x10E3/uL 0.1-0.9 = 742-7) Eos (Absolute) (test code = 0.1 x10E3/uL 0.0-0.4 711-2) Baso (Absolute) (test code = 0.0 x10E3/uL 0.0-0.2 704-7) Immature Granulocytes (test 0 % Not Estab. code = 29848-8) Immature Grans (Abs) (test code 0.0 x10E3/uL 0.0-0.1 = 12425-4) NRBC (test code = 74134-6) Hematology Comments: (test code = 73892-6) [facility] Description: CD4/CD8 Ratio [id number] 15:31:00 Test Item Value Reference Range Interpretation Comments Absolute CD 4 [place] (test code 635 /uL 359-1519 = 54379-9) % CD 4 Pos. Lymph. (test code = 42.3 % 30.8-58.5 8123-2) Abs. CD 8 Suppressor (test code 401 /uL 109-897 = 93861-2) % CD 8 Pos. Lymph. (test code = 26.7 % 12.0-35.5 8101-8) CD4/CD8 Ratio (test code = 1.58 0.92-3.72 50492-2) WBC (test code = 6690-2) 7.9 x10E3/uL 3.4-10.8 RBC (test code = 789-8) 4.84 x10E6/uL 4.14-5.80 Hemoglobin (test code = 718-7) 15.1 g/dL 13.0-17.7 Hematocrit (test code = 4544-3) 45.2 % 37.5-51.0 MCV (test code = 787-2) 93 fL 79-97 MCH (test code = 785-6) 31.2 pg 26.6-33.0 MCHC (test code = 786-4) 33.4 g/dL 31.5-35.7 RDW (test code = 788-0) 13.0 % 11.6-15.4 Platelets (test code = 777-3) 266 x10E3/uL 150-450 Neutrophils (test code = 770-8) 70 % Not Estab. Lymphs (test code = 736-9) 19 % Not Estab. Monocytes (test code = 5905-5) 10 % Not Estab. Eos (test code = 713-8) 1 % Not Estab. Basos (test code = 706-2) 0 % Not Estab. Neutrophils (Absolute) (test 5.6 x10E3/uL 1.4-7.0 code = 751-8) Lymphs (Absolute) (test code = 1.5 x10E3/uL 0.7-3.1 731-0) Monocytes(Absolute) (test code 0.8 x10E3/uL 0.1-0.9 = 742-7) Eos (Absolute) (test code = 0.1 x10E3/uL 0.0-0.4 711-2) Baso (Absolute) (test code = 0.0 x10E3/uL 0.0-0.2 704-7) Immature Granulocytes (test 0 % Not Estab. code = 51159-9) Immature Grans (Abs) (test code 0.0 x10E3/uL 0.0-0.1 = 42249-2) NRBC (test code = 64790-1) Hematology Comments: (test code = 83447-7) [facility] Description: CD4/CD8 Ratio [id number] 15:31:00 Test Item Value Reference Range Interpretation Comments Absolute CD 4 [place] (test code 635 /uL 359-1519 = 55185-2) % CD 4 Pos. Lymph. (test code = 42.3 % 30.8-58.5 8123-2) Abs. CD 8 Suppressor (test code 401 /uL 109-897 = 63525-3) % CD 8 Pos. Lymph. (test code = 26.7 % 12.0-35.5 8101-8) CD4/CD8 Ratio (test code = 1.58 0.92-3.72 44164-3) WBC (test code = 6690-2) 7.9 x10E3/uL 3.4-10.8 RBC (test code = 789-8) 4.84 x10E6/uL 4.14-5.80 Hemoglobin (test code = 718-7) 15.1 g/dL 13.0-17.7 Hematocrit (test code = 4544-3) 45.2 % 37.5-51.0 MCV (test code = 787-2) 93 fL 79-97 MCH (test code = 785-6) 31.2 pg 26.6-33.0 MCHC (test code = 786-4) 33.4 g/dL 31.5-35.7 RDW (test code = 788-0) 13.0 % 11.6-15.4 Platelets (test code = 777-3) 266 x10E3/uL 150-450 Neutrophils (test code = 770-8) 70 % Not Estab. Lymphs (test code = 736-9) 19 % Not Estab. Monocytes (test code = 5905-5) 10 % Not Estab. Eos (test code = 713-8) 1 % Not Estab. Basos (test code = 706-2) 0 % Not Estab. Neutrophils (Absolute) (test 5.6 x10E3/uL 1.4-7.0 code = 751-8) Lymphs (Absolute) (test code = 1.5 x10E3/uL 0.7-3.1 731-0) Monocytes(Absolute) (test code 0.8 x10E3/uL 0.1-0.9 = 742-7) Eos (Absolute) (test code = 0.1 x10E3/uL 0.0-0.4 711-2) Baso (Absolute) (test code = 0.0 x10E3/uL 0.0-0.2 704-7) Immature Granulocytes (test 0 % Not Estab. code = 51797-1) Immature Grans (Abs) (test code 0.0 x10E3/uL 0.0-0.1 = 05932-2) NRBC (test code = 73279-4) Hematology Comments: (test code = 57957-2) [facility] Description: CD4/CD8 Ratio [id number] 15:31:00 Test Item Value Reference Range Interpretation Comments Absolute CD 4 [place] (test code 635 /uL 359-1519 = 64210-0) % CD 4 Pos. Lymph. (test code = 42.3 % 30.8-58.5 8123-2) Abs. CD 8 Suppressor (test code 401 /uL 109-897 = 22476-0) % CD 8 Pos. Lymph. (test code = 26.7 % 12.0-35.5 8101-8) CD4/CD8 Ratio (test code = 1.58 0.92-3.72 86813-5) WBC (test code = 6690-2) 7.9 x10E3/uL 3.4-10.8 RBC (test code = 789-8) 4.84 x10E6/uL 4.14-5.80 Hemoglobin (test code = 718-7) 15.1 g/dL 13.0-17.7 Hematocrit (test code = 4544-3) 45.2 % 37.5-51.0 MCV (test code = 787-2) 93 fL 79-97 MCH (test code = 785-6) 31.2 pg 26.6-33.0 MCHC (test code = 786-4) 33.4 g/dL 31.5-35.7 RDW (test code = 788-0) 13.0 % 11.6-15.4 Platelets (test code = 777-3) 266 x10E3/uL 150-450 Neutrophils (test code = 770-8) 70 % Not Estab. Lymphs (test code = 736-9) 19 % Not Estab. Monocytes (test code = 5905-5) 10 % Not Estab. Eos (test code = 713-8) 1 % Not Estab. Basos (test code = 706-2) 0 % Not Estab. Neutrophils (Absolute) (test 5.6 x10E3/uL 1.4-7.0 code = 751-8) Lymphs (Absolute) (test code = 1.5 x10E3/uL 0.7-3.1 731-0) Monocytes(Absolute) (test code 0.8 x10E3/uL 0.1-0.9 = 742-7) Eos (Absolute) (test code = 0.1 x10E3/uL 0.0-0.4 711-2) Baso (Absolute) (test code = 0.0 x10E3/uL 0.0-0.2 704-7) Immature Granulocytes (test 0 % Not Estab. code = 42903-3) Immature Grans (Abs) (test code 0.0 x10E3/uL 0.0-0.1 = 00849-8) NRBC (test code = 98359-9) Hematology Comments: (test code = 31756-3) [facility] Description: CD4/CD8 Ratio [id number] 15:31:00 Test Item Value Reference Range Interpretation Comments Absolute CD 4 [place] (test code 635 /uL 359-1519 = 62181-1) % CD 4 Pos. Lymph. (test code = 42.3 % 30.8-58.5 8123-2) Abs. CD 8 Suppressor (test code 401 /uL 109-897 = 30842-3) % CD 8 Pos. Lymph. (test code = 26.7 % 12.0-35.5 8101-8) CD4/CD8 Ratio (test code = 1.58 0.92-3.72 66842-4) WBC (test code = 6690-2) 7.9 x10E3/uL 3.4-10.8 RBC (test code = 789-8) 4.84 x10E6/uL 4.14-5.80 Hemoglobin (test code = 718-7) 15.1 g/dL 13.0-17.7 Hematocrit (test code = 4544-3) 45.2 % 37.5-51.0 MCV (test code = 787-2) 93 fL 79-97 MCH (test code = 785-6) 31.2 pg 26.6-33.0 MCHC (test code = 786-4) 33.4 g/dL 31.5-35.7 RDW (test code = 788-0) 13.0 % 11.6-15.4 Platelets (test code = 777-3) 266 x10E3/uL 150-450 Neutrophils (test code = 770-8) 70 % Not Estab. Lymphs (test code = 736-9) 19 % Not Estab. Monocytes (test code = 5905-5) 10 % Not Estab. Eos (test code = 713-8) 1 % Not Estab. Basos (test code = 706-2) 0 % Not Estab. Neutrophils (Absolute) (test 5.6 x10E3/uL 1.4-7.0 code = 751-8) Lymphs (Absolute) (test code = 1.5 x10E3/uL 0.7-3.1 731-0) Monocytes(Absolute) (test code 0.8 x10E3/uL 0.1-0.9 = 742-7) Eos (Absolute) (test code = 0.1 x10E3/uL 0.0-0.4 711-2) Baso (Absolute) (test code = 0.0 x10E3/uL 0.0-0.2 704-7) Immature Granulocytes (test 0 % Not Estab. code = 05523-1) Immature Grans (Abs) (test code 0.0 x10E3/uL 0.0-0.1 = 73011-4) NRBC (test code = 81844-7) Hematology Comments: (test code = 08266-3) [facility] Description: RPR Qn+TP [id number] 08:41:00 Test Item Value Reference Range Interpretation Comments RPR, Quant. (test code 1:8 See_Comment H [Aut omated message] = 44881-4) The system [employer] generated this result transmitted ref erence range: NonRea<1 :1. The reference range was not used to interpr et this result as normal/abnormal . Treponema pallidum Reactive Non Reactive A Antibodies (test code = 44350-1) [facility] Description: RPR Qn+TP [id number] 08:41:00 Test Item Value Reference Range Interpretation Comments RPR, Quant. (test code 1:8 See_Comment H [Aut omated message] = 60413-8) The system [employer] generated this result transmitted ref erence range: NonRea<1 :1. The reference range was not used to interpr et this result as normal/abnormal . Treponema pallidum Reactive Non Reactive A Antibodies (test code = 01408-1) [facility] Description: RPR Qn+TP [id number] 08:41:00 Test Item Value Reference Range Interpretation Comments RPR, Quant. (test code 1:8 See_Comment H [Aut omated message] = 88219-9) The system [employer] generated this result transmitted ref erence range: NonRea<1 :1. The reference range was not used to interpr et this result as normal/abnormal . Treponema pallidum Reactive Non Reactive A Antibodies (test code = 44887-5) [facility] Description: RPR Qn+TP [id number] 08:41:00 Test Item Value Reference Range Interpretation Comments RPR, Quant. (test code 1:8 See_Comment H [Aut omated message] = 35478-9) The system [employer] generated this result transmitted ref erence range: NonRea<1 :1. The reference range was not used to interpr et this result as normal/abnormal . Treponema pallidum Reactive Non Reactive A Antibodies (test code = 90568-9) [facility] Description: RPR Qn+TP [id number] 08:41:00 Test Item Value Reference Range Interpretation Comments RPR, Quant. (test code 1:8 See_Comment H [Aut omated message] = 44071-9) The system [employer] generated this result transmitted ref erence range: NonRea<1 :1. The reference range was not used to interpr et this result as normal/abnormal . Treponema pallidum Reactive Non Reactive A Antibodies (test code = 00907-1) [facility] Description: RPR Qn+TP [id number] 08:41:00 Test Item Value Reference Range Interpretation Comments RPR, Quant. (test code 1:8 See_Comment H [Aut omated message] = 34905-6) The system [employer] generated this result transmitted ref erence range: NonRea<1 :1. The reference range was not used to interpr et this result as normal/abnormal . Treponema pallidum Reactive Non Reactive A Antibodies (test code = 46735-0) [facility] Description: RPR Qn+TP [id number] 08:41:00 Test Item Value Reference Range Interpretation Comments RPR, Quant. (test code 1:8 See_Comment H [Aut omated message] = 30946-8) The system [employer] generated this result transmitted ref erence range: NonRea<1 :1. The reference range was not used to interpr et this result as normal/abnormal . Treponema pallidum Reactive Non Reactive A Antibodies (test code = 74265-8) [facility] Description: RPR Qn+TP [id number] 08:41:00 Test Item Value Reference Range Interpretation Comments RPR, Quant. (test code 1:8 See_Comment H [Aut omated message] = 68474-3) The system [employer] generated this result transmitted ref erence range: NonRea<1 :1. The reference range was not used to interpr et this result as normal/abnormal . Treponema pallidum Reactive Non Reactive A Antibodies (test code = 65154-9) [facility] Description: RPR Qn+TP [id number] 08:41:00 Test Item Value Reference Range Interpretation Comments RPR, Quant. (test code 1:8 See_Comment H [Aut omated message] = 01594-6) The system [employer] generated this result transmitted ref erence range: NonRea<1 :1. The reference range was not used to interpr et this result as normal/abnormal . Treponema pallidum Reactive Non Reactive A Antibodies (test code = 39193-0) [facility] Description: RPR Qn+TP [id number] 08:41:00 Test Item Value Reference Range Interpretation Comments RPR, Quant. (test code 1:8 See_Comment H [Aut omated message] = 73715-3) The system [employer] generated this result transmitted ref erence range: NonRea<1 :1. The reference range was not used to interpr et this result as normal/abnormal . Treponema pallidum Reactive Non Reactive A Antibodies (test code = 66290-6) [facility] Description: RPR Qn+TP [id number] 08:41:00 Test Item Value Reference Range Interpretation Comments RPR, Quant. (test code 1:8 See_Comment H [Aut omated message] = 86040-6) The system [employer] generated this result transmitted ref erence range: NonRea<1 :1. The reference range was not used to interpr et this result as normal/abnormal . Treponema pallidum Reactive Non Reactive A Antibodies (test code = 28936-0) [facility] Description: RPR Qn+TP [id number] 08:41:00 Test Item Value Reference Range Interpretation Comments RPR, Quant. (test code 1:8 See_Comment H [Aut omated message] = 46445-9) The system [employer] generated this result transmitted ref erence range: NonRea<1 :1. The reference range was not used to interpr et this result as normal/abnormal . Treponema pallidum Reactive Non Reactive A Antibodies (test code = 61557-9) [facility] Description: RPR Qn+TP [id number] 08:41:00 Test Item Value Reference Range Interpretation Comments RPR, Quant. (test code 1:8 See_Comment H [Aut omated message] = 35048-0) The system [employer] generated this result transmitted ref erence range: NonRea<1 :1. The reference range was not used to interpr et this result as normal/abnormal . Treponema pallidum Reactive Non Reactive A Antibodies (test code = 60533-1) [facility] Description: RPR Qn+TP [id number] 08:41:00 Test Item Value Reference Range Interpretation Comments RPR, Quant. (test code 1:8 See_Comment H [Aut omated message] = 20620-1) The system [employer] generated this result transmitted ref erence range: NonRea<1 :1. The reference range was not used to interpr et this result as normal/abnormal . Treponema pallidum Reactive Non Reactive A Antibodies (test code = 01902-6) [facility] Description: RPR Qn+TP [id number] 08:41:00 Test Item Value Reference Range Interpretation Comments RPR, Quant. (test code 1:8 See_Comment H [Aut omated message] = 01708-5) The system [employer] generated this result transmitted ref erence range: NonRea<1 :1. The reference range was not used to interpr et this result as normal/abnormal . Treponema pallidum Reactive Non Reactive A Antibodies (test code = 96581-9) [facility] Description: RPR Qn+TP [id number] 08:41:00 Test Item Value Reference Range Interpretation Comments RPR, Quant. (test code 1:8 See_Comment H [Aut omated message] = 19008-3) The system [employer] generated this result transmitted ref erence range: NonRea<1 :1. The reference range was not used to interpr et this result as normal/abnormal . Treponema pallidum Reactive Non Reactive A Antibodies (test code = 09683-4) [facility] Description: RPR Qn+TP [id number] 08:41:00 Test Item Value Reference Range Interpretation Comments RPR, Quant. (test code 1:8 See_Comment H [Aut omated message] = 82511-0) The system [employer] generated this result transmitted ref erence range: NonRea<1 :1. The reference range was not used to interpr et this result as normal/abnormal . Treponema pallidum Reactive Non Reactive A Antibodies (test code = 37780-9) [facility] Description: RPR Qn+TP [id number] 08:41:00 Test Item Value Reference Range Interpretation Comments RPR, Quant. (test code 1:8 See_Comment H [Aut omated message] = 29219-1) The system [employer] generated this result transmitted ref erence range: NonRea<1 :1. The reference range was not used to interpr et this result as normal/abnormal . Treponema pallidum Reactive Non Reactive A Antibodies (test code = 84182-9) [facility] Description: RPR, Rfx Qn RPR/Confirm [id number] 06:19:00 Test Item Value Reference Range Interpretation Comments RPR (test code = 30333-5) Reactive Non Reactive A [facility] Description: RPR, Rfx Qn RPR/Confirm [id number] 06:19:00 Test Item Value Reference Range Interpretation Comments RPR (test code = 08933-3) Reactive Non Reactive A [facility] Description: RPR, Rfx Qn RPR/Confirm [id number] 06:19:00 Test Item Value Reference Range Interpretation Comments RPR (test code = 32292-2) Reactive Non Reactive A [facility] Description: RPR, Rfx Qn RPR/Confirm [id number] 06:19:00 Test Item Value Reference Range Interpretation Comments RPR (test code = 01678-2) Reactive Non Reactive A [facility] Description: RPR, Rfx Qn RPR/Confirm [id number] 06:19:00 Test Item Value Reference Range Interpretation Comments RPR (test code = 23700-9) Reactive Non Reactive A [facility] Description: RPR, Rfx Qn RPR/Confirm [id number] 06:19:00 Test Item Value Reference Range Interpretation Comments RPR (test code = 94804-2) Reactive Non Reactive A [facility] Description: RPR, Rfx Qn RPR/Confirm [id number] 06:19:00 Test Item Value Reference Range Interpretation Comments RPR (test code = 64540-2) Reactive Non Reactive A [facility] Description: RPR, Rfx Qn RPR/Confirm [id number] 06:19:00 Test Item Value Reference Range Interpretation Comments RPR (test code = 04030-2) Reactive Non Reactive A [facility] Description: RPR, Rfx Qn RPR/Confirm [id number] 06:19:00 Test Item Value Reference Range Interpretation Comments RPR (test code = 60112-1) Reactive Non Reactive A [facility] Description: RPR, Rfx Qn RPR/Confirm [id number] 06:19:00 Test Item Value Reference Range Interpretation Comments RPR (test code = 58519-0) Reactive Non Reactive A [facility] Description: RPR, Rfx Qn RPR/Confirm [id number] 06:19:00 Test Item Value Reference Range Interpretation Comments RPR (test code = 31126-6) Reactive Non Reactive A [facility] Description: RPR, Rfx Qn RPR/Confirm [id number] 06:19:00 Test Item Value Reference Range Interpretation Comments RPR (test code = 04653-9) Reactive Non Reactive A [facility] Description: RPR, Rfx Qn RPR/Confirm [id number] 06:19:00 Test Item Value Reference Range Interpretation Comments RPR (test code = 95337-0) Reactive Non Reactive A [facility] Description: RPR, Rfx Qn RPR/Confirm [id number] 06:19:00 Test Item Value Reference Range Interpretation Comments RPR (test code = 73164-6) Reactive Non Reactive A [facility] Description: RPR, Rfx Qn RPR/Confirm [id number] 06:19:00 Test Item Value Reference Range Interpretation Comments RPR (test code = 79060-0) Reactive Non Reactive A [facility] Description: RPR, Rfx Qn RPR/Confirm [id number] 06:19:00 Test Item Value Reference Range Interpretation Comments RPR (test code = 27301-8) Reactive Non Reactive A [facility] Description: RPR, Rfx Qn RPR/Confirm [id number] 06:19:00 Test Item Value Reference Range Interpretation Comments RPR (test code = 44767-4) Reactive Non Reactive A [facility] Description: RPR, Rfx Qn RPR/Confirm [id number] 06:19:00 Test Item Value Reference Range Interpretation Comments RPR (test code = 08065-4) Reactive Non Reactive A [facility] Description: Comp. Metabolic Panel (14)2021-02-18 04:33:00 Test Item Value Reference Range Interpretation Comments Glucose (test code 90 mg/dL 65-99 = 2345-7) BUN (test code = 10 mg/dL 12-14 3094-0) Creatinine (test 1.02 mg/dL 0.76-1.27 code = 2160-0) eGFR If NonAfricn 97 >59 Am (test code = mL/min/1.73 54279-7) eGFR If Africn Am 113 >59 [facility] currently (test code = mL/min/1[place]73 [place] [address]-0) compliance with the current recommendations of the National Kid[employer] Foundation. Lab john will update rep orting as new guidelin es are published from the NKF-ASN Task force.Performed by:[facility] [place] ([place] BUN/Creatinine 10 9-20 Ratio (test code = 3097-3) Sodium (test code = 139 mmol/L 449-040 3667-2) Potassium (test 4.2 mmol/L 3.5-5.2 code = 2823-3) Chloride (test code 101 mmol/L 96-106 = 2075-0) Carbon Dioxide, 24 mmol/L 20-29 Total (test code = 2027-9) Calcium (test code 9.9 mg/dL 8.7-10.2 = 73490-5) Protein, Total 7.4 g/dL 6.0-8.5 (test code = 2885-2) Albumin (test code 4.6 g/dL 4.0-5.0 = 1751-7) Globulin, Total 2.8 g/dL 1.5-4.5 (test code = 53512-7) A/G Ratio (test 1.6 1.2-2.2 code = 1759-0) Bilirubin, Total 0.6 mg/dL 0.0-1.2 (test code = 1975-2) Alkaline 102 IU/L 48-121 Phosphatase (test code = 6768-6) AST (SGOT) (test 14 IU/L 0-40 code = 1920-8) ALT (SGPT) (test 13 IU/L 0-44 code = 1742-6) [facility] Description: Comp. Metabolic Panel (14)2021-02-18 04:33:00 Test Item Value Reference Range Interpretation Comments Glucose (test code 90 mg/dL 65-99 = 2345-7) BUN (test code = 10 mg/dL 6-20 3094-0) Creatinine (test 1.02 mg/dL 0.76-1.27 code = 2160-0) eGFR If NonAfricn 97 >59 Am (test code = mL/min/1.73 85216-6) eGFR If Africn Am 113 >59 [facility] currently (test code = mL/min/1.73 [place] [address]-5) compliance with the current recommendations of the National Kidney Foundation. Lab john will update rep orting as new guidelin es are published from the NKF-ASN Task force.Performed by:[facility] [place] ([place]) BUN/Creatinine 10 9-20 Ratio (test code = 3097-3) Sodium (test code = 139 mmol/L 112-981 7190-2) Potassium (test 4.2 mmol/L 3.5-5.2 code = 2823-3) Chloride (test code 101 mmol/L 96-106 = 2075-0) Carbon Dioxide, 24 mmol/L 20-29 Total (test code = 2027-9) Calcium (test code 9.9 mg/dL 8.7-10.2 = 62927-0) Protein, Total 7.4 g/dL 6.0-8.5 (test code = 2885-2) Albumin (test code 4.6 g/dL 4.0-5.0 = 1751-7) Globulin, Total 2.8 g/dL 1.5-4.5 (test code = 04555-2) A/G Ratio (test 1.6 1.2-2.2 code = 1759-0) Bilirubin, Total 0.6 mg/dL 0.0-1.2 (test code = 1975-2) Alkaline 102 IU/L 48-121 Phosphatase (test code = 6768-6) AST (SGOT) (test 14 IU/L 0-40 code = 1920-8) ALT (SGPT) (test 13 IU/L 0-44 code = 1742-6) [facility] Description: Comp. Metabolic Panel (14)2021-02-18 04:33:00 Test Item Value Reference Range Interpretation Comments Glucose (test code 90 mg/dL 65-99 = 2345-7) BUN (test code = 10 mg/dL 6-20 3094-0) Creatinine (test 1.02 mg/dL 0.76-1.27 code = 2160-0) eGFR If NonAfricn 97 >59 Am (test code = mL/min/1.73 54983-1) eGFR If Africn Am 113 >59 [facility] currently (test code = mL/min/1.[place] [address]-3) compliance with the current recommendations of the National Kid[employer] Foundation. Lab john will update rep orting as new guidelin es are published from the NKF-ASN Task force.Performed by:[facility] [place] ([place]) BUN/Creatinine 10 9-20 Ratio (test code = 3097-3) Sodium (test code = 139 mmol/L 039-887 9109-2) Potassium (test 4.2 mmol/L 3.5-5.2 code = 2823-3) Chloride (test code 101 mmol/L 96-106 = 2075-0) Carbon Dioxide, 24 mmol/L 20-29 Total (test code = 2027-9) Calcium (test code 9.9 mg/dL 8.7-10.2 = 42792-2) Protein, Total 7.4 g/dL 6.0-8.5 (test code = 2885-2) Albumin (test code 4.6 g/dL 4.0-5.0 = 1751-7) Globulin, Total 2.8 g/dL 1.5-4.5 (test code = 53685-3) A/G Ratio (test 1.6 1.2-2.2 code = 1759-0) Bilirubin, Total 0.6 mg/dL 0.0-1.2 (test code = 1975-2) Alkaline 102 IU/L 48-121 Phosphatase (test code = 6768-6) AST (SGOT) (test 14 IU/L 0-40 code = 1920-8) ALT (SGPT) (test 13 IU/L 0-44 code = 1742-6) [facility] Description: Comp. Metabolic Panel (14)2021-02-18 04:33:00 Test Item Value Reference Range Interpretation Comments Glucose (test code 90 mg/dL 65-99 = 2345-7) BUN (test code = 10 mg/dL 6-20 3094-0) Creatinine (test 1.02 mg/dL 0.76-1.27 code = 2160-0) eGFR If NonAfricn 97 >59 Am (test code = mL/min/1.73 58842-6) eGFR If Africn Am 113 >59 [facility] currently (test code = mL/min/1.73 [place] [address]-5) compliance with the current recommendations of the [employer] Kid[employer] Foundation. Lab john will update rep orting as new guidelin es are published from the NKF-ASN Task force.Performed by:[facility] [place] ([place]) BUN/Creatinine 10 9-20 Ratio (test code = 3097-3) Sodium (test code = 139 mmol/L 623-634 6079-2) Potassium (test 4.2 mmol/L 3.5-5.2 code = 2823-3) Chloride (test code 101 mmol/L 96-106 = 2075-0) Carbon Dioxide, 24 mmol/L 20-29 Total (test code = 2027-) Calcium (test code 9.9 mg/dL 8.7-10.2 = 33748-9) Protein, Total 7.4 g/dL 6.0-8.5 (test code = 2885-2) Albumin (test code 4.6 g/dL 4.0-5.0 = 1751-7) Globulin, Total 2.8 g/dL 1.5-4.5 (test code = 29989-6) A/G Ratio (test 1.6 1.2-2.2 code = 1759-0) Bilirubin, Total 0.6 mg/dL 0.0-1.2 (test code = 1975-2) Alkaline 102 IU/L 48-121 Phosphatase (test code = 6768-6) AST (SGOT) (test 14 IU/L 0-40 code = 1920-8) ALT (SGPT) (test 13 IU/L 0-44 code = 1742-6) [facility] Description: Comp. Metabolic Panel (2021-02-18 04:33:00 Test Item Value Reference Range Interpretation Comments Glucose (test code 90 mg/dL 65-99 = 2345-7) BUN (test code = 10 mg/dL 6-20 3094-0) Creatinine (test 1.02 mg/dL 0.76-1.27 code = 2160-0) eGFR If NonAfricn 97 >59 Am (test code = mL/min/1.73 20642-6) eGFR If Africn Am 113 >59 [facility] currently (test code = mL/min/1.73 [place] [address]-7) compliance with the current recommendations of the [employer] Kid[employer]. Lab john will update rep orting as new guidelin es are published from the NKF-ASN Task force.Performed by:[facility] [place] ([place]) BUN/Creatinine 10 9-20 Ratio (test code = 3097-3) Sodium (test code = 139 mmol/L 553-670 8736-2) Potassium (test 4.2 mmol/L 3.5-5.2 code = 2823-3) Chloride (test code 101 mmol/L 96-106 = 2075-0) Carbon Dioxide, 24 mmol/L 20-29 Total (test code = 2027-) Calcium (test code 9.9 mg/dL 8.7-10.2 = 60001-1) Protein, Total 7.4 g/dL 6.0-8.5 (test code = 2885-2) Albumin (test code 4.6 g/dL 4.0-5.0 = 1751-7) Globulin, Total 2.8 g/dL 1.5-4.5 (test code = 47785-3) A/G Ratio (test 1.6 1.2-2.2 code = 1759-0) Bilirubin, Total 0.6 mg/dL 0.0-1.2 (test code = 1975-2) Alkaline 102 IU/L 48-121 Phosphatase (test code = 6768-6) AST (SGOT) (test 14 IU/L 0-40 code = 1920-8) ALT (SGPT) (test 13 IU/L 0-44 code = 1742-6) [facility] Description: Comp. Metabolic Panel (14)2021-02-18 04:33:00 Test Item Value Reference Range Interpretation Comments Glucose (test code 90 mg/dL 65-99 = 2345-7) BUN (test code = 10 mg/dL 6-20 3094-0) Creatinine (test 1.02 mg/dL 0.76-1.27 code = 2160-0) eGFR If NonAfricn 97 >59 Am (test code = mL/min/1.73 72111-7) eGFR If Africn Am 113 >59 [facility] currently (test code = mL/min/1.73 [place] [address]-1) compliance with the current recommendations of the [employer] Kid[employer] Foundation. Lab john will update rep orting as new guidelin es are published from the NKF-ASN Task force.Performed by:[facility] [place] ([place]) BUN/Creatinine 10 9-20 Ratio (test code = 3097-3) Sodium (test code = 139 mmol/L 775-555 9978-2) Potassium (test 4.2 mmol/L 3.5-5.2 code = 2823-3) Chloride (test code 101 mmol/L 96-106 = 2075-0) Carbon Dioxide, 24 mmol/L 20-29 Total (test code = 2027-) Calcium (test code 9.9 mg/dL 8.7-10.2 = 22073-7) Protein, Total 7.4 g/dL 6.0-8.5 (test code = 2885-2) Albumin (test code 4.6 g/dL 4.0-5.0 = 1751-7) Globulin, Total 2.8 g/dL 1.5-4.5 (test code = 11795-6) A/G Ratio (test 1.6 1.2-2.2 code = 1759-0) Bilirubin, Total 0.6 mg/dL 0.0-1.2 (test code = 1975-2) Alkaline 102 IU/L 48-121 Phosphatase (test code = 6768-6) AST (SGOT) (test 14 IU/L 0-40 code = 1920-8) ALT (SGPT) (test 13 IU/L 0-44 code = 1742-6) [facility] Description: Comp. Metabolic Panel (14)2021-02-18 04:33:00 Test Item Value Reference Range Interpretation Comments Glucose (test code 90 mg/dL 65-99 = 2345-7) BUN (test code = 10 mg/dL 6-20 3094-0) Creatinine (test 1.02 mg/dL 0.76-1.27 code = 2160-0) eGFR If NonAfricn 97 >59 Am (test code = mL/min/1.73 17675-6) eGFR If Africn Am 113 >59 [facility] currently (test code = mL/min/1.73 [place] [address]376-0) compliance with the current recommendations of the National Kidney Foundation. Lab john will update rep orting as new guidelin es are published from the NKF-ASN Task force.Performed by:[facility] [place] ([place]) BUN/Creatinine 10 9-20 Ratio (test code = 3097-3) Sodium (test code = 139 mmol/L 319-256 7577-2) Potassium (test 4.2 mmol/L 3.5-5.2 code = 2823-3) Chloride (test code 101 mmol/L 96-106 = 2075-0) Carbon Dioxide, 24 mmol/L 20-29 Total (test code = 2027-) Calcium (test code 9.9 mg/dL 8.7-10.2 = 77932-8) Protein, Total 7.4 g/dL 6.0-8.5 (test code = 2885-2) Albumin (test code 4.6 g/dL 4.0-5.0 = 1751-7) Globulin, Total 2.8 g/dL 1.5-4.5 (test code = 62121-5) A/G Ratio (test 1.6 1.2-2.2 code = 1759-0) Bilirubin, Total 0.6 mg/dL 0.0-1.2 (test code = 1975-2) Alkaline 102 IU/L 48-121 Phosphatase (test code = 6768-6) AST (SGOT) (test 14 IU/L 0-40 code = 1920-8) ALT (SGPT) (test 13 IU/L 0-44 code = 1742-6) [facility] Description: Comp. Metabolic Panel (14)2021-02-18 04:33:00 Test Item Value Reference Range Interpretation Comments Glucose (test code 90 mg/dL 65-99 = 2345-7) BUN (test code = 10 mg/dL 6-20 3094-0) Creatinine (test 1.02 mg/dL 0.76-1.27 code = 2160-0) eGFR If NonAfricn 97 >59 Am (test code = mL/min/1.73 16599-3) eGFR If Africn Am 113 >59 [facility] currently (test code = mL/min/1.73 [place] [address]-8) compliance with the current recommendations of the National Kidney Foundation. Lab john will update rep orting as new guidelin es are published from the NKF-ASN Task force.Performed by:[facility] [place] ([place]) BUN/Creatinine 10 9-20 Ratio (test code = 3097-3) Sodium (test code = 139 mmol/L 386-277 0121-2) Potassium (test 4.2 mmol/L 3.5-5.2 code = 2823-3) Chloride (test code 101 mmol/L 96-106 = 2075-0) Carbon Dioxide, 24 mmol/L 20-29 Total (test code = 2027-9) Calcium (test code 9.9 mg/dL 8.7-10.2 = 66613-3) Protein, Total 7.4 g/dL 6.0-8.5 (test code = 2885-2) Albumin (test code 4.6 g/dL 4.0-5.0 = 1751-7) Globulin, Total 2.8 g/dL 1.5-4.5 (test code = 12030-1) A/G Ratio (test 1.6 1.2-2.2 code = 1759-0) Bilirubin, Total 0.6 mg/dL 0.0-1.2 (test code = 1975-2) Alkaline 102 IU/L 48-121 Phosphatase (test code = 6768-6) AST (SGOT) (test 14 IU/L 0-40 code = 1920-8) ALT (SGPT) (test 13 IU/L 0-44 code = 1742-6) [facility] Description: Comp. Metabolic Panel (14)2021-02-18 04:33:00 Test Item Value Reference Range Interpretation Comments Glucose (test code 90 mg/dL 65-99 = 2345-7) BUN (test code = 10 mg/dL 6-20 3094-0) Creatinine (test 1.02 mg/dL 0.76-1.27 code = 2160-0) eGFR If NonAfricn 97 >59 Am (test code = mL/min/1.73 78341-5) eGFR If Africn Am 113 >59 [facility] currently (test code = mL/min/1.73 [place] [address]-7) compliance with the current recommendations of the National Kidney Foundation. Lab john will update rep orting as new guidelin es are published from the NKF-ASN Task force.Performed by:[facility] [place] ([place]) BUN/Creatinine 10 9-20 Ratio (test code = 3097-3) Sodium (test code = 139 mmol/L 797-367 8338-2) Potassium (test 4.2 mmol/L 3.5-5.2 code = 2823-3) Chloride (test code 101 mmol/L 96-106 = 2075-0) Carbon Dioxide, 24 mmol/L 20-29 Total (test code = 2027-9) Calcium (test code 9.9 mg/dL 8.7-10.2 = 73902-2) Protein, Total 7.4 g/dL 6.0-8.5 (test code = 2885-2) Albumin (test code 4.6 g/dL 4.0-5.0 = 1751-7) Globulin, Total 2.8 g/dL 1.5-4.5 (test code = 68085-2) A/G Ratio (test 1.6 1.2-2.2 code = 1759-0) Bilirubin, Total 0.6 mg/dL 0.0-1.2 (test code = 1974-2) Alkaline 102 IU/L 48-121 Phosphatase (test code = 6768-6) AST (SGOT) (test 14 IU/L 0-40 code = 1920-8) ALT (SGPT) (test 13 IU/L 0-44 code = 1742-6) [facility] Description: Comp. Metabolic Panel (14)2021-02-18 04:33:00 Test Item Value Reference Range Interpretation Comments Glucose (test code 90 mg/dL 65-99 = 2345-7) BUN (test code = 10 mg/dL 6-20 3094-0) Creatinine (test 1.02 mg/dL 0.76-1.27 code = 2160-0) eGFR If NonAfricn 97 >59 Am (test code = mL/min/1.73 19037-6) eGFR If Africn Am 113 >59 [facility] currently (test code = mL/min/1.73 [place] [address]-2) compliance with the current recommendations of the National Kidney Foundation. Lab john will update rep orting as new guidelin es are published from the NKF-ASN Task force.
<br/ >Perfor med by:
Lab John Tate ([facility])

BUN/Creatinine 10 9-20 Ratio (test code = 3097-3) Sodium (test code = 139 mmol/L 939-744 9777-2) Potassium (test 4.2 mmol/L 3.5-5.2 code = 2823-3) Chloride (test code 101 mmol/L 96-106 = 2075-0) Carbon Dioxide, 24 mmol/L 20-29 Total (test code = 2027-) Calcium (test code 9.9 mg/dL 8.7-10.2 = 59267-4) Protein, Total 7.4 g/dL 6.0-8.5 (test code = 2885-2) Albumin (test code 4.6 g/dL 4.0-5.0 = 1751-7) Globulin, Total 2.8 g/dL 1.5-4.5 (test code = 44354-9) A/G Ratio (test 1.6 1.2-2.2 code = 1759-0) Bilirubin, Total 0.6 mg/dL 0.0-1.2 (test code = 1975-2) Alkaline 102 IU/L 48-121 Phosphatase (test code = 6768-6) AST (SGOT) (test 14 IU/L 0-40 code = 1920-8) ALT (SGPT) (test 13 IU/L 0-44 code = 1742-6) [facility] Description: Comp. Metabolic Panel (14)2021-02-18 04:33:00 Test Item Value Reference Range Interpretation Comments Glucose (test code 90 mg/dL 65-99 = 2345-7) BUN (test code = 10 mg/dL 6-20 3094-0) Creatinine (test 1.02 mg/dL 0.76-1.27 code = 2160-0) eGFR If NonAfricn 97 >59 Am (test code = mL/min/1.73 40225-4) eGFR If Africn Am 113 >59 [facility] currently (test code = mL/min/1.73 [place] [address]-2) compliance with the current recommendations of the [employer] Kid[employer]. Lab john will update rep orting as new guidelin es are published from the NKF-ASN Task force.
<br/ >Perfor med by:
Lab John Tate ([facility])

BUN/Creatinine 10 9-20 Ratio (test code = 3097-3) Sodium (test code = 139 mmol/L 193-409 7562-2) Potassium (test 4.2 mmol/L 3.5-5.2 code = 2823-3) Chloride (test code 101 mmol/L 96-106 = 2075-0) Carbon Dioxide, 24 mmol/L 20-29 Total (test code = 2027-) Calcium (test code 9.9 mg/dL 8.7-10.2 = 29257-2) Protein, Total 7.4 g/dL 6.0-8.5 (test code = 2885-2) Albumin (test code 4.6 g/dL 4.0-5.0 = 1751-7) Globulin, Total 2.8 g/dL 1.5-4.5 (test code = 60886-2) A/G Ratio (test 1.6 1.2-2.2 code = 1759-0) Bilirubin, Total 0.6 mg/dL 0.0-1.2 (test code = 1975-2) Alkaline 102 IU/L 48-121 Phosphatase (test code = 6768-6) AST (SGOT) (test 14 IU/L 0-40 code = 1920-8) ALT (SGPT) (test 13 IU/L 0-44 code = 1742-6) [facility] Description: Comp. Metabolic Panel (14)2021-02-18 04:33:00 Test Item Value Reference Range Interpretation Comments Glucose (test code 90 mg/dL 65-99 = 2345-7) BUN (test code = 10 mg/dL 6-20 3094-0) Creatinine (test 1.02 mg/dL 0.76-1.27 code = 2160-0) eGFR If NonAfricn 97 >59 Am (test code = mL/min/1.73 08318-1) eGFR If Africn Am 113 >59 [facility] currently (test code = mL/min/1.73 [place] [address]-5) compliance with the current recommendations of the [employer] Kid[employer]. Lab john will update rep orting as new guidelin es are published from the NKF-ASN Task force.
<br/ >Perfor med by:
Lab John Tate ([facility])

BUN/Creatinine 10 9-20 Ratio (test code = 3097-3) Sodium (test code = 139 mmol/L 957-846 8158-2) Potassium (test 4.2 mmol/L 3.5-5.2 code = 2823-3) Chloride (test code 101 mmol/L 96-106 = 2075-0) Carbon Dioxide, 24 mmol/L 20-29 Total (test code = 2027-) Calcium (test code 9.9 mg/dL 8.7-10.2 = 85958-6) Protein, Total 7.4 g/dL 6.0-8.5 (test code = 2885-2) Albumin (test code 4.6 g/dL 4.0-5.0 = 1751-7) Globulin, Total 2.8 g/dL 1.5-4.5 (test code = 92622-7) A/G Ratio (test 1.6 1.2-2.2 code = 1759-0) Bilirubin, Total 0.6 mg/dL 0.0-1.2 (test code = 1975-2) Alkaline 102 IU/L 48-121 Phosphatase (test code = 6768-6) AST (SGOT) (test 14 IU/L 0-40 code = 1920-8) ALT (SGPT) (test 13 IU/L 0-44 code = 1742-6) [facility] Description: Comp. Metabolic Panel (14)2021-02-18 04:33:00 Test Item Value Reference Range Interpretation Comments Glucose (test code 90 mg/dL 65-99 = 2345-7) BUN (test code = 10 mg/dL 6-20 3094-0) Creatinine (test 1.02 mg/dL 0.76-1.27 code = 2160-0) eGFR If NonAfricn 97 >59 Am (test code = mL/min/1.73 23015-5) eGFR If Africn Am 113 >59 [facility] currently (test code = mL/min/1.73 [place] 04124-3) compliance with the current recommendations of the [employer]. Lab john will update rep orting as new guidelin es are published from the NKF-ASN Task force.
<br/ >Perfor med by:
Lab John Tate ([facility])

BUN/Creatinine 10 9-20 Ratio (test code = 3097-3) Sodium (test code = 139 mmol/L 635-111 4301-2) Potassium (test 4.2 mmol/L 3.5-5.2 code = 2823-3) Chloride (test code 101 mmol/L 96-106 = 2075-0) Carbon Dioxide, 24 mmol/L 20-29 Total (test code = 2027-) Calcium (test code 9.9 mg/dL 8.7-10.2 = 70907-1) Protein, Total 7.4 g/dL 6.0-8.5 (test code = 2885-2) Albumin (test code 4.6 g/dL 4.0-5.0 = 1751-7) Globulin, Total 2.8 g/dL 1.5-4.5 (test code = 31466-5) A/G Ratio (test 1.6 1.2-2.2 code = 1759-0) Bilirubin, Total 0.6 mg/dL 0.0-1.2 (test code = 1975-2) Alkaline 102 IU/L 48-121 Phosphatase (test code = 6768-6) AST (SGOT) (test 14 IU/L 0-40 code = 1920-8) ALT (SGPT) (test 13 IU/L 0-44 code = 1742-6) [facility] Description: Comp. Metabolic Panel (14)2021-02-18 04:33:00 Test Item Value Reference Range Interpretation Comments Glucose (test code 90 mg/dL 65-99 = 2345-7) BUN (test code = 10 mg/dL 6-20 3094-0) Creatinine (test 1.02 mg/dL 0.76-1.27 code = 2160-0) eGFR If NonAfricn 97 >59 Am (test code = mL/min/1.73 63834-4) eGFR If Africn Am 113 >59 [facility] currently (test code = mL/min/1.73 [place] 03351-0) compliance with the current recommendations of the [employer]. Lab john will update rep orting as new guidelin es are published from the [employer]-ASN Task force.
<br/ >Perfor med by:
Lab John Tate (HD)

BUN/Creatinine 10 9-20 Ratio (test code = 3097-3) Sodium (test code = 139 mmol/L 210-164 8725-2) Potassium (test 4.2 mmol/L 3.5-5.2 code = 2823-3) Chloride (test code 101 mmol/L 96-106 = 2075-0) Carbon Dioxide, 24 mmol/L 20-29 Total (test code = 2027-9) Calcium (test code 9.9 mg/dL 8.7-10.2 = 60671-6) Protein, Total 7.4 g/dL 6.0-8.5 (test code = 2885-2) Albumin (test code 4.6 g/dL 4.0-5.0 = 1751-7) Globulin, Total 2.8 g/dL 1.5-4.5 (test code = 37708-6) A/G Ratio (test 1.6 1.2-2.2 code = 1759-0) Bilirubin, Total 0.6 mg/dL 0.0-1.2 (test code = 1975-2) Alkaline 102 IU/L 48-121 Phosphatase (test code = 6768-6) AST (SGOT) (test 14 IU/L 0-40 code = 1920-8) ALT (SGPT) (test 13 IU/L 0-44 code = 1742-6) [facility] Description: Comp. Metabolic Panel (14)2021-02-18 04:33:00 Test Item Value Reference Range Interpretation Comments Glucose (test code 90 mg/dL 65-99 = 2345-7) BUN (test code = 10 mg/dL 6-20 3094-0) Creatinine (test 1.02 mg/dL 0.76-1.27 code = 2160-0) eGFR If NonAfricn 97 >59 Am (test code = mL/min/1.73 67066-3) eGFR If Africn Am 113 >59 [facility] currently (test code = mL/min/1.73 [place] [address]-4) compliance with the current recommendations of the National Kid[employer] Foundation. Lab john will update rep orting as new guidelin es are published from the NKF-ASN Task force.
<br/ >Perfor med by:
Lab John Tate (HD)

BUN/Creatinine 10 9-20 Ratio (test code = 3097-3) Sodium (test code = 139 mmol/L 646-539 7943-2) Potassium (test 4.2 mmol/L 3.5-5.2 code = 2823-3) Chloride (test code 101 mmol/L 96-106 = 2075-0) Carbon Dioxide, 24 mmol/L 20-29 Total (test code = 2027-) Calcium (test code 9.9 mg/dL 8.7-10.2 = 06148-3) Protein, Total 7.4 g/dL 6.0-8.5 (test code = 2885-2) Albumin (test code 4.6 g/dL 4.0-5.0 = 1751-7) Globulin, Total 2.8 g/dL 1.5-4.5 (test code = 03068-9) A/G Ratio (test 1.6 1.2-2.2 code = 1759-0) Bilirubin, Total 0.6 mg/dL 0.0-1.2 (test code = 1975-2) Alkaline 102 IU/L 48-121 Phosphatase (test code = 6768-6) AST (SGOT) (test 14 IU/L 0-40 code = 1920-8) ALT (SGPT) (test 13 IU/L 0-44 code = 1742-6) [facility] Description: Comp. Metabolic Panel (14)2021-02-18 04:33:00 Test Item Value Reference Range Interpretation Comments Glucose (test code 90 mg/dL 65-99 = 2345-7) BUN (test code = 10 mg/dL 6-20 3094-0) Creatinine (test 1.02 mg/dL 0.76-1.27 code = 2160-0) eGFR If NonAfricn 97 >59 Am (test code = mL/min/1.73 49856-3) eGFR If Africn Am 113 >59 [facility] currently (test code = mL/min/1.73 [place] [address]-4) compliance with the current recommendations of the National Kidney Foundation. Lab john will update rep orting as new guidelin es are published from the NKF-ASN Task force.
<br/ >Perfor med by:
Lab John Bebeto (HD)

BUN/Creatinine 10 9-20 Ratio (test code = 3097-3) Sodium (test code = 139 mmol/L 795-515 7603-2) Potassium (test 4.2 mmol/L 3.5-5.2 code = 2823-3) Chloride (test code 101 mmol/L 96-106 = 2075-0) Carbon Dioxide, 24 mmol/L 20-29 Total (test code = 2027-) Calcium (test code 9.9 mg/dL 8.7-10.2 = 16827-7) Protein, Total 7.4 g/dL 6.0-8.5 (test code = 2885-2) Albumin (test code 4.6 g/dL 4.0-5.0 = 1751-7) Globulin, Total 2.8 g/dL 1.5-4.5 (test code = 78577-2) A/G Ratio (test 1.6 1.2-2.2 code = 1759-0) Bilirubin, Total 0.6 mg/dL 0.0-1.2 (test code = 1975-2) Alkaline 102 IU/L 48-121 Phosphatase (test code = 6768-6) AST (SGOT) (test 14 IU/L 0-40 code = 1920-8) ALT (SGPT) (test 13 IU/L 0-44 code = 1742-6) [facility] Description: Comp. Metabolic Panel (14)2021-02-18 04:33:00 Test Item Value Reference Range Interpretation Comments Glucose (test code 90 mg/dL 65-99 = 2345-7) BUN (test code = 10 mg/dL 6-20 3094-0) Creatinine (test 1.02 mg/dL 0.76-1.27 code = 2160-0) eGFR If NonAfricn 97 >59 Am (test code = mL/min/1.73 16622-7) eGFR If Africn Am 113 >59 [facility] currently (test code = mL/min/1[place] [address]-4) compliance with the current recommendations of the National Kidney Foundation. Lab john will update rep orting as new guidelin es are published from the NKF-ASN Task force.
<br/ >Perfor med by:
Lab John Tate (HD)

BUN/Creatinine 10 9-20 Ratio (test code = 3097-3) Sodium (test code = 139 mmol/L 930-678 4585-2) Potassium (test 4.2 mmol/L 3.5-5.2 code = 2823-3) Chloride (test code 101 mmol/L 96-106 = 2075-0) Carbon Dioxide, 24 mmol/L 20-29 Total (test code = 2027-) Calcium (test code 9.9 mg/dL 8.7-10.2 = 91573-4) Protein, Total 7.4 g/dL 6.0-8.5 (test code = 2885-2) Albumin (test code 4.6 g/dL 4.0-5.0 = 1751-7) Globulin, Total 2.8 g/dL 1.5-4.5 (test code = 23042-6) A/G Ratio (test 1.6 1.2-2.2 code = 1759-0) Bilirubin, Total 0.6 mg/dL 0.0-1.2 (test code = 1975-2) Alkaline 102 IU/L 48-121 Phosphatase (test code = 6768-6) AST (SGOT) (test 14 IU/L 0-40 code = 1920-8) ALT (SGPT) (test 13 IU/L 0-44 code = 1742-6) [facility] Description: Comp. Metabolic Panel (14)2021-02-18 04:33:00 Test Item Value Reference Range Interpretation Comments Glucose (test code 90 mg/dL 65-99 = 2345-7) BUN (test code = 10 mg/dL 6-20 3094-0) Creatinine (test 1.02 mg/dL 0.76-1.27 code = 2160-0) eGFR If NonAfricn 97 >59 Am (test code = mL/min/1.73 50496-1) eGFR If Africn Am 113 >59 [facility] currently (test code = mL/min/1.73 [place] [address]-1) compliance with the current recommendations of the National Kidney Foundation. Lab john will update rep orting as new guidelin es are published from the NKF-ASN Task force.
<br/ >Perfor med by:
Lab John Tate (HD)

BUN/Creatinine 10 9-20 Ratio (test code = 3097-3) Sodium (test code = 139 mmol/L 934-818 8964-2) Potassium (test 4.2 mmol/L 3.5-5.2 code = 2823-3) Chloride (test code 101 mmol/L 96-106 = 2075-0) Carbon Dioxide, 24 mmol/L 20-29 Total (test code = 2027-9) Calcium (test code 9.9 mg/dL 8.7-10.2 = 40959-6) Protein, Total 7.4 g/dL 6.0-8.5 (test code = 2885-2) Albumin (test code 4.6 g/dL 4.0-5.0 = 1751-7) Globulin, Total 2.8 g/dL 1.5-4.5 (test code = 95353-3) A/G Ratio (test 1.6 1.2-2.2 code = 1759-0) Bilirubin, Total 0.6 mg/dL 0.0-1.2 (test code = 1975-2) Alkaline 102 IU/L 48-121 Phosphatase (test code = 6768-6) AST (SGOT) (test 14 IU/L 0-40 code = 1920-8) ALT (SGPT) (test 13 IU/L 0-44 code = 1742-6) [facility] Description: RealTime [id number] 12:26:00 Test Item Value Reference Range Interpretation Comments HIV-1 RNA by PCR <40 HIV-1 RNA not detected .The (test code = reportable rang e for this 80701-6) assay is 40 to 10,000,000copie s HIV-1 RNA/mL. .Perfo rmed by:Jania gonzalez () log10 HIV-1 RNA TNP Unable to ca lculate result (test code = [place] result 39286-0) obtained forcom ponent test.Performed by:Jania Tate () [facility] Description: RealTime [id number] 12:26:00 Test Item Value Reference Range Interpretation Comments HIV-1 RNA by PCR <40 HIV-1 RNA not detected (test code = .The reportable range for ) this assay is 4 0 to 10,000,000copie s HIV-1 RNA/mL. .Perfo rmed by:Jania gonzalez () log10 HIV-1 RNA TNP Unable to ca lculate result (test code = since non-numer ic result 73278-1) obtained forcom ponent test.Performed by:Coupzchristiano Tate () [employer] Description: RealTime [id number] 12:26:00 Test Item Value Reference Range Interpretation Comments HIV-1 RNA by PCR <40 HIV-1 RNA not detected .The (test code = reportable rang e for this ) assay is 40 to 10,000,000copie s HIV-1 RNA/mL. .Perfo rmed by:Jania gonzalez () log10 HIV-1 RNA TNP Unable to ca lculate result (test code = since non-numer ic result 12291-6) obtained forcom ponent test.Performed by:[facility] Tate () [employer] Description: RealTime [id number] 12:26:00 Test Item Value Reference Range Interpretation Comments HIV-1 RNA by PCR <40 HIV-1 RNA not detected .The (test code = reportable rang e for this ) assay is 40 to 10,000,000copie s HIV-1 RNA/mL. .Perfo rmed by:Jania gonzalez () log10 HIV-1 RNA TNP Unable to ca lculate result (test code = since non-numer ic result 24297-2) obtained forcom ponent test.Performed by:Coupzchristiano Tate () [employer] Description: RealTime [id number] 12:26:00 Test Item Value Reference Range Interpretation Comments HIV-1 RNA by PCR <40 HIV-1 RNA not detected .The (test code = reportable rang e for this ) assay is 40 to 10,000,000copie s HIV-1 RNA/mL. .Perfor med by:Jania gonzalez () log10 HIV-1 RNA TNP Unable to ca lculate result (test code = since non-numer ic result 95154-6) obtained forcom ponent test.Performed by:[facility] () [facility] Description: RealTime [id number] 12:26:00 Test Item Value Reference Range Interpretation Comments HIV-1 RNA by PCR <40 HIV-1 RNA not detected .The (test code = reportable rang e for this ) assay is 40 to 10,000,000copie s HIV-1 RNA/mL. .Perfor med by:Jania gonzalez () log10 HIV-1 RNA TNP Unable to ca lculate result (test code = since non-numer ic result 47472-8) obtained forcom ponent test.Performed by:[facility] () [facility] Description: RealTime [id number] 12:26:00 Test Item Value Reference Range Interpretation Comments HIV-1 RNA by PCR <40 HIV-1 RNA not detected .The (test code = reportable rang e for this ) assay is 40 to 10,000,000copie s HIV-1 RNA/mL. .Perfor med by:Jania gonzalez () log10 HIV-1 RNA TNP Unable to ca lculate result (test code = since non-numer ic result 90858-5) obtained forcom ponent test.Performed by:Jania Tate () [employer] Description: RealTime [id number] 12:26:00 Test Item Value Reference Range Interpretation Comments HIV-1 RNA by PCR <40 HIV-1 RNA not detected .The (test code = reportable rang e for this ) assay is 40 to 10,000,000copie s HIV-1 RNA/mL. .Perfor med by:Jania gonzalez () log10 HIV-1 RNA TNP Unable to ca lculate result (test code = since non-numer ic result 93500-0) obtained forcom ponent test.Performed by:Jania Tate () [facility] Description: RealTime [id number] 12:26:00 Test Item Value Reference Range Interpretation Comments HIV-1 RNA by PCR <40 HIV-1 RNA not detected .The (test code = reportable rang e for this ) assay is 40 to 10,000,000copie s HIV-1 RNA/mL. .Perfor med by:Jania gonzalez () log10 HIV-1 RNA TNP Unable to ca lculate result (test code = since non-numer ic result 92894-9) obtained forcom ponent test.Performed by:Jania Tate () [facility] Description: RealTime [id number] 12:26:00 Test Item Value Reference Range Interpretation Comments HIV-1 RNA by PCR <40 HIV-1 RNA not detected .The (test code = reportable rang e for this ) assay is 40 to 10,000,000copie s HIV-1 RNA/mL. .
< br/>Performed by:
Jania Tate ()

log10 HIV-1 RNA TNP Unable to ca lculate result (test code = since non-numer ic result 28099-6) obtained forcom ponent test.

Performed by:
Jania Tate ()

[facility] Description: RealTime [id number] 12:26:00 Test Item Value Reference Range Interpretation Comments HIV-1 RNA by PCR <40 HIV-1 RNA not detected .The (test code = reportable rang e for this ) assay is 40 to 10,000,000copie s HIV-1 RNA/mL. .

Perf ormed by:
Jania Tate ()

log10 HIV-1 RNA TNP Unable to ca lculate result (test code = since non-numer ic result 69952-3) obtained forcom ponent test.

Performed by:
JordanAlchristiano Tate ()

[facility] Description: RealTime [id number] 12:26:00 Test Item Value Reference Range Interpretation Comments HIV-1 RNA by PCR <40 HIV-1 RNA not detected (test code = .The reportable range for ) this assay is 4 0 to 10,000,000copie s HIV-1 RNA/mL. .
< br/>Performed by:
Jania Tate ()

log10 HIV-1 RNA TNP Unable to ca lculate result (test code = since non-numer ic result 89899-9) obtained forcom ponent test.

Performed by:
[facility] ()

[facility] Description: RealTime [id number] 12:26:00 Test Item Value Reference Range Interpretation Comments HIV-1 RNA by PCR <40 HIV-1 RNA not detected .The (test code = reportable rang e for this ) assay is 40 to 10,000,000copie s HIV-1 RNA/mL. .
< br/>Performed by:
[facility] ()

log10 HIV-1 RNA TNP Unable to ca lculate result (test code = since non-numer ic result 83552-3) obtained forcom ponent test.

Performed by:
[facility] ()

[facility] Description: RealTime [id number] 12:26:00 Test Item Value Reference Range Interpretation Comments HIV-1 RNA by PCR <40 HIV-1 RNA not detected (test code = .The reportable range for ) this assay is 4 0 to 10,000,000copie s HIV-1 RNA/mL. .
< br/>Performed by:
[facility] ()

log10 HIV-1 RNA TNP Unable to ca lculate result (test code = since non-numer ic result 58784-2) obtained forcom ponent test.

Performed by:
[facility] [place] ()

[facility] Description: RealTime [id number] 12:26:00 Test Item Value Reference Range Interpretation Comments HIV-1 RNA by PCR <40 HIV-1 RNA not detected .The (test code = reportable rang e for this ) assay is 40 to 10,000,000copie s HIV-1 RNA/mL. .
< br/>Performed by:
[facility] ()

log10 HIV-1 RNA TNP Unable to ca lculate result (test code = since non-numer ic result 95266-9) obtained forcom ponent test.

Performed by:
[facility] ()

[facility] Description: RealTime [id number] 12:26:00 Test Item Value Reference Range Interpretation Comments HIV-1 RNA by PCR <40 HIV-1 RNA not detected (test code = .The reportable range for ) this assay is 4 0 to 10,000,000copie s HIV-1 RNA/mL. .

Perf ormed by:
[facility] ()

log10 HIV-1 RNA TNP Unable to ca lculate result (test code = since non-numer ic result 66018-5) obtained forcom ponent test.

Performed by:
[facility] ()

[facility] Description: RealTime [id number] 12:26:00 Test Item Value Reference Range Interpretation Comments HIV-1 RNA by PCR <40 HIV-1 RNA not detected .The (test code = reportable rang e for this ) assay is 40 to 10,000,000copie s HIV-1 RNA/mL. .
< br/>Performed by:
[facility] ()

log10 HIV-1 RNA TNP Unable to ca lculate result (test code = since non-numer ic result 25471-5) obtained forcom ponent test.

Performed by:
[facility] ()

[facility] Description: RealTime [id number] 12:26:00 Test Item Value Reference Range Interpretation Comments HIV-1 RNA by PCR <40 HIV-1 RNA not detected .The (test code = reportable rang e for this ) assay is 40 to 10,000,000copie s HIV-1 RNA/mL. .

Perf ormed by:
[facility] ()

log10 HIV-1 RNA TNP Unable to ca lculate result (test code = since non-numer ic result 67985-6) obtained forcom ponent test.

Performed by:
[facility] Tate ()

[facility] Description: RealTime [id number] 12:26:00 Test Item Value Reference Range Interpretation Comments HIV-1 RNA by PCR <40 HIV-1 RNA not detected (test code = .The reportable range for ) this assay is 4 0 to 10,000,000copie s HIV-1 RNA/mL. .
< br/>Performed by:
Coupzrp Tate ()

log10 HIV-1 RNA TNP Unable to ca lculate result (test code = since non-numer ic result 99293-6) obtained forcom ponent test.

Performed by:
[facility] ()

[facility] Description: RealTime [id number] 12:26:00 Test Item Value Reference Range Interpretation Comments HIV-1 RNA by PCR <40 HIV-1 RNA not detected .The (test code = reportable rang e for this ) assay is 40 to 10,000,000copie s HIV-1 RNA/mL. .
< br/>Performed by:
Coupzrp Tate ()

log10 HIV-1 RNA TNP Unable to ca lculate result (test code = since non-numer ic result 82603-1) obtained forcom ponent test.

Performed by:
Coupzrp Tate ()

[facility] Description: RealTime [id number] 12:26:00 Test Item Value Reference Range Interpretation Comments HIV-1 RNA by PCR <40 HIV-1 RNA not detected .The (test code = reportable rang e for this ) assay is 40 to 10,000,000copie s HIV-1 RNA/mL. .
< br/>Performed by:
[facility] [place] ()

log10 HIV-1 RNA TNP Unable to ca lculate result (test code = since non-numer ic result 72386-5) obtained forcom ponent test.

Performed by:
[facility] [place] ()

[employer] Description: RealTime [id number] 12:26:00 Test Item Value Reference Range Interpretation Comments HIV-1 RNA by PCR <40 HIV-1 RNA not detected .The (test code = reportable rang e for this ) assay is 40 to 10,000,000copie s HIV-1 RNA/mL. .
< br/>Performed by:
[facility] [place] ()

log10 HIV-1 RNA TNP Unable to ca lculate result (test code = since non-numer ic result 25980-8) obtained forcom [employer] test.

Performed by:
[facility] [place] ()

[employer] Description: CD4/CD8 Ratio [id number] 16:34:00 Test Item Value Reference Range Interpretation Comments Absolute CD 4 [place] (test code 732 /uL 359-1519 = 68656-8) % CD 4 Pos. Lymph. (test code = 36.6 % 30.8-58.5 8123-2) Abs. CD 8 Suppressor (test code 694 /uL 109-897 = 62000-8) % CD 8 Pos. Lymph. (test code = 34.7 % 12.0-35.5 8101-8) CD4/CD8 Ratio (test code = 1.05 0.92-3.72 77043-5) WBC (test code = 6690-2) 4.5 x10E3/uL 3.4-10.8 RBC (test code = 789-8) 4.44 x10E6/uL 4.14-5.80 Hemoglobin (test code = 718-7) 13.5 g/dL 13.0-17.7 Hematocrit (test code = 4544-3) 41.3 % 37.5-51.0 MCV (test code = 787-2) 93 fL 79-97 MCH (test code = 785-6) 30.4 pg 26.6-33.0 MCHC (test code = 786-4) 32.7 g/dL 31.5-35.7 RDW (test code = 788-0) 14.8 % 11.6-15.4 Platelets (test code = 777-3) 233 x10E3/uL 150-450 Neutrophils (test code = 770-8) 47 % Not Estab. Lymphs (test code = 736-9) 43 % Not Estab. Monocytes (test code = 5905-5) 9 % Not Estab. Eos (test code = 713-8) 1 % Not Estab. Basos (test code = 706-2) 0 % Not Estab. Neutrophils (Absolute) (test 2.1 x10E3/uL 1.4-7.0 code = 751-8) Lymphs (Absolute) (test code = 2.0 x10E3/uL 0.7-3.1 731-0) Monocytes(Absolute) (test code 0.4 x10E3/uL 0.1-0.9 = 742-7) Eos (Absolute) (test code = 0.0 x10E3/uL 0.0-0.4 711-2) Baso (Absolute) (test code = 0.0 x10E3/uL 0.0-0.2 704-7) Immature Granulocytes (test 0 % Not Estab. code = 30445-1) Immature Grans (Abs) (test code 0.0 x10E3/uL 0.0-0.1 = 48227-6) NRBC (test code = 23618-4) Hematology Comments: (test code = 38599-5) [facility] Description: CD4/CD8 Ratio [id number] 16:34:00 Test Item Value Reference Range Interpretation Comments Absolute CD 4 [place] (test code 732 /uL 359-1519 = 18869-3) % CD 4 Pos. Lymph. (test code = 36.6 % 30.8-58.5 8123-2) Abs. CD 8 Suppressor (test code 694 /uL 109-897 = 64766-5) % CD 8 Pos. Lymph. (test code = 34.7 % 12.0-35.5 8101-8) CD4/CD8 Ratio (test code = 1.05 0.92-3.72 21363-9) WBC (test code = 6690-2) 4.5 x10E3/uL 3.4-10.8 RBC (test code = 789-8) 4.44 x10E6/uL 4.14-5.80 Hemoglobin (test code = 718-7) 13.5 g/dL 13.0-17.7 Hematocrit (test code = 4544-3) 41.3 % 37.5-51.0 MCV (test code = 787-2) 93 fL 79-97 MCH (test code = 785-6) 30.4 pg 26.6-33.0 MCHC (test code = 786-4) 32.7 g/dL 31.5-35.7 RDW (test code = 788-0) 14.8 % 11.6-15.4 Platelets (test code = 777-3) 233 x10E3/uL 150-450 Neutrophils (test code = 770-8) 47 % Not Estab. Lymphs (test code = 736-9) 43 % Not Estab. Monocytes (test code = 5905-5) 9 % Not Estab. Eos (test code = 713-8) 1 % Not Estab. Basos (test code = 706-2) 0 % Not Estab. Neutrophils (Absolute) (test 2.1 x10E3/uL 1.4-7.0 code = 751-8) Lymphs (Absolute) (test code = 2.0 x10E3/uL 0.7-3.1 731-0) Monocytes(Absolute) (test code 0.4 x10E3/uL 0.1-0.9 = 742-7) Eos (Absolute) (test code = 0.0 x10E3/uL 0.0-0.4 711-2) Baso (Absolute) (test code = 0.0 x10E3/uL 0.0-0.2 704-7) Immature Granulocytes (test 0 % Not Estab. code = 80052-5) Immature Grans (Abs) (test code 0.0 x10E3/uL 0.0-0.1 = 71790-6) NRBC (test code = 95486-9) Hematology Comments: (test code = 46039-6) [facility] Description: CD4/CD8 Ratio [id number] 16:34:00 Test Item Value Reference Range Interpretation Comments Absolute CD 4 [place] (test code 732 /uL 359-1519 = 42596-8) % CD 4 Pos. Lymph. (test code = 36.6 % 30.8-58.5 8123-2) Abs. CD 8 Suppressor (test code 694 /uL 109-897 = 02931-7) % CD 8 Pos. Lymph. (test code = 34.7 % 12.0-35.5 8101-8) CD4/CD8 Ratio (test code = 1.05 0.92-3.72 51600-7) WBC (test code = 6690-2) 4.5 x10E3/uL 3.4-10.8 RBC (test code = 789-8) 4.44 x10E6/uL 4.14-5.80 Hemoglobin (test code = 718-7) 13.5 g/dL 13.0-17.7 Hematocrit (test code = 4544-3) 41.3 % 37.5-51.0 MCV (test code = 787-2) 93 fL 79-97 MCH (test code = 785-6) 30.4 pg 26.6-33.0 MCHC (test code = 786-4) 32.7 g/dL 31.5-35.7 RDW (test code = 788-0) 14.8 % 11.6-15.4 Platelets (test code = 777-3) 233 x10E3/uL 150-450 Neutrophils (test code = 770-8) 47 % Not Estab. Lymphs (test code = 736-9) 43 % Not Estab. Monocytes (test code = 5905-5) 9 % Not Estab. Eos (test code = 713-8) 1 % Not Estab. Basos (test code = 706-2) 0 % Not Estab. Neutrophils (Absolute) (test 2.1 x10E3/uL 1.4-7.0 code = 751-8) Lymphs (Absolute) (test code = 2.0 x10E3/uL 0.7-3.1 731-0) Monocytes(Absolute) (test code 0.4 x10E3/uL 0.1-0.9 = 742-7) Eos (Absolute) (test code = 0.0 x10E3/uL 0.0-0.4 711-2) Baso (Absolute) (test code = 0.0 x10E3/uL 0.0-0.2 704-7) Immature Granulocytes (test 0 % Not Estab. code = 98460-6) Immature Grans (Abs) (test code 0.0 x10E3/uL 0.0-0.1 = 12405-5) NRBC (test code = 18357-3) Hematology Comments: (test code = 16383-5) [facility] Description: CD4/CD8 Ratio [id number] 16:34:00 Test Item Value Reference Range Interpretation Comments Absolute CD 4 [place] (test code 732 /uL 359-1519 = 20782-3) % CD 4 Pos. Lymph. (test code = 36.6 % 30.8-58.5 8123-2) Abs. CD 8 Suppressor (test code 694 /uL 109-897 = 83799-3) % CD 8 Pos. Lymph. (test code = 34.7 % 12.0-35.5 8101-8) CD4/CD8 Ratio (test code = 1.05 0.92-3.72 26301-9) WBC (test code = 6690-2) 4.5 x10E3/uL 3.4-10.8 RBC (test code = 789-8) 4.44 x10E6/uL 4.14-5.80 Hemoglobin (test code = 718-7) 13.5 g/dL 13.0-17.7 Hematocrit (test code = 4544-3) 41.3 % 37.5-51.0 MCV (test code = 787-2) 93 fL 79-97 MCH (test code = 785-6) 30.4 pg 26.6-33.0 MCHC (test code = 786-4) 32.7 g/dL 31.5-35.7 RDW (test code = 788-0) 14.8 % 11.6-15.4 Platelets (test code = 777-3) 233 x10E3/uL 150-450 Neutrophils (test code = 770-8) 47 % Not Estab. Lymphs (test code = 736-9) 43 % Not Estab. Monocytes (test code = 5905-5) 9 % Not Estab. Eos (test code = 713-8) 1 % Not Estab. Basos (test code = 706-2) 0 % Not Estab. Neutrophils (Absolute) (test 2.1 x10E3/uL 1.4-7.0 code = 751-8) Lymphs (Absolute) (test code = 2.0 x10E3/uL 0.7-3.1 731-0) Monocytes(Absolute) (test code 0.4 x10E3/uL 0.1-0.9 = 742-7) Eos (Absolute) (test code = 0.0 x10E3/uL 0.0-0.4 711-2) Baso (Absolute) (test code = 0.0 x10E3/uL 0.0-0.2 704-7) Immature Granulocytes (test 0 % Not Estab. code = 48514-8) Immature Grans (Abs) (test code 0.0 x10E3/uL 0.0-0.1 = 38349-6) NRBC (test code = 95029-5) Hematology Comments: (test code = 62696-3) [facility] Description: CD4/CD8 Ratio [id number] 16:34:00 Test Item Value Reference Range Interpretation Comments Absolute CD 4 [place] (test code 732 /uL 359-1519 = 34398-8) % CD 4 Pos. Lymph. (test code = 36.6 % 30.8-58.5 8123-2) Abs. CD 8 Suppressor (test code 694 /uL 109-897 = 43766-5) % CD 8 Pos. Lymph. (test code = 34.7 % 12.0-35.5 8101-8) CD4/CD8 Ratio (test code = 1.05 0.92-3.72 86376-3) WBC (test code = 6690-2) 4.5 x10E3/uL 3.4-10.8 RBC (test code = 789-8) 4.44 x10E6/uL 4.14-5.80 Hemoglobin (test code = 718-7) 13.5 g/dL 13.0-17.7 Hematocrit (test code = 4544-3) 41.3 % 37.5-51.0 MCV (test code = 787-2) 93 fL 79-97 MCH (test code = 785-6) 30.4 pg 26.6-33.0 MCHC (test code = 786-4) 32.7 g/dL 31.5-35.7 RDW (test code = 788-0) 14.8 % 11.6-15.4 Platelets (test code = 777-3) 233 x10E3/uL 150-450 Neutrophils (test code = 770-8) 47 % Not Estab. Lymphs (test code = 736-9) 43 % Not Estab. Monocytes (test code = 5905-5) 9 % Not Estab. Eos (test code = 713-8) 1 % Not Estab. Basos (test code = 706-2) 0 % Not Estab. Neutrophils (Absolute) (test 2.1 x10E3/uL 1.4-7.0 code = 751-8) Lymphs (Absolute) (test code = 2.0 x10E3/uL 0.7-3.1 731-0) Monocytes(Absolute) (test code 0.4 x10E3/uL 0.1-0.9 = 742-7) Eos (Absolute) (test code = 0.0 x10E3/uL 0.0-0.4 711-2) Baso (Absolute) (test code = 0.0 x10E3/uL 0.0-0.2 704-7) Immature Granulocytes (test 0 % Not Estab. code = 49390-5) Immature Grans (Abs) (test code 0.0 x10E3/uL 0.0-0.1 = 44686-8) NRBC (test code = 25584-4) Hematology Comments: (test code = 66276-2) [facility] Description: CD4/CD8 Ratio [id number] 16:34:00 Test Item Value Reference Range Interpretation Comments Absolute CD 4 [place] (test code 732 /uL 359-1519 = 71139-5) % CD 4 Pos. Lymph. (test code = 36.6 % 30.8-58.5 8123-2) Abs. CD 8 Suppressor (test code 694 /uL 109-897 = 18055-5) % CD 8 Pos. Lymph. (test code = 34.7 % 12.0-35.5 8101-8) CD4/CD8 Ratio (test code = 1.05 0.92-3.72 07011-1) WBC (test code = 6690-2) 4.5 x10E3/uL 3.4-10.8 RBC (test code = 789-8) 4.44 x10E6/uL 4.14-5.80 Hemoglobin (test code = 718-7) 13.5 g/dL 13.0-17.7 Hematocrit (test code = 4544-3) 41.3 % 37.5-51.0 MCV (test code = 787-2) 93 fL 79-97 MCH (test code = 785-6) 30.4 pg 26.6-33.0 MCHC (test code = 786-4) 32.7 g/dL 31.5-35.7 RDW (test code = 788-0) 14.8 % 11.6-15.4 Platelets (test code = 777-3) 233 x10E3/uL 150-450 Neutrophils (test code = 770-8) 47 % Not Estab. Lymphs (test code = 736-9) 43 % Not Estab. Monocytes (test code = 5905-5) 9 % Not Estab. Eos (test code = 713-8) 1 % Not Estab. Basos (test code = 706-2) 0 % Not Estab. Neutrophils (Absolute) (test 2.1 x10E3/uL 1.4-7.0 code = 751-8) Lymphs (Absolute) (test code = 2.0 x10E3/uL 0.7-3.1 731-0) Monocytes(Absolute) (test code 0.4 x10E3/uL 0.1-0.9 = 742-7) Eos (Absolute) (test code = 0.0 x10E3/uL 0.0-0.4 711-2) Baso (Absolute) (test code = 0.0 x10E3/uL 0.0-0.2 704-7) Immature Granulocytes (test 0 % Not Estab. code = 49243-1) Immature Grans (Abs) (test code 0.0 x10E3/uL 0.0-0.1 = 02463-5) NRBC (test code = 53147-5) Hematology Comments: (test code = 04696-4) [facility] Description: CD4/CD8 Ratio [id number] 16:34:00 Test Item Value Reference Range Interpretation Comments Absolute CD 4 [place] (test code 732 /uL 359-1519 = 67164-4) % CD 4 Pos. Lymph. (test code = 36.6 % 30.8-58.5 8123-2) Abs. CD 8 Suppressor (test code 694 /uL 109-897 = 19594-0) % CD 8 Pos. Lymph. (test code = 34.7 % 12.0-35.5 8101-8) CD4/CD8 Ratio (test code = 1.05 0.92-3.72 71657-4) WBC (test code = 6690-2) 4.5 x10E3/uL 3.4-10.8 RBC (test code = 789-8) 4.44 x10E6/uL 4.14-5.80 Hemoglobin (test code = 718-7) 13.5 g/dL 13.0-17.7 Hematocrit (test code = 4544-3) 41.3 % 37.5-51.0 MCV (test code = 787-2) 93 fL 79-97 MCH (test code = 785-6) 30.4 pg 26.6-33.0 MCHC (test code = 786-4) 32.7 g/dL 31.5-35.7 RDW (test code = 788-0) 14.8 % 11.6-15.4 Platelets (test code = 777-3) 233 x10E3/uL 150-450 Neutrophils (test code = 770-8) 47 % Not Estab. Lymphs (test code = 736-9) 43 % Not Estab. Monocytes (test code = 5905-5) 9 % Not Estab. Eos (test code = 713-8) 1 % Not Estab. Basos (test code = 706-2) 0 % Not Estab. Neutrophils (Absolute) (test 2.1 x10E3/uL 1.4-7.0 code = 751-8) Lymphs (Absolute) (test code = 2.0 x10E3/uL 0.7-3.1 731-0) Monocytes(Absolute) (test code 0.4 x10E3/uL 0.1-0.9 = 742-7) Eos (Absolute) (test code = 0.0 x10E3/uL 0.0-0.4 711-2) Baso (Absolute) (test code = 0.0 x10E3/uL 0.0-0.2 704-7) Immature Granulocytes (test 0 % Not Estab. code = 05440-8) Immature Grans (Abs) (test code 0.0 x10E3/uL 0.0-0.1 = 61287-1) NRBC (test code = 51955-8) Hematology Comments: (test code = 64579-9) [facility] Description: CD4/CD8 Ratio [id number] 16:34:00 Test Item Value Reference Range Interpretation Comments Absolute CD 4 [place] (test code 732 /uL 359-1519 = 05106-5) % CD 4 Pos. Lymph. (test code = 36.6 % 30.8-58.5 8123-2) Abs. CD 8 Suppressor (test code 694 /uL 109-897 = 64351-3) % CD 8 Pos. Lymph. (test code = 34.7 % 12.0-35.5 8101-8) CD4/CD8 Ratio (test code = 1.05 0.92-3.72 81642-8) WBC (test code = 6690-2) 4.5 x10E3/uL 3.4-10.8 RBC (test code = 789-8) 4.44 x10E6/uL 4.14-5.80 Hemoglobin (test code = 718-7) 13.5 g/dL 13.0-17.7 Hematocrit (test code = 4544-3) 41.3 % 37.5-51.0 MCV (test code = 787-2) 93 fL 79-97 MCH (test code = 785-6) 30.4 pg 26.6-33.0 MCHC (test code = 786-4) 32.7 g/dL 31.5-35.7 RDW (test code = 788-0) 14.8 % 11.6-15.4 Platelets (test code = 777-3) 233 x10E3/uL 150-450 Neutrophils (test code = 770-8) 47 % Not Estab. Lymphs (test code = 736-9) 43 % Not Estab. Monocytes (test code = 5905-5) 9 % Not Estab. Eos (test code = 713-8) 1 % Not Estab. Basos (test code = 706-2) 0 % Not Estab. Neutrophils (Absolute) (test 2.1 x10E3/uL 1.4-7.0 code = 751-8) Lymphs (Absolute) (test code = 2.0 x10E3/uL 0.7-3.1 731-0) Monocytes(Absolute) (test code 0.4 x10E3/uL 0.1-0.9 = 742-7) Eos (Absolute) (test code = 0.0 x10E3/uL 0.0-0.4 711-2) Baso (Absolute) (test code = 0.0 x10E3/uL 0.0-0.2 704-7) Immature Granulocytes (test 0 % Not Estab. code = 76319-1) Immature Grans (Abs) (test code 0.0 x10E3/uL 0.0-0.1 = 55362-8) NRBC (test code = 04372-4) Hematology Comments: (test code = 75521-6) [facility] Description: CD4/CD8 Ratio [id number] 16:34:00 Test Item Value Reference Range Interpretation Comments Absolute CD 4 [place] (test code 732 /uL 359-1519 = 11885-6) % CD 4 Pos. Lymph. (test code = 36.6 % 30.8-58.5 8123-2) Abs. CD 8 Suppressor (test code 694 /uL 109-897 = 49117-9) % CD 8 Pos. Lymph. (test code = 34.7 % 12.0-35.5 8101-8) CD4/CD8 Ratio (test code = 1.05 0.92-3.72 94925-4) WBC (test code = 6690-2) 4.5 x10E3/uL 3.4-10.8 RBC (test code = 789-8) 4.44 x10E6/uL 4.14-5.80 Hemoglobin (test code = 718-7) 13.5 g/dL 13.0-17.7 Hematocrit (test code = 4544-3) 41.3 % 37.5-51.0 MCV (test code = 787-2) 93 fL 79-97 MCH (test code = 785-6) 30.4 pg 26.6-33.0 MCHC (test code = 786-4) 32.7 g/dL 31.5-35.7 RDW (test code = 788-0) 14.8 % 11.6-15.4 Platelets (test code = 777-3) 233 x10E3/uL 150-450 Neutrophils (test code = 770-8) 47 % Not Estab. Lymphs (test code = 736-9) 43 % Not Estab. Monocytes (test code = 5905-5) 9 % Not Estab. Eos (test code = 713-8) 1 % Not Estab. Basos (test code = 706-2) 0 % Not Estab. Neutrophils (Absolute) (test 2.1 x10E3/uL 1.4-7.0 code = 751-8) Lymphs (Absolute) (test code = 2.0 x10E3/uL 0.7-3.1 731-0) Monocytes(Absolute) (test code 0.4 x10E3/uL 0.1-0.9 = 742-7) Eos (Absolute) (test code = 0.0 x10E3/uL 0.0-0.4 711-2) Baso (Absolute) (test code = 0.0 x10E3/uL 0.0-0.2 704-7) Immature Granulocytes (test 0 % Not Estab. code = 07013-3) Immature Grans (Abs) (test code 0.0 x10E3/uL 0.0-0.1 = 80038-5) NRBC (test code = 93388-1) Hematology Comments: (test code = 00045-2) [facility] Description: CD4/CD8 Ratio [id number] 16:34:00 Test Item Value Reference Range Interpretation Comments Absolute CD 4 [place] (test code 732 /uL 359-1519 = 09197-4) % CD 4 Pos. Lymph. (test code = 36.6 % 30.8-58.5 8123-2) Abs. CD 8 Suppressor (test code 694 /uL 109-897 = 96401-9) % CD 8 Pos. Lymph. (test code = 34.7 % 12.0-35.5 8101-8) CD4/CD8 Ratio (test code = 1.05 0.92-3.72 08860-8) WBC (test code = 6690-2) 4.5 x10E3/uL 3.4-10.8 RBC (test code = 789-8) 4.44 x10E6/uL 4.14-5.80 Hemoglobin (test code = 718-7) 13.5 g/dL 13.0-17.7 Hematocrit (test code = 4544-3) 41.3 % 37.5-51.0 MCV (test code = 787-2) 93 fL 79-97 MCH (test code = 785-6) 30.4 pg 26.6-33.0 MCHC (test code = 786-4) 32.7 g/dL 31.5-35.7 RDW (test code = 788-0) 14.8 % 11.6-15.4 Platelets (test code = 777-3) 233 x10E3/uL 150-450 Neutrophils (test code = 770-8) 47 % Not Estab. Lymphs (test code = 736-9) 43 % Not Estab. Monocytes (test code = 5905-5) 9 % Not Estab. Eos (test code = 713-8) 1 % Not Estab. Basos (test code = 706-2) 0 % Not Estab. Neutrophils (Absolute) (test 2.1 x10E3/uL 1.4-7.0 code = 751-8) Lymphs (Absolute) (test code = 2.0 x10E3/uL 0.7-3.1 731-0) Monocytes(Absolute) (test code 0.4 x10E3/uL 0.1-0.9 = 742-7) Eos (Absolute) (test code = 0.0 x10E3/uL 0.0-0.4 711-2) Baso (Absolute) (test code = 0.0 x10E3/uL 0.0-0.2 704-7) Immature Granulocytes (test 0 % Not Estab. code = 49582-0) Immature Grans (Abs) (test code 0.0 x10E3/uL 0.0-0.1 = 47279-7) NRBC (test code = 25733-7) Hematology Comments: (test code = 36992-2) [facility] Description: CD4/CD8 Ratio [id number] 16:34:00 Test Item Value Reference Range Interpretation Comments Absolute CD 4 [place] (test code 732 /uL 359-1519 = 00857-2) % CD 4 Pos. Lymph. (test code = 36.6 % 30.8-58.5 8123-2) Abs. CD 8 Supp[place] (test code 694 /uL 109-897 = 49454-4) % CD 8 Pos. Lymph. (test code = 34.7 % 12.0-35.5 8101-8) CD4/CD8 Ratio (test code = 1.05 0.92-3.72 51110-6) WBC (test code = 6690-2) 4.5 x10E3/uL 3.4-10.8 RBC (test code = 789-8) 4.44 x10E6/uL 4.14-5.80 Hemoglobin (test code = 718-7) 13.5 g/dL 13.0-17.7 Hematocrit (test code = 4544-3) 41.3 % 37.5-51.0 MCV (test code = 787-2) 93 fL 79-97 MCH (test code = 785-6) 30.4 pg 26.6-33.0 MCHC (test code = 786-4) 32.7 g/dL 31.5-35.7 RDW (test code = 788-0) 14.8 % 11.6-15.4 Platelets (test code = 777-3) 233 x10E3/uL 150-450 Neutrophils (test code = 770-8) 47 % Not Estab. Lymphs (test code = 736-9) 43 % Not Estab. Monocytes (test code = 5905-5) 9 % Not Estab. Eos (test code = 713-8) 1 % Not Estab. Basos (test code = 706-2) 0 % Not Estab. Neutrophils (Absolute) (test 2.1 x10E3/uL 1.4-7.0 code = 751-8) Lymphs (Absolute) (test code = 2.0 x10E3/uL 0.7-3.1 731-0) Monocytes(Absolute) (test code 0.4 x10E3/uL 0.1-0.9 = 742-7) Eos (Absolute) (test code = 0.0 x10E3/uL 0.0-0.4 711-2) Baso (Absolute) (test code = 0.0 x10E3/uL 0.0-0.2 704-7) Immature Granulocytes (test 0 % Not Estab. code = 19606-8) Immature Grans (Abs) (test code 0.0 x10E3/uL 0.0-0.1 = 86217-8) NRBC (test code = 02153-6) Hematology Comments: (test code = 05201-9) [facility] Description: CD4/CD8 Ratio [id number] 16:34:00 Test Item Value Reference Range Interpretation Comments Absolute CD 4 [place] (test code 732 /uL 359-1519 = 62583-5) % CD 4 Pos. Lymph. (test code = 36.6 % 30.8-58.5 8123-2) Abs. CD 8 Suppressor (test code 694 /uL 109-897 = 61021-0) % CD 8 Pos. Lymph. (test code = 34.7 % 12.0-35.5 8101-8) CD4/CD8 Ratio (test code = 1.05 0.92-3.72 53297-9) WBC (test code = 6690-2) 4.5 x10E3/uL 3.4-10.8 RBC (test code = 789-8) 4.44 x10E6/uL 4.14-5.80 Hemoglobin (test code = 718-7) 13.5 g/dL 13.0-17.7 Hematocrit (test code = 4544-3) 41.3 % 37.5-51.0 MCV (test code = 787-2) 93 fL 79-97 MCH (test code = 785-6) 30.4 pg 26.6-33.0 MCHC (test code = 786-4) 32.7 g/dL 31.5-35.7 RDW (test code = 788-0) 14.8 % 11.6-15.4 Platelets (test code = 777-3) 233 x10E3/uL 150-450 Neutrophils (test code = 770-8) 47 % Not Estab. Lymphs (test code = 736-9) 43 % Not Estab. Monocytes (test code = 5905-5) 9 % Not Estab. Eos (test code = 713-8) 1 % Not Estab. Basos (test code = 706-2) 0 % Not Estab. Neutrophils (Absolute) (test 2.1 x10E3/uL 1.4-7.0 code = 751-8) Lymphs (Absolute) (test code = 2.0 x10E3/uL 0.7-3.1 731-0) Monocytes(Absolute) (test code 0.4 x10E3/uL 0.1-0.9 = 742-7) Eos (Absolute) (test code = 0.0 x10E3/uL 0.0-0.4 711-2) Baso (Absolute) (test code = 0.0 x10E3/uL 0.0-0.2 704-7) Immature Granulocytes (test 0 % Not Estab. code = 47429-1) Immature Grans (Abs) (test code 0.0 x10E3/uL 0.0-0.1 = 53973-7) NRBC (test code = 21463-4) Hematology Comments: (test code = 96177-6) [facility] Description: CD4/CD8 Ratio [id number] 16:34:00 Test Item Value Reference Range Interpretation Comments Absolute CD 4 [place] (test code 732 /uL 359-1519 = 23563-0) % CD 4 Pos. Lymph. (test code = 36.6 % 30.8-58.5 8123-2) Abs. CD 8 Suppressor (test code 694 /uL 109-897 = 03932-4) % CD 8 Pos. Lymph. (test code = 34.7 % 12.0-35.5 8101-8) CD4/CD8 Ratio (test code = 1.05 0.92-3.72 17448-6) WBC (test code = 6690-2) 4.5 x10E3/uL 3.4-10.8 RBC (test code = 789-8) 4.44 x10E6/uL 4.14-5.80 Hemoglobin (test code = 718-7) 13.5 g/dL 13.0-17.7 Hematocrit (test code = 4544-3) 41.3 % 37.5-51.0 MCV (test code = 787-2) 93 fL 79-97 MCH (test code = 785-6) 30.4 pg 26.6-33.0 MCHC (test code = 786-4) 32.7 g/dL 31.5-35.7 RDW (test code = 788-0) 14.8 % 11.6-15.4 Platelets (test code = 777-3) 233 x10E3/uL 150-450 Neutrophils (test code = 770-8) 47 % Not Estab. Lymphs (test code = 736-9) 43 % Not Estab. Monocytes (test code = 5905-5) 9 % Not Estab. Eos (test code = 713-8) 1 % Not Estab. Basos (test code = 706-2) 0 % Not Estab. Neutrophils (Absolute) (test 2.1 x10E3/uL 1.4-7.0 code = 751-8) Lymphs (Absolute) (test code = 2.0 x10E3/uL 0.7-3.1 731-0) Monocytes(Absolute) (test code 0.4 x10E3/uL 0.1-0.9 = 742-7) Eos (Absolute) (test code = 0.0 x10E3/uL 0.0-0.4 711-2) Baso (Absolute) (test code = 0.0 x10E3/uL 0.0-0.2 704-7) Immature Granulocytes (test 0 % Not Estab. code = 51609-8) Immature Grans (Abs) (test code 0.0 x10E3/uL 0.0-0.1 = 33173-6) NRBC (test code = 74047-1) Hematology Comments: (test code = 43955-6) [facility] Description: CD4/CD8 Ratio [id number] 16:34:00 Test Item Value Reference Range Interpretation Comments Absolute CD 4 [place] (test code 732 /uL 359-1519 = 44150-8) % CD 4 Pos. Lymph. (test code = 36.6 % 30.8-58.5 8123-2) Abs. CD 8 Suppressor (test code 694 /uL 109-897 = 66080-0) % CD 8 Pos. Lymph. (test code = 34.7 % 12.0-35.5 8101-8) CD4/CD8 Ratio (test code = 1.05 0.92-3.72 65209-6) WBC (test code = 6690-2) 4.5 x10E3/uL 3.4-10.8 RBC (test code = 789-8) 4.44 x10E6/uL 4.14-5.80 Hemoglobin (test code = 718-7) 13.5 g/dL 13.0-17.7 Hematocrit (test code = 4544-3) 41.3 % 37.5-51.0 MCV (test code = 787-2) 93 fL 79-97 MCH (test code = 785-6) 30.4 pg 26.6-33.0 MCHC (test code = 786-4) 32.7 g/dL 31.5-35.7 RDW (test code = 788-0) 14.8 % 11.6-15.4 Platelets (test code = 777-3) 233 x10E3/uL 150-450 Neutrophils (test code = 770-8) 47 % Not Estab. Lymphs (test code = 736-9) 43 % Not Estab. Monocytes (test code = 5905-5) 9 % Not Estab. Eos (test code = 713-8) 1 % Not Estab. Basos (test code = 706-2) 0 % Not Estab. Neutrophils (Absolute) (test 2.1 x10E3/uL 1.4-7.0 code = 751-8) Lymphs (Absolute) (test code = 2.0 x10E3/uL 0.7-3.1 731-0) Monocytes(Absolute) (test code 0.4 x10E3/uL 0.1-0.9 = 742-7) Eos (Absolute) (test code = 0.0 x10E3/uL 0.0-0.4 711-2) Baso (Absolute) (test code = 0.0 x10E3/uL 0.0-0.2 704-7) Immature Granulocytes (test 0 % Not Estab. code = 06945-1) Immature Grans (Abs) (test code 0.0 x10E3/uL 0.0-0.1 = 16927-9) NRBC (test code = 08042-8) Hematology Comments: (test code = 79404-9) [facility] Description: CD4/CD8 Ratio [id number] 16:34:00 Test Item Value Reference Range Interpretation Comments Absolute CD 4 [place] (test code 732 /uL 359-1519 = 50447-3) % CD 4 Pos. Lymph. (test code = 36.6 % 30.8-58.5 8123-2) Abs. CD 8 Suppressor (test code 694 /uL 109-897 = 51690-1) % CD 8 Pos. Lymph. (test code = 34.7 % 12.0-35.5 8101-8) CD4/CD8 Ratio (test code = 1.05 0.92-3.72 08584-1) WBC (test code = 6690-2) 4.5 x10E3/uL 3.4-10.8 RBC (test code = 789-8) 4.44 x10E6/uL 4.14-5.80 Hemoglobin (test code = 718-7) 13.5 g/dL 13.0-17.7 Hematocrit (test code = 4544-3) 41.3 % 37.5-51.0 MCV (test code = 787-2) 93 fL 79-97 MCH (test code = 785-6) 30.4 pg 26.6-33.0 MCHC (test code = 786-4) 32.7 g/dL 31.5-35.7 RDW (test code = 788-0) 14.8 % 11.6-15.4 Platelets (test code = 777-3) 233 x10E3/uL 150-450 Neutrophils (test code = 770-8) 47 % Not Estab. Lymphs (test code = 736-9) 43 % Not Estab. Monocytes (test code = 5905-5) 9 % Not Estab. Eos (test code = 713-8) 1 % Not Estab. Basos (test code = 706-2) 0 % Not Estab. Neutrophils (Absolute) (test 2.1 x10E3/uL 1.4-7.0 code = 751-8) Lymphs (Absolute) (test code = 2.0 x10E3/uL 0.7-3.1 731-0) Monocytes(Absolute) (test code 0.4 x10E3/uL 0.1-0.9 = 742-7) Eos (Absolute) (test code = 0.0 x10E3/uL 0.0-0.4 711-2) Baso (Absolute) (test code = 0.0 x10E3/uL 0.0-0.2 704-7) Immature Granulocytes (test 0 % Not Estab. code = 60687-5) Immature Grans (Abs) (test code 0.0 x10E3/uL 0.0-0.1 = 34630-5) NRBC (test code = 22443-7) Hematology Comments: (test code = 09731-3) [facility] Description: CD4/CD8 Ratio [id number] 16:34:00 Test Item Value Reference Range Interpretation Comments Absolute CD 4 [place] (test code 732 /uL 359-1519 = 13691-2) % CD 4 Pos. Lymph. (test code = 36.6 % 30.8-58.5 8123-2) Abs. CD 8 Suppressor (test code 694 /uL 109-897 = 54725-1) % CD 8 Pos. Lymph. (test code = 34.7 % 12.0-35.5 8101-8) CD4/CD8 Ratio (test code = 1.05 0.92-3.72 61659-3) WBC (test code = 6690-2) 4.5 x10E3/uL 3.4-10.8 RBC (test code = 789-8) 4.44 x10E6/uL 4.14-5.80 Hemoglobin (test code = 718-7) 13.5 g/dL 13.0-17.7 Hematocrit (test code = 4544-3) 41.3 % 37.5-51.0 MCV (test code = 787-2) 93 fL 79-97 MCH (test code = 785-6) 30.4 pg 26.6-33.0 MCHC (test code = 786-4) 32.7 g/dL 31.5-35.7 RDW (test code = 788-0) 14.8 % 11.6-15.4 Platelets (test code = 777-3) 233 x10E3/uL 150-450 Neutrophils (test code = 770-8) 47 % Not Estab. Lymphs (test code = 736-9) 43 % Not Estab. Monocytes (test code = 5905-5) 9 % Not Estab. Eos (test code = 713-8) 1 % Not Estab. Basos (test code = 706-2) 0 % Not Estab. Neutrophils (Absolute) (test 2.1 x10E3/uL 1.4-7.0 code = 751-8) Lymphs (Absolute) (test code = 2.0 x10E3/uL 0.7-3.1 731-0) Monocytes(Absolute) (test code 0.4 x10E3/uL 0.1-0.9 = 742-7) Eos (Absolute) (test code = 0.0 x10E3/uL 0.0-0.4 711-2) Baso (Absolute) (test code = 0.0 x10E3/uL 0.0-0.2 704-7) Immature Granulocytes (test 0 % Not Estab. code = 92664-4) Immature Grans (Abs) (test code 0.0 x10E3/uL 0.0-0.1 = 89410-6) NRBC (test code = 80756-1) Hematology Comments: (test code = 59643-9) [facility] Description: CD4/CD8 Ratio [id number] 16:34:00 Test Item Value Reference Range Interpretation Comments Absolute CD 4 [place] (test code 732 /uL 359-1519 = 89993-0) % CD 4 Pos. Lymph. (test code = 36.6 % 30.8-58.5 8123-2) Abs. CD 8 Suppressor (test code 694 /uL 109-897 = 14121-1) % CD 8 Pos. Lymph. (test code = 34.7 % 12.0-35.5 8101-8) CD4/CD8 Ratio (test code = 1.05 0.92-3.72 60642-2) WBC (test code = 6690-2) 4.5 x10E3/uL 3.4-10.8 RBC (test code = 789-8) 4.44 x10E6/uL 4.14-5.80 Hemoglobin (test code = 718-7) 13.5 g/dL 13.0-17.7 Hematocrit (test code = 4544-3) 41.3 % 37.5-51.0 MCV (test code = 787-2) 93 fL 79-97 MCH (test code = 785-6) 30.4 pg 26.6-33.0 MCHC (test code = 786-4) 32.7 g/dL 31.5-35.7 RDW (test code = 788-0) 14.8 % 11.6-15.4 Platelets (test code = 777-3) 233 x10E3/uL 150-450 Neutrophils (test code = 770-8) 47 % Not Estab. Lymphs (test code = 736-9) 43 % Not Estab. Monocytes (test code = 5905-5) 9 % Not Estab. Eos (test code = 713-8) 1 % Not Estab. Basos (test code = 706-2) 0 % Not Estab. Neutrophils (Absolute) (test 2.1 x10E3/uL 1.4-7.0 code = 751-8) Lymphs (Absolute) (test code = 2.0 x10E3/uL 0.7-3.1 731-0) Monocytes(Absolute) (test code 0.4 x10E3/uL 0.1-0.9 = 742-7) Eos (Absolute) (test code = 0.0 x10E3/uL 0.0-0.4 711-2) Baso (Absolute) (test code = 0.0 x10E3/uL 0.0-0.2 704-7) Immature Granulocytes (test 0 % Not Estab. code = 45616-5) Immature Grans (Abs) (test code 0.0 x10E3/uL 0.0-0.1 = 78784-7) NRBC (test code = 38996-0) Hematology Comments: (test code = 96868-2) [facility] Description: CD4/CD8 Ratio [id number] 16:34:00 Test Item Value Reference Range Interpretation Comments Absolute CD 4 [place] (test code 732 /uL 359-1519 = 12342-5) % CD 4 Pos. Lymph. (test code = 36.6 % 30.8-58.5 8123-2) Abs. CD 8 Suppressor (test code 694 /uL 109-897 = 19723-6) % CD 8 Pos. Lymph. (test code = 34.7 % 12.0-35.5 8101-8) CD4/CD8 Ratio (test code = 1.05 0.92-3.72 36444-5) WBC (test code = 6690-2) 4.5 x10E3/uL 3.4-10.8 RBC (test code = 789-8) 4.44 x10E6/uL 4.14-5.80 Hemoglobin (test code = 718-7) 13.5 g/dL 13.0-17.7 Hematocrit (test code = 4544-3) 41.3 % 37.5-51.0 MCV (test code = 787-2) 93 fL 79-97 MCH (test code = 785-6) 30.4 pg 26.6-33.0 MCHC (test code = 786-4) 32.7 g/dL 31.5-35.7 RDW (test code = 788-0) 14.8 % 11.6-15.4 Platelets (test code = 777-3) 233 x10E3/uL 150-450 Neutrophils (test code = 770-8) 47 % Not Estab. Lymphs (test code = 736-9) 43 % Not Estab. Monocytes (test code = 5905-5) 9 % Not Estab. Eos (test code = 713-8) 1 % Not Estab. Basos (test code = 706-2) 0 % Not Estab. Neutrophils (Absolute) (test 2.1 x10E3/uL 1.4-7.0 code = 751-8) Lymphs (Absolute) (test code = 2.0 x10E3/uL 0.7-3.1 731-0) Monocytes(Absolute) (test code 0.4 x10E3/uL 0.1-0.9 = 742-7) Eos (Absolute) (test code = 0.0 x10E3/uL 0.0-0.4 711-2) Baso (Absolute) (test code = 0.0 x10E3/uL 0.0-0.2 704-7) Immature Granulocytes (test 0 % Not Estab. code = 90409-9) Immature Grans (Abs) (test code 0.0 x10E3/uL 0.0-0.1 = 95610-4) NRBC (test code = 94529-7) Hematology Comments: (test code = 34101-2) [facility] Description: CD4/CD8 Ratio [id number] 16:34:00 Test Item Value Reference Range Interpretation Comments Absolute CD 4 [place] (test code 732 /uL 359-1519 = 17343-3) % CD 4 Pos. Lymph. (test code = 36.6 % 30.8-58.5 8123-2) Abs. CD 8 Suppressor (test code 694 /uL 109-897 = 08987-3) % CD 8 Pos. Lymph. (test code = 34.7 % 12.0-35.5 8101-8) CD4/CD8 Ratio (test code = 1.05 0.92-3.72 08176-7) WBC (test code = 6690-2) 4.5 x10E3/uL 3.4-10.8 RBC (test code = 789-8) 4.44 x10E6/uL 4.14-5.80 Hemoglobin (test code = 718-7) 13.5 g/dL 13.0-17.7 Hematocrit (test code = 4544-3) 41.3 % 37.5-51.0 MCV (test code = 787-2) 93 fL 79-97 MCH (test code = 785-6) 30.4 pg 26.6-33.0 MCHC (test code = 786-4) 32.7 g/dL 31.5-35.7 RDW (test code = 788-0) 14.8 % 11.6-15.4 Platelets (test code = 777-3) 233 x10E3/uL 150-450 Neutrophils (test code = 770-8) 47 % Not Estab. Lymphs (test code = 736-9) 43 % Not Estab. Monocytes (test code = 5905-5) 9 % Not Estab. Eos (test code = 713-8) 1 % Not Estab. Basos (test code = 706-2) 0 % Not Estab. Neutrophils (Absolute) (test 2.1 x10E3/uL 1.4-7.0 code = 751-8) Lymphs (Absolute) (test code = 2.0 x10E3/uL 0.7-3.1 731-0) Monocytes(Absolute) (test code 0.4 x10E3/uL 0.1-0.9 = 742-7) Eos (Absolute) (test code = 0.0 x10E3/uL 0.0-0.4 711-2) Baso (Absolute) (test code = 0.0 x10E3/uL 0.0-0.2 704-7) Immature Granulocytes (test 0 % Not Estab. code = 09028-4) Immature Grans (Abs) (test code 0.0 x10E3/uL 0.0-0.1 = 78651-8) NRBC (test code = 33047-8) Hematology Comments: (test code = 84282-8) [facility] Description: CD4/CD8 Ratio [id number] 16:34:00 Test Item Value Reference Range Interpretation Comments Absolute CD 4 [place] (test code 732 /uL 359-1519 = 65156-6) % CD 4 Pos. Lymph. (test code = 36.6 % 30.8-58.5 8123-2) Abs. CD 8 Suppressor (test code 694 /uL 109-897 = 36275-2) % CD 8 Pos. Lymph. (test code = 34.7 % 12.0-35.5 8101-8) CD4/CD8 Ratio (test code = 1.05 0.92-3.72 22076-2) WBC (test code = 6690-2) 4.5 x10E3/uL 3.4-10.8 RBC (test code = 789-8) 4.44 x10E6/uL 4.14-5.80 Hemoglobin (test code = 718-7) 13.5 g/dL 13.0-17.7 Hematocrit (test code = 4544-3) 41.3 % 37.5-51.0 MCV (test code = 787-2) 93 fL 79-97 MCH (test code = 785-6) 30.4 pg 26.6-33.0 MCHC (test code = 786-4) 32.7 g/dL 31.5-35.7 RDW (test code = 788-0) 14.8 % 11.6-15.4 Platelets (test code = 777-3) 233 x10E3/uL 150-450 Neutrophils (test code = 770-8) 47 % Not Estab. Lymphs (test code = 736-9) 43 % Not Estab. Monocytes (test code = 5905-5) 9 % Not Estab. Eos (test code = 713-8) 1 % Not Estab. Basos (test code = 706-2) 0 % Not Estab. Neutrophils (Absolute) (test 2.1 x10E3/uL 1.4-7.0 code = 751-8) Lymphs (Absolute) (test code = 2.0 x10E3/uL 0.7-3.1 731-0) Monocytes(Absolute) (test code 0.4 x10E3/uL 0.1-0.9 = 742-7) Eos (Absolute) (test code = 0.0 x10E3/uL 0.0-0.4 711-2) Baso (Absolute) (test code = 0.0 x10E3/uL 0.0-0.2 704-7) Immature Granulocytes (test 0 % Not Estab. code = 65419-6) Immature Grans (Abs) (test code 0.0 x10E3/uL 0.0-0.1 = 88216-2) NRBC (test code = 99166-9) Hematology Comments: (test code = 99266-2) [facility] Description: CD4/CD8 Ratio [id number] 16:34:00 Test Item Value Reference Range Interpretation Comments Absolute CD 4 [place] (test code 732 /uL 359-1519 = 67584-1) % CD 4 Pos. Lymph. (test code = 36.6 % 30.8-58.5 8123-2) Abs. CD 8 Suppressor (test code 694 /uL 109-897 = 25547-7) % CD 8 Pos. Lymph. (test code = 34.7 % 12.0-35.5 8101-8) CD4/CD8 Ratio (test code = 1.05 0.92-3.72 44279-9) WBC (test code = 6690-2) 4.5 x10E3/uL 3.4-10.8 RBC (test code = 789-8) 4.44 x10E6/uL 4.14-5.80 Hemoglobin (test code = 718-7) 13.5 g/dL 13.0-17.7 Hematocrit (test code = 4544-3) 41.3 % 37.5-51.0 MCV (test code = 787-2) 93 fL 79-97 MCH (test code = 785-6) 30.4 pg 26.6-33.0 MCHC (test code = 786-4) 32.7 g/dL 31.5-35.7 RDW (test code = 788-0) 14.8 % 11.6-15.4 Platelets (test code = 777-3) 233 x10E3/uL 150-450 Neutrophils (test code = 770-8) 47 % Not Estab. Lymphs (test code = 736-9) 43 % Not Estab. Monocytes (test code = 5905-5) 9 % Not Estab. Eos (test code = 713-8) 1 % Not Estab. Basos (test code = 706-2) 0 % Not Estab. Neutrophils (Absolute) (test 2.1 x10E3/uL 1.4-7.0 code = 751-8) Lymphs (Absolute) (test code = 2.0 x10E3/uL 0.7-3.1 731-0) Monocytes(Absolute) (test code 0.4 x10E3/uL 0.1-0.9 = 742-7) Eos (Absolute) (test code = 0.0 x10E3/uL 0.0-0.4 711-2) Baso (Absolute) (test code = 0.0 x10E3/uL 0.0-0.2 704-7) Immature Granulocytes (test 0 % Not Estab. code = 17704-6) Immature Grans (Abs) (test code 0.0 x10E3/uL 0.0-0.1 = 81155-3) NRBC (test code = 93556-4) Hematology Comments: (test code = 07059-8) [facility] Description: CD4/CD8 Ratio [id number] 16:34:00 Test Item Value Reference Range Interpretation Comments Absolute CD 4 [place] (test code 732 /uL 359-1519 = 82581-4) % CD 4 Pos. Lymph. (test code = 36.6 % 30.8-58.5 8123-2) Abs. CD 8 Suppressor (test code 694 /uL 109-897 = 73187-0) % CD 8 Pos. Lymph. (test code = 34.7 % 12.0-35.5 8101-8) CD4/CD8 Ratio (test code = 1.05 0.92-3.72 50166-0) WBC (test code = 6690-2) 4.5 x10E3/uL 3.4-10.8 RBC (test code = 789-8) 4.44 x10E6/uL 4.14-5.80 Hemoglobin (test code = 718-7) 13.5 g/dL 13.0-17.7 Hematocrit (test code = 4544-3) 41.3 % 37.5-51.0 MCV (test code = 787-2) 93 fL 79-97 MCH (test code = 785-6) 30.4 pg 26.6-33.0 MCHC (test code = 786-4) 32.7 g/dL 31.5-35.7 RDW (test code = 788-0) 14.8 % 11.6-15.4 Platelets (test code = 777-3) 233 x10E3/uL 150-450 Neutrophils (test code = 770-8) 47 % Not Estab. Lymphs (test code = 736-9) 43 % Not Estab. Monocytes (test code = 5905-5) 9 % Not Estab. Eos (test code = 713-8) 1 % Not Estab. Basos (test code = 706-2) 0 % Not Estab. Neutrophils (Absolute) (test 2.1 x10E3/uL 1.4-7.0 code = 751-8) Lymphs (Absolute) (test code = 2.0 x10E3/uL 0.7-3.1 731-0) Monocytes(Absolute) (test code 0.4 x10E3/uL 0.1-0.9 = 742-7) Eos (Absolute) (test code = 0.0 x10E3/uL 0.0-0.4 711-2) Baso (Absolute) (test code = 0.0 x10E3/uL 0.0-0.2 704-7) Immature Granulocytes (test 0 % Not Estab. code = 23417-2) Immature Grans (Abs) (test code 0.0 x10E3/uL 0.0-0.1 = 41872-0) NRBC (test code = 61184-1) Hematology Comments: (test code = 38714-5) [facility] Description: RPR Qn+TP [id number] 10:30:00 Test Item Value Reference Range Interpretation Comments RPR, Quant. (test code 1:32 See_Comment H [Aut omated message] = 93703-6) The system [employer] generated this result transmitted ref erence range: NonRea<1 :1. The reference range was not used to interpr et this result as normal/abnormal . Treponema pallidum Reactive Non Reactive A Antibodies (test code = 32787-1) [facility] Description: RPR Qn+TP [id number] 10:30:00 Test Item Value Reference Range Interpretation Comments RPR, Quant. (test code 1:32 See_Comment H [Aut omated message] = 74078-4) The system [employer] generated this result transmitted ref erence range: NonRea<1 :1. The reference range was not used to interpr et this result as normal/abnormal . Treponema pallidum Reactive Non Reactive A Antibodies (test code = 46788-7) [facility] Description: RPR Qn+TP [id number] 10:30:00 Test Item Value Reference Range Interpretation Comments RPR, Quant. (test code 1:32 See_Comment H [Aut omated message] = 17118-2) The system [employer] generated this result transmitted ref erence range: NonRea<1 :1. The reference range was not used to interpr et this result as normal/abnormal . Treponema pallidum Reactive Non Reactive A Antibodies (test code = 26879-8) [facility] Description: RPR Qn+TP [id number] 10:30:00 Test Item Value Reference Range Interpretation Comments RPR, Quant. (test code 1:32 See_Comment H [Aut omated message] = 73082-8) The system [employer] generated this result transmitted ref erence range: NonRea<1 :1. The reference range was not used to interpr et this result as normal/abnormal . Treponema pallidum Reactive Non Reactive A Antibodies (test code = 43817-0) [facility] Description: RPR Qn+TP [id number] 10:30:00 Test Item Value Reference Range Interpretation Comments RPR, Quant. (test code 1:32 See_Comment H [Aut omated message] = 46675-7) The system [employer] generated this result transmitted ref erence range: NonRea<1 :1. The reference range was not used to interpr et this result as normal/abnormal . Treponema pallidum Reactive Non Reactive A Antibodies (test code = 70838-9) [facility] Description: RPR Qn+TP [id number] 10:30:00 Test Item Value Reference Range Interpretation Comments RPR, Quant. (test code 1:32 See_Comment H [Aut omated message] = 36990-7) The system [employer] generated this result transmitted ref erence range: NonRea<1 :1. The reference range was not used to interpr et this result as normal/abnormal . Treponema pallidum Reactive Non Reactive A Antibodies (test code = 14648-3) [facility] Description: RPR Qn+TP [id number] 10:30:00 Test Item Value Reference Range Interpretation Comments RPR, Quant. (test code 1:32 See_Comment H [Aut omated message] = 89950-5) The system [employer] generated this result transmitted ref erence range: NonRea<1 :1. The reference range was not used to interpr et this result as normal/abnormal . Treponema pallidum Reactive Non Reactive A Antibodies (test code = 00952-4) [facility] Description: RPR Qn+TP [id number] 10:30:00 Test Item Value Reference Range Interpretation Comments RPR, Quant. (test code 1:32 See_Comment H [Aut omated message] = 02757-5) The system [employer] generated this result transmitted ref erence range: NonRea<1 :1. The reference range was not used to interpr et this result as normal/abnormal . Treponema pallidum Reactive Non Reactive A Antibodies (test code = 73514-7) [facility] Description: RPR Qn+TP [id number] 10:30:00 Test Item Value Reference Range Interpretation Comments RPR, Quant. (test code 1:32 See_Comment H [Aut omated message] = 24277-0) The system [employer] generated this result transmitted ref erence range: NonRea<1 :1. The reference range was not used to interpr et this result as normal/abnormal . Treponema pallidum Reactive Non Reactive A Antibodies (test code = 75300-8) [facility] Description: RPR Qn+TP [id number] 10:30:00 Test Item Value Reference Range Interpretation Comments RPR, Quant. (test code 1:32 See_Comment H [Aut omated message] = 89659-5) The system [employer] generated this result transmitted ref erence range: NonRea<1 :1. The reference range was not used to interpr et this result as normal/abnormal . Treponema pallidum Reactive Non Reactive A Antibodies (test code = 20122-4) [facility] Description: RPR Qn+TP [id number] 10:30:00 Test Item Value Reference Range Interpretation Comments RPR, Quant. (test code 1:32 See_Comment H [Aut omated message] = 30093-4) The system [employer] generated this result transmitted ref erence range: NonRea<1 :1. The reference range was not used to interpr et this result as normal/abnormal . Treponema pallidum Reactive Non Reactive A Antibodies (test code = 49572-2) [facility] Description: RPR Qn+TP [id number] 10:30:00 Test Item Value Reference Range Interpretation Comments RPR, Quant. (test code 1:32 See_Comment H [Aut omated message] = 15188-3) The system [employer] generated this result transmitted ref erence range: NonRea<1 :1. The reference range was not used to interpr et this result as normal/abnormal . Treponema pallidum Reactive Non Reactive A Antibodies (test code = 55884-2) [facility] Description: RPR Qn+TP [id number] 10:30:00 Test Item Value Reference Range Interpretation Comments RPR, Quant. (test code 1:32 See_Comment H [Aut omated message] = 09798-8) The system [employer] generated this result transmitted ref erence range: NonRea<1 :1. The reference range was not used to interpr et this result as normal/abnormal . Treponema pallidum Reactive Non Reactive A Antibodies (test code = 68388-0) [facility] Description: RPR Qn+TP [id number] 10:30:00 Test Item Value Reference Range Interpretation Comments RPR, Quant. (test code 1:32 See_Comment H [Aut omated message] = 77849-2) The system [employer] generated this result transmitted ref erence range: NonRea<1 :1. The reference range was not used to interpr et this result as normal/abnormal . Treponema pallidum Reactive Non Reactive A Antibodies (test code = 25296-8) [facility] Description: RPR Qn+TP [id number] 10:30:00 Test Item Value Reference Range Interpretation Comments RPR, Quant. (test code 1:32 See_Comment H [Aut omated message] = 08143-5) The system [employer] generated this result transmitted ref erence range: NonRea<1 :1. The reference range was not used to interpr et this result as normal/abnormal . Treponema pallidum Reactive Non Reactive A Antibodies (test code = 77207-0) [facility] Description: RPR Qn+TP [id number] 10:30:00 Test Item Value Reference Range Interpretation Comments RPR, Quant. (test code 1:32 See_Comment H [Aut omated message] = 45869-6) The system [employer] generated this result transmitted ref erence range: NonRea<1 :1. The reference range was not used to interpr et this result as normal/abnormal . Treponema pallidum Reactive Non Reactive A Antibodies (test code = 22676-7) [facility] Description: RPR Qn+TP [id number] 10:30:00 Test Item Value Reference Range Interpretation Comments RPR, Quant. (test code 1:32 See_Comment H [Aut omated message] = 99363-7) The system [employer] generated this result transmitted ref erence range: NonRea<1 :1. The reference range was not used to interpr et this result as normal/abnormal . Treponema pallidum Reactive Non Reactive A Antibodies (test code = 33353-8) [facility] Description: RPR Qn+TP [id number] 10:30:00 Test Item Value Reference Range Interpretation Comments RPR, Quant. (test code 1:32 See_Comment H [Aut omated message] = 52774-2) The system [employer] generated this result transmitted ref erence range: NonRea<1 :1. The reference range was not used to interpr et this result as normal/abnormal . Treponema pallidum Reactive Non Reactive A Antibodies (test code = 84035-6) [facility] Description: RPR Qn+TP [id number] 10:30:00 Test Item Value Reference Range Interpretation Comments RPR, Quant. (test code 1:32 See_Comment H [Aut omated message] = 25247-7) The system [employer] generated this result transmitted ref erence range: NonRea<1 :1. The reference range was not used to interpr et this result as normal/abnormal . Treponema pallidum Reactive Non Reactive A Antibodies (test code = 33559-5) [facility] Description: RPR Qn+TP [id number] 10:30:00 Test Item Value Reference Range Interpretation Comments RPR, Quant. (test code 1:32 See_Comment H [Aut omated message] = 26363-9) The system [employer] generated this result transmitted ref erence range: NonRea<1 :1. The reference range was not used to interpr et this result as normal/abnormal . Treponema pallidum Reactive Non Reactive A Antibodies (test code = 05129-8) [facility] Description: RPR Qn+TP [id number] 10:30:00 Test Item Value Reference Range Interpretation Comments RPR, Quant. (test code 1:32 See_Comment H [Aut omated message] = 89052-0) The system [employer] generated this result transmitted ref erence range: NonRea<1 :1. The reference range was not used to interpr et this result as normal/abnormal . Treponema pallidum Reactive Non Reactive A Antibodies (test code = 71317-8) [facility] Description: RPR Qn+TP [id number] 10:30:00 Test Item Value Reference Range Interpretation Comments RPR, Quant. (test code 1:32 See_Comment H [Aut omated message] = 78269-2) The system [employer] generated this result transmitted ref erence range: NonRea<1 :1. The reference range was not used to interpr et this result as normal/abnormal . Treponema pallidum Reactive Non Reactive A Antibodies (test code = 64535-5) [facility] Description: RPR, Rfx Qn RPR/Confirm [id number] 07:41:00 Test Item Value Reference Range Interpretation Comments RPR (test code = 17498-3) Reactive Non Reactive A [facility] Description: RPR, Rfx Qn RPR/Confirm [id number] 07:41:00 Test Item Value Reference Range Interpretation Comments RPR (test code = 85128-5) Reactive Non Reactive A [facility] Description: RPR, Rfx Qn RPR/Confirm [id number] 07:41:00 Test Item Value Reference Range Interpretation Comments RPR (test code = 64266-8) Reactive Non Reactive A [facility] Description: RPR, Rfx Qn RPR/Confirm [id number] 07:41:00 Test Item Value Reference Range Interpretation Comments RPR (test code = 14344-7) Reactive Non Reactive A [facility] Description: RPR, Rfx Qn RPR/Confirm [id number] 07:41:00 Test Item Value Reference Range Interpretation Comments RPR (test code = 86099-1) Reactive Non Reactive A [facility] Description: RPR, Rfx Qn RPR/Confirm [id number] 07:41:00 Test Item Value Reference Range Interpretation Comments RPR (test code = 62846-6) Reactive Non Reactive A [facility] Description: RPR, Rfx Qn RPR/Confirm [id number] 07:41:00 Test Item Value Reference Range Interpretation Comments RPR (test code = 97736-9) Reactive Non Reactive A [facility] Description: RPR, Rfx Qn RPR/Confirm [id number] 07:41:00 Test Item Value Reference Range Interpretation Comments RPR (test code = 26024-1) Reactive Non Reactive A [facility] Description: RPR, Rfx Qn RPR/Confirm [id number] 07:41:00 Test Item Value Reference Range Interpretation Comments RPR (test code = 43521-7) Reactive Non Reactive A [facility] Description: RPR, Rfx Qn RPR/Confirm [id number] 07:41:00 Test Item Value Reference Range Interpretation Comments RPR (test code = 91985-4) Reactive Non Reactive A [facility] Description: RPR, Rfx Qn RPR/Confirm [id number] 07:41:00 Test Item Value Reference Range Interpretation Comments RPR (test code = 26673-2) Reactive Non Reactive A [facility] Description: RPR, Rfx Qn RPR/Confirm [id number] 07:41:00 Test Item Value Reference Range Interpretation Comments RPR (test code = 77118-2) Reactive Non Reactive A [facility] Description: RPR, Rfx Qn RPR/Confirm [id number] 07:41:00 Test Item Value Reference Range Interpretation Comments RPR (test code = 21343-6) Reactive Non Reactive A [facility] Description: RPR, Rfx Qn RPR/Confirm [id number] 07:41:00 Test Item Value Reference Range Interpretation Comments RPR (test code = 40641-4) Reactive Non Reactive A [facility] Description: RPR, Rfx Qn RPR/Confirm [id number] 07:41:00 Test Item Value Reference Range Interpretation Comments RPR (test code = 09550-1) Reactive Non Reactive A [facility] Description: RPR, Rfx Qn RPR/Confirm [id number] 07:41:00 Test Item Value Reference Range Interpretation Comments RPR (test code = 87849-2) Reactive Non Reactive A [facility] Description: RPR, Rfx Qn RPR/Confirm [id number] 07:41:00 Test Item Value Reference Range Interpretation Comments RPR (test code = 45680-9) Reactive Non Reactive A [facility] Description: RPR, Rfx Qn RPR/Confirm [id number] 07:41:00 Test Item Value Reference Range Interpretation Comments RPR (test code = 40459-4) Reactive Non Reactive A [facility] Description: RPR, Rfx Qn RPR/Confirm [id number] 07:41:00 Test Item Value Reference Range Interpretation Comments RPR (test code = 29722-2) Reactive Non Reactive A [facility] Description: RPR, Rfx Qn RPR/Confirm [id number] 07:41:00 Test Item Value Reference Range Interpretation Comments RPR (test code = 81569-9) Reactive Non Reactive A [facility] Description: RPR, Rfx Qn RPR/Confirm [id number] 07:41:00 Test Item Value Reference Range Interpretation Comments RPR (test code = 97215-4) Reactive Non Reactive A [facility] Description: RPR, Rfx Qn RPR/Confirm [id number] 07:41:00 Test Item Value Reference Range Interpretation Comments RPR (test code = 04076-5) Reactive Non Reactive A [facility] Description: Lipid [id number] 01:55:00 Test Item Value Reference Range Interpretation Comments Cholesterol, Total (test code = 155 mg/dL 687-846 7825-3) Triglycerides (test code = 2571-8) 58 mg/dL 0-149 HDL Cholesterol (test code = 49 mg/dL >39 2085-9) VLDL Cholesterol Geoffrey (test code = 12 mg/dL 5-40 56093-8) LDL Cholesterol Calc (test code = 94 mg/dL 0-99 83753-7) Comment: (test code = 80415-4) [facility] Description: Lipid [id number] 01:55:00 Test Item Value Reference Range Interpretation Comments Cholesterol, Total (test code = 155 mg/dL 117-776 9255-3) Triglycerides (test code = 2571-8) 58 mg/dL 0-149 HDL Cholesterol (test code = 49 mg/dL >39 5-9) VLDL Cholesterol Geoffrey (test code = 12 mg/dL 5-40 67513-2) LDL Cholesterol Calc (test code = 94 mg/dL 0-99 31241-5) Comment: (test code = 46194-7) [facility] Description: Lipid [id number] 01:55:00 Test Item Value Reference Range Interpretation Comments Cholesterol, Total (test code = 155 mg/dL 719-100 5382-3) Triglycerides (test code = 2571-8) 58 mg/dL 0-149 HDL Cholesterol (test code = 49 mg/dL >39 5-9) VLDL Cholesterol [place] (test code = 12 mg/dL 5-40 35770-2) LDL Cholesterol Calc (test code = 94 mg/dL 0-99 35389-1) Comment: (test code = 36639-6) [facility] Description: Lipid [id number] 01:55:00 Test Item Value Reference Range Interpretation Comments Cholesterol, Total (test code = 155 mg/dL 704-607 8217-3) Triglycerides (test code = 2571-8) 58 mg/dL 0-149 HDL Cholesterol (test code = 49 mg/dL >39 5-9) VLDL Cholesterol [place] (test code = 12 mg/dL 5-40 01287-1) LDL Cholesterol Calc (test code = 94 mg/dL 0-99 40339-1) Comment: (test code = 96150-8) [facility] Description: Lipid [id number] 01:55:00 Test Item Value Reference Range Interpretation Comments Cholesterol, Total (test code = 155 mg/dL 093-979 8024-3) Triglycerides (test code = 2571-8) 58 mg/dL 0-149 HDL Cholesterol (test code = 49 mg/dL >39 2085-9) VLDL Cholesterol Geoffrey (test code = 12 mg/dL 5-40 66197-6) LDL Cholesterol Calc (test code = 94 mg/dL 0-99 40339-0) Comment: (test code = 07719-2) [facility] Description: Lipid [id number] 01:55:00 Test Item Value Reference Range Interpretation Comments Cholesterol, Total (test code = 155 mg/dL 137-755 7057-3) Triglycerides (test code = 2571-8) 58 mg/dL 0-149 HDL Cholesterol (test code = 49 mg/dL >39 5-9) VLDL Cholesterol [place] (test code = 12 mg/dL 5-40 22826-3) LDL Cholesterol Calc (test code = 94 mg/dL 0-99 83015-9) Comment: (test code = 58228-1) [facility] Description: Lipid [id number] 01:55:00 Test Item Value Reference Range Interpretation Comments Cholesterol, Total (test code = 155 mg/dL 280-059 4082-3) Triglycerides (test code = 2571-8) 58 mg/dL 0-149 HDL Cholesterol (test code = 49 mg/dL >39 5-9) VLDL Cholesterol Geoffrey (test code = 12 mg/dL 5-40 62349-6) LDL Cholesterol Calc (test code = 94 mg/dL 0-99 19263-5) Comment: (test code = 22592-2) [facility] Description: Lipid [id number] 01:55:00 Test Item Value Reference Range Interpretation Comments Cholesterol, Total (test code = 155 mg/dL 116-271 7370-3) Triglycerides (test code = 2571-8) 58 mg/dL 0-149 HDL Cholesterol (test code = 49 mg/dL >39 5-9) VLDL Cholesterol Geoffrey (test code = 12 mg/dL 5-40 69446-6) LDL Cholesterol Calc (test code = 94 mg/dL 0-99 07054-7) Comment: (test code = 81114-3) [facility] Description: Lipid [id number] 01:55:00 Test Item Value Reference Range Interpretation Comments Cholesterol, Total (test code = 155 mg/dL 993-890 9764-3) Triglycerides (test code = 2571-8) 58 mg/dL 0-149 HDL Cholesterol (test code = 49 mg/dL >39 5-9) VLDL Cholesterol Geoffrey (test code = 12 mg/dL 5-40 89593-9) LDL Cholesterol Calc (test code = 94 mg/dL 0-99 26482-5) Comment: (test code = 27545-2) [facility] Description: Lipid [id number] 01:55:00 Test Item Value Reference Range Interpretation Comments Cholesterol, Total (test code = 155 mg/dL 605-208 2045-3) Triglycerides (test code = 2571-8) 58 mg/dL 0-149 HDL Cholesterol (test code = 49 mg/dL >39 5-9) VLDL Cholesterol Geoffrey (test code = 12 mg/dL 5-40 22039-6) LDL Cholesterol Calc (test code = 94 mg/dL 0-99 01892-8) Comment: (test code = 93046-8) [facility] Description: Lipid [id number] 01:55:00 Test Item Value Reference Range Interpretation Comments Cholesterol, Total (test code = 155 mg/dL 165-983 7854-3) Triglycerides (test code = 2571-8) 58 mg/dL 0-149 HDL Cholesterol (test code = 49 mg/dL >39 5-9) VLDL Cholesterol Geoffrey (test code = 12 mg/dL 5-40 94749-3) LDL Cholesterol Calc (test code = 94 mg/dL 0-99 61812-0) Comment: (test code = 22472-3) [facility] Description: Lipid [id number] 01:55:00 Test Item Value Reference Range Interpretation Comments Cholesterol, Total (test code = 155 mg/dL 454-962 6826-3) Triglycerides (test code = 2571-8) 58 mg/dL 0-149 HDL Cholesterol (test code = 49 mg/dL >39 5-9) VLDL Cholesterol Geoffrey (test code = 12 mg/dL 5-40 73448-4) LDL Cholesterol Calc (test code = 94 mg/dL 0-99 88526-8) Comment: (test code = 86389-8) [facility] Description: Lipid [id number] 01:55:00 Test Item Value Reference Range Interpretation Comments Cholesterol, Total (test code = 155 mg/dL 066-024 0924-3) Triglycerides (test code = 2571-8) 58 mg/dL 0-149 HDL Cholesterol (test code = 49 mg/dL >39 2085-9) VLDL Cholesterol Geoffrey (test code = 12 mg/dL 5-40 06830-0) LDL Cholesterol Calc (test code = 94 mg/dL 0-99 44079-5) Comment: (test code = 82292-3) [facility] Description: Lipid [id number] 01:55:00 Test Item Value Reference Range Interpretation Comments Cholesterol, Total (test code = 155 mg/dL 395-023 5398-3) Triglycerides (test code = 2571-8) 58 mg/dL 0-149 HDL Cholesterol (test code = 49 mg/dL >39 5-9) VLDL Cholesterol Geoffrey (test code = 12 mg/dL 5-40 29350-8) LDL Cholesterol Calc (test code = 94 mg/dL 0-99 48064-7) Comment: (test code = 87259-4) [facility] Description: Lipid [id number] 01:55:00 Test Item Value Reference Range Interpretation Comments Cholesterol, Total (test code = 155 mg/dL 847-617 5909-3) Triglycerides (test code = 2571-8) 58 mg/dL 0-149 HDL Cholesterol (test code = 49 mg/dL >39 5-9) VLDL Cholesterol Geoffrey (test code = 12 mg/dL 5-40 73295-9) LDL Cholesterol Calc (test code = 94 mg/dL 0-99 02971-7) Comment: (test code = 92732-0) [facility] Description: Lipid [id number] 01:55:00 Test Item Value Reference Range Interpretation Comments Cholesterol, Total (test code = 155 mg/dL 053-955 8424-3) Triglycerides (test code = 2571-8) 58 mg/dL 0-149 HDL Cholesterol (test code = 49 mg/dL >39 5-9) VLDL Cholesterol Geoffrey (test code = 12 mg/dL 5-40 57006-2) LDL Cholesterol Calc (test code = 94 mg/dL 0-99 65514-5) Comment: (test code = 61143-9) [facility] Description: Lipid [id number] 01:55:00 Test Item Value Reference Range Interpretation Comments Cholesterol, Total (test code = 155 mg/dL 207-987 3960-3) Triglycerides (test code = 2571-8) 58 mg/dL 0-149 HDL Cholesterol (test code = 49 mg/dL >39 2085-9) VLDL Cholesterol Geoffrey (test code = 12 mg/dL 5-40 96859-7) LDL Cholesterol Calc (test code = 94 mg/dL 0-99 89036-7) Comment: (test code = 78830-8) [facility] Description: Lipid [id number] 01:55:00 Test Item Value Reference Range Interpretation Comments Cholesterol, Total (test code = 155 mg/dL 152-094 3793-3) Triglycerides (test code = 2571-8) 58 mg/dL 0-149 HDL Cholesterol (test code = 49 mg/dL >39 2085-9) VLDL Cholesterol Geoffrey (test code = 12 mg/dL 5-40 13637-9) LDL Cholesterol Calc (test code = 94 mg/dL 0-99 89896-1) Comment: (test code = 20769-5) [facility] Description: Lipid [id number] 01:55:00 Test Item Value Reference Range Interpretation Comments Cholesterol, Total (test code = 155 mg/dL 275-543 2640-3) Triglycerides (test code = 2571-8) 58 mg/dL 0-149 HDL Cholesterol (test code = 49 mg/dL >39 2085-9) VLDL Cholesterol Geoffrey (test code = 12 mg/dL 5-40 44470-4) LDL Cholesterol Calc (test code = 94 mg/dL 0-99 36799-6) Comment: (test code = 16765-0) [facility] Description: Lipid [id number] 01:55:00 Test Item Value Reference Range Interpretation Comments Cholesterol, Total (test code = 155 mg/dL 527-542 6587-3) Triglycerides (test code = 2571-8) 58 mg/dL 0-149 HDL Cholesterol (test code = 49 mg/dL >39 2085-9) VLDL Cholesterol Geoffrey (test code = 12 mg/dL 5-40 67284-7) LDL Cholesterol Calc (test code = 94 mg/dL 0-99 73133-1) Comment: (test code = 06807-9) [facility] Description: Lipid [id number] 01:55:00 Test Item Value Reference Range Interpretation Comments Cholesterol, Total (test code = 155 mg/dL 576-887 8056-3) Triglycerides (test code = 2571-8) 58 mg/dL 0-149 HDL Cholesterol (test code = 49 mg/dL >39 2085-9) VLDL Cholesterol Geoffrey (test code = 12 mg/dL 5-40 36311-2) LDL Cholesterol Calc (test code = 94 mg/dL 0-99 38223-4) Comment: (test code = 42293-6) [facility] Description: Lipid [id number] 01:55:00 Test Item Value Reference Range Interpretation Comments Cholesterol, Total (test code = 155 mg/dL 827-888 7301-3) Triglycerides (test code = 2571-8) 58 mg/dL 0-149 HDL Cholesterol (test code = 49 mg/dL >39 2085-9) VLDL Cholesterol Geoffrey (test code = 12 mg/dL 5-40 06292-1) LDL Cholesterol Calc (test code = 94 mg/dL 0-99 30089-4) Comment: (test code = 72395-3) [facility] Description: Comp. Metabolic Panel (14)2019-11-07 01:46:00 Test Item Value Reference Range Interpretation Comments Glucose (test code = 108 mg/dL 65-99 H Specime n received 2345-7) hemolyzed. Clin ical correlation indicated.Perfo rmed by:[facility] ([place]) BUN (test code = 8 mg/dL 6- 3094-0) Creatinine (test 0.84 mg/dL 0.76-1.27 code = 2160-0) eGFR If NonAfricn Am 118 >59 (test code = mL/min/1.73 34679-3) eGFR If Africn Am 137 >59 (test code = mL/min/1.73 62270-2) BUN/Creatinine Ratio 04 04- (test code = 3097-3) Sodium (test code = 138 mmol/L 628-316 1775-2) Potassium (test code 4.6 mmol/L 3.5-5.2 Specime n received = 8473-3) hemolyzed. Clin ical correlation indicated.Perfo rmed by:[facility] ([place]) Chloride (test code 100 mmol/L 96-106 = 5-0) Carbon Dioxide, 22 mmol/L 20-29 Total (test code = 2027-) Calcium (test code = 8.6 mg/dL 8.7-10.2 L 65868-8) Protein, Total (test 6.9 g/dL 6.0-8.5 code = 2885-2) Albumin (test code = 4.3 g/dL 4.1-5.2 1751-7) Globulin, Total 2.6 g/dL 1.5-4.5 (test code = 85674-3) A/G Ratio (test code 1.7 1.2-2.2 = 1759-0) Bilirubin, Total 0.5 mg/dL 0.0-1.2 (test code = 1975-2) Alkaline Phosphatase 89 IU/L 39-117 (test code = 6768-6) AST (SGOT) (test 24 IU/L 0-40 code = 1920-8) ALT (SGPT) (test 12 IU/L 0-44 code = 1742-6) [facility] Description: Comp. Metabolic Panel (2019-11-07 01:46:00 Test Item Value Reference Range Interpretation Comments Glucose (test code = 108 mg/dL 65-99 H Specime n received 2345-7) hemolyzed. Clin ical correlation indicated.Perfo rmed by:[facility] ([place]) BUN (test code = 8 mg/dL 6-20 3094-0) Creatinine (test 0.84 mg/dL 0.76-1.27 code = 2160-0) eGFR If NonAfricn Am 118 >59 (test code = mL/min/1.73 95698-4) eGFR If Africn Am 137 >59 (test code = mL/min/1.73 36628-9) BUN/Creatinine Ratio 04 04- (test code = 3097-3) Sodium (test code = 138 mmol/L 165-938 0452-2) Potassium (test code 4.6 mmol/L 3.5-5.2 Specime n received = 2823-3) hemolyzed. Clin ical correlation indicated.Perfo rmed by:[facility] ([place]) Chloride (test code 100 mmol/L 96-106 = 5-0) Carbon Dioxide, 22 mmol/L 20-29 Total (test code = 2027-) Calcium (test code = 8.6 mg/dL 8.7-10.2 L 61763-0) Protein, Total (test 6.9 g/dL 6.0-8.5 code = 2885-2) Albumin (test code = 4.3 g/dL 4.1-5.2 1751-7) Globulin, Total 2.6 g/dL 1.5-4.5 (test code = 55628-9) A/G Ratio (test code 1.7 1.2-2.2 = 1759-0) Bilirubin, Total 0.5 mg/dL 0.0-1.2 (test code = 1975-2) Alkaline Phosphatase 89 IU/L 39-117 (test code = 6768-6) AST (SGOT) (test 24 IU/L 0-40 code = 1920-8) ALT (SGPT) (test 12 IU/L 0-44 code = 1742-6) [facility] Description: Comp. Metabolic Panel (2019-11-07 01:46:00 Test Item Value Reference Range Interpretation Comments Glucose (test code = 108 mg/dL 65-99 H Specime n received 2345-7) hemolyzed. Clin ical correlation indicated.Perfo rmed by:[facility] ([place]) BUN (test code = 8 mg/dL 6-20 3094-0) Creatinine (test 0.84 mg/dL 0.76-1.27 code = 2160-0) eGFR If NonAfricn Am 118 >59 (test code = mL/min/1.73 80722-3) eGFR If Africn Am 137 >59 (test code = mL/min/1.73 10245-8) BUN/Creatinine Ratio 04 04- (test code = 3097-3) Sodium (test code = 138 mmol/L 270-252 6475-2) Potassium (test code 4.6 mmol/L 3.5-5.2 Specime n received = 2823-3) hemolyzed. Clin ical correlation indicated.Perfo rmed by:[facility] ([place]) Chloride (test code 100 mmol/L 96-106 = 5-0) Carbon Dioxide, 22 mmol/L 20-29 Total (test code = 2027-9) Calcium (test code = 8.6 mg/dL 8.7-10.2 L 23094-2) Protein, Total (test 6.9 g/dL 6.0-8.5 code = 2885-2) Albumin (test code = 4.3 g/dL 4.1-5.2 1751-7) Globulin, Total 2.6 g/dL 1.5-4.5 (test code = 72325-8) A/G Ratio (test code 1.7 1.2-2.2 = 1759-0) Bilirubin, Total 0.5 mg/dL 0.0-1.2 (test code = 1975-2) Alkaline Phosphatase 89 IU/L 39-117 (test code = 6768-6) AST (SGOT) (test 24 IU/L 0-40 code = 1920-8) ALT (SGPT) (test 12 IU/L 0-44 code = 1742-6) [facility] Description: Comp. Metabolic Panel (2019-11-07 01:46:00 Test Item Value Reference Range Interpretation Comments Glucose (test code = 108 mg/dL 65-99 H Specime n received 2345-7) hemolyzed. Clin ical correlation indicated.Perfo rmed by:[facility] ([place]) BUN (test code = 8 mg/dL 6-20 3094-0) Creatinine (test 0.84 mg/dL 0.76-1.27 code = 2160-0) eGFR If NonAfricn Am 118 >59 (test code = mL/min/1.73 43039-4) eGFR If Africn Am 137 >59 (test code = mL/min/1.73 51016-5) BUN/Creatinine Ratio 04 04-20 (test code = 3097-3) Sodium (test code = 138 mmol/L 791-319 9400-2) Potassium (test code 4.6 mmol/L 3.5-5.2 Specime n received = 2823-3) hemolyzed. Clin ical correlation indicated.Perfo rmed by:[facility] ([place]) Chloride (test code 100 mmol/L 96-106 = 5-0) Carbon Dioxide, 22 mmol/L 20-29 Total (test code = 2027-9) Calcium (test code = 8.6 mg/dL 8.7-10.2 L 74589-8) Protein, Total (test 6.9 g/dL 6.0-8.5 code = 2885-2) Albumin (test code = 4.3 g/dL 4.1-5.2 1751-7) Globulin, Total 2.6 g/dL 1.5-4.5 (test code = 86155-7) A/G Ratio (test code 1.7 1.2-2.2 = 1759-0) Bilirubin, Total 0.5 mg/dL 0.0-1.2 (test code = 1975-2) Alkaline Phosphatase 89 IU/L 39-117 (test code = 6768-6) AST (SGOT) (test 24 IU/L 0-40 code = 1920-8) ALT (SGPT) (test 12 IU/L 0-44 code = 1742-6) [facility] Description: Comp. Metabolic Panel (2019-11-07 01:46:00 Test Item Value Reference Range Interpretation Comments Glucose (test code = 108 mg/dL 65-99 H Specime n received 2345-7) hemolyzed. Clin ical correlation indicated.Perfo rmed by:[facility] ([place]) BUN (test code = 8 mg/dL 6-20 3094-0) Creatinine (test 0.84 mg/dL 0.76-1.27 code = 2160-0) eGFR If NonAfricn Am 118 >59 (test code = mL/min/1.73 37866-4) eGFR If Africn Am 137 >59 (test code = mL/min/1.73 09650-6) BUN/Creatinine Ratio 10 9-20 (test code = 3097-3) Sodium (test code = 138 mmol/L 657-529 6466-2) Potassium (test code 4.6 mmol/L 3.5-5.2 Specime n received = 2823-3) hemolyzed. Clin ical correlation indicated.Perfo rmed by:[facility] ([place]) Chloride (test code 100 mmol/L 96-106 = 5-0) Carbon Dioxide, 22 mmol/L 20-29 Total (test code = 2027-9) Calcium (test code = 8.6 mg/dL 8.7-10.2 L 13176-4) Protein, Total (test 6.9 g/dL 6.0-8.5 code = 2885-2) Albumin (test code = 4.3 g/dL 4.1-5.2 1751-7) Globulin, Total 2.6 g/dL 1.5-4.5 (test code = 51123-4) A/G Ratio (test code 1.7 1.2-2.2 = 1759-0) Bilirubin, Total 0.5 mg/dL 0.0-1.2 (test code = 1974-2) Alkaline Phosphatase 89 IU/L 39-117 (test code = 6768-6) AST (SGOT) (test 24 IU/L 0-40 code = 1920-8) ALT (SGPT) (test 12 IU/L 0-44 code = 1742-6) [facility] Description: Comp. Metabolic Panel (2019-11-07 01:46:00 Test Item Value Reference Range Interpretation Comments Glucose (test code = 108 mg/dL 65-99 H Specime n received 2345-7) hemolyzed. Clin ical correlation indicated.Perfo rmed by:[facility] ([place]) BUN (test code = 8 mg/dL 6-20 3094-0) Creatinine (test 0.84 mg/dL 0.76-1.27 code = 2160-0) eGFR If NonAfricn Am 118 >59 (test code = mL/min/1.73 90810-2) eGFR If Africn Am 137 >59 (test code = mL/min/1.73 23576-1) BUN/Creatinine Ratio 10 9-20 (test code = 3097-3) Sodium (test code = 138 mmol/L 841-149 1957-2) Potassium (test code 4.6 mmol/L 3.5-5.2 Specime n received = 2823-3) hemolyzed. Clin ical correlation indicated.Perfo rmed by:[facility] ([place]) Chloride (test code 100 mmol/L 96-106 = 2075-0) Carbon Dioxide, 22 mmol/L 20-29 Total (test code = 8-9) Calcium (test code = 8.6 mg/dL 8.7-10.2 L 59894-8) Protein, Total (test 6.9 g/dL 6.0-8.5 code = 2885-2) Albumin (test code = 4.3 g/dL 4.1-5.2 1751-7) Globulin, Total 2.6 g/dL 1.5-4.5 (test code = 07255-8) A/G Ratio (test code 1.7 1.2-2.2 = 1759-0) Bilirubin, Total 0.5 mg/dL 0.0-1.2 (test code = 1975-2) Alkaline Phosphatase 89 IU/L 39-117 (test code = 6768-6) AST (SGOT) (test 24 IU/L 0-40 code = 1920-8) ALT (SGPT) (test 12 IU/L 0-44 code = 1742-6) [facility] Description: Comp. Metabolic Panel (2019-11-07 01:46:00 Test Item Value Reference Range Interpretation Comments Glucose (test code = 108 mg/dL 65-99 H Specime n received 2345-7) hemolyzed. Clin ical correlation indicated.Perfo rmed by:[facility] ([place]) BUN (test code = 8 mg/dL 6-20 3094-0) Creatinine (test 0.84 mg/dL 0.76-1.27 code = 2160-0) eGFR If NonAfricn Am 118 >59 (test code = mL/min/1.73 86319-8) eGFR If Africn Am 137 >59 (test code = mL/min/1.73 49832-5) BUN/Creatinine Ratio 10 9-20 (test code = 3097-3) Sodium (test code = 138 mmol/L 952-482 5791-2) Potassium (test code 4.6 mmol/L 3.5-5.2 Specime n received = 2823-3) hemolyzed. Clin ical correlation indicated.Perfo rmed by:[facility] ([place]) Chloride (test code 100 mmol/L 96-106 = 2074-0) Carbon Dioxide, 22 mmol/L 20-29 Total (test code = 2027-9) Calcium (test code = 8.6 mg/dL 8.7-10.2 L 45710-8) Protein, Total (test 6.9 g/dL 6.0-8.5 code = 2885-2) Albumin (test code = 4.3 g/dL 4.1-5.2 1751-7) Globulin, Total 2.6 g/dL 1.5-4.5 (test code = 47871-0) A/G Ratio (test code 1.7 1.2-2.2 = 1759-0) Bilirubin, Total 0.5 mg/dL 0.0-1.2 (test code = 1975-2) Alkaline Phosphatase 89 IU/L 39-117 (test code = 6768-6) AST (SGOT) (test 24 IU/L 0-40 code = 1920-8) ALT (SGPT) (test 12 IU/L 0-44 code = 1742-6) [facility] Description: Comp. Metabolic Panel 2019-11-07 01:46:00 Test Item Value Reference Range Interpretation Comments Glucose (test code = 108 mg/dL 65-99 H Specime n received 2345-7) hemolyzed. Clin ical correlation indicated.Perfo rmed by:[facility] ([place]) BUN (test code = 8 mg/dL 6-20 3094-0) Creatinine (test 0.84 mg/dL 0.76-1.27 code = 2160-0) eGFR If NonAfricn Am 118 >59 (test code = mL/min/1.73 66190-0) eGFR If Africn Am 137 >59 (test code = mL/min/1.73 04168-3) BUN/Creatinine Ratio 10 9-20 (test code = 3097-3) Sodium (test code = 138 mmol/L 407-796 9897-2) Potassium (test code 4.6 mmol/L 3.5-5.2 Specime n received = 2823-3) hemolyzed. Clin ical correlation indicated.Perfo rmed by:[facility] ([place]) Chloride (test code 100 mmol/L 96-106 = 2075-0) Carbon Dioxide, 22 mmol/L 20-29 Total (test code = 2027-) Calcium (test code = 8.6 mg/dL 8.7-10.2 L 89285-3) Protein, Total (test 6.9 g/dL 6.0-8.5 code = 2885-2) Albumin (test code = 4.3 g/dL 4.1-5.2 1751-7) Globulin, Total 2.6 g/dL 1.5-4.5 (test code = 03962-5) A/G Ratio (test code 1.7 1.2-2.2 = 1759-0) Bilirubin, Total 0.5 mg/dL 0.0-1.2 (test code = 1975-2) Alkaline Phosphatase 89 IU/L 39-117 (test code = 6768-6) AST (SGOT) (test 24 IU/L 0-40 code = 1920-8) ALT (SGPT) (test 12 IU/L 0-44 code = 1742-6) [facility] Description: Comp. Metabolic Panel (2019-11-07 01:46:00 Test Item Value Reference Range Interpretation Comments Glucose (test code = 108 mg/dL 65-99 H Specime n received 2345-7) hemolyzed. Clin ical correlation indicated.Perfo rmed by:[facility] ([place]) BUN (test code = 8 mg/dL 6-20 3094-0) Creatinine (test 0.84 mg/dL 0.76-1.27 code = 2160-0) eGFR If NonAfricn Am 118 >59 (test code = mL/min/1.73 08096-3) eGFR If Africn Am 137 >59 (test code = mL/min/1.73 32030-9) BUN/Creatinine Ratio 10 9-20 (test code = 3097-3) Sodium (test code = 138 mmol/L 409-927 1043-2) Potassium (test code 4.6 mmol/L 3.5-5.2 Specime n received = 2823-3) hemolyzed. Clin ical correlation indicated.Perfo rmed by:[facility] ([place]) Chloride (test code 100 mmol/L 96-106 = 5-0) Carbon Dioxide, 22 mmol/L 20-29 Total (test code = 2027-) Calcium (test code = 8.6 mg/dL 8.7-10.2 L 57640-3) Protein, Total (test 6.9 g/dL 6.0-8.5 code = 2885-2) Albumin (test code = 4.3 g/dL 4.1-5.2 1751-7) Globulin, Total 2.6 g/dL 1.5-4.5 (test code = 64841-0) A/G Ratio (test code 1.7 1.2-2.2 = 1759-0) Bilirubin, Total 0.5 mg/dL 0.0-1.2 (test code = 1975-2) Alkaline Phosphatase 89 IU/L 39-117 (test code = 6768-6) AST (SGOT) (test 24 IU/L 0-40 code = 1920-8) ALT (SGPT) (test 12 IU/L 0-44 code = 1742-6) [facility] Description: Comp. Metabolic Panel (2019-11-07 01:46:00 Test Item Value Reference Range Interpretation Comments Glucose (test code = 108 mg/dL 65-99 H Specime n received 2345-7) hemolyzed. Clin ical correlation indicated.

Performed by:
[facility] ([place])

BUN (test code = 8 mg/dL 6-20 3094-0) Creatinine (test 0.84 mg/dL 0.76-1.27 code = 2160-0) eGFR If NonAfricn Am 118 >59 (test code = mL/min/1.73 65843-8) eGFR If Africn Am 137 >59 (test code = mL/min/1.73 88127-9) BUN/Creatinine Ratio 10 9-20 (test code = 3097-3) Sodium (test code = 138 mmol/L 736-259 2882-2) Potassium (test code 4.6 mmol/L 3.5-5.2 Specime n received = 2823-3) hemolyzed. Clin ical correlation indicated.

Performed by:
[facility] ([place])

Chloride (test code 100 mmol/L 96-106 = 2075-0) Carbon Dioxide, 22 mmol/L 20-29 Total (test code = 2027-9) Calcium (test code = 8.6 mg/dL 8.7-10.2 L 74693-7) Protein, Total (test 6.9 g/dL 6.0-8.5 code = 2885-2) Albumin (test code = 4.3 g/dL 4.1-5.2 1751-7) Globulin, Total 2.6 g/dL 1.5-4.5 (test code = 36385-8) A/G Ratio (test code 1.7 1.2-2.2 = 1759-0) Bilirubin, Total 0.5 mg/dL 0.0-1.2 (test code = 1975-2) Alkaline Phosphatase 89 IU/L 39-117 (test code = 6768-6) AST (SGOT) (test 24 IU/L 0-40 code = 1920-8) ALT (SGPT) (test 12 IU/L 0-44 code = 1742-6) [facility] Description: Comp. Metabolic Panel (2019-11-07 01:46:00 Test Item Value Reference Range Interpretation Comments Glucose (test code = 108 mg/dL 65-99 H Specime n received 3035-7) hemolyzed. Clin ical correlation indicated.

Performed by:
[facility] ([facility]

BUN (test code = 8 mg/dL 6-20 3094-0) Creatinine (test 0.84 mg/dL 0.76-1.27 code = 2160-0) eGFR If NonAfricn Am 118 >59 (test code = mL/min/1.73 62051-0) eGFR If Africn Am 137 >59 (test code = mL/min/1.73 72233-4) BUN/Creatinine Ratio 03-16 (test code = 3097-3) Sodium (test code = 138 mmol/L 575-436 0855-2) Potassium (test code 4.6 mmol/L 3.5-5.2 Specime n received = 2823-3) hemolyzed. Clin ical correlation indicated.

Performed by:
[facility] ([place])

Chloride (test code 100 mmol/L 96-106 = 5-0) Carbon Dioxide, 22 mmol/L 20-29 Total (test code = 2027-) Calcium (test code = 8.6 mg/dL 8.7-10.2 L 82843-8) Protein, Total (test 6.9 g/dL 6.0-8.5 code = 2885-2) Albumin (test code = 4.3 g/dL 4.1-5.2 1751-7) Globulin, Total 2.6 g/dL 1.5-4.5 (test code = 90740-5) A/G Ratio (test code 1.7 1.2-2.2 = 1759-0) Bilirubin, Total 0.5 mg/dL 0.0-1.2 (test code = 1975-2) Alkaline Phosphatase 89 IU/L 39-117 (test code = 6768-6) AST (SGOT) (test 24 IU/L 0-40 code = 1920-8) ALT (SGPT) (test 12 IU/L 0-44 code = 1742-6) [facility] Description: Comp. Metabolic Panel (2019-11-07 01:46:00 Test Item Value Reference Range Interpretation Comments Glucose (test code = 108 mg/dL 65-99 H Specime n received 1015-7) hemolyzed. Clin ical correlation indicated.

Performed by:
[facility] ([place])

BUN (test code = 8 mg/dL 6- 3094-0) Creatinine (test 0.84 mg/dL 0.76-1.27 code = 2160-0) eGFR If NonAfricn Am 118 >59 (test code = mL/min/1.73 22010-1) eGFR If Africn Am 137 >59 (test code = mL/min/1.73 37820-6) BUN/Creatinine Ratio 03-16 (test code = 3097-3) Sodium (test code = 138 mmol/L 237-591 1432-2) Potassium (test code 4.6 mmol/L 3.5-5.2 Specime n received = 2823-3) hemolyzed. Clin ical correlation indicated.

Performed by:
[facility] ([place])

Chloride (test code 100 mmol/L 96-106 = 5-0) Carbon Dioxide, 22 mmol/L 20-29 Total (test code = 8-9) Calcium (test code = 8.6 mg/dL 8.7-10.2 L 81507-9) Protein, Total (test 6.9 g/dL 6.0-8.5 code = 2885-2) Albumin (test code = 4.3 g/dL 4.1-5.2 1751-7) Globulin, Total 2.6 g/dL 1.5-4.5 (test code = 27899-5) A/G Ratio (test code 1.7 1.2-2.2 = 1759-0) Bilirubin, Total 0.5 mg/dL 0.0-1.2 (test code = 1975-2) Alkaline Phosphatase 89 IU/L 39-117 (test code = 6768-6) AST (SGOT) (test 24 IU/L 0-40 code = 1920-8) ALT (SGPT) (test 12 IU/L 0-44 code = 1742-6) [facility] Description: Comp. Metabolic Panel (2019-11-07 01:46:00 Test Item Value Reference Range Interpretation Comments Glucose (test code = 108 mg/dL 65-99 H Specime n received 2345-7) hemolyzed. Clin ical correlation indicated.

Performed by:
[facility] ([place])

BUN (test code = 8 mg/dL 6-20 3094-0) Creatinine (test 0.84 mg/dL 0.76-1.27 code = 2160-0) eGFR If NonAfricn Am 118 >59 (test code = mL/min/1.73 18878-4) eGFR If Africn Am 137 >59 (test code = mL/min/1.73 56421-4) BUN/Creatinine Ratio 10 9-20 (test code = 3097-3) Sodium (test code = 138 mmol/L 897-772 0714-2) Potassium (test code 4.6 mmol/L 3.5-5.2 Specime n received = 2823-3) hemolyzed. Clin ical correlation indicated.

Performed by:
[facility] ([place])

Chloride (test code 100 mmol/L 96-106 = 5-0) Carbon Dioxide, 22 mmol/L 20-29 Total (test code = 2027-9) Calcium (test code = 8.6 mg/dL 8.7-10.2 L 60342-4) Protein, Total (test 6.9 g/dL 6.0-8.5 code = 2885-2) Albumin (test code = 4.3 g/dL 4.1-5.2 1751-7) Globulin, Total 2.6 g/dL 1.5-4.5 (test code = 73984-5) A/G Ratio (test code 1.7 1.2-2.2 = 1759-0) Bilirubin, Total 0.5 mg/dL 0.0-1.2 (test code = 1975-2) Alkaline Phosphatase 89 IU/L 39-117 (test code = 6768-6) AST (SGOT) (test 24 IU/L 0-40 code = 1920-8) ALT (SGPT) (test 12 IU/L 0-44 code = 1742-6) [facility] Description: Comp. Metabolic Panel (2019-11-07 01:46:00 Test Item Value Reference Range Interpretation Comments Glucose (test code = 108 mg/dL 65-99 H Specime n received 9695-7) hemolyzed. Clin ical correlation indicated.

Performed by:
[facility] ([place])

BUN (test code = 8 mg/dL 6-20 3094-0) Creatinine (test 0.84 mg/dL 0.76-1.27 code = 2160-0) eGFR If NonAfricn Am 118 >59 (test code = mL/min/1.73 65146-5) eGFR If Africn Am 137 >59 (test code = mL/min/1.73 48210-4) BUN/Creatinine Ratio 9-20 (test code = 3097-3) Sodium (test code = 138 mmol/L 824-190 2214-2) Potassium (test code 4.6 mmol/L 3.5-5.2 Specime n received = 2823-3) hemolyzed. Clin ical correlation indicated.

Performed by:
[facility] ([place])

Chloride (test code 100 mmol/L 96-106 = 5-0) Carbon Dioxide, 22 mmol/L 20-29 Total (test code = 2027-9) Calcium (test code = 8.6 mg/dL 8.7-10.2 L 07264-4) Protein, Total (test 6.9 g/dL 6.0-8.5 code = 2885-2) Albumin (test code = 4.3 g/dL 4.1-5.2 1751-7) Globulin, Total 2.6 g/dL 1.5-4.5 (test code = 03686-0) A/G Ratio (test code 1.7 1.2-2.2 = 1759-0) Bilirubin, Total 0.5 mg/dL 0.0-1.2 (test code = 1975-2) Alkaline Phosphatase 89 IU/L 39-117 (test code = 6768-6) AST (SGOT) (test 24 IU/L 0-40 code = 1920-8) ALT (SGPT) (test 12 IU/L 0-44 code = 1742-6) [facility] Description: Comp. Metabolic Panel (2019-11-07 01:46:00 Test Item Value Reference Range Interpretation Comments Glucose (test code = 108 mg/dL 65-99 H Specime n received 2345-7) hemolyzed. Clin ical correlation indicated.

Performed by:
[facility] ([place])

BUN (test code = 8 mg/dL 6-20 3094-0) Creatinine (test 0.84 mg/dL 0.76-1.27 code = 2160-0) eGFR If NonAfricn Am 118 >59 (test code = mL/min/1.73 43300-9) eGFR If Africn Am 137 >59 (test code = mL/min/1.73 47329-6) BUN/Creatinine Ratio 10 9-20 (test code = 3097-3) Sodium (test code = 138 mmol/L 307-618 2485-2) Potassium (test code 4.6 mmol/L 3.5-5.2 Specime n received = 2823-3) hemolyzed. Clin ical correlation indicated.

Performed by:
[facility] ([place])

Chloride (test code 100 mmol/L 96-106 = 5-0) Carbon Dioxide, 22 mmol/L 20-29 Total (test code = 2027-9) Calcium (test code = 8.6 mg/dL 8.7-10.2 L 27155-3) Protein, Total (test 6.9 g/dL 6.0-8.5 code = 2885-2) Albumin (test code = 4.3 g/dL 4.1-5.2 1751-7) Globulin, Total 2.6 g/dL 1.5-4.5 (test code = 26484-5) A/G Ratio (test code 1.7 1.2-2.2 = 1759-0) Bilirubin, Total 0.5 mg/dL 0.0-1.2 (test code = 1975-2) Alkaline Phosphatase 89 IU/L 39-117 (test code = 6768-6) AST (SGOT) (test 24 IU/L 0-40 code = 1920-8) ALT (SGPT) (test 12 IU/L 0-44 code = 1742-6) [facility] Description: Comp. Metabolic Panel (2019-11-07 01:46:00 Test Item Value Reference Range Interpretation Comments Glucose (test code = 108 mg/dL 65-99 H Specime n received 2345-7) hemolyzed. Clin ical correlation indicated.

Performed by:
[facility] ([place])

BUN (test code = 8 mg/dL 6-20 3094-0) Creatinine (test 0.84 mg/dL 0.76-1.27 code = 2160-0) eGFR If NonAfricn Am 118 >59 (test code = mL/min/1.73 12747-0) eGFR If Africn Am 137 >59 (test code = mL/min/1.73 00684-6) BUN/Creatinine Ratio 9-20 (test code = 3097-3) Sodium (test code = 138 mmol/L 780-104 2971-2) Potassium (test code 4.6 mmol/L 3.5-5.2 Specime n received = 2823-3) hemolyzed. Clin ical correlation indicated.

Performed by:
[facility] ([place])

Chloride (test code 100 mmol/L 96-106 = 5-0) Carbon Dioxide, 22 mmol/L 20-29 Total (test code = 2027-) Calcium (test code = 8.6 mg/dL 8.7-10.2 L 10153-3) Protein, Total (test 6.9 g/dL 6.0-8.5 code = 2885-2) Albumin (test code = 4.3 g/dL 4.1-5.2 175-7) Globulin, Total 2.6 g/dL 1.5-4.5 (test code = 24622-8) A/G Ratio (test code 1.7 1.2-2.2 = 1759-0) Bilirubin, Total 0.5 mg/dL 0.0-1.2 (test code = 1975-2) Alkaline Phosphatase 89 IU/L 39-117 (test code = 6768-6) AST (SGOT) (test 24 IU/L 0-40 code = 1920-8) ALT (SGPT) (test 12 IU/L 0-44 code = 1742-6) [facility] Description: Comp. Metabolic Panel (2019-11-07 01:46:00 Test Item Value Reference Range Interpretation Comments Glucose (test code = 108 mg/dL 65-99 H Specime n received 8565-7) hemolyzed. Clin ical correlation indicated.

Performed by:
[facility] ([place])

BUN (test code = 8 mg/dL 6-20 3094-0) Creatinine (test 0.84 mg/dL 0.76-1.27 code = 2160-0) eGFR If NonAfricn Am 118 >59 (test code = mL/min/1.73 27596-8) eGFR If Africn Am 137 >59 (test code = mL/min/1.73 21577-4) BUN/Creatinine Ratio 10 9-20 (test code = 3097-3) Sodium (test code = 138 mmol/L 088-913 9963-2) Potassium (test code 4.6 mmol/L 3.5-5.2 Specime n received = 2823-3) hemolyzed. Clin ical correlation indicated.

Performed by:
[facility] ([place])

Chloride (test code 100 mmol/L 96-106 = 5-0) Carbon Dioxide, 22 mmol/L 20-29 Total (test code = 8-9) Calcium (test code = 8.6 mg/dL 8.7-10.2 L 84125-5) Protein, Total (test 6.9 g/dL 6.0-8.5 code = 2885-2) Albumin (test code = 4.3 g/dL 4.1-5.2 1751-7) Globulin, Total 2.6 g/dL 1.5-4.5 (test code = 71799-7) A/G Ratio (test code 1.7 1.2-2.2 = 1759-0) Bilirubin, Total 0.5 mg/dL 0.0-1.2 (test code = 1975-2) Alkaline Phosphatase 89 IU/L 39-117 (test code = 6768-6) AST (SGOT) (test 24 IU/L 0-40 code = 1920-8) ALT (SGPT) (test 12 IU/L 0-44 code = 1742-6) [facility] Description: Comp. Metabolic Panel 2019-11-07 01:46:00 Test Item Value Reference Range Interpretation Comments Glucose (test code = 108 mg/dL 65-99 H Specime n received 1655-7) hemolyzed. Clin ical correlation indicated.

Performed by:
[facility] ([place])

BUN (test code = 8 mg/dL 6-20 3094-0) Creatinine (test 0.84 mg/dL 0.76-1.27 code = 2160-0) eGFR If NonAfricn Am 118 >59 (test code = mL/min/1.73 91349-0) eGFR If Africn Am 137 >59 (test code = mL/min/1.73 69544-2) BUN/Creatinine Ratio 10 9-20 (test code = 3097-3) Sodium (test code = 138 mmol/L 978-130 4122-2) Potassium (test code 4.6 mmol/L 3.5-5.2 Specime n received = 2823-3) hemolyzed. Clin ical correlation indicated.

Performed by:
[facility] ([place])

Chloride (test code 100 mmol/L 96-106 = 5-0) Carbon Dioxide, 22 mmol/L 20-29 Total (test code = 2027-) Calcium (test code = 8.6 mg/dL 8.7-10.2 L 63157-2) Protein, Total (test 6.9 g/dL 6.0-8.5 code = 2885-2) Albumin (test code = 4.3 g/dL 4.1-5.2 175-7) Globulin, Total 2.6 g/dL 1.5-4.5 (test code = 82285-9) A/G Ratio (test code 1.7 1.2-2.2 = 1759-0) Bilirubin, Total 0.5 mg/dL 0.0-1.2 (test code = 1975-2) Alkaline Phosphatase 89 IU/L 39-117 (test code = 6768-6) AST (SGOT) (test 24 IU/L 0-40 code = 1920-8) ALT (SGPT) (test 12 IU/L 0-44 code = 1742-6) [facility] Description: Comp. Metabolic Panel (2019-11-07 01:46:00 Test Item Value Reference Range Interpretation Comments Glucose (test code = 108 mg/dL 65-99 H Specime n received 6185-7) hemolyzed. Clin ical correlation indicated.

Performed by:
[facility] ([place])

BUN (test code = 8 mg/dL 6-20 3094-0) Creatinine (test 0.84 mg/dL 0.76-1.27 code = 2160-0) eGFR If NonAfricn Am 118 >59 (test code = mL/min/1.73 01472-3) eGFR If Africn Am 137 >59 (test code = mL/min/1.73 58330-3) BUN/Creatinine Ratio 10 - (test code = 3097-3) Sodium (test code = 138 mmol/L 385-303 1911-2) Potassium (test code 4.6 mmol/L 3.5-5.2 Specime n received = 2823-3) hemolyzed. Clin ical correlation indicated.

Performed by:
[facility] ([place])

Chloride (test code 100 mmol/L 96-106 = 2075-0) Carbon Dioxide, 22 mmol/L 20-29 Total (test code = 2027-9) Calcium (test code = 8.6 mg/dL 8.7-10.2 L 80412-0) Protein, Total (test 6.9 g/dL 6.0-8.5 code = 2885-2) Albumin (test code = 4.3 g/dL 4.1-5.2 1751-7) Globulin, Total 2.6 g/dL 1.5-4.5 (test code = 71884-7) A/G Ratio (test code 1.7 1.2-2.2 = 1759-0) Bilirubin, Total 0.5 mg/dL 0.0-1.2 (test code = 1975-2) Alkaline Phosphatase 89 IU/L 39-117 (test code = 6768-6) AST (SGOT) (test 24 IU/L 0-40 code = 1920-8) ALT (SGPT) (test 12 IU/L 0-44 code = 1742-6) [facility] Description: Comp. Metabolic Panel (2019-11-07 01:46:00 Test Item Value Reference Range Interpretation Comments Glucose (test code = 108 mg/dL 65-99 H Specime n received 2345-7) hemolyzed. Clin ical correlation indicated.

Performed by:
[facility] ([place])

BUN (test code = 8 mg/dL 6-20 3094-0) Creatinine (test 0.84 mg/dL 0.76-1.27 code = 2160-0) eGFR If NonAfricn Am 118 >59 (test code = mL/min/1.73 85823-6) eGFR If Africn Am 137 >59 (test code = mL/min/1.73 50687-7) BUN/Creatinine Ratio 10 9-20 (test code = 3097-3) Sodium (test code = 138 mmol/L 052-658 9867-2) Potassium (test code 4.6 mmol/L 3.5-5.2 Specime n received = 2823-3) hemolyzed. Clin ical correlation indicated.

Performed by:
[facility] ([place])

Chloride (test code 100 mmol/L 96-106 = 2075-0) Carbon Dioxide, 22 mmol/L 20-29 Total (test code = 8-9) Calcium (test code = 8.6 mg/dL 8.7-10.2 L 29081-5) Protein, Total (test 6.9 g/dL 6.0-8.5 code = 2885-2) Albumin (test code = 4.3 g/dL 4.1-5.2 1751-7) Globulin, Total 2.6 g/dL 1.5-4.5 (test code = 02470-5) A/G Ratio (test code 1.7 1.2-2.2 = 1759-0) Bilirubin, Total 0.5 mg/dL 0.0-1.2 (test code = 1975-2) Alkaline Phosphatase 89 IU/L 39-117 (test code = 6768-6) AST (SGOT) (test 24 IU/L 0-40 code = 1920-8) ALT (SGPT) (test 12 IU/L 0-44 code = 1742-6) [facility] Description: Comp. Metabolic Panel (2019-11-07 01:46:00 Test Item Value Reference Range Interpretation Comments Glucose (test code = 108 mg/dL 65-99 H Specime n received 2345-7) hemolyzed. Clin ical correlation indicated.

Performed by:
[facility] ([place])

BUN (test code = 8 mg/dL 6-20 3094-0) Creatinine (test 0.84 mg/dL 0.76-1.27 code = 2160-0) eGFR If NonAfricn Am 118 >59 (test code = mL/min/1.73 32305-2) eGFR If Africn Am 137 >59 (test code = mL/min/1.73 42003-0) BUN/Creatinine Ratio 04 04- (test code = 3097-3) Sodium (test code = 138 mmol/L 856-133 2386-2) Potassium (test code 4.6 mmol/L 3.5-5.2 Specime n received = 2823-3) hemolyzed. Clin ical correlation indicated.

Performed by:
[facility] ([place])

Chloride (test code 100 mmol/L 96-106 = 5-0) Carbon Dioxide, 22 mmol/L 20-29 Total (test code = 2027-) Calcium (test code = 8.6 mg/dL 8.7-10.2 L 71438-8) Protein, Total (test 6.9 g/dL 6.0-8.5 code = 2885-2) Albumin (test code = 4.3 g/dL 4.1-5.2 175-7) Globulin, Total 2.6 g/dL 1.5-4.5 (test code = 10400-9) A/G Ratio (test code 1.7 1.2-2.2 = 1759-0) Bilirubin, Total 0.5 mg/dL 0.0-1.2 (test code = 1974-2) Alkaline Phosphatase 89 IU/L 39-117 (test code = 6768-6) AST (SGOT) (test 24 IU/L 0-40 code = 1920-8) ALT (SGPT) (test 12 IU/L 0-44 code = 1742-6) [facility] Description: Comp. Metabolic Panel (2019-11-07 01:46:00 Test Item Value Reference Range Interpretation Comments Glucose (test code = 108 mg/dL 65-99 H Specime n received 2345-7) hemolyzed. Clin ical correlation indicated.

Performed by:
[facility] ([place])

BUN (test code = 8 mg/dL 6-20 3094-0) Creatinine (test 0.84 mg/dL 0.76-1.27 code = 2160-0) eGFR If NonAfricn Am 118 >59 (test code = mL/min/1.73 01534-4) eGFR If Africn Am 137 >59 (test code = mL/min/1.73 09382-4) BUN/Creatinine Ratio 10 9-20 (test code = 3097-3) Sodium (test code = 138 mmol/L 227-276 5440-2) Potassium (test code 4.6 mmol/L 3.5-5.2 Specime n received = 2823-3) hemolyzed. Clin ical correlation indicated.

Performed by:
[facility] ([place])

Chloride (test code 100 mmol/L 96-106 = 5-0) Carbon Dioxide, 22 mmol/L 20-29 Total (test code = 2027-9) Calcium (test code = 8.6 mg/dL 8.7-10.2 L 32796-1) Protein, Total (test 6.9 g/dL 6.0-8.5 code = 2885-2) Albumin (test code = 4.3 g/dL 4.1-5.2 1751-7) Globulin, Total 2.6 g/dL 1.5-4.5 (test code = 33638-3) A/G Ratio (test code 1.7 1.2-2.2 = 1759-0) Bilirubin, Total 0.5 mg/dL 0.0-1.2 (test code = 1975-2) Alkaline Phosphatase 89 IU/L 39-117 (test code = 6768-6) AST (SGOT) (test 24 IU/L 0-40 code = 1920-8) ALT (SGPT) (test 12 IU/L 0-44 code = 1742-6) [facility] Description: RealTime Ijfegx2046-62-60 23:34:00 Test Item Value Reference Range Interpretation Comments HIV-1 RNA by PCR 390 copies/mL .The repo rtable (test code = range for this assay ) is 40 to 10,000,000copie s HIV-1 RNA/mL. .

Perf ormed by:
[facility] ()

log10 HIV-1 RNA 2.591 (test code = kur02ezal/mL 83802-1) [facility] Description: RealTime Knogxs5544-90-74 23:34:00 Test Item Value Reference Range Interpretation Comments HIV-1 RNA by PCR 390 copies/mL .The rep ortable (test code = range for this assay ) is 40 to 10,000,000copie s HIV-1 RNA/mL. .

P erform ed by:
[facility] ()

log10 HIV-1 RNA 2.591 (test code = vtj95bbcn/mL 92490-6) [facility] Description: RealTime Irthii7035-74-34 23:34:00 Test Item Value Reference Range Interpretation Comments HIV-1 RNA by PCR 390 copies/mL .The repo rtable (test code = range for this assay ) is 40 to 10,000,000copie s HIV-1 RNA/mL. .

Perf ormed by:
[facility] ()

log10 HIV-1 RNA 2.591 (test code = iox82fdnz/mL 32268-0) [facility] Description: RealTime Rqymrh2355-09-08 23:34:00 Test Item Value Reference Range Interpretation Comments HIV-1 RNA by PCR 390 copies/mL .The rep ortable (test code = range for this assay ) is 40 to 10,000,000copie s HIV-1 RNA/mL. .

P erform ed by:
[facility] ()

log10 HIV-1 RNA 2.591 (test code = tfo05auyg/mL 78291-6) [facility] Description: RealTime Eczmub6788-67-82 23:34:00 Test Item Value Reference Range Interpretation Comments HIV-1 RNA by PCR 390 copies/mL .The repo rtable (test code = range for this assay ) is 40 to 10,000,000copie s HIV-1 RNA/mL. .

Perf ormed by:
[facility] ()

log10 HIV-1 RNA 2.591 (test code = rbp43bqej/mL 19839-7) [facility] Description: RealTime Kfblmz5847-68-25 23:34:00 Test Item Value Reference Range Interpretation Comments HIV-1 RNA by PCR 390 copies/mL .The rep ortable (test code = range for this assay ) is 40 to 10,000,000copie s HIV-1 RNA/mL. .

P erform ed by:
[facility] ()

log10 HIV-1 RNA 2.591 (test code = ynw31mcfl/mL 32102-2) [facility] Description: RealTime Zmycmq4121-41-62 23:34:00 Test Item Value Reference Range Interpretation Comments HIV-1 RNA by PCR 390 copies/mL .The repo rtable (test code = range for this assay ) is 40 to 10,000,000copie s HIV-1 RNA/mL. .Performed by:[facility] [place] () log10 HIV-1 RNA 2.591 (test code = qla90luuo/mL 25161-2) [facility] Description: RealTime Tqfamj0915-75-35 23:34:00 Test Item Value Reference Range Interpretation Comments HIV-1 RNA by PCR 390 copies/mL .The repo rtable (test code = range for this assay ) is 40 to 10,000,000copie s HIV-1 RNA/mL. .Performed by:[facility] () log10 HIV-1 RNA 2.591 (test code = qkp70hhui/mL 40684-7) [facility] Description: RealTime Wcvkbj8024-90-34 23:34:00 Test Item Value Reference Range Interpretation Comments HIV-1 RNA by PCR 390 copies/mL .The rep ortable (test code = range for this assay ) is 40 to 10,000,000copie s HIV-1 RNA/mL. .Performed by:[facility] () log10 HIV-1 RNA 2.591 (test code = loh10gbsz/mL 20278-2) [facility] Description: RealTime Ixldmr7269-13-61 23:34:00 Test Item Value Reference Range Interpretation Comments HIV-1 RNA by PCR 390 copies/mL .The repo rtable (test code = range for this assay ) is 40 to 10,000,000copie s HIV-1 RNA/mL. .Performed by:[facility] () log10 HIV-1 RNA 2.591 (test code = pin71iwmk/mL 46016-8) [facility] Description: RealTime Aixrer9642-20-38 23:34:00 Test Item Value Reference Range Interpretation Comments HIV-1 RNA by PCR 390 copies/mL .The repo rtable (test code = range for this assay 89443-4) is 40 to 10,000,000copie s HIV-1 RNA/mL. .Performed by:[facility] () log10 HIV-1 RNA 2.591 (test code = mjf32ngco/mL 53025-7) [facility] Description: RealTime Jntrwl5307-10-31 23:34:00 Test Item Value Reference Range Interpretation Comments HIV-1 RNA by PCR 390 copies/mL .The repo rtable (test code = range for this assay 58183-0) is 40 to 10,000,000copie s HIV-1 RNA/mL. .Performed by:[facility] () log10 HIV-1 RNA 2.591 (test code = dpl72oaio/mL 34449-9) [facility] Description: RealTime Kjwzyr6520-08-32 23:34:00 Test Item Value Reference Range Interpretation Comments HIV-1 RNA by PCR 390 copies/mL .The rep ortable (test code = range for this assay ) is 40 to 10,000,000copie s HIV-1 RNA/mL. .Performed by:[facility] () log10 HIV-1 RNA 2.591 (test code = hnx56zfrx/mL 19258-6) [facility] Description: RealTime Wxjxrk9902-21-37 23:34:00 Test Item Value Reference Range Interpretation Comments HIV-1 RNA by PCR 390 copies/mL .The repo rtable (test code = range for this assay ) is 40 to 10,000,000copie s HIV-1 RNA/mL. .Performed by:[facility] () log10 HIV-1 RNA 2.591 (test code = npm83rmtj/mL 12835-8) [facility] Description: RealTime Oxczxg3087-43-13 23:34:00 Test Item Value Reference Range Interpretation Comments HIV-1 RNA by PCR 390 copies/mL .The repo rtable (test code = range for this assay ) is 40 to 10,000,000copie s HIV-1 RNA/mL. .Performed by:[facility] () log10 HIV-1 RNA 2.591 (test code = znp44ojuc/mL 31575-6) [facility] Description: RealTime Btehbv6325-37-62 23:34:00 Test Item Value Reference Range Interpretation Comments HIV-1 RNA by PCR 390 copies/mL .The repo rtable (test code = range for this assay ) is 40 to 10,000,000copie s HIV-1 RNA/mL. .

Perf ormed by:
[facility] ()

log10 HIV-1 RNA 2.591 (test code = xno65dvnu/mL 10457-4) [facility] Description: RealTime Ddnxqf7966-71-23 23:34:00 Test Item Value Reference Range Interpretation Comments HIV-1 RNA by PCR 390 copies/mL .The repo rtable (test code = range for this assay ) is 40 to 10,000,000copie s HIV-1 RNA/mL. .

P erform ed by:
[facility] ()

log10 HIV-1 RNA 2.591 (test code = sng26odif/mL 60926-9) [facility] Description: RealTime Aacfey7321-96-65 23:34:00 Test Item Value Reference Range Interpretation Comments HIV-1 RNA by PCR 390 copies/mL .The repo rtable (test code = range for this assay 19238-9) is 40 to 10,000,000copie s HIV-1 RNA/mL. .

Perf ormed by:
[facility] ()

log10 HIV-1 RNA 2.591 (test code = vad45oath/mL 77228-1) [facility] Description: RealTime Cyyjly7558-77-72 23:34:00 Test Item Value Reference Range Interpretation Comments HIV-1 RNA by PCR 390 copies/mL .The repo rtable (test code = range for this assay 40563-9) is 40 to 10,000,000copie s HIV-1 RNA/mL. .

P erform ed by:
[facility] ()

log10 HIV-1 RNA 2.591 (test code = url83wgqz/mL 71217-5) [facility] Description: RealTime Xglsyu3587-93-60 23:34:00 Test Item Value Reference Range Interpretation Comments HIV-1 RNA by PCR 390 copies/mL .The repo rtable (test code = range for this assay 53388-0) is 40 to 10,000,000copie s HIV-1 RNA/mL. .

Perf ormed by:
[facility] ()

log10 HIV-1 RNA 2.591 (test code = wmr87qebo/mL 08853-5) [facility] Description: RealTime Prahwf7678-80-42 23:34:00 Test Item Value Reference Range Interpretation Comments HIV-1 RNA by PCR 390 copies/mL .The repo rtable (test code = range for this assay ) is 40 to 10,000,000copie s HIV-1 RNA/mL. .

P erform ed by:
[facility] [place] ()

log10 HIV-1 RNA 2.591 (test code = ine89ryiy/mL 55258-0) [facility] Description: RealTime Qsddil9160-56-02 23:34:00 Test Item Value Reference Range Interpretation Comments HIV-1 RNA by PCR 390 copies/mL .The repo rtable (test code = range for this assay ) is 40 to 10,000,000copie s HIV-1 RNA/mL. .

Perf ormed by:
[facility] [place] ()

log10 HIV-1 RNA 2.591 (test code = kpj20fegj/mL 41527-0) [facility] Description: Chlamydia/GC Bthvgyrqcbxhb8072-63-49 21:05:00 Test Item Value Reference Range Interpretation Comments Chlamydia trachomatis, ULYSSES (test Negative Negative code = 84375-7) Neisseria gonorrhoeae, ULYSSES (test Negative Negative code = 09921-5) [facility] Description: Chlamydia/GC Nzvmrmwukstby8040-60-34 21:05:00 Test Item Value Reference Range Interpretation Comments Chlamydia trachomatis, ULYSSES (test Negative Negative code = 09227-7) Neisseria gonorrhoeae, ULYSSES (test Negative Negative code = 98200-4) [facility] Description: Chlamydia/GC Grpgfvppvtgvs8499-75-12 21:05:00 Test Item Value Reference Range Interpretation Comments Chlamydia trachomatis, ULYSSES (test Negative Negative code = 92054-9) Neisseria gonorrhoeae, ULYSSES (test Negative Negative code = 80520-1) [facility] Description: Chlamydia/GC Pomwniierszcs2713-17-10 21:05:00 Test Item Value Reference Range Interpretation Comments Chlamydia trachomatis, ULYSSES (test Negative Negative code = 94236-7) Neisseria gonorrhoeae, ULYSSES (test Negative Negative code = 38100-9) [facility] Description: Chlamydia/GC Zyuqwccmdpfne9291-99-34 21:05:00 Test Item Value Reference Range Interpretation Comments Chlamydia trachomatis, ULYSSES (test Negative Negative code = 91412-7) Neisseria gonorrhoeae, ULYSSES (test Negative Negative code = 54678-3) [facility] Description: Chlamydia/GC Xmbzbsrleokuw4902-50-71 21:05:00 Test Item Value Reference Range Interpretation Comments Chlamydia trachomatis, ULYSSES (test Negative Negative code = 27989-0) Neisseria gonorrhoeae, ULYSSES (test Negative Negative code = 24062-9) [facility] Description: Chlamydia/GC Fqkxnmdaagflo9266-31-16 21:05:00 Test Item Value Reference Range Interpretation Comments Chlamydia trachomatis, ULYSSES (test Negative Negative code = 87483-0) Neisseria gonorrhoeae, ULYSSES (test Negative Negative code = 59596-2) [facility] Description: Chlamydia/GC Twuvqqmieooil5366-38-33 21:05:00 Test Item Value Reference Range Interpretation Comments Chlamydia trachomatis, ULYSSES (test Negative Negative code = 45996-9) Neisseria gonorrhoeae, ULYSSES (test Negative Negative code = 72905-9) [facility] Description: Chlamydia/GC Etqcfshpqjgga5670-13-26 21:05:00 Test Item Value Reference Range Interpretation Comments Chlamydia trachomatis, ULYSSES (test Negative Negative code = 11820-2) Neisseria gonorrhoeae, ULYSSES (test Negative Negative code = 56971-3) [facility] Description: Chlamydia/GC Ablpeiihsjevx2539-80-08 21:05:00 Test Item Value Reference Range Interpretation Comments Chlamydia trachomatis, ULYSSES (test Negative Negative code = 84801-1) Neisseria gonorrhoeae, ULYSSES (test Negative Negative code = 70236-9) [facility] Description: Chlamydia/GC Vuwdcohspvhre7226-17-40 21:05:00 Test Item Value Reference Range Interpretation Comments Chlamydia trachomatis, ULYSSES (test Negative Negative code = 23830-4) Neisseria gonorrhoeae, ULYSSES (test Negative Negative code = 40153-5) [facility] Description: Chlamydia/GC Lwxldgsykoizd5075-60-87 21:05:00 Test Item Value Reference Range Interpretation Comments Chlamydia trachomatis, ULYSSES (test Negative Negative code = 36797-3) Neisseria gonorrhoeae, ULYSSES (test Negative Negative code = 03286-8) [facility] Description: Chlamydia/GC Dactfgswlcznq9391-62-58 21:05:00 Test Item Value Reference Range Interpretation Comments Chlamydia trachomatis, ULYSSES (test Negative Negative code = 65819-5) Neisseria gonorrhoeae, ULYSSES (test Negative Negative code = 94206-9) [facility] Description: Chlamydia/GC Iyrderzgdvfjq3652-01-14 21:05:00 Test Item Value Reference Range Interpretation Comments Chlamydia trachomatis, ULYSSES (test Negative Negative code = 22131-0) Neisseria gonorrhoeae, ULYSSES (test Negative Negative code = 47741-7) [facility] Description: Chlamydia/GC Nldwlyuenegqv5246-96-41 21:05:00 Test Item Value Reference Range Interpretation Comments Chlamydia trachomatis, ULYSSES (test Negative Negative code = 95251-4) Neisseria gonorrhoeae, ULYSSES (test Negative Negative code = 01321-3) [facility] Description: Chlamydia/GC Czvdbjtwpfayf2630-80-16 21:05:00 Test Item Value Reference Range Interpretation Comments Chlamydia trachomatis, ULYSSES (test Negative Negative code = 62136-9) Neisseria gonorrhoeae, ULYSSES (test Negative Negative code = 09999-9) [facility] Description: Chlamydia/GC Xzeikwksiwqum9054-54-65 21:05:00 Test Item Value Reference Range Interpretation Comments Chlamydia trachomatis, ULYSSES (test Negative Negative code = 83961-9) Neisseria gonorrhoeae, ULYSSES (test Negative Negative code = 42337-0) [facility] Description: Chlamydia/GC Zprcdxcpnuksi7743-11-42 21:05:00 Test Item Value Reference Range Interpretation Comments Chlamydia trachomatis, ULYSSES (test Negative Negative code = 91543-9) Neisseria gonorrhoeae, ULYSSES (test Negative Negative code = 79802-3) [facility] Description: Chlamydia/GC Fjpwpfijkuajc3408-96-92 21:05:00 Test Item Value Reference Range Interpretation Comments Chlamydia trachomatis, ULYSSES (test Negative Negative code = 59663-4) Neisseria gonorrhoeae, ULYSSES (test Negative Negative code = 08259-0) [facility] Description: Chlamydia/GC Efanabwskkgyn7228-08-72 21:05:00 Test Item Value Reference Range Interpretation Comments Chlamydia trachomatis, ULYSSES (test Negative Negative code = 84585-3) Neisseria gonorrhoeae, ULYSSES (test Negative Negative code = 17521-8) [facility] Description: Chlamydia/GC Lmegsxhzptdtn4831-28-32 21:05:00 Test Item Value Reference Range Interpretation Comments Chlamydia trachomatis, ULYSSES (test Negative Negative code = 86392-6) Neisseria gonorrhoeae, ULYSSES (test Negative Negative code = 12123-9) [facility] Description: Chlamydia/GC Awikxtaxwggsf1805-41-84 21:05:00 Test Item Value Reference Range Interpretation Comments Chlamydia trachomatis, ULYSSES (test Negative Negative code = 94747-7) Neisseria gonorrhoeae, ULYSSES (test Negative Negative code = 97751-5) [facility] Description: RPR, Quant.2019-07-19 11:52:00 Test Item Value Reference Range Interpretation Comments RPR, Quant. (test 1:64 See_Comment H [Automate d message] The code = 49116-5) system which generated this result transmit lucrecia reference range : NonRea<1:1. The reference range was not u sed to interpret this result as normal/abnormal . [facility] Description: RPR, Quant.2019-07-19 11:52:00 Test Item Value Reference Range Interpretation Comments RPR, Quant. (test 1:64 See_Comment H [Automate d message] The code = 01722-9) system which generated this result transmit lucrecia reference range : NonRea<1:1. The reference range was not u sed to interpret this result as normal/abnormal . [facility] Description: RPR, Quant.2019-07-19 11:52:00 Test Item Value Reference Range Interpretation Comments RPR, Quant. (test 1:64 See_Comment H [Automate d message] The code = 47791-2) system which generated this result transmit lucrecia reference range : NonRea<1:1. The reference range was not u sed to interpret this result as normal/abnormal . [facility] Description: RPR, Quant.2019-07-19 11:52:00 Test Item Value Reference Range Interpretation Comments RPR, Quant. (test 1:64 See_Comment H [Automate d message] The code = 40237-9) system which generated this result transmit lucrecia reference range : NonRea<1:1. The reference range was not u sed to interpret this result as normal/abnormal . [facility] Description: RPR, Quant.2019-07-19 11:52:00 Test Item Value Reference Range Interpretation Comments RPR, Quant. (test 1:64 See_Comment H [Automate d message] The code = 59788-3) system which generated this result transmit lucrecia reference range : NonRea<1:1. The reference range was not u sed to interpret this result as normal/abnormal . [facility] Description: RPR, Quant.2019-07-19 11:52:00 Test Item Value Reference Range Interpretation Comments RPR, Quant. (test 1:64 See_Comment H [Automate d message] The code = 70225-2) system which generated this result transmit lucrecia reference range : NonRea<1:1. The reference range was not u sed to interpret this result as normal/abnormal . [facility] Description: RPR, Quant.2019-07-19 11:52:00 Test Item Value Reference Range Interpretation Comments RPR, Quant. (test 1:64 See_Comment H [Automate d message] The code = 44963-2) system which generated this result transmit lucrecia reference range : NonRea<1:1. The reference range was not u sed to interpret this result as normal/abnormal . [facility] Description: RPR, Quant.2019-07-19 11:52:00 Test Item Value Reference Range Interpretation Comments RPR, Quant. (test 1:64 See_Comment H [Automate d message] The code = 28358-7) system which generated this result transmit lucrecia reference range : NonRea<1:1. The reference range was not u sed to interpret this result as normal/abnormal . [facility] Description: RPR, Quant.2019-07-19 11:52:00 Test Item Value Reference Range Interpretation Comments RPR, Quant. (test 1:64 See_Comment H [Automate d message] The code = 96405-4) system which generated this result transmit lucrecia reference range : NonRea<1:1. The reference range was not u sed to interpret this result as normal/abnormal . [facility] Description: RPR, Quant.2019-07-19 11:52:00 Test Item Value Reference Range Interpretation Comments RPR, Quant. (test 1:64 See_Comment H [Automate d message] The code = 84457-6) system which generated this result transmit lucrecia reference range : NonRea<1:1. The reference range was not u sed to interpret this result as normal/abnormal . [facility] Description: RPR, Quant.2019-07-19 11:52:00 Test Item Value Reference Range Interpretation Comments RPR, Quant. (test 1:64 See_Comment H [Automate d message] The code = 77709-9) system which generated this result transmit lucrecia reference range : NonRea<1:1. The reference range was not u sed to interpret this result as normal/abnormal . [facility] Description: RPR, Quant.2019-07-19 11:52:00 Test Item Value Reference Range Interpretation Comments RPR, Quant. (test 1:64 See_Comment H [Automate d message] The code = 40788-7) system which generated this result transmit lucrecia reference range : NonRea<1:1. The reference range was not u sed to interpret this result as normal/abnormal . [facility] Description: RPR, Quant.2019-07-19 11:52:00 Test Item Value Reference Range Interpretation Comments RPR, Quant. (test 1:64 See_Comment H [Automate d message] The code = 39449-7) system which generated this result transmit lucrecia reference range : NonRea<1:1. The reference range was not u sed to interpret this result as normal/abnormal . [facility] Description: RPR, Quant.2019-07-19 11:52:00 Test Item Value Reference Range Interpretation Comments RPR, Quant. (test 1:64 See_Comment H [Automate d message] The code = 40968-6) system which generated this result transmit lucrecia reference range : NonRea<1:1. The reference range was not u sed to interpret this result as normal/abnormal . [facility] Description: RPR, Quant.2019-07-19 11:52:00 Test Item Value Reference Range Interpretation Comments RPR, Quant. (test 1:64 See_Comment H [Automate d message] The code = 20416-7) system which generated this result transmit lucrecia reference range : NonRea<1:1. The reference range was not u sed to interpret this result as normal/abnormal . [facility] Description: RPR, Quant.2019-07-19 11:52:00 Test Item Value Reference Range Interpretation Comments RPR, Quant. (test 1:64 See_Comment H [Automate d message] The code = 74021-2) system which generated this result transmit lucrecia reference range : NonRea<1:1. The reference range was not u sed to interpret this result as normal/abnormal . [facility] Description: RPR, Quant.2019-07-19 11:52:00 Test Item Value Reference Range Interpretation Comments RPR, Quant. (test 1:64 See_Comment H [Automate d message] The code = 11444-1) system which generated this result transmit lucrecia reference range : NonRea<1:1. The reference range was not u sed to interpret this result as normal/abnormal . [facility] IQ Description: RPR, Quant.2019-07-19 11:52:00 Test Item Value Reference Range Interpretation Comments RPR, Quant. (test 1:64 See_Comment H [Automate d message] The code = 93462-7) system which generated this result transmit lucrecia reference range : NonRea<1:1. The reference range was not u sed to interpret this result as normal/abnormal . [facility] IQ Description: RPR, Quant.2019-07-19 11:52:00 Test Item Value Reference Range Interpretation Comments RPR, Quant. (test 1:64 See_Comment H [Automate d message] The code = 41362-5) system which generated this result transmit lucrecia reference range : NonRea<1:1. The reference range was not u sed to interpret this result as normal/abnormal . [facility] Description: RPR, Quant.2019-07-19 11:52:00 Test Item Value Reference Range Interpretation Comments RPR, Quant. (test 1:64 See_Comment H [Automate d message] The code = 69917-6) system which generated this result transmit lucrecia reference range : NonRea<1:1. The reference range was not u sed to interpret this result as normal/abnormal . [facility] IQ Description: RPR, Quant.2019-07-19 11:52:00 Test Item Value Reference Range Interpretation Comments RPR, Quant. (test 1:64 See_Comment H [Automate d message] The code = 20569-0) system which generated this result transmit lucrecia reference range : NonRea<1:1. The reference range was not u sed to interpret this result as normal/abnormal . [facility] Description: RPR, Quant.2019-07-19 11:52:00 Test Item Value Reference Range Interpretation Comments RPR, Quant. (test 1:64 See_Comment H [Automate d message] The code = 99390-1) system which generated this result transmit lucrecia reference range : NonRea<1:1. The reference range was not u sed to interpret this result as normal/abnormal . [facility] Description: QuantiFERON-TB Gold [id number] 22:08:00 Test Item Value Reference Range Interpretation Comments QuantiFERON Criteria Comment The [place] ntiFERON-TB Gold (test code = 8251-1) Plus re sult is determined by subtractingthe Nil value from eith er TB antigen (Ag) tu be. The mitogen tubeser ves as a control for the test.

Performe d by:
[facility] [place] ([place])

QuantiFERON TB1 Ag 0.05 IU/mL Value (test code = 70109-6) QuantiFERON TB2 Ag 0.04 IU/mL Value (test code = 77053-7) QuantiFERON Nil 0.05 IU/mL Value (test code = 95787-7) QuantiFERON Mitogen >10.00 Value (test code = 94697-5) QuantiFERON-TB Gold Negative Negative Plus (test code = 48179-0) [facility] Description: QuantiFERON-TB Gold [id number] 22:08:00 Test Item Value Reference Range Interpretation Comments QuantiFERON Criteria Comment The [place] ntiFERON-TB Gold (test code = 8251-1) Plus re sult is determined by subtractingthe Nil value from eith er TB antigen (Ag) tu be. The mitogen tubeser ves as a control for the test.

Performe d by:
[facility] [place] ()

QuantiFERON TB1 Ag 0.05 IU/mL Value (test code = 44887-2) QuantiFERON TB2 Ag 0.04 IU/mL Value (test code = 98720-4) QuantiFERON Nil 0.05 IU/mL Value (test code = 96252-0) QuantiFERON Mitogen >10.00 Value (test code = 39767-6) QuantiFERON-TB Gold Negative Negative Plus (test code = 88663-6) [facility] Description: QuantiFERON-TB Gold [id number] 22:08:00 Test Item Value Reference Range Interpretation Comments QuantiFERON Criteria Comment The [place] ntiFERON-TB Gold (test code = 8251-1) Plus re sult is determined by subtractingthe Nil value from eith er TB antigen (Ag) tu be. The mitogen tubeser ves as a control for the test.

Performe d by:
[facility] ([place])

QuantiFERON TB1 Ag 0.05 IU/mL Value (test code = 46871-9) QuantiFERON TB2 Ag 0.04 IU/mL Value (test code = 62725-9) QuantiFERON Nil 0.05 IU/mL Value (test code = 37659-1) QuantiFERON Mitogen >10.00 Value (test code = 34905-5) QuantiFERON-TB Gold Negative Negative Plus (test code = 06264-4) [facility] Description: QuantiFERON-TB Gold [id number] 22:08:00 Test Item Value Reference Range Interpretation Comments QuantiFERON Criteria Comment The [place] ntiFERON-TB Gold (test code = 8251-1) Plus re sult is determined by subtractingthe Nil value from eith er TB antigen (Ag) tu be. The mitogen tubeser ves as a control for the test.

Performe d by:
[facility] ()

QuantiFERON TB1 Ag 0.05 IU/mL Value (test code = 09409-1) QuantiFERON TB2 Ag 0.04 IU/mL Value (test code = 72397-4) QuantiFERON Nil 0.05 IU/mL Value (test code = 57999-3) QuantiFERON Mitogen >10.00 Value (test code = 88471-0) QuantiFERON-TB Gold Negative Negative Plus (test code = 98530-6) [facility] Description: QuantiFERON-TB Gold [id number] 22:08:00 Test Item Value Reference Range Interpretation Comments QuantiFERON Criteria Comment The [place] ntiFERON-TB Gold (test code = 8251-1) Plus re sult is determined by subtractingthe Nil value from eith er TB antigen (Ag) tu be. The mitogen tubeser ves as a control for the test.

Performe d by:
[facility] ([place])

QuantiFERON TB1 Ag 0.05 IU/mL Value (test code = 42853-0) QuantiFERON TB2 Ag 0.04 IU/mL Value (test code = 66288-1) QuantiFERON Nil 0.05 IU/mL Value (test code = 32276-4) QuantiFERON Mitogen >10.00 Value (test code = 53051-9) QuantiFERON-TB Gold Negative Negative Plus (test code = 91810-0) [facility] Description: QuantiFERON-TB Gold [id number] 22:08:00 Test Item Value Reference Range Interpretation Comments QuantiFERON Criteria Comment The [place] ntiFERON-TB Gold (test code = 8251-1) Plus re sult is determined by subtractingthe Nil value from eith er TB antigen (Ag) tu be. The mitogen tubeser ves as a control for the test.Performed by:[facility] () QuantiFERON TB1 Ag 0.05 IU/mL Value (test code = 19738-2) QuantiFERON TB2 Ag 0.04 IU/mL Value (test code = 60316-4) QuantiFERON Nil 0.05 IU/mL Value (test code = 16327-3) QuantiFERON Mitogen >10.00 Value (test code = 11876-4) QuantiFERON-TB Gold Negative Negative Plus (test code = 58794-1) [facility] Description: QuantiFERON-TB Gold [id number] 22:08:00 Test Item Value Reference Range Interpretation Comments QuantiFERON Criteria Comment The [place] ntiFERON-TB Gold (test code = 8251-1) Plus re sult is determined by subtractingthe Nil value from eith er TB antigen (Ag) tu be. The mitogen tubeser ves as a control for the test.Performed by:[facility] () QuantiFERON TB1 Ag 0.05 IU/mL Value (test code = 57921-0) QuantiFERON TB2 Ag 0.04 IU/mL Value (test code = 96472-6) QuantiFERON Nil 0.05 IU/mL Value (test code = 72249-2) QuantiFERON Mitogen >10.00 Value (test code = 52407-4) QuantiFERON-TB Gold Negative Negative Plus (test code = 22891-4) [facility] Description: QuantiFERON-TB Gold [id number] 22:08:00 Test Item Value Reference Range Interpretation Comments QuantiFERON Criteria Comment The [place] ntiFERON-TB Gold (test code = 8251-1) Plus re sult is determined by subtractingthe Nil value from eith er TB antigen (Ag) tu be. The mitogen tubeser ves as a control for the test.Performed by:[facility] ([place]) QuantiFERON TB1 Ag 0.05 IU/mL Value (test code = 24925-5) QuantiFERON TB2 Ag 0.04 IU/mL Value (test code = 26279-1) QuantiFERON Nil 0.05 IU/mL Value (test code = 86180-3) QuantiFERON Mitogen >10.00 Value (test code = 49316-5) QuantiFERON-TB Gold Negative Negative Plus (test code = 05521-7) [facility] Description: QuantiFERON-TB Gold [id number] 22:08:00 Test Item Value Reference Range Interpretation Comments QuantiFERON Criteria Comment The [place] ntiFERON-TB Gold (test code = 8251-1) Plus re sult is determined by subtractingthe Nil value from eith er TB antigen (Ag) tu be. The mitogen tubeser ves as a control for the test.Performed by:[facility] ([place]) QuantiFERON TB1 Ag 0.05 IU/mL Value (test code = 33629-4) QuantiFERON TB2 Ag 0.04 IU/mL Value (test code = 40912-7) QuantiFERON Nil 0.05 IU/mL Value (test code = 09214-1) QuantiFERON Mitogen >10.00 Value (test code = 44529-5) QuantiFERON-TB Gold Negative Negative Plus (test code = 51599-4) [facility] Description: QuantiFERON-TB Gold [id number] 22:08:00 Test Item Value Reference Range Interpretation Comments QuantiFERON Criteria Comment The [place] ntiFERON-TB Gold (test code = 8251-1) Plus re sult is determined by subtractingthe Nil value from eith er TB antigen (Ag) tu be. The mitogen tubeser ves as a control for the test.Performed by:[facility] ([place]) QuantiFERON TB1 Ag 0.05 IU/mL Value (test code = 70961-8) QuantiFERON TB2 Ag 0.04 IU/mL Value (test code = 07867-7) QuantiFERON Nil 0.05 IU/mL Value (test code = 15584-2) QuantiFERON Mitogen >10.00 Value (test code = 02549-4) QuantiFERON-TB Gold Negative Negative Plus (test code = 71373-1) [facility] Description: QuantiFERON-TB Gold [id number] 22:08:00 Test Item Value Reference Range Interpretation Comments QuantiFERON Criteria Comment The [place] ntiFERON-TB Gold (test code = 8251-1) Plus re sult is determined by subtractingthe Nil value from eith er TB antigen (Ag) tu be. The mitogen tubeser ves as a control for the test.Performed by:[facility] ([place]) QuantiFERON TB1 Ag 0.05 IU/mL Value (test code = 60368-1) QuantiFERON TB2 Ag 0.04 IU/mL Value (test code = 45506-6) QuantiFERON Nil 0.05 IU/mL Value (test code = 23199-0) QuantiFERON Mitogen >10.00 Value (test code = 18108-5) QuantiFERON-TB Gold Negative Negative Plus (test code = 67769-3) [facility] Description: QuantiFERON-TB Gold [id number] 22:08:00 Test Item Value Reference Range Interpretation Comments QuantiFERON Criteria Comment The [place] ntiFERON-TB Gold (test code = 8251-1) Plus re sult is determined by subtractingthe Nil value from eith er TB antigen (Ag) tu be. The mitogen tubeser ves as a control for the test.Performed by:[facility] ([place]) QuantiFERON TB1 Ag 0.05 IU/mL Value (test code = 37961-1) QuantiFERON TB2 Ag 0.04 IU/mL Value (test code = 46323-2) QuantiFERON Nil 0.05 IU/mL Value (test code = 57170-9) QuantiFERON Mitogen >10.00 Value (test code = 34972-6) QuantiFERON-TB Gold Negative Negative Plus (test code = 56150-5) [facility] Description: QuantiFERON-TB Gold [id number] 22:08:00 Test Item Value Reference Range Interpretation Comments QuantiFERON Criteria Comment The [place] ntiFERON-TB Gold (test code = 8251-1) Plus re sult is determined by subtractingthe Nil value from eith er TB antigen (Ag) tu be. The mitogen tubeser ves as a control for the test.Performed by:[facility] ([place]) QuantiFERON TB1 Ag 0.05 IU/mL Value (test code = 23976-5) QuantiFERON TB2 Ag 0.04 IU/mL Value (test code = 71349-5) QuantiFERON Nil 0.05 IU/mL Value (test code = 88331-1) QuantiFERON Mitogen >10.00 Value (test code = 52989-0) QuantiFERON-TB Gold Negative Negative Plus (test code = 39752-5) [facility] Description: QuantiFERON-TB Gold [id number] 22:08:00 Test Item Value Reference Range Interpretation Comments QuantiFERON Criteria Comment The [place] ntiFERON-TB Gold (test code = 8251-1) Plus re sult is determined by subtractingthe Nil value from eith er TB antigen (Ag) tu be. The mitogen tubeser ves as a control for the test.Performed by:[facility] ([place]) QuantiFERON TB1 Ag 0.05 IU/mL Value (test code = 49510-3) QuantiFERON TB2 Ag 0.04 IU/mL Value (test code = 65446-4) QuantiFERON Nil 0.05 IU/mL Value (test code = 43775-5) QuantiFERON Mitogen >10.00 Value (test code = 62998-6) QuantiFERON-TB Gold Negative Negative Plus (test code = 78434-5) [facility] Description: QuantiFERON-TB Gold [id number] 22:08:00 Test Item Value Reference Range Interpretation Comments QuantiFERON Criteria Comment The [place] ntiFERON-TB Gold (test code = 8251-1) Plus re sult is determined by subtractingthe Nil value from eith er TB antigen (Ag) tu be. The mitogen tubeser ves as a control for the test.

Performe d by:
[facility] ()

QuantiFERON TB1 Ag 0.05 IU/mL Value (test code = 35826-7) QuantiFERON TB2 Ag 0.04 IU/mL Value (test code = 94647-4) QuantiFERON Nil 0.05 IU/mL Value (test code = 76271-7) QuantiFERON Mitogen >10.00 Value (test code = 43805-8) QuantiFERON-TB Gold Negative Negative Plus (test code = 92991-3) [facility] Description: QuantiFERON-TB Gold [id number] 22:08:00 Test Item Value Reference Range Interpretation Comments QuantiFERON Criteria Comment The [place] ntiFERON-TB Gold (test code = 8251-1) Plus re sult is determined by subtractingthe Nil value from eith er TB antigen (Ag) tu be. The mitogen tubeser ves as a control for the test.

Performe d by:
[facility] ()

QuantiFERON TB1 Ag 0.05 IU/mL Value (test code = 31896-8) QuantiFERON TB2 Ag 0.04 IU/mL Value (test code = 32849-0) QuantiFERON Nil 0.05 IU/mL Value (test code = 97674-7) QuantiFERON Mitogen >10.00 Value (test code = 46518-6) QuantiFERON-TB Gold Negative Negative Plus (test code = 46973-3) [facility] Description: QuantiFERON-TB Gold [id number] 22:08:00 Test Item Value Reference Range Interpretation Comments QuantiFERON Criteria Comment The [place] ntiFERON-TB Gold (test code = 8251-1) Plus re sult is determined by subtractingthe Nil value from eith er TB antigen (Ag) tu be. The mitogen tubeser ves as a control for the test.

Performe d by:
[facility] ([place])

QuantiFERON TB1 Ag 0.05 IU/mL Value (test code = 83190-2) QuantiFERON TB2 Ag 0.04 IU/mL Value (test code = 10455-1) QuantiFERON Nil 0.05 IU/mL Value (test code = 96881-2) QuantiFERON Mitogen >10.00 Value (test code = 42734-9) QuantiFERON-TB Gold Negative Negative Plus (test code = 29688-8) [facility] Description: QuantiFERON-TB Gold [id number] 22:08:00 Test Item Value Reference Range Interpretation Comments QuantiFERON Criteria Comment The [place] ntiFERON-TB Gold (test code = 8251-1) Plus re sult is determined by subtractingthe Nil value from eith er TB antigen (Ag) tu be. The mitogen tubeser ves as a control for the test.

Performe d by:
[facility] ([place])

QuantiFERON TB1 Ag 0.05 IU/mL Value (test code = 87477-2) QuantiFERON TB2 Ag 0.04 IU/mL Value (test code = 52820-1) QuantiFERON Nil 0.05 IU/mL Value (test code = 33104-0) QuantiFERON Mitogen >10.00 Value (test code = 62349-2) QuantiFERON-TB Gold Negative Negative Plus (test code = 50643-4) [facility] Description: QuantiFERON-TB Gold [id number] 22:08:00 Test Item Value Reference Range Interpretation Comments QuantiFERON Criteria Comment The [place] ntiFERON-TB Gold (test code = 8251-1) Plus re sult is determined by subtractingthe Nil value from eith er TB antigen (Ag) tu be. The mitogen tubeser ves as a control for the test.

Performe d by:
[facility] ([place])

QuantiFERON TB1 Ag 0.05 IU/mL Value (test code = 36311-9) QuantiFERON TB2 Ag 0.04 IU/mL Value (test code = 24827-2) QuantiFERON Nil 0.05 IU/mL Value (test code = 83064-7) QuantiFERON Mitogen >10.00 Value (test code = 43392-8) QuantiFERON-TB Gold Negative Negative Plus (test code = 45870-7) [facility] Description: QuantiFERON-TB Gold [id number] 22:08:00 Test Item Value Reference Range Interpretation Comments QuantiFERON Criteria Comment The [place] ntiFERON-TB Gold (test code = 8251-1) Plus re sult is determined by subtractingthe Nil value from eith er TB antigen (Ag) tu be. The mitogen tubeser ves as a control for the test.

Performe d by:
[facility] ([place])

QuantiFERON TB1 Ag 0.05 IU/mL Value (test code = 19489-7) QuantiFERON TB2 Ag 0.04 IU/mL Value (test code = 33297-0) QuantiFERON Nil 0.05 IU/mL Value (test code = 22317-1) QuantiFERON Mitogen >10.00 Value (test code = 73578-2) QuantiFERON-TB Gold Negative Negative Plus (test code = 83893-4) [facility] Description: QuantiFERON-TB Gold [id number] 22:08:00 Test Item Value Reference Range Interpretation Comments QuantiFERON Criteria Comment The [place] ntiFERON-TB Gold (test code = 8251-1) Plus re sult is determined by subtractingthe Nil value from eith er TB antigen (Ag) tu be. The mitogen tubeser ves as a control for the test.

Performe d by:
[facility] [place] ([place])

QuantiFERON TB1 Ag 0.05 IU/mL Value (test code = 58963-7) QuantiFERON TB2 Ag 0.04 IU/mL Value (test code = 28263-1) QuantiFERON Nil 0.05 IU/mL Value (test code = 18441-8) QuantiFERON Mitogen >10.00 Value (test code = 66116-0) QuantiFERON-TB Gold Negative Negative Plus (test code = 14041-4) [facility] Description: QuantiFERON-TB Gold [id number] 22:08:00 Test Item Value Reference Range Interpretation Comments QuantiFERON Criteria Comment The [place] ntiFERON-TB Gold (test code = 8251-1) Plus re sult is determined by subtractingthe Nil value from eith er TB antigen (Ag) tu be. The mitogen tubeser ves as a control for the test.

Performe d by:
[facility] ([place])

QuantiFERON TB1 Ag 0.05 IU/mL Value (test code = 46645-2) QuantiFERON TB2 Ag 0.04 IU/mL Value (test code = 38865-7) QuantiFERON Nil 0.05 IU/mL Value (test code = 32256-8) QuantiFERON Mitogen >10.00 Value (test code = 62308-1) QuantiFERON-TB Gold Negative Negative Plus (test code = 24188-2) [facility] Description: CD4/CD8 Ratio [id number] 20:24:00 Test Item Value Reference Range Interpretation Comments Absolute CD 4 [place] (test code 869 /uL 359-1519 = 86493-9) % CD 4 Pos. Lymph. (test code = 37.8 % 30.8-58.5 8123-2) Abs. CD 8 Suppressor (test code 952 /uL 109-897 H = 13104-6) % CD 8 Pos. Lymph. (test code = 41.4 % 12.0-35.5 H 8101-8) CD4/CD8 Ratio (test code = 0.91 0.92-3.72 L 27131-1) WBC (test code = 6690-2) 5.8 x10E3/uL 3.4-10.8 RBC (test code = 789-8) 4.98 x10E6/uL 4.14-5.80 Hemoglobin (test code = 718-7) 14.7 g/dL 13.0-17.7 Hematocrit (test code = 4544-3) 44.1 % 37.5-51.0 MCV (test code = 787-2) 89 fL 79-97 MCH (test code = 785-6) 29.5 pg 26.6-33.0 MCHC (test code = 786-4) 33.3 g/dL 31.5-35.7 RDW (test code = 788-0) 14.8 % 11.6-15.4 Platelets (test code = 777-3) 283 x10E3/uL 150-450 Neutrophils (test code = 770-8) 48 % Not Estab. Lymphs (test code = 736-9) 40 % Not Estab. Monocytes (test code = 5905-5) 11 % Not Estab. Eos (test code = 713-8) 1 % Not Estab. Basos (test code = 706-2) 0 % Not Estab. Neutrophils (Absolute) (test 2.8 x10E3/uL 1.4-7.0 code = 751-8) Lymphs (Absolute) (test code = 2.3 x10E3/uL 0.7-3.1 731-0) Monocytes(Absolute) (test code 0.6 x10E3/uL 0.1-0.9 = 742-7) Eos (Absolute) (test code = 0.0 x10E3/uL 0.0-0.4 711-2) Baso (Absolute) (test code = 0.0 x10E3/uL 0.0-0.2 704-7) Immature Granulocytes (test 0 % Not Estab. code = 81425-2) Immature Grans (Abs) (test code 0.0 x10E3/uL 0.0-0.1 = 19385-6) NRBC (test code = 83049-8) Hematology Comments: (test code = 91434-5) [facility] Description: CD4/CD8 Ratio [id number] 20:24:00 Test Item Value Reference Range Interpretation Comments Absolute CD 4 [place] (test code 869 /uL 359-1519 = 67145-9) % CD 4 Pos. Lymph. (test code = 37.8 % 30.8-58.5 8123-2) Abs. CD 8 Suppressor (test code 952 /uL 109-897 H = 52232-3) % CD 8 Pos. Lymph. (test code = 41.4 % 12.0-35.5 H 8101-8) CD4/CD8 Ratio (test code = 0.91 0.92-3.72 L 32442-6) WBC (test code = 6690-2) 5.8 x10E3/uL 3.4-10.8 RBC (test code = 789-8) 4.98 x10E6/uL 4.14-5.80 Hemoglobin (test code = 718-7) 14.7 g/dL 13.0-17.7 Hematocrit (test code = 4544-3) 44.1 % 37.5-51.0 MCV (test code = 787-2) 89 fL 79-97 MCH (test code = 785-6) 29.5 pg 26.6-33.0 MCHC (test code = 786-4) 33.3 g/dL 31.5-35.7 RDW (test code = 788-0) 14.8 % 11.6-15.4 Platelets (test code = 777-3) 283 x10E3/uL 150-450 Neutrophils (test code = 770-8) 48 % Not Estab. Lymphs (test code = 736-9) 40 % Not Estab. Monocytes (test code = 5905-5) 11 % Not Estab. Eos (test code = 713-8) 1 % Not Estab. Basos (test code = 706-2) 0 % Not Estab. Neutrophils (Absolute) (test 2.8 x10E3/uL 1.4-7.0 code = 751-8) Lymphs (Absolute) (test code = 2.3 x10E3/uL 0.7-3.1 731-0) Monocytes(Absolute) (test code 0.6 x10E3/uL 0.1-0.9 = 742-7) Eos (Absolute) (test code = 0.0 x10E3/uL 0.0-0.4 711-2) Baso (Absolute) (test code = 0.0 x10E3/uL 0.0-0.2 704-7) Immature Granulocytes (test 0 % Not Estab. code = 64994-9) Immature Grans (Abs) (test code 0.0 x10E3/uL 0.0-0.1 = 98060-6) NRBC (test code = 27454-0) Hematology Comments: (test code = 64632-9) [facility] Description: CD4/CD8 Ratio [id number] 20:24:00 Test Item Value Reference Range Interpretation Comments Absolute CD 4 [place] (test code 869 /uL 359-1519 = 42465-7) % CD 4 Pos. Lymph. (test code = 37.8 % 30.8-58.5 8123-2) Abs. CD 8 Suppressor (test code 952 /uL 109-897 H = 07496-4) % CD 8 Pos. Lymph. (test code = 41.4 % 12.0-35.5 H 8101-8) CD4/CD8 Ratio (test code = 0.91 0.92-3.72 L 69088-5) WBC (test code = 6690-2) 5.8 x10E3/uL 3.4-10.8 RBC (test code = 789-8) 4.98 x10E6/uL 4.14-5.80 Hemoglobin (test code = 718-7) 14.7 g/dL 13.0-17.7 Hematocrit (test code = 4544-3) 44.1 % 37.5-51.0 MCV (test code = 787-2) 89 fL 79-97 MCH (test code = 785-6) 29.5 pg 26.6-33.0 MCHC (test code = 786-4) 33.3 g/dL 31.5-35.7 RDW (test code = 788-0) 14.8 % 11.6-15.4 Platelets (test code = 777-3) 283 x10E3/uL 150-450 Neutrophils (test code = 770-8) 48 % Not Estab. Lymphs (test code = 736-9) 40 % Not Estab. Monocytes (test code = 5905-5) 11 % Not Estab. Eos (test code = 713-8) 1 % Not Estab. Basos (test code = 706-2) 0 % Not Estab. Neutrophils (Absolute) (test 2.8 x10E3/uL 1.4-7.0 code = 751-8) Lymphs (Absolute) (test code = 2.3 x10E3/uL 0.7-3.1 731-0) Monocytes(Absolute) (test code 0.6 x10E3/uL 0.1-0.9 = 742-7) Eos (Absolute) (test code = 0.0 x10E3/uL 0.0-0.4 711-2) Baso (Absolute) (test code = 0.0 x10E3/uL 0.0-0.2 704-7) Immature Granulocytes (test 0 % Not Estab. code = 63739-4) Immature Grans (Abs) (test code 0.0 x10E3/uL 0.0-0.1 = 70117-9) NRBC (test code = 97111-3) Hematology Comments: (test code = 32986-6) [facility] Description: CD4/CD8 Ratio [id number] 20:24:00 Test Item Value Reference Range Interpretation Comments Absolute CD 4 [place] (test code 869 /uL 359-1519 = 49104-9) % CD 4 Pos. Lymph. (test code = 37.8 % 30.8-58.5 8123-2) Abs. CD 8 Suppressor (test code 952 /uL 109-897 H = 02624-3) % CD 8 Pos. Lymph. (test code = 41.4 % 12.0-35.5 H 8101-8) CD4/CD8 Ratio (test code = 0.91 0.92-3.72 L 51597-1) WBC (test code = 6690-2) 5.8 x10E3/uL 3.4-10.8 RBC (test code = 789-8) 4.98 x10E6/uL 4.14-5.80 Hemoglobin (test code = 718-7) 14.7 g/dL 13.0-17.7 Hematocrit (test code = 4544-3) 44.1 % 37.5-51.0 MCV (test code = 787-2) 89 fL 79-97 MCH (test code = 785-6) 29.5 pg 26.6-33.0 MCHC (test code = 786-4) 33.3 g/dL 31.5-35.7 RDW (test code = 788-0) 14.8 % 11.6-15.4 Platelets (test code = 777-3) 283 x10E3/uL 150-450 Neutrophils (test code = 770-8) 48 % Not Estab. Lymphs (test code = 736-9) 40 % Not Estab. Monocytes (test code = 5905-5) 11 % Not Estab. Eos (test code = 713-8) 1 % Not Estab. Basos (test code = 706-2) 0 % Not Estab. Neutrophils (Absolute) (test 2.8 x10E3/uL 1.4-7.0 code = 751-8) Lymphs (Absolute) (test code = 2.3 x10E3/uL 0.7-3.1 731-0) Monocytes(Absolute) (test code 0.6 x10E3/uL 0.1-0.9 = 742-7) Eos (Absolute) (test code = 0.0 x10E3/uL 0.0-0.4 711-2) Baso (Absolute) (test code = 0.0 x10E3/uL 0.0-0.2 704-7) Immature Granulocytes (test 0 % Not Estab. code = 92992-7) Immature Grans (Abs) (test code 0.0 x10E3/uL 0.0-0.1 = 01382-7) NRBC (test code = 64383-1) Hematology Comments: (test code = 61812-4) [facility] Description: CD4/CD8 Ratio [id number] 20:24:00 Test Item Value Reference Range Interpretation Comments Absolute CD 4 [place] (test code 869 /uL 359-1519 = 26556-4) % CD 4 Pos. Lymph. (test code = 37.8 % 30.8-58.5 8123-2) Abs. CD 8 Suppressor (test code 952 /uL 109-897 H = 03466-6) % CD 8 Pos. Lymph. (test code = 41.4 % 12.0-35.5 H 8101-8) CD4/CD8 Ratio (test code = 0.91 0.92-3.72 L 51205-5) WBC (test code = 6690-2) 5.8 x10E3/uL 3.4-10.8 RBC (test code = 789-8) 4.98 x10E6/uL 4.14-5.80 Hemoglobin (test code = 718-7) 14.7 g/dL 13.0-17.7 Hematocrit (test code = 4544-3) 44.1 % 37.5-51.0 MCV (test code = 787-2) 89 fL 79-97 MCH (test code = 785-6) 29.5 pg 26.6-33.0 MCHC (test code = 786-4) 33.3 g/dL 31.5-35.7 RDW (test code = 788-0) 14.8 % 11.6-15.4 Platelets (test code = 777-3) 283 x10E3/uL 150-450 Neutrophils (test code = 770-8) 48 % Not Estab. Lymphs (test code = 736-9) 40 % Not Estab. Monocytes (test code = 5905-5) 11 % Not Estab. Eos (test code = 713-8) 1 % Not Estab. Basos (test code = 706-2) 0 % Not Estab. Neutrophils (Absolute) (test 2.8 x10E3/uL 1.4-7.0 code = 751-8) Lymphs (Absolute) (test code = 2.3 x10E3/uL 0.7-3.1 731-0) Monocytes(Absolute) (test code 0.6 x10E3/uL 0.1-0.9 = 742-7) Eos (Absolute) (test code = 0.0 x10E3/uL 0.0-0.4 711-2) Baso (Absolute) (test code = 0.0 x10E3/uL 0.0-0.2 704-7) Immature Granulocytes (test 0 % Not Estab. code = 20123-9) Immature Grans (Abs) (test code 0.0 x10E3/uL 0.0-0.1 = 29095-8) NRBC (test code = 91394-9) Hematology Comments: (test code = 34411-0) [facility] Description: CD4/CD8 Ratio [id number] 20:24:00 Test Item Value Reference Range Interpretation Comments Absolute CD 4 [place] (test code 869 /uL 359-1519 = 15968-0) % CD 4 Pos. Lymph. (test code = 37.8 % 30.8-58.5 8123-2) Abs. CD 8 Suppressor (test code 952 /uL 109-897 H = 37350-3) % CD 8 Pos. Lymph. (test code = 41.4 % 12.0-35.5 H 8101-8) CD4/CD8 Ratio (test code = 0.91 0.92-3.72 L 33731-9) WBC (test code = 6690-2) 5.8 x10E3/uL 3.4-10.8 RBC (test code = 789-8) 4.98 x10E6/uL 4.14-5.80 Hemoglobin (test code = 718-7) 14.7 g/dL 13.0-17.7 Hematocrit (test code = 4544-3) 44.1 % 37.5-51.0 MCV (test code = 787-2) 89 fL 79-97 MCH (test code = 785-6) 29.5 pg 26.6-33.0 MCHC (test code = 786-4) 33.3 g/dL 31.5-35.7 RDW (test code = 788-0) 14.8 % 11.6-15.4 Platelets (test code = 777-3) 283 x10E3/uL 150-450 Neutrophils (test code = 770-8) 48 % Not Estab. Lymphs (test code = 736-9) 40 % Not Estab. Monocytes (test code = 5905-5) 11 % Not Estab. Eos (test code = 713-8) 1 % Not Estab. Basos (test code = 706-2) 0 % Not Estab. Neutrophils (Absolute) (test 2.8 x10E3/uL 1.4-7.0 code = 751-8) Lymphs (Absolute) (test code = 2.3 x10E3/uL 0.7-3.1 731-0) Monocytes(Absolute) (test code 0.6 x10E3/uL 0.1-0.9 = 742-7) Eos (Absolute) (test code = 0.0 x10E3/uL 0.0-0.4 711-2) Baso (Absolute) (test code = 0.0 x10E3/uL 0.0-0.2 704-7) Immature Granulocytes (test 0 % Not Estab. code = 67860-0) Immature Grans (Abs) (test code 0.0 x10E3/uL 0.0-0.1 = 98324-6) NRBC (test code = 23926-1) Hematology Comments: (test code = 71586-4) [facility] Description: CD4/CD8 Ratio [id number] 20:24:00 Test Item Value Reference Range Interpretation Comments Absolute CD 4 [place] (test code 869 /uL 359-1519 = 23923-6) % CD 4 Pos. Lymph. (test code = 37.8 % 30.8-58.5 8123-2) Abs. CD 8 Suppressor (test code 952 /uL 109-897 H = 62853-4) % CD 8 Pos. Lymph. (test code = 41.4 % 12.0-35.5 H 8101-8) CD4/CD8 Ratio (test code = 0.91 0.92-3.72 L 76841-7) WBC (test code = 6690-2) 5.8 x10E3/uL 3.4-10.8 RBC (test code = 789-8) 4.98 x10E6/uL 4.14-5.80 Hemoglobin (test code = 718-7) 14.7 g/dL 13.0-17.7 Hematocrit (test code = 4544-3) 44.1 % 37.5-51.0 MCV (test code = 787-2) 89 fL 79-97 MCH (test code = 785-6) 29.5 pg 26.6-33.0 MCHC (test code = 786-4) 33.3 g/dL 31.5-35.7 RDW (test code = 788-0) 14.8 % 11.6-15.4 Platelets (test code = 777-3) 283 x10E3/uL 150-450 Neutrophils (test code = 770-8) 48 % Not Estab. Lymphs (test code = 736-9) 40 % Not Estab. Monocytes (test code = 5905-5) 11 % Not Estab. Eos (test code = 713-8) 1 % Not Estab. Basos (test code = 706-2) 0 % Not Estab. Neutrophils (Absolute) (test 2.8 x10E3/uL 1.4-7.0 code = 751-8) Lymphs (Absolute) (test code = 2.3 x10E3/uL 0.7-3.1 731-0) Monocytes(Absolute) (test code 0.6 x10E3/uL 0.1-0.9 = 742-7) Eos (Absolute) (test code = 0.0 x10E3/uL 0.0-0.4 711-2) Baso (Absolute) (test code = 0.0 x10E3/uL 0.0-0.2 704-7) Immature Granulocytes (test 0 % Not Estab. code = 61686-6) Immature Grans (Abs) (test code 0.0 x10E3/uL 0.0-0.1 = 28732-6) NRBC (test code = 71297-2) Hematology Comments: (test code = 63361-8) [facility] Description: CD4/CD8 Ratio [id number] 20:24:00 Test Item Value Reference Range Interpretation Comments Absolute CD 4 [place] (test code 869 /uL 359-1519 = 30359-6) % CD 4 Pos. Lymph. (test code = 37.8 % 30.8-58.5 8123-2) Abs. CD 8 Suppressor (test code 952 /uL 109-897 H = 99440-5) % CD 8 Pos. Lymph. (test code = 41.4 % 12.0-35.5 H 8101-8) CD4/CD8 Ratio (test code = 0.91 0.92-3.72 L 70458-8) WBC (test code = 6690-2) 5.8 x10E3/uL 3.4-10.8 RBC (test code = 789-8) 4.98 x10E6/uL 4.14-5.80 Hemoglobin (test code = 718-7) 14.7 g/dL 13.0-17.7 Hematocrit (test code = 4544-3) 44.1 % 37.5-51.0 MCV (test code = 787-2) 89 fL 79-97 MCH (test code = 785-6) 29.5 pg 26.6-33.0 MCHC (test code = 786-4) 33.3 g/dL 31.5-35.7 RDW (test code = 788-0) 14.8 % 11.6-15.4 Platelets (test code = 777-3) 283 x10E3/uL 150-450 Neutrophils (test code = 770-8) 48 % Not Estab. Lymphs (test code = 736-9) 40 % Not Estab. Monocytes (test code = 5905-5) 11 % Not Estab. Eos (test code = 713-8) 1 % Not Estab. Basos (test code = 706-2) 0 % Not Estab. Neutrophils (Absolute) (test 2.8 x10E3/uL 1.4-7.0 code = 751-8) Lymphs (Absolute) (test code = 2.3 x10E3/uL 0.7-3.1 731-0) Monocytes(Absolute) (test code 0.6 x10E3/uL 0.1-0.9 = 742-7) Eos (Absolute) (test code = 0.0 x10E3/uL 0.0-0.4 711-2) Baso (Absolute) (test code = 0.0 x10E3/uL 0.0-0.2 704-7) Immature Granulocytes (test 0 % Not Estab. code = 04785-2) Immature Grans (Abs) (test code 0.0 x10E3/uL 0.0-0.1 = 01819-0) NRBC (test code = 70092-7) Hematology Comments: (test code = 74313-5) [facility] Description: CD4/CD8 Ratio [id number] 20:24:00 Test Item Value Reference Range Interpretation Comments Absolute CD 4 [place] (test code 869 /uL 359-1519 = 50023-7) % CD 4 Pos. Lymph. (test code = 37.8 % 30.8-58.5 8123-2) Abs. CD 8 Suppressor (test code 952 /uL 109-897 H = 56966-0) % CD 8 Pos. Lymph. (test code = 41.4 % 12.0-35.5 H 8101-8) CD4/CD8 Ratio (test code = 0.91 0.92-3.72 L 31964-0) WBC (test code = 6690-2) 5.8 x10E3/uL 3.4-10.8 RBC (test code = 789-8) 4.98 x10E6/uL 4.14-5.80 Hemoglobin (test code = 718-7) 14.7 g/dL 13.0-17.7 Hematocrit (test code = 4544-3) 44.1 % 37.5-51.0 MCV (test code = 787-2) 89 fL 79-97 MCH (test code = 785-6) 29.5 pg 26.6-33.0 MCHC (test code = 786-4) 33.3 g/dL 31.5-35.7 RDW (test code = 788-0) 14.8 % 11.6-15.4 Platelets (test code = 777-3) 283 x10E3/uL 150-450 Neutrophils (test code = 770-8) 48 % Not Estab. Lymphs (test code = 736-9) 40 % Not Estab. Monocytes (test code = 5905-5) 11 % Not Estab. Eos (test code = 713-8) 1 % Not Estab. Basos (test code = 706-2) 0 % Not Estab. Neutrophils (Absolute) (test 2.8 x10E3/uL 1.4-7.0 code = 751-8) Lymphs (Absolute) (test code = 2.3 x10E3/uL 0.7-3.1 731-0) Monocytes(Absolute) (test code 0.6 x10E3/uL 0.1-0.9 = 742-7) Eos (Absolute) (test code = 0.0 x10E3/uL 0.0-0.4 711-2) Baso (Absolute) (test code = 0.0 x10E3/uL 0.0-0.2 704-7) Immature Granulocytes (test 0 % Not Estab. code = 50596-9) Immature Grans (Abs) (test code 0.0 x10E3/uL 0.0-0.1 = 03283-6) NRBC (test code = 31124-7) Hematology Comments: (test code = 46709-6) [facility] Description: CD4/CD8 Ratio [id number] 20:24:00 Test Item Value Reference Range Interpretation Comments Absolute CD 4 [place] (test code 869 /uL 359-1519 = 45177-9) % CD 4 Pos. Lymph. (test code = 37.8 % 30.8-58.5 8123-2) Abs. CD 8 Suppressor (test code 952 /uL 109-897 H = 11561-0) % CD 8 Pos. Lymph. (test code = 41.4 % 12.0-35.5 H 8101-8) CD4/CD8 Ratio (test code = 0.91 0.92-3.72 L 27887-6) WBC (test code = 6690-2) 5.8 x10E3/uL 3.4-10.8 RBC (test code = 789-8) 4.98 x10E6/uL 4.14-5.80 Hemoglobin (test code = 718-7) 14.7 g/dL 13.0-17.7 Hematocrit (test code = 4544-3) 44.1 % 37.5-51.0 MCV (test code = 787-2) 89 fL 79-97 MCH (test code = 785-6) 29.5 pg 26.6-33.0 MCHC (test code = 786-4) 33.3 g/dL 31.5-35.7 RDW (test code = 788-0) 14.8 % 11.6-15.4 Platelets (test code = 777-3) 283 x10E3/uL 150-450 Neutrophils (test code = 770-8) 48 % Not Estab. Lymphs (test code = 736-9) 40 % Not Estab. Monocytes (test code = 5905-5) 11 % Not Estab. Eos (test code = 713-8) 1 % Not Estab. Basos (test code = 706-2) 0 % Not Estab. Neutrophils (Absolute) (test 2.8 x10E3/uL 1.4-7.0 code = 751-8) Lymphs (Absolute) (test code = 2.3 x10E3/uL 0.7-3.1 731-0) Monocytes(Absolute) (test code 0.6 x10E3/uL 0.1-0.9 = 742-7) Eos (Absolute) (test code = 0.0 x10E3/uL 0.0-0.4 711-2) Baso (Absolute) (test code = 0.0 x10E3/uL 0.0-0.2 704-7) Immature Granulocytes (test 0 % Not Estab. code = 66482-3) Immature Grans (Abs) (test code 0.0 x10E3/uL 0.0-0.1 = 57077-1) NRBC (test code = 48698-8) Hematology Comments: (test code = 64639-3) [facility] Description: CD4/CD8 Ratio [id number] 20:24:00 Test Item Value Reference Range Interpretation Comments Absolute CD 4 [place] (test code 869 /uL 359-1519 = 30993-8) % CD 4 Pos. Lymph. (test code = 37.8 % 30.8-58.5 8123-2) Abs. CD 8 Suppressor (test code 952 /uL 109-897 H = 01933-4) % CD 8 Pos. Lymph. (test code = 41.4 % 12.0-35.5 H 8101-8) CD4/CD8 Ratio (test code = 0.91 0.92-3.72 L 61916-1) WBC (test code = 6690-2) 5.8 x10E3/uL 3.4-10.8 RBC (test code = 789-8) 4.98 x10E6/uL 4.14-5.80 Hemoglobin (test code = 718-7) 14.7 g/dL 13.0-17.7 Hematocrit (test code = 4544-3) 44.1 % 37.5-51.0 MCV (test code = 787-2) 89 fL 79-97 MCH (test code = 785-6) 29.5 pg 26.6-33.0 MCHC (test code = 786-4) 33.3 g/dL 31.5-35.7 RDW (test code = 788-0) 14.8 % 11.6-15.4 Platelets (test code = 777-3) 283 x10E3/uL 150-450 Neutrophils (test code = 770-8) 48 % Not Estab. Lymphs (test code = 736-9) 40 % Not Estab. Monocytes (test code = 5905-5) 11 % Not Estab. Eos (test code = 713-8) 1 % Not Estab. Basos (test code = 706-2) 0 % Not Estab. Neutrophils (Absolute) (test 2.8 x10E3/uL 1.4-7.0 code = 751-8) Lymphs (Absolute) (test code = 2.3 x10E3/uL 0.7-3.1 731-0) Monocytes(Absolute) (test code 0.6 x10E3/uL 0.1-0.9 = 742-7) Eos (Absolute) (test code = 0.0 x10E3/uL 0.0-0.4 711-2) Baso (Absolute) (test code = 0.0 x10E3/uL 0.0-0.2 704-7) Immature Granulocytes (test 0 % Not Estab. code = 67056-5) Immature Grans (Abs) (test code 0.0 x10E3/uL 0.0-0.1 = 39493-0) NRBC (test code = 01238-0) Hematology Comments: (test code = 74366-2) [facility] Description: CD4/CD8 Ratio [id number] 20:24:00 Test Item Value Reference Range Interpretation Comments Absolute CD 4 [place] (test code 869 /uL 359-1519 = 39820-6) % CD 4 Pos. Lymph. (test code = 37.8 % 30.8-58.5 8123-2) Abs. CD 8 Suppressor (test code 952 /uL 109-897 H = 15807-6) % CD 8 Pos. Lymph. (test code = 41.4 % 12.0-35.5 H 8101-8) CD4/CD8 Ratio (test code = 0.91 0.92-3.72 L 98736-0) WBC (test code = 6690-2) 5.8 x10E3/uL 3.4-10.8 RBC (test code = 789-8) 4.98 x10E6/uL 4.14-5.80 Hemoglobin (test code = 718-7) 14.7 g/dL 13.0-17.7 Hematocrit (test code = 4544-3) 44.1 % 37.5-51.0 MCV (test code = 787-2) 89 fL 79-97 MCH (test code = 785-6) 29.5 pg 26.6-33.0 MCHC (test code = 786-4) 33.3 g/dL 31.5-35.7 RDW (test code = 788-0) 14.8 % 11.6-15.4 Platelets (test code = 777-3) 283 x10E3/uL 150-450 Neutrophils (test code = 770-8) 48 % Not Estab. Lymphs (test code = 736-9) 40 % Not Estab. Monocytes (test code = 5905-5) 11 % Not Estab. Eos (test code = 713-8) 1 % Not Estab. Basos (test code = 706-2) 0 % Not Estab. Neutrophils (Absolute) (test 2.8 x10E3/uL 1.4-7.0 code = 751-8) Lymphs (Absolute) (test code = 2.3 x10E3/uL 0.7-3.1 731-0) Monocytes(Absolute) (test code 0.6 x10E3/uL 0.1-0.9 = 742-7) Eos (Absolute) (test code = 0.0 x10E3/uL 0.0-0.4 711-2) Baso (Absolute) (test code = 0.0 x10E3/uL 0.0-0.2 704-7) Immature Granulocytes (test 0 % Not Estab. code = 31213-4) Immature Grans (Abs) (test code 0.0 x10E3/uL 0.0-0.1 = 68093-4) NRBC (test code = 06270-6) Hematology Comments: (test code = 78234-9) [facility] Description: CD4/CD8 Ratio [id number] 20:24:00 Test Item Value Reference Range Interpretation Comments Absolute CD 4 [place] (test code 869 /uL 359-1519 = 99004-7) % CD 4 Pos. Lymph. (test code = 37.8 % 30.8-58.5 8123-2) Abs. CD 8 Suppressor (test code 952 /uL 109-897 H = 20963-0) % CD 8 Pos. Lymph. (test code = 41.4 % 12.0-35.5 H 8101-8) CD4/CD8 Ratio (test code = 0.91 0.92-3.72 L 31460-8) WBC (test code = 6690-2) 5.8 x10E3/uL 3.4-10.8 RBC (test code = 789-8) 4.98 x10E6/uL 4.14-5.80 Hemoglobin (test code = 718-7) 14.7 g/dL 13.0-17.7 Hematocrit (test code = 4544-3) 44.1 % 37.5-51.0 MCV (test code = 787-2) 89 fL 79-97 MCH (test code = 785-6) 29.5 pg 26.6-33.0 MCHC (test code = 786-4) 33.3 g/dL 31.5-35.7 RDW (test code = 788-0) 14.8 % 11.6-15.4 Platelets (test code = 777-3) 283 x10E3/uL 150-450 Neutrophils (test code = 770-8) 48 % Not Estab. Lymphs (test code = 736-9) 40 % Not Estab. Monocytes (test code = 5905-5) 11 % Not Estab. Eos (test code = 713-8) 1 % Not Estab. Basos (test code = 706-2) 0 % Not Estab. Neutrophils (Absolute) (test 2.8 x10E3/uL 1.4-7.0 code = 751-8) Lymphs (Absolute) (test code = 2.3 x10E3/uL 0.7-3.1 731-0) Monocytes(Absolute) (test code 0.6 x10E3/uL 0.1-0.9 = 742-7) Eos (Absolute) (test code = 0.0 x10E3/uL 0.0-0.4 711-2) Baso (Absolute) (test code = 0.0 x10E3/uL 0.0-0.2 704-7) Immature Granulocytes (test 0 % Not Estab. code = 25314-6) Immature Grans (Abs) (test code 0.0 x10E3/uL 0.0-0.1 = 62500-3) NRBC (test code = 35963-0) Hematology Comments: (test code = 85999-6) [facility] Description: CD4/CD8 Ratio [id number] 20:24:00 Test Item Value Reference Range Interpretation Comments Absolute CD 4 [place] (test code 869 /uL 359-1519 = 22529-6) % CD 4 Pos. Lymph. (test code = 37.8 % 30.8-58.5 8123-2) Abs. CD 8 Suppressor (test code 952 /uL 109-897 H = 12839-2) % CD 8 Pos. Lymph. (test code = 41.4 % 12.0-35.5 H 8101-8) CD4/CD8 Ratio (test code = 0.91 0.92-3.72 L 37140-1) WBC (test code = 6690-2) 5.8 x10E3/uL 3.4-10.8 RBC (test code = 789-8) 4.98 x10E6/uL 4.14-5.80 Hemoglobin (test code = 718-7) 14.7 g/dL 13.0-17.7 Hematocrit (test code = 4544-3) 44.1 % 37.5-51.0 MCV (test code = 787-2) 89 fL 79-97 MCH (test code = 785-6) 29.5 pg 26.6-33.0 MCHC (test code = 786-4) 33.3 g/dL 31.5-35.7 RDW (test code = 788-0) 14.8 % 11.6-15.4 Platelets (test code = 777-3) 283 x10E3/uL 150-450 Neutrophils (test code = 770-8) 48 % Not Estab. Lymphs (test code = 736-9) 40 % Not Estab. Monocytes (test code = 5905-5) 11 % Not Estab. Eos (test code = 713-8) 1 % Not Estab. Basos (test code = 706-2) 0 % Not Estab. Neutrophils (Absolute) (test 2.8 x10E3/uL 1.4-7.0 code = 751-8) Lymphs (Absolute) (test code = 2.3 x10E3/uL 0.7-3.1 731-0) Monocytes(Absolute) (test code 0.6 x10E3/uL 0.1-0.9 = 742-7) Eos (Absolute) (test code = 0.0 x10E3/uL 0.0-0.4 711-2) Baso (Absolute) (test code = 0.0 x10E3/uL 0.0-0.2 704-7) Immature Granulocytes (test 0 % Not Estab. code = 10900-3) Immature Grans (Abs) (test code 0.0 x10E3/uL 0.0-0.1 = 04578-3) NRBC (test code = 31092-4) Hematology Comments: (test code = 69171-1) [facility] Description: CD4/CD8 Ratio [id number] 20:24:00 Test Item Value Reference Range Interpretation Comments Absolute CD 4 [place] (test code 869 /uL 359-1519 = 12267-0) % CD 4 Pos. Lymph. (test code = 37.8 % 30.8-58.5 8123-2) Abs. CD 8 Suppressor (test code 952 /uL 109-897 H = 74206-9) % CD 8 Pos. Lymph. (test code = 41.4 % 12.0-35.5 H 8101-8) CD4/CD8 Ratio (test code = 0.91 0.92-3.72 L 90470-9) WBC (test code = 6690-2) 5.8 x10E3/uL 3.4-10.8 RBC (test code = 789-8) 4.98 x10E6/uL 4.14-5.80 Hemoglobin (test code = 718-7) 14.7 g/dL 13.0-17.7 Hematocrit (test code = 4544-3) 44.1 % 37.5-51.0 MCV (test code = 787-2) 89 fL 79-97 MCH (test code = 785-6) 29.5 pg 26.6-33.0 MCHC (test code = 786-4) 33.3 g/dL 31.5-35.7 RDW (test code = 788-0) 14.8 % 11.6-15.4 Platelets (test code = 777-3) 283 x10E3/uL 150-450 Neutrophils (test code = 770-8) 48 % Not Estab. Lymphs (test code = 736-9) 40 % Not Estab. Monocytes (test code = 5905-5) 11 % Not Estab. Eos (test code = 713-8) 1 % Not Estab. Basos (test code = 706-2) 0 % Not Estab. Neutrophils (Absolute) (test 2.8 x10E3/uL 1.4-7.0 code = 751-8) Lymphs (Absolute) (test code = 2.3 x10E3/uL 0.7-3.1 731-0) Monocytes(Absolute) (test code 0.6 x10E3/uL 0.1-0.9 = 742-7) Eos (Absolute) (test code = 0.0 x10E3/uL 0.0-0.4 711-2) Baso (Absolute) (test code = 0.0 x10E3/uL 0.0-0.2 704-7) Immature Granulocytes (test 0 % Not Estab. code = 08999-7) Immature Grans (Abs) (test code 0.0 x10E3/uL 0.0-0.1 = 50572-5) NRBC (test code = 18703-6) Hematology Comments: (test code = 08678-6) [facility] Description: CD4/CD8 Ratio [id number] 20:24:00 Test Item Value Reference Range Interpretation Comments Absolute CD 4 [place] (test code 869 /uL 359-1519 = 85741-3) % CD 4 Pos. Lymph. (test code = 37.8 % 30.8-58.5 8123-2) Abs. CD 8 Suppressor (test code 952 /uL 109-897 H = 92362-1) % CD 8 Pos. Lymph. (test code = 41.4 % 12.0-35.5 H 8101-8) CD4/CD8 Ratio (test code = 0.91 0.92-3.72 L 60701-6) WBC (test code = 6690-2) 5.8 x10E3/uL 3.4-10.8 RBC (test code = 789-8) 4.98 x10E6/uL 4.14-5.80 Hemoglobin (test code = 718-7) 14.7 g/dL 13.0-17.7 Hematocrit (test code = 4544-3) 44.1 % 37.5-51.0 MCV (test code = 787-2) 89 fL 79-97 MCH (test code = 785-6) 29.5 pg 26.6-33.0 MCHC (test code = 786-4) 33.3 g/dL 31.5-35.7 RDW (test code = 788-0) 14.8 % 11.6-15.4 Platelets (test code = 777-3) 283 x10E3/uL 150-450 Neutrophils (test code = 770-8) 48 % Not Estab. Lymphs (test code = 736-9) 40 % Not Estab. Monocytes (test code = 5905-5) 11 % Not Estab. Eos (test code = 713-8) 1 % Not Estab. Basos (test code = 706-2) 0 % Not Estab. Neutrophils (Absolute) (test 2.8 x10E3/uL 1.4-7.0 code = 751-8) Lymphs (Absolute) (test code = 2.3 x10E3/uL 0.7-3.1 731-0) Monocytes(Absolute) (test code 0.6 x10E3/uL 0.1-0.9 = 742-7) Eos (Absolute) (test code = 0.0 x10E3/uL 0.0-0.4 711-2) Baso (Absolute) (test code = 0.0 x10E3/uL 0.0-0.2 704-7) Immature Granulocytes (test 0 % Not Estab. code = 18767-3) Immature Grans (Abs) (test code 0.0 x10E3/uL 0.0-0.1 = 70324-6) NRBC (test code = 53969-7) Hematology Comments: (test code = 30048-0) [facility] Description: CD4/CD8 Ratio [id number] 20:24:00 Test Item Value Reference Range Interpretation Comments Absolute CD 4 [place] (test code 869 /uL 359-1519 = 67016-4) % CD 4 Pos. Lymph. (test code = 37.8 % 30.8-58.5 8123-2) Abs. CD 8 Suppressor (test code 952 /uL 109-897 H = 39630-5) % CD 8 Pos. Lymph. (test code = 41.4 % 12.0-35.5 H 8101-8) CD4/CD8 Ratio (test code = 0.91 0.92-3.72 L 20375-2) WBC (test code = 6690-2) 5.8 x10E3/uL 3.4-10.8 RBC (test code = 789-8) 4.98 x10E6/uL 4.14-5.80 Hemoglobin (test code = 718-7) 14.7 g/dL 13.0-17.7 Hematocrit (test code = 4544-3) 44.1 % 37.5-51.0 MCV (test code = 787-2) 89 fL 79-97 MCH (test code = 785-6) 29.5 pg 26.6-33.0 MCHC (test code = 786-4) 33.3 g/dL 31.5-35.7 RDW (test code = 788-0) 14.8 % 11.6-15.4 Platelets (test code = 777-3) 283 x10E3/uL 150-450 Neutrophils (test code = 770-8) 48 % Not Estab. Lymphs (test code = 736-9) 40 % Not Estab. Monocytes (test code = 5905-5) 11 % Not Estab. Eos (test code = 713-8) 1 % Not Estab. Basos (test code = 706-2) 0 % Not Estab. Neutrophils (Absolute) (test 2.8 x10E3/uL 1.4-7.0 code = 751-8) Lymphs (Absolute) (test code = 2.3 x10E3/uL 0.7-3.1 731-0) Monocytes(Absolute) (test code 0.6 x10E3/uL 0.1-0.9 = 742-7) Eos (Absolute) (test code = 0.0 x10E3/uL 0.0-0.4 711-2) Baso (Absolute) (test code = 0.0 x10E3/uL 0.0-0.2 704-7) Immature Granulocytes (test 0 % Not Estab. code = 55927-0) Immature Grans (Abs) (test code 0.0 x10E3/uL 0.0-0.1 = 43309-7) NRBC (test code = 19008-1) Hematology Comments: (test code = 62683-5) [facility] Description: CD4/CD8 Ratio [id number] 20:24:00 Test Item Value Reference Range Interpretation Comments Absolute CD 4 [place] (test code 869 /uL 359-1519 = 09745-5) % CD 4 Pos. Lymph. (test code = 37.8 % 30.8-58.5 8123-2) Abs. CD 8 Suppressor (test code 952 /uL 109-897 H = 04450-3) % CD 8 Pos. Lymph. (test code = 41.4 % 12.0-35.5 H 8101-8) CD4/CD8 Ratio (test code = 0.91 0.92-3.72 L 18396-0) WBC (test code = 6690-2) 5.8 x10E3/uL 3.4-10.8 RBC (test code = 789-8) 4.98 x10E6/uL 4.14-5.80 Hemoglobin (test code = 718-7) 14.7 g/dL 13.0-17.7 Hematocrit (test code = 4544-3) 44.1 % 37.5-51.0 MCV (test code = 787-2) 89 fL 79-97 MCH (test code = 785-6) 29.5 pg 26.6-33.0 MCHC (test code = 786-4) 33.3 g/dL 31.5-35.7 RDW (test code = 788-0) 14.8 % 11.6-15.4 Platelets (test code = 777-3) 283 x10E3/uL 150-450 Neutrophils (test code = 770-8) 48 % Not Estab. Lymphs (test code = 736-9) 40 % Not Estab. Monocytes (test code = 5905-5) 11 % Not Estab. Eos (test code = 713-8) 1 % Not Estab. Basos (test code = 706-2) 0 % Not Estab. Neutrophils (Absolute) (test 2.8 x10E3/uL 1.4-7.0 code = 751-8) Lymphs (Absolute) (test code = 2.3 x10E3/uL 0.7-3.1 731-0) Monocytes(Absolute) (test code 0.6 x10E3/uL 0.1-0.9 = 742-7) Eos (Absolute) (test code = 0.0 x10E3/uL 0.0-0.4 711-2) Baso (Absolute) (test code = 0.0 x10E3/uL 0.0-0.2 704-7) Immature Granulocytes (test 0 % Not Estab. code = 26241-5) Immature Grans (Abs) (test code 0.0 x10E3/uL 0.0-0.1 = 20028-1) NRBC (test code = 07040-1) Hematology Comments: (test code = 52827-9) [facility] Description: CD4/CD8 Ratio [id number] 20:24:00 Test Item Value Reference Range Interpretation Comments Absolute CD 4 [place] (test code 869 /uL 359-1519 = 84983-8) % CD 4 Pos. Lymph. (test code = 37.8 % 30.8-58.5 8123-2) Abs. CD 8 Suppressor (test code 952 /uL 109-897 H = 67899-8) % CD 8 Pos. Lymph. (test code = 41.4 % 12.0-35.5 H 8101-8) CD4/CD8 Ratio (test code = 0.91 0.92-3.72 L 45842-5) WBC (test code = 6690-2) 5.8 x10E3/uL 3.4-10.8 RBC (test code = 789-8) 4.98 x10E6/uL 4.14-5.80 Hemoglobin (test code = 718-7) 14.7 g/dL 13.0-17.7 Hematocrit (test code = 4544-3) 44.1 % 37.5-51.0 MCV (test code = 787-2) 89 fL 79-97 MCH (test code = 785-6) 29.5 pg 26.6-33.0 MCHC (test code = 786-4) 33.3 g/dL 31.5-35.7 RDW (test code = 788-0) 14.8 % 11.6-15.4 Platelets (test code = 777-3) 283 x10E3/uL 150-450 Neutrophils (test code = 770-8) 48 % Not Estab. Lymphs (test code = 736-9) 40 % Not Estab. Monocytes (test code = 5905-5) 11 % Not Estab. Eos (test code = 713-8) 1 % Not Estab. Basos (test code = 706-2) 0 % Not Estab. Neutrophils (Absolute) (test 2.8 x10E3/uL 1.4-7.0 code = 751-8) Lymphs (Absolute) (test code = 2.3 x10E3/uL 0.7-3.1 731-0) Monocytes(Absolute) (test code 0.6 x10E3/uL 0.1-0.9 = 742-7) Eos (Absolute) (test code = 0.0 x10E3/uL 0.0-0.4 711-2) Baso (Absolute) (test code = 0.0 x10E3/uL 0.0-0.2 704-7) Immature Granulocytes (test 0 % Not Estab. code = 75834-5) Immature Grans (Abs) (test code 0.0 x10E3/uL 0.0-0.1 = 48763-3) NRBC (test code = 34186-7) Hematology Comments: (test code = 06823-7) [facility] Description: CD4/CD8 Ratio [id number] 20:24:00 Test Item Value Reference Range Interpretation Comments Absolute CD 4 [place] (test code 869 /uL 359-1519 = 05578-1) % CD 4 Pos. Lymph. (test code = 37.8 % 30.8-58.5 8123-2) Abs. CD 8 Suppressor (test code 952 /uL 109-897 H = 09245-7) % CD 8 Pos. Lymph. (test code = 41.4 % 12.0-35.5 H 8101-8) CD4/CD8 Ratio (test code = 0.91 0.92-3.72 L 26287-2) WBC (test code = 6690-2) 5.8 x10E3/uL 3.4-10.8 RBC (test code = 789-8) 4.98 x10E6/uL 4.14-5.80 Hemoglobin (test code = 718-7) 14.7 g/dL 13.0-17.7 Hematocrit (test code = 4544-3) 44.1 % 37.5-51.0 MCV (test code = 787-2) 89 fL 79-97 MCH (test code = 785-6) 29.5 pg 26.6-33.0 MCHC (test code = 786-4) 33.3 g/dL 31.5-35.7 RDW (test code = 788-0) 14.8 % 11.6-15.4 Platelets (test code = 777-3) 283 x10E3/uL 150-450 Neutrophils (test code = 770-8) 48 % Not Estab. Lymphs (test code = 736-9) 40 % Not Estab. Monocytes (test code = 5905-5) 11 % Not Estab. Eos (test code = 713-8) 1 % Not Estab. Basos (test code = 706-2) 0 % Not Estab. Neutrophils (Absolute) (test 2.8 x10E3/uL 1.4-7.0 code = 751-8) Lymphs (Absolute) (test code = 2.3 x10E3/uL 0.7-3.1 731-0) Monocytes(Absolute) (test code 0.6 x10E3/uL 0.1-0.9 = 742-7) Eos (Absolute) (test code = 0.0 x10E3/uL 0.0-0.4 711-2) Baso (Absolute) (test code = 0.0 x10E3/uL 0.0-0.2 704-7) Immature Granulocytes (test 0 % Not Estab. code = 77654-9) Immature Grans (Abs) (test code 0.0 x10E3/uL 0.0-0.1 = 41721-4) NRBC (test code = 78702-1) Hematology Comments: (test code = 78942-6) [facility] Description: CD4/CD8 Ratio [id number] 20:24:00 Test Item Value Reference Range Interpretation Comments Absolute CD 4 [place] (test code 869 /uL 359-1519 = 09708-3) % CD 4 Pos. Lymph. (test code = 37.8 % 30.8-58.5 8123-2) Abs. CD 8 Suppressor (test code 952 /uL 109-897 H = 68754-3) % CD 8 Pos. Lymph. (test code = 41.4 % 12.0-35.5 H 8101-8) CD4/CD8 Ratio (test code = 0.91 0.92-3.72 L 40535-4) WBC (test code = 6690-2) 5.8 x10E3/uL 3.4-10.8 RBC (test code = 789-8) 4.98 x10E6/uL 4.14-5.80 Hemoglobin (test code = 718-7) 14.7 g/dL 13.0-17.7 Hematocrit (test code = 4544-3) 44.1 % 37.5-51.0 MCV (test code = 787-2) 89 fL 79-97 MCH (test code = 785-6) 29.5 pg 26.6-33.0 MCHC (test code = 786-4) 33.3 g/dL 31.5-35.7 RDW (test code = 788-0) 14.8 % 11.6-15.4 Platelets (test code = 777-3) 283 x10E3/uL 150-450 Neutrophils (test code = 770-8) 48 % Not Estab. Lymphs (test code = 736-9) 40 % Not Estab. Monocytes (test code = 5905-5) 11 % Not Estab. Eos (test code = 713-8) 1 % Not Estab. Basos (test code = 706-2) 0 % Not Estab. Neutrophils (Absolute) (test 2.8 x10E3/uL 1.4-7.0 code = 751-8) Lymphs (Absolute) (test code = 2.3 x10E3/uL 0.7-3.1 731-0) Monocytes(Absolute) (test code 0.6 x10E3/uL 0.1-0.9 = 742-7) Eos (Absolute) (test code = 0.0 x10E3/uL 0.0-0.4 711-2) Baso (Absolute) (test code = 0.0 x10E3/uL 0.0-0.2 704-7) Immature Granulocytes (test 0 % Not Estab. code = 65645-9) Immature Grans (Abs) (test code 0.0 x10E3/uL 0.0-0.1 = 46960-9) NRBC (test code = 85917-2) Hematology Comments: (test code = 37353-6) [facility] Description: CD4/CD8 Ratio [id number] 20:24:00 Test Item Value Reference Range Interpretation Comments Absolute CD 4 [place] (test code 869 /uL 359-1519 = 81687-1) % CD 4 Pos. Lymph. (test code = 37.8 % 30.8-58.5 8123-2) Abs. CD 8 Suppressor (test code 952 /uL 109-897 H = 27668-6) % CD 8 Pos. Lymph. (test code = 41.4 % 12.0-35.5 H 8101-8) CD4/CD8 Ratio (test code = 0.91 0.92-3.72 L 56273-5) WBC (test code = 6690-2) 5.8 x10E3/uL 3.4-10.8 RBC (test code = 789-8) 4.98 x10E6/uL 4.14-5.80 Hemoglobin (test code = 718-7) 14.7 g/dL 13.0-17.7 Hematocrit (test code = 4544-3) 44.1 % 37.5-51.0 MCV (test code = 787-2) 89 fL 79-97 MCH (test code = 785-6) 29.5 pg 26.6-33.0 MCHC (test code = 786-4) 33.3 g/dL 31.5-35.7 RDW (test code = 788-0) 14.8 % 11.6-15.4 Platelets (test code = 777-3) 283 x10E3/uL 150-450 Neutrophils (test code = 770-8) 48 % Not Estab. Lymphs (test code = 736-9) 40 % Not Estab. Monocytes (test code = 5905-5) 11 % Not Estab. Eos (test code = 713-8) 1 % Not Estab. Basos (test code = 706-2) 0 % Not Estab. Neutrophils (Absolute) (test 2.8 x10E3/uL 1.4-7.0 code = 751-8) Lymphs (Absolute) (test code = 2.3 x10E3/uL 0.7-3.1 731-0) Monocytes(Absolute) (test code 0.6 x10E3/uL 0.1-0.9 = 742-7) Eos (Absolute) (test code = 0.0 x10E3/uL 0.0-0.4 711-2) Baso (Absolute) (test code = 0.0 x10E3/uL 0.0-0.2 704-7) Immature Granulocytes (test 0 % Not Estab. code = 01224-0) Immature Grans (Abs) (test code 0.0 x10E3/uL 0.0-0.1 = 97690-8) NRBC (test code = 60935-5) Hematology Comments: (test code = 33027-9) [facility] Description: Reagin Ab [Presence] in Serum by [id number] 10:18:00 Test Item Value Reference Range Interpretation Comments RPR (test code = 88883-0) Reactive Non Reactive A [facility] Description: Reagin Ab [Presence] in Serum by [id number] 10:18:00 Test Item Value Reference Range Interpretation Comments RPR (test code = 16168-9) Reactive Non Reactive A [facility] Description: Reagin Ab [Presence] in Serum by [id number] 10:18:00 Test Item Value Reference Range Interpretation Comments RPR (test code = 44445-0) Reactive Non Reactive A [facility] Description: Reagin Ab [Presence] in Serum by [id number] 10:18:00 Test Item Value Reference Range Interpretation Comments RPR (test code = 47301-8) Reactive Non Reactive A [facility] Description: Reagin Ab [Presence] in Serum by [id number] 10:18:00 Test Item Value Reference Range Interpretation Comments RPR (test code = 76471-5) Reactive Non Reactive A [facility] Description: Reagin Ab [Presence] in Serum by [id number] 10:18:00 Test Item Value Reference Range Interpretation Comments RPR (test code = 50605-7) Reactive Non Reactive A [facility] Description: Reagin Ab [Presence] in Serum by [id number] 10:18:00 Test Item Value Reference Range Interpretation Comments RPR (test code = 72510-5) Reactive Non Reactive A [facility] Description: Reagin Ab [Presence] in Serum by [id number] 10:18:00 Test Item Value Reference Range Interpretation Comments RPR (test code = 67621-6) Reactive Non Reactive A [facility] Description: Reagin Ab [Presence] in Serum by [id number] 10:18:00 Test Item Value Reference Range Interpretation Comments RPR (test code = 44101-0) Reactive Non Reactive A [facility] Description: Reagin Ab [Presence] in Serum by [id number] 10:18:00 Test Item Value Reference Range Interpretation Comments RPR (test code = 22365-0) Reactive Non Reactive A [facility] Description: Reagin Ab [Presence] in Serum by [id number] 10:18:00 Test Item Value Reference Range Interpretation Comments RPR (test code = 48520-8) Reactive Non Reactive A [facility] Description: Reagin Ab [Presence] in Serum by [id number] 10:18:00 Test Item Value Reference Range Interpretation Comments RPR (test code = 21479-0) Reactive Non Reactive A [facility] Description: Reagin Ab [Presence] in Serum by [id number] 10:18:00 Test Item Value Reference Range Interpretation Comments RPR (test code = 40498-4) Reactive Non Reactive A [facility] Description: Reagin Ab [Presence] in Serum by [id number] 10:18:00 Test Item Value Reference Range Interpretation Comments RPR (test code = 75512-5) Reactive Non Reactive A [facility] Description: Reagin Ab [Presence] in Serum by [id number] 10:18:00 Test Item Value Reference Range Interpretation Comments RPR (test code = 93518-5) Reactive Non Reactive A [facility] Description: Reagin Ab [Presence] in Serum by [id number] 10:18:00 Test Item Value Reference Range Interpretation Comments RPR (test code = 56119-3) Reactive Non Reactive A [facility] Description: Reagin Ab [Presence] in Serum by [id number] 10:18:00 Test Item Value Reference Range Interpretation Comments RPR (test code = 80378-0) Reactive Non Reactive A [facility] Description: Reagin Ab [Presence] in Serum by [id number] 10:18:00 Test Item Value Reference Range Interpretation Comments RPR (test code = 19268-9) Reactive Non Reactive A [facility] Description: Reagin Ab [Presence] in Serum by [id number] 10:18:00 Test Item Value Reference Range Interpretation Comments RPR (test code = 45800-4) Reactive Non Reactive A [facility] Description: Reagin Ab [Presence] in Serum by [id number] 10:18:00 Test Item Value Reference Range Interpretation Comments RPR (test code = 77251-5) Reactive Non Reactive A [facility] Description: Reagin Ab [Presence] in Serum by [id number] 10:18:00 Test Item Value Reference Range Interpretation Comments RPR (test code = 34463-9) Reactive Non Reactive A [facility] Description: Reagin Ab [Presence] in Serum by [id number] 10:18:00 Test Item Value Reference Range Interpretation Comments RPR (test code = 71697-9) Reactive Non Reactive A [facility] Description: 25-hydroxyvitamin D3 [Mass/volume] in Serum or [id number] 05:28:00 Test Item Value Reference Range Interpretation Comments Vitamin D, 6.5 ng/mL 30.0-100.0 L Vitamin D defic iency has 25-Hydroxy (test been define d by the code = 33840-3) [place] [employer] and an Endocrine So ciety practice guidel ine as alevel of serum 25-OH vitamin D less than 20 ng/mL (1,2).The Endocrine Society went on to further define vitamin Dinsufficiency as a level between 21 and 29 ng/mL (2).1. IOM (Ins titute of Medicine). 2010 . Dietary reference intak es for calcium and D. [facility]: [employer] .2. Savanna Macias, Nadege KINCAID, et al. Evaluation, treatment, and prevention of vitamin D de ficiency: an Endocrine So [facility] clinical practi ce guideline. JCEM . 2010; 96(7):1911-30.& lt;br/>
Performed by:
[facility] ([place])

[facility] Description: 25-hydroxyvitamin D3 [Mass/volume] in Serum or [id number] 05:28:00 Test Item Value Reference Range Interpretation Comments Vitamin D, 6.5 ng/mL 30.0-100.0 L Vitamin D defic iency has 25-Hydroxy (test been define d by the code = 49823-0) [place] [employer] and an Endocrine [facility] practice guidel ine as alevel of serum 25-OH vitamin D less than 20 ng/mL (1,2).The Endocrine Society went on to further define vitamin Dinsufficiency as a level between 21 and 29 ng/mL (2).1. IOM (Ins titute of Medicine). 2010 . Dietary reference intak es for calcium and D. [facility]: [employer] .2. Savanna Macias, Nadege KINCAID, et al. Evaluation, treatment, and prevention of vitamin D de ficiency: an Endocrine So [facility] clinical practi ce guideline. JCEM . 2010; 96(7):1911-30.& lt;br/>
Performed by:
[facility] ([place])

[facility] Description: 25-hydroxyvitamin D3 [Mass/volume] in Serum or [id number] 05:28:00 Test Item Value Reference Range Interpretation Comments Vitamin D, 6.5 ng/mL 30.0-100.0 L Vitamin D defic iency has 25-Hydroxy (test been define d by the code = 40088-0) [place] [employer] [facility] guidel ine as alevel of serum 25-OH vitamin D less than 20 ng/mL (1,2).The Endocrine Society went on to further define vitamin Dinsufficiency as a level between 21 and 29 ng/mL (2).1. IOM (Ins titute of Medicine). 2010 . Dietary reference intak es for calcium and D. [facility]: [employer] .2. Savanna Macias, Nadege KINCAID, et al. Evaluation, treatment, and prevention of vitamin D de ficiency: an Endocrine So [facility] clinical practi ce guideline. JCEM . 2010; 96(7):191-30.& lt;br/>
Performed by:
[facility] ([place])

[facility] Description: 25-hydroxyvitamin D3 [Mass/volume] in Serum or [id number] 05:28:00 Test Item Value Reference Range Interpretation Comments Vitamin D, 6.5 ng/mL 30.0-100.0 L Vitamin D defic iency has 25-Hydroxy (test been define d by the code = 63529-3) [place] [employer] [place] and an Endocrine [facility] practice guidel ine as alevel of serum 25-OH vitamin D less than 20 ng/mL (1,2).The Endocrine Society went on to further define vitamin Dinsufficiency as a level between 21 and 29 ng/mL (2).1. IOM (Ins titute of Medicine). 2010 . Dietary reference intak es for calcium and D. [facility]: [employer] .2. Savanna Macias, Nadege KINCAID, et al. Evaluation, treatment, and prevention of vitamin D de ficiency: an Endocrine So [facility] clinical practi ce guideline. JCEM . 2010; 96(7):1911-30.& lt;br/>
Performed by:
[facility] ([place])

[facility] Description: 25-hydroxyvitamin D3 [Mass/volume] in Serum or [id number] 05:28:00 Test Item Value Reference Range Interpretation Comments Vitamin D, 6.5 ng/mL 30.0-100.0 L Vitamin D defic iency has 25-Hydroxy (test been define d by the code = 06928-4) [place] [employer] and an Endocrine So ciety practice guidel ine as alevel of serum 25-OH vitamin D less than 20 ng/mL (1,2).The Endocrine Society went on to further define vitamin Dinsufficiency as a level between 21 and 29 ng/mL (2).1. IOM (Ins titute of Medicine). 2010 . Dietary reference intak es for calcium and D. [facility]: [employer] .2. Savanna Macias, Nadege KINCAID, et al. Evaluation, treatment, and prevention of vitamin D de ficiency: an Endocrine So [facility] clinical practi ce guideline. JCEM . 2010; 96(7):1911-.& lt;br/>
Performed by:
[facility] ()

[facility] Description: 25-hydroxyvitamin D3 [Mass/volume] in Serum or [id number] 05:28:00 Test Item Value Reference Range Interpretation Comments Vitamin D, 6.5 ng/mL 30.0-100.0 L Vitamin D defic iency has 25-Hydroxy (test been define d by the code = 23710-4) [place] [employer] [place] and an Endocrine [facility] practice guidel ine as alevel of serum 25-OH vitamin D less than 20 ng/mL (1,2).The Endocrine Society went on to further define vitamin Dinsufficiency as a level between 21 and 29 ng/mL (2).1. IOM (Ins titute of Medicine). 2010 . Dietary reference intak es for calcium and D. [facility]: [employer] .2. Savanna Macias, Nadege KINCAID, et al. Evaluation, treatment, and prevention of vitamin D de ficiency: an Endocrine So [facility] clinical practi ce guideline. JCEM . 2010; 96(7):1911-30.& lt;br/>
Performed by:
[facility] ([place])

[facility] Description: 25-hydroxyvitamin D3 [Mass/volume] in Serum or [id number] 05:28:00 Test Item Value Reference Range Interpretation Comments Vitamin D, 6.5 ng/mL 30.0-100.0 L Vitamin D defic iency has 25-Hydroxy (test been define d by the code = 25317-0) [place] [employer] [place] [facility] guidel ine as alevel of serum 25-OH vitamin D less than 20 ng/mL (1,2).The Endocrine Society went on to further define vitamin Dinsufficiency as a level between 21 and 29 ng/mL (2).1. IOM (Ins titute of Medicine). 2010 . Dietary reference intak es for calcium and D. [facility]: [employer] .2. Savanna Macias, Nadege KINCAID, et al. Evaluation, treatment, and prevention of vitamin D de ficiency: an Endocrine So [facility] clinical practi ce guideline. JCEM . 2010; 96(7):1911-30.P erformed by:[facility] () [facility] Description: 25-hydroxyvitamin D3 [Mass/volume] in Serum or [id number] 05:28:00 Test Item Value Reference Range Interpretation Comments Vitamin D, 6.5 ng/mL 30.0-100.0 L Vitamin D defic iency has 25-Hydroxy (test been define d by the code = 57042-9) [place] [employer] [place] and an Endocrine [facility] practice guidel ine as alevel of serum 25-OH vitamin D less than 20 ng/mL (1,2).The Endocrine Society went on to further define vitamin Dinsufficiency as a level between 21 and 29 ng/mL (2).1. IOM (Ins titute of Medicine). 2010 . Dietary reference intak es for calcium and D. [facility]: [employer] .2. Savanna Macias, Nadege KINCAID, et al. Evaluation, treatment, and prevention of vitamin D de ficiency: an Endocrine So [facility] clinical practi ce guideline. JCEM . 2010; 96(7):1911-30.P erformed by:[facility] ([place]) [facility] Description: 25-hydroxyvitamin D3 [Mass/volume] in Serum or [id number] 05:28:00 Test Item Value Reference Range Interpretation Comments Vitamin D, 6.5 ng/mL 30.0-100.0 L Vitamin D defic iency has 25-Hydroxy (test been define d by the code = 60706-4) [place] [employer] [place] [facility] guidel ine as alevel of serum 25-OH vitamin D less than 20 ng/mL (1,2).The Endocrine Society went on to further define vitamin Dinsufficiency as a level between 21 and 29 ng/mL (2).1. IOM (Ins titute of Medicine). 2010 . Dietary reference intak es for calcium and D. [facility]: [employer] .2. Savanna Macias, Nadege KINCAID, et al. Evaluation, treatment, and prevention of vitamin D de ficiency: an Endocrine So [facility] clinical practi ce guideline. JCEM . 2010; 96(7):1911-30.P erformed by:[facility] ([place]) [facility] Description: 25-hydroxyvitamin D3 [Mass/volume] in Serum or [id number] 05:28:00 Test Item Value Reference Range Interpretation Comments Vitamin D, 6.5 ng/mL 30.0-100.0 L Vitamin D defic iency has 25-Hydroxy (test been define d by the code = 64541-4) [place] [employer] [place] and an Endocrine [facility] practice guidel ine as alevel of serum 25-OH vitamin D less than 20 ng/mL (1,2).The Endocrine Society went on to further define vitamin Dinsufficiency as a level between 21 and 29 ng/mL (2).1. IOM (Ins titute of Medicine). 2010 . Dietary reference intak es for calcium and D. [facility]: [employer] .2. Savanna Macias, Nadege KINCAID, et al. Evaluation, treatment, and prevention of vitamin D de ficiency: an Endocrine So [facility] clinical practi ce guideline. JCEM . 2010; 96(7):191-.P erformed by:[facility] ([place]) [facility] Description: 25-hydroxyvitamin D3 [Mass/volume] in Serum or [id number] 05:28:00 Test Item Value Reference Range Interpretation Comments Vitamin D, 6.5 ng/mL 30.0-100.0 L Vitamin D defic iency has 25-Hydroxy (test been define d by the code = 56708-3) [place] [employer] and an Endocrine So ciety practice guidel ine as alevel of serum 25-OH vitamin D less than 20 ng/mL (1,2).The Endocrine Society went on to further define vitamin Dinsufficiency as a level between 21 and 29 ng/mL (2).1. IOM (Ins titute of Medicine). 2010 . Dietary reference intak es for calcium and D. [place]: [employer] .2. Mary Ellen BRYAN, Savanna NARAYAN, Thao-Jennifer KINCAID, et al. Evaluation, treatment, and prevention of vitamin D de ficiency: an Endocrine So [facility] clinical practi ce guideline. JCEM . 2010; 96(7):191-.P erformed by:[facility] ([place]) [facility] Description: 25-hydroxyvitamin D3 [Mass/volume] in Serum or [id number] 05:28:00 Test Item Value Reference Range Interpretation Comments Vitamin D, 6.5 ng/mL 30.0-100.0 L Vitamin D defic iency has 25-Hydroxy (test been define d by the code = 49855-0) [place] [employer] [place] [facility] guidel ine as alevel of serum 25-OH vitamin D less than 20 ng/mL (1,2).The Endocrine Society went on to further define vitamin Dinsufficiency as a level between 21 and 29 ng/mL (2).1. IOM (Ins titute of Medicine). 2010 . Dietary reference intak es for calcium and D. [place]: [employer] .2. Savanna Macias, Nadege KINCAID, et al. Evaluation, treatment, and prevention of vitamin D de ficiency: an Endocrine So [facility] clinical practi ce guideline. JCEM . 2010; 96(7):1911-30.P erformed by:[facility] ([place]) [facility] Description: 25-hydroxyvitamin D3 [Mass/volume] in Serum or [id number] 05:28:00 Test Item Value Reference Range Interpretation Comments Vitamin D, 6.5 ng/mL 30.0-100.0 L Vitamin D defic iency has 25-Hydroxy (test been define d by the code = 68205-2) [place] [employer] [place] [facility] an [facility]ocrine [facility] practice guidel ine as alevel of serum 25-OH vitamin D less than 20 ng/mL (1,2).The Endocrine Society went on to further define vitamin Dinsufficiency as a level between 21 and 29 ng/mL (2).1. IOM (Ins titute of Medicine). 2010 . Dietary reference intak es for calcium and D. [facility]: [facility] [employer] .2. Savanna Macias, Nadege KINCAID, et al. Evaluation, treatment, and prevention of vitamin D de ficiency: an Endocrine So [facility] clinical practi ce guideline. EM . 2010; 96(7):1911-30.P erformed by:[facility] ([place]) [facility] Description: 25-hydroxyvitamin D3 [Mass/volume] in Serum or [id number] 05:28:00 Test Item Value Reference Range Interpretation Comments Vitamin D, 6.5 ng/mL 30.0-100.0 L Vitamin D defic iency has 25-Hydroxy (test been define d by the code = 52500-8) [place] [employer] [place] and an [facility]ocrine [facility] practice guidel ine as alevel of serum 25-OH vitamin D less than 20 ng/mL (1,2).The Endocrine Society went on to further define vitamin Dinsufficiency as a level between 21 and 29 ng/mL (2).1. IOM (Ins titute of Medicine). 2010 . Dietary reference intak es for calcium and D. [facility]: [employer] .2. Savanna Macias, Nadege KINCAID, et al. Evaluation, treatment, and prevention of vitamin D de ficiency: an Endocrine [facility] clinical practi ce guideline. JCEM . 2010; 96(7):1911-30.P erformed by:[facility] ([place]) [facility] Description: 25-hydroxyvitamin D3 [Mass/volume] in Serum or [id number] 05:28:00 Test Item Value Reference Range Interpretation Comments Vitamin D, 6.5 ng/mL 30.0-100.0 L Vitamin D defic iency has 25-Hydroxy (test been define d by the code = 35793-7) [place] [employer] and an [facility]ocrine [facility] practice guidel ine as alevel of serum 25-OH vitamin D less than 20 ng/mL (1,2).The Endocrine Society went on to further define vitamin Dinsufficiency as a level between 21 and 29 ng/mL (2).1. IOM (Ins titute of Medicine). 2010 . Dietary reference intak es for calcium and D. [place]: [employer] .2. Savanna Macias, Nadege KINCAID, et al. Evaluation, treatment, and prevention of vitamin D de ficiency: an Endocrine So [facility] clinical practi ce guideline. EM . 2010; 96(7):1911-30.P erformed by:[facility] ([place]) [facility] Description: 25-hydroxyvitamin D3 [Mass/volume] in Serum or [id number] 05:28:00 Test Item Value Reference Range Interpretation Comments Vitamin D, 6.5 ng/mL 30.0-100.0 L Vitamin D defic iency has 25-Hydroxy (test been define d by the code = 63792-4) [place] [employer] and an [facility]ocrine [facility] practice guidel ine as alevel of serum 25-OH vitamin D less than 20 ng/mL (1,2).The Endocrine Society went on to further define vitamin Dinsufficiency as a level between 21 and 29 ng/mL (2).1. IOM (Ins titute of Medicine). 2010 . Dietary reference intak es for calcium and D. [place]: [employer] .2. Savanna Macias, Nadege KINCAID, et al. Evaluation, treatment, and prevention of vitamin D de ficiency: an Endocrine So [facility] clinical practi ce guideline. JCEM . 2010; 96(7):1911-30.& lt;br/>
Performed by:
[facility] ([place])

[facility] Description: 25-hydroxyvitamin D3 [Mass/volume] in Serum or [id number] 05:28:00 Test Item Value Reference Range Interpretation Comments Vitamin D, 6.5 ng/mL 30.0-100.0 L Vitamin D defic iency has 25-Hydroxy (test been define d by the code = 72401-6) [place] [employer] and an [facility]ocrine [facility] practice guidel ine as alevel of serum 25-OH vitamin D less than 20 ng/mL (1,2).The Endocrine Society went on to further define vitamin Dinsufficiency as a level between 21 and 29 ng/mL (2).1. IOM (Ins titute of Medicine). 2010 . Dietary reference intak es for calcium and D. [place]: [employer] .2. Mary Ellen BRYAN, Savanna NARAYAN, Nadege zayas KINCAID, et al. Evaluation, treatment, and prevention of vitamin D de ficiency: an Endocrine So [facility] clinical practi ce guideline. JCEM . 2010; 96(7):1911-30.& lt;br/>
Performed by:
[facility] ([place])

[facility] Description: 25-hydroxyvitamin D3 [Mass/volume] in Serum or [id number] 05:28:00 Test Item Value Reference Range Interpretation Comments Vitamin D, 6.5 ng/mL 30.0-100.0 L Vitamin D defic iency has 25-Hydroxy (test been define d by the code = 49921-4) [place] [employer] and an [facility]ocrine [facility] practice guidel ine as alevel of serum 25-OH vitamin D less than 20 ng/mL (1,2).The Endocrine Society went on to further define vitamin Dinsufficiency as a level between 21 and 29 ng/mL (2).1. IOM (Ins titute of Medicine). 2010 . Dietary reference intak es for calcium and D. [place]: [employer] .2. Savanna Macias, Nadege KINCAID, et al. Evaluation, treatment, and prevention of vitamin D de ficiency: an Endocrine [facility] clinical practi ce guideline. EM . 2010; 96(7):1911-30.& lt;br/>
Performed by:
[facility] ([place])

[facility] Description: 25-hydroxyvitamin D3 [Mass/volume] in Serum or [id number] 05:28:00 Test Item Value Reference Range Interpretation Comments Vitamin D, 6.5 ng/mL 30.0-100.0 L Vitamin D defic iency has 25-Hydroxy (test been define d by the code = 04431-0) [place] [employer] and an Endocrine [facility] practice guidel ine as alevel of serum 25-OH vitamin D less than 20 ng/mL (1,2).The Endocrine Society went on to further define vitamin Dinsufficiency as a level between 21 and 29 ng/mL (2).1. IOM (Ins titute of Medicine). 2010 . Dietary reference intak es for calcium and D. [place]: [facility] [employer] .2. Savanna Macias, Nadege KINCAID, et al. Evaluation, treatment, and prevention of vitamin D de ficiency: an Endocrine [facility] clinical practi ce guideline. EM . 2010; 96(7):1911-30.& lt;br/>
Performed by:
[facility] ([place])

[facility] Description: 25-hydroxyvitamin D3 [Mass/volume] in Serum or [id number] 05:28:00 Test Item Value Reference Range Interpretation Comments Vitamin D, 6.5 ng/mL 30.0-100.0 L Vitamin D defic iency has 25-Hydroxy (test been define d by the code = 58182-6) [place] [employer] [place] and an Endocrine [facility] practice guidel ine as alevel of serum 25-OH vitamin D less than 20 ng/mL (1,2).The Endocrine Society went on to further define vitamin Dinsufficiency as a level between 21 and 29 ng/mL (2).1. IOM (Ins titute of Medicine). 2010 . Dietary reference intak es for calcium and D. [facility]: [facility] [employer] .2. Savanna Macias, Nadege KINCAID, et al. Evaluation, treatment, and prevention of vitamin D de ficiency: an Endocrine [facility] clinical practi ce guideline. JCEM . 2010; 96(7):191-.& lt;br/>
Performed by:
[facility] [place] ()

[facility] Description: 25-hydroxyvitamin D3 [Mass/volume] in Serum or [id number] 05:28:00 Test Item Value Reference Range Interpretation Comments Vitamin D, 6.5 ng/mL 30.0-100.0 L Vitamin D defic iency has 25-Hydroxy (test been define d by the code = 83128-2) [place] [employer] [place] and an Endocrine [facility] practice guidel ine as alevel of serum 25-OH vitamin D less than 20 ng/mL (1,2).The Endocrine Society went on to further define vitamin Dinsufficiency as a level between 21 and 29 ng/mL (2).1. IOM (Ins titute of Medicine). 2010 . Dietary reference intak es for calcium and D. [facility]: [employer] .2. Savanna Macias, Nadege KINCAID, et al. Evaluation, treatment, and prevention of vitamin D de ficiency: an Endocrine [facility] clinical practi ce guideline. EM . 2010; 96(7):191-30.& lt;br/>
Performed by:
[facility] ()

[facility] Description: 25-hydroxyvitamin D3 [Mass/volume] in Serum or [id number] 05:28:00 Test Item Value Reference Range Interpretation Comments Vitamin D, 6.5 ng/mL 30.0-100.0 L Vitamin D defic iency has 25-Hydroxy (test been define d by the code = 24898-9) [place] and an Endocrine [facility] guidel ine as alevel of serum 25-OH vitamin D less than 20 ng/mL (1,2).The Endocrine Society went on to further define vitamin Dinsufficiency as a level between 21 and 29 ng/mL (2).1. IOM (Ins titute of Medicine). 2010 . Dietary reference intak es for calcium and D. [place]: [employer] .2. Mary Ellen MF, Savanna NARAYAN, Nadege zayas KINCAID, et al. Evaluation, treatment, and prevention of vitamin D de ficiency: an Endocrine [facility] clinical practi ce guideline. JCEM . 2010; 96(7):1911-30.& lt;br/>
Performed by:
[facility] ()

[facility] Description: Lipid [id number] 03:48:00 Test Item Value Reference Range Interpretation Comments Cholesterol, Total (test code = 165 mg/dL 981-514 6793-3) Triglycerides (test code = 2571-8) 82 mg/dL 0-149 HDL Cholesterol (test code = 54 mg/dL >39 5-9) VLDL Cholesterol Geoffrey (test code = 16 mg/dL 5-40 15952-0) LDL Cholesterol Calc (test code = 95 mg/dL 0-99 73738-5) Comment: (test code = 31197-5) [facility] Description: Lipid [id number] 03:48:00 Test Item Value Reference Range Interpretation Comments Cholesterol, Total (test code = 165 mg/dL 441-360 2499-3) Triglycerides (test code = 2571-8) 82 mg/dL 0-149 HDL Cholesterol (test code = 54 mg/dL >39 5-9) VLDL Cholesterol Geoffrey (test code = 16 mg/dL 5-40 51929-4) LDL Cholesterol Calc (test code = 95 mg/dL 0-99 81080-4) Comment: (test code = 12288-5) [facility] Description: Lipid [id number] 03:48:00 Test Item Value Reference Range Interpretation Comments Cholesterol, Total (test code = 165 mg/dL 392-586 0138-3) Triglycerides (test code = 2571-8) 82 mg/dL 0-149 HDL Cholesterol (test code = 54 mg/dL >39 2085-9) VLDL Cholesterol Geoffrey (test code = 16 mg/dL 5-40 11123-5) LDL Cholesterol Calc (test code = 95 mg/dL 0-99 15131-1) Comment: (test code = 26577-0) [facility] Description: Lipid [id number] 03:48:00 Test Item Value Reference Range Interpretation Comments Cholesterol, Total (test code = 165 mg/dL 955-539 4407-3) Triglycerides (test code = 2571-8) 82 mg/dL 0-149 HDL Cholesterol (test code = 54 mg/dL >39 2085-9) VLDL Cholesterol Geoffrey (test code = 16 mg/dL 5-40 21331-0) LDL Cholesterol Calc (test code = 95 mg/dL 0-99 31412-8) Comment: (test code = 39134-1) [facility] Description: Lipid [id number] 03:48:00 Test Item Value Reference Range Interpretation Comments Cholesterol, Total (test code = 165 mg/dL 955-369 5488-3) Triglycerides (test code = 2571-8) 82 mg/dL 0-149 HDL Cholesterol (test code = 54 mg/dL >39 2085-9) VLDL Cholesterol Geoffrey (test code = 16 mg/dL 5-40 27765-4) LDL Cholesterol Calc (test code = 95 mg/dL 0-99 93706-1) Comment: (test code = 30229-9) [facility] Description: Lipid [id number] 03:48:00 Test Item Value Reference Range Interpretation Comments Cholesterol, Total (test code = 165 mg/dL 908-555 0963-3) Triglycerides (test code = 2571-8) 82 mg/dL 0-149 HDL Cholesterol (test code = 54 mg/dL >39 2085-9) VLDL Cholesterol Geoffrey (test code = 16 mg/dL 5-40 19119-9) LDL Cholesterol Calc (test code = 95 mg/dL 0-99 65351-8) Comment: (test code = 33710-2) [facility] [employer] Description: Lipid [id number] 03:48:00 Test Item Value Reference Range Interpretation Comments Cholesterol, Total (test code = 165 mg/dL 441-772 6002-3) Triglycerides (test code = 2571-8) 82 mg/dL 0-149 HDL Cholesterol (test code = 54 mg/dL >39 2085-9) VLDL Cholesterol Geoffrey (test code = 16 mg/dL 5-40 59482-7) LDL Cholesterol Calc (test code = 95 mg/dL 0-99 19239-1) Comment: (test code = 98803-6) [facility] Description: Lipid [id number] 03:48:00 Test Item Value Reference Range Interpretation Comments Cholesterol, Total (test code = 165 mg/dL 154-116 3317-3) Triglycerides (test code = 2571-8) 82 mg/dL 0-149 HDL Cholesterol (test code = 54 mg/dL >39 2085-9) VLDL Cholesterol Geoffrey (test code = 16 mg/dL 5-40 03866-0) LDL Cholesterol Calc (test code = 95 mg/dL 0-99 71266-7) Comment: (test code = 06696-0) [facility] Description: Lipid [id number] 03:48:00 Test Item Value Reference Range Interpretation Comments Cholesterol, Total (test code = 165 mg/dL 701-855 0389-3) Triglycerides (test code = 2571-8) 82 mg/dL 0-149 HDL Cholesterol (test code = 54 mg/dL >39 2085-9) VLDL Cholesterol Geoffrey (test code = 16 mg/dL 5-40 22261-3) LDL Cholesterol Calc (test code = 95 mg/dL 0-99 65044-0) Comment: (test code = 06818-2) [facility] Description: Lipid [id number] 03:48:00 Test Item Value Reference Range Interpretation Comments Cholesterol, Total (test code = 165 mg/dL 472-342 0248-3) Triglycerides (test code = 2571-8) 82 mg/dL 0-149 HDL Cholesterol (test code = 54 mg/dL >39 2085-9) VLDL Cholesterol Geoffrey (test code = 16 mg/dL 5-40 54868-9) LDL Cholesterol Calc (test code = 95 mg/dL 0-99 72987-3) Comment: (test code = 07671-8) [facility] Description: Lipid [id number] 03:48:00 Test Item Value Reference Range Interpretation Comments Cholesterol, Total (test code = 165 mg/dL 667-826 6494-3) Triglycerides (test code = 2571-8) 82 mg/dL 0-149 HDL Cholesterol (test code = 54 mg/dL >39 2085-9) VLDL Cholesterol Geoffrey (test code = 16 mg/dL 5-40 36472-9) LDL Cholesterol Calc (test code = 95 mg/dL 0-99 41891-5) Comment: (test code = 83060-2) [employer] Description: Lipid [id number] 03:48:00 Test Item Value Reference Range Interpretation Comments Cholesterol, Total (test code = 165 mg/dL 868-559 7082-3) Triglycerides (test code = 2571-8) 82 mg/dL 0-149 HDL Cholesterol (test code = 54 mg/dL >39 5-9) VLDL Cholesterol Geoffrey (test code = 16 mg/dL 5-40 20583-8) LDL Cholesterol Calc (test code = 95 mg/dL 0-99 58151-3) Comment: (test code = 98204-1) [employer] Description: Lipid [id number] 03:48:00 Test Item Value Reference Range Interpretation Comments Cholesterol, Total (test code = 165 mg/dL 345-784 1731-3) Triglycerides (test code = 2571-8) 82 mg/dL 0-149 HDL Cholesterol (test code = 54 mg/dL >39 5-9) VLDL Cholesterol Geoffrey (test code = 16 mg/dL 5-40 48696-4) LDL Cholesterol Calc (test code = 95 mg/dL 0-99 66571-3) Comment: (test code = 18099-8) [employer] Description: Lipid [id number] 03:48:00 Test Item Value Reference Range Interpretation Comments Cholesterol, Total (test code = 165 mg/dL 541-356 4945-3) Triglycerides (test code = 2571-8) 82 mg/dL 0-149 HDL Cholesterol (test code = 54 mg/dL >39 5-9) VLDL Cholesterol Geoffrey (test code = 16 mg/dL 5-40 25959-5) LDL Cholesterol Calc (test code = 95 mg/dL 0-99 77332-9) Comment: (test code = 36289-9) [employer] Description: Lipid [id number] 03:48:00 Test Item Value Reference Range Interpretation Comments Cholesterol, Total (test code = 165 mg/dL 911-511 2930-3) Triglycerides (test code = 2571-8) 82 mg/dL 0-149 HDL Cholesterol (test code = 54 mg/dL >39 5-9) VLDL Cholesterol Geoffrey (test code = 16 mg/dL 5-40 40700-7) LDL Cholesterol Calc (test code = 95 mg/dL 0-99 26236-9) Comment: (test code = 58806-9) [facility] Description: Lipid [id number] 03:48:00 Test Item Value Reference Range Interpretation Comments Cholesterol, Total (test code = 165 mg/dL 297-978 9456-3) Triglycerides (test code = 2571-8) 82 mg/dL 0-149 HDL Cholesterol (test code = 54 mg/dL >39 5-9) VLDL Cholesterol Geoffrey (test code = 16 mg/dL 5-40 47113-8) LDL Cholesterol Calc (test code = 95 mg/dL 0-99 40979-2) Comment: (test code = 27212-3) [facility] Description: Lipid [id number] 03:48:00 Test Item Value Reference Range Interpretation Comments Cholesterol, Total (test code = 165 mg/dL 967-400 4741-3) Triglycerides (test code = 2571-8) 82 mg/dL 0-149 HDL Cholesterol (test code = 54 mg/dL >39 5-9) VLDL Cholesterol Geoffrey (test code = 16 mg/dL 5-40 70713-0) LDL Cholesterol Calc (test code = 95 mg/dL 0-99 70902-6) Comment: (test code = 58536-7) [facility] Description: Lipid [id number] 03:48:00 Test Item Value Reference Range Interpretation Comments Cholesterol, Total (test code = 165 mg/dL 156-348 1799-3) Triglycerides (test code = 2571-8) 82 mg/dL 0-149 HDL Cholesterol (test code = 54 mg/dL >39 5-9) VLDL Cholesterol Geoffrey (test code = 16 mg/dL 5-40 02632-1) LDL Cholesterol Calc (test code = 95 mg/dL 0-99 36151-8) Comment: (test code = 40996-0) [facility] Description: Lipid [id number] 03:48:00 Test Item Value Reference Range Interpretation Comments Cholesterol, Total (test code = 165 mg/dL 963-849 6260-3) Triglycerides (test code = 2571-8) 82 mg/dL 0-149 HDL Cholesterol (test code = 54 mg/dL >39 2085-9) VLDL Cholesterol Geoffrey (test code = 16 mg/dL 5-40 34456-0) LDL Cholesterol Calc (test code = 95 mg/dL 0-99 06180-7) Comment: (test code = 46570-1) [facility] Description: Lipid [id number] 03:48:00 Test Item Value Reference Range Interpretation Comments Cholesterol, Total (test code = 165 mg/dL 034-259 7692-3) Triglycerides (test code = 2571-8) 82 mg/dL 0-149 HDL Cholesterol (test code = 54 mg/dL >39 2085-9) VLDL Cholesterol Geoffrey (test code = 16 mg/dL 5-40 43447-1) LDL Cholesterol Calc (test code = 95 mg/dL 0-99 73281-0) Comment: (test code = 14463-9) [facility] Description: Lipid [id number] 03:48:00 Test Item Value Reference Range Interpretation Comments Cholesterol, Total (test code = 165 mg/dL 412-776 7604-3) Triglycerides (test code = 2571-8) 82 mg/dL 0-149 HDL Cholesterol (test code = 54 mg/dL >39 2085-9) VLDL Cholesterol Geoffrey (test code = 16 mg/dL 5-40 56958-7) LDL Cholesterol Calc (test code = 95 mg/dL 0-99 53429-3) Comment: (test code = 38921-1) [facility] Description: Lipid [id number] 03:48:00 Test Item Value Reference Range Interpretation Comments Cholesterol, Total (test code = 165 mg/dL 734-535 3171-3) Triglycerides (test code = 2571-8) 82 mg/dL 0-149 HDL Cholesterol (test code = 54 mg/dL >39 2085-9) VLDL Cholesterol Geoffrey (test code = 16 mg/dL 5-40 02064-3) LDL Cholesterol Calc (test code = 95 mg/dL 0-99 60336-1) Comment: (test code = 35722-6) [facility] Description: Comp. Metabolic Panel (14)2019-07-18 03:38:00 Test Item Value Reference Range Interpretation Comments Glucose (test code = 82 mg/dL 65-99 2345-7) BUN (test code = 7 mg/dL 6-20 3094-0) Creatinine (test code 0.80 mg/dL 0.76-1.27 = 2160-0) eGFR If NonAfricn Am 121 mL/min/1.73 >59 (test code = 69127-8) eGFR If Africn Am 140 mL/min/1.73 >59 (test code = 96579-1) BUN/Creatinine Ratio 9 9-20 (test code = 3097-3) Sodium (test code = 140 mmol/L 331-127 2230-2) Potassium (test code 3.8 mmol/L 3.5-5.2 = 2823-3) Chloride (test code = 101 mmol/L 96-106 2075-0) Carbon Dioxide, Total 24 mmol/L 20-29 (test code = 2027-9) Calcium (test code = 9.8 mg/dL 8.7-10.2 27175-3) Protein, Total (test 7.7 g/dL 6.0-8.5 code = 2885-2) Albumin (test code = 4.5 g/dL 4.1-5.2 Plea se note 1751-7) reference inter crystal change
<b r/> Performed by:
[facility] ([place])

Globulin, Total (test 3.2 g/dL 1.5-4.5 code = 37952-6) A/G Ratio (test code 1.4 1.2-2.2 = 1759-0) Bilirubin, Total 0.4 mg/dL 0.0-1.2 (test code = 1975-2) Alkaline Phosphatase 111 IU/L 39-117 (test code = 6768-6) AST (SGOT) (test code 18 IU/L 0-40 = 1920-8) ALT (SGPT) (test code 12 IU/L 0-44 = 1742-6) [facility] Description: Comp. Metabolic Panel (142019-07-18 03:38:00 Test Item Value Reference Range Interpretation Comments Glucose (test code = 82 mg/dL 65-99 2345-7) BUN (test code = 7 mg/dL 6-20 3094-0) Creatinine (test code 0.80 mg/dL 0.76-1.27 = 2160-0) eGFR If NonAfricn Am 121 mL/min/1.73 >59 (test code = 14446-2) eGFR If Africn Am 140 mL/min/1.73 >59 (test code = 93006-9) BUN/Creatinine Ratio 9 9-20 (test code = 3097-3) Sodium (test code = 140 mmol/L 062-979 9709-2) Potassium (test code 3.8 mmol/L 3.5-5.2 = 2823-3) Chloride (test code = 101 mmol/L 96-106 2075-0) Carbon Dioxide, Total 24 mmol/L 20-29 (test code = 2027-9) Calcium (test code = 9.8 mg/dL 8.7-10.2 51124-2) Protein, Total (test 7.7 g/dL 6.0-8.5 code = 2885-2) Albumin (test code = 4.5 g/dL 4.1-5.2 Ple ase note 1751-7) reference inter crystal change
<b r/> Performed by:
[facility] ([place])

Globulin, Total (test 3.2 g/dL 1.5-4.5 code = 62222-6) A/G Ratio (test code 1.4 1.2-2.2 = 1759-0) Bilirubin, Total 0.4 mg/dL 0.0-1.2 (test code = 1975-2) Alkaline Phosphatase 111 IU/L 39-117 (test code = 6768-6) AST (SGOT) (test code 18 IU/L 0-40 = 1920-8) ALT (SGPT) (test code 12 IU/L 0-44 = 1742-6) [facility] Description: Comp. Metabolic Panel (2019-07-18 03:38:00 Test Item Value Reference Range Interpretation Comments Glucose (test code = 82 mg/dL 65-99 2345-7) BUN (test code = 7 mg/dL 6-20 3094-0) Creatinine (test code 0.80 mg/dL 0.76-1.27 = 2160-0) eGFR If NonAfricn Am 121 mL/min/1.73 >59 (test code = 05531-3) eGFR If Africn Am 140 mL/min/1.73 >59 (test code = 78877-4) BUN/Creatinine Ratio 9 9-20 (test code = 3097-3) Sodium (test code = 140 mmol/L 947-370 0448-2) Potassium (test code 3.8 mmol/L 3.5-5.2 = 2823-3) Chloride (test code = 101 mmol/L 96-106 2075-0) Carbon Dioxide, Total 24 mmol/L -29 (test code = 2027-9) Calcium (test code = 9.8 mg/dL 8.7-10.2 70089-4) Protein, Total (test 7.7 g/dL 6.0-8.5 code = 2885-2) Albumin (test code = 4.5 g/dL 4.1-5.2 Plea se note 1751-7) reference inter crystal change
<b r/> Performed by:
[facility] ([place])

Globulin, Total (test 3.2 g/dL 1.5-4.5 code = 62024-7) A/G Ratio (test code 1.4 1.2-2.2 = 1759-0) Bilirubin, Total 0.4 mg/dL 0.0-1.2 (test code = 1975-2) Alkaline Phosphatase 111 IU/L 39-117 (test code = 6768-6) AST (SGOT) (test code 18 IU/L 0-40 = 1920-8) ALT (SGPT) (test code 12 IU/L 0-44 = 1742-6) [facility] Description: Comp. Metabolic Panel (2019-07-18 03:38:00 Test Item Value Reference Range Interpretation Comments Glucose (test code = 82 mg/dL 65-99 2345-7) BUN (test code = 7 mg/dL 6-20 3094-0) Creatinine (test code 0.80 mg/dL 0.76-1.27 = 2160-0) eGFR If NonAfricn Am 121 mL/min/1.73 >59 (test code = 24803-7) eGFR If Africn Am 140 mL/min/1.73 >59 (test code = 95505-2) BUN/Creatinine Ratio 9 9-20 (test code = 3097-3) Sodium (test code = 140 mmol/L 427-107 3233-2) Potassium (test code 3.8 mmol/L 3.5-5.2 = 2823-3) Chloride (test code = 101 mmol/L 96-106 2075-0) Carbon Dioxide, Total 24 mmol/L 20-29 (test code = 2027-9) Calcium (test code = 9.8 mg/dL 8.7-10.2 10013-8) Protein, Total (test 7.7 g/dL 6.0-8.5 code = 2885-2) Albumin (test code = 4.5 g/dL 4.1-5.2 Plea se note 1751-7) reference inter crystal change
<b r/> Performed by:
[facility] [place] ([place])

Globulin, Total (test 3.2 g/dL 1.5-4.5 code = 76070-0) A/G Ratio (test code 1.4 1.2-2.2 = 1759-0) Bilirubin, Total 0.4 mg/dL 0.0-1.2 (test code = 1975-2) Alkaline Phosphatase 111 IU/L 39-117 (test code = 6768-6) AST (SGOT) (test code 18 IU/L 0-40 = 1920-8) ALT (SGPT) (test code 12 IU/L 0-44 = 1742-6) [facility] Description: Comp. Metabolic Panel (142019-07-18 03:38:00 Test Item Value Reference Range Interpretation Comments Glucose (test code = 82 mg/dL 65-99 2345-7) BUN (test code = 7 mg/dL 6-20 3094-0) Creatinine (test code 0.80 mg/dL 0.76-1.27 = 2160-0) eGFR If NonAfricn Am 121 mL/min/1.73 >59 (test code = 70030-0) eGFR If Africn Am 140 mL/min/1.73 >59 (test code = 24367-9) BUN/Creatinine Ratio 9 9-20 (test code = 3097-3) Sodium (test code = 140 mmol/L 587-995 6981-2) Potassium (test code 3.8 mmol/L 3.5-5.2 = 2823-3) Chloride (test code = 101 mmol/L 96-106 2075-0) Carbon Dioxide, Total 24 mmol/L 20-29 (test code = 2027-9) Calcium (test code = 9.8 mg/dL 8.7-10.2 33489-7) Protein, Total (test 7.7 g/dL 6.0-8.5 code = 2885-2) Albumin (test code = 4.5 g/dL 4.1-5.2 Plea se note 1751-7) reference inter crystal change
<b r/> Performed by:
[facility] ([place])

Globulin, Total (test 3.2 g/dL 1.5-4.5 code = 86849-6) A/G Ratio (test code 1.4 1.2-2.2 = 1759-0) Bilirubin, Total 0.4 mg/dL 0.0-1.2 (test code = 1975-2) Alkaline Phosphatase 111 IU/L 39-117 (test code = 6768-6) AST (SGOT) (test code 18 IU/L 0-40 = 1920-8) ALT (SGPT) (test code 12 IU/L 0-44 = 1742-6) [facility] Description: Comp. Metabolic Panel (2019-07-18 03:38:00 Test Item Value Reference Range Interpretation Comments Glucose (test code = 82 mg/dL 65-99 2345-7) BUN (test code = 7 mg/dL 6-20 3094-0) Creatinine (test code 0.80 mg/dL 0.76-1.27 = 2160-0) eGFR If NonAfricn Am 121 mL/min/1.73 >59 (test code = 95398-4) eGFR If Africn Am 140 mL/min/1.73 >59 (test code = 39647-6) BUN/Creatinine Ratio 9 9-20 (test code = 3097-3) Sodium (test code = 140 mmol/L 053-435 2777-2) Potassium (test code 3.8 mmol/L 3.5-5.2 = 2823-3) Chloride (test code = 101 mmol/L 96-106 2075-0) Carbon Dioxide, Total 24 mmol/L 20-29 (test code = 2027-9) Calcium (test code = 9.8 mg/dL 8.7-10.2 56760-5) Protein, Total (test 7.7 g/dL 6.0-8.5 code = 2885-2) Albumin (test code = 4.5 g/dL 4.1-5.2 Plea se note 1751-7) reference inter crystal changePerform ed by:[facility] ([place]) Globulin, Total (test 3.2 g/dL 1.5-4.5 code = 63906-0) A/G Ratio (test code 1.4 1.2-2.2 = 1759-0) Bilirubin, Total 0.4 mg/dL 0.0-1.2 (test code = 1975-2) Alkaline Phosphatase 111 IU/L 39-117 (test code = 6768-6) AST (SGOT) (test code 18 IU/L 0-40 = 1920-8) ALT (SGPT) (test code 12 IU/L 0-44 = 1742-6) [facility] Description: Comp. Metabolic Panel (14)2019-07-18 03:38:00 Test Item Value Reference Range Interpretation Comments Glucose (test code = 82 mg/dL 65-99 2345-7) BUN (test code = 7 mg/dL 6-20 3094-0) Creatinine (test code 0.80 mg/dL 0.76-1.27 = 2160-0) eGFR If NonAfricn Am 121 mL/min/1.73 >59 (test code = 52870-0) eGFR If Africn Am 140 mL/min/1.73 >59 (test code = 32551-5) BUN/Creatinine Ratio 9 9-20 (test code = 3097-3) Sodium (test code = 140 mmol/L 351-313 0181-2) Potassium (test code 3.8 mmol/L 3.5-5.2 = 2823-3) Chloride (test code = 101 mmol/L 96-106 2075-0) Carbon Dioxide, Total 24 mmol/L 20-29 (test code = 2027-9) Calcium (test code = 9.8 mg/dL 8.7-10.2 53276-0) Protein, Total (test 7.7 g/dL 6.0-8.5 code = 2885-2) Albumin (test code = 4.5 g/dL 4.1-5.2 Plea se note 1751-7) reference inter crystal changePerform ed by:[facility] [place] ([place]) Globulin, Total (test 3.2 g/dL 1.5-4.5 code = 63171-8) A/G Ratio (test code 1.4 1.2-2.2 = 1759-0) Bilirubin, Total 0.4 mg/dL 0.0-1.2 (test code = 1974-2) Alkaline Phosphatase 111 IU/L 39-117 (test code = 6768-6) AST (SGOT) (test code 18 IU/L 0-40 = 1920-8) ALT (SGPT) (test code 12 IU/L 0-44 = 1742-6) [facility] Description: Comp. Metabolic Panel (14)2019-07-18 03:38:00 Test Item Value Reference Range Interpretation Comments Glucose (test code = 82 mg/dL 65-99 2345-7) BUN (test code = 7 mg/dL 6-20 3094-0) Creatinine (test code 0.80 mg/dL 0.76-1.27 = 2160-0) eGFR If NonAfricn Am 121 mL/min/1.73 >59 (test code = 97459-2) eGFR If Africn Am 140 mL/min/1.73 >59 (test code = 93996-0) BUN/Creatinine Ratio 9 - (test code = 3097-3) Sodium (test code = 140 mmol/L 858-203 2877-2) Potassium (test code 3.8 mmol/L 3.5-5.2 = 2823-3) Chloride (test code = 101 mmol/L 96-106 2075-0) Carbon Dioxide, Total 24 mmol/L 20-29 (test code = 2027-) Calcium (test code = 9.8 mg/dL 8.7-10.2 91259-2) Protein, Total (test 7.7 g/dL 6.0-8.5 code = 2885-2) Albumin (test code = 4.5 g/dL 4.1-5.2 Plea se note 1751-7) reference inter crystal changePerform ed by:[facility] [place] ([place]) Globulin, Total (test 3.2 g/dL 1.5-4.5 code = 53077-9) A/G Ratio (test code 1.4 1.2-2.2 = 1759-0) Bilirubin, Total 0.4 mg/dL 0.0-1.2 (test code = 1975-2) Alkaline Phosphatase 111 IU/L 39-117 (test code = 6768-6) AST (SGOT) (test code 18 IU/L 0-40 = 1920-8) ALT (SGPT) (test code 12 IU/L 0-44 = 1742-6) [facility] Description: Comp. Metabolic Panel (14)2019-07-18 03:38:00 Test Item Value Reference Range Interpretation Comments Glucose (test code = 82 mg/dL 65-99 2345-7) BUN (test code = 7 mg/dL 6-20 3094-0) Creatinine (test code 0.80 mg/dL 0.76-1.27 = 2160-0) eGFR If NonAfricn Am 121 mL/min/1.73 >59 (test code = 04249-4) eGFR If Africn Am 140 mL/min/1.73 >59 (test code = 49347-4) BUN/Creatinine Ratio 9 9-20 (test code = 3097-3) Sodium (test code = 140 mmol/L 917-730 4215-2) Potassium (test code 3.8 mmol/L 3.5-5.2 = 2823-3) Chloride (test code = 101 mmol/L 96-106 2075-0) Carbon Dioxide, Total 24 mmol/L 20-29 (test code = 2027-) Calcium (test code = 9.8 mg/dL 8.7-10.2 89660-9) Protein, Total (test 7.7 g/dL 6.0-8.5 code = 2885-2) Albumin (test code = 4.5 g/dL 4.1-5.2 Plea se note 1751-7) reference inter crystal changePerform ed by:[facility] [place] [place] [facility]) Globulin, Total (test 3.2 g/dL 1.5-4.5 code = 26192-9) A/G Ratio (test code 1.4 1.2-2.2 = 1759-0) Bilirubin, Total 0.4 mg/dL 0.0-1.2 (test code = 1974-2) Alkaline Phosphatase 111 IU/L 39-117 (test code = 6768-6) AST (SGOT) (test code 18 IU/L 0-40 = 1920-8) ALT (SGPT) (test code 12 IU/L 0-44 = 1742-6) [facility] Description: Comp. Metabolic Panel (14)2019-07-18 03:38:00 Test Item Value Reference Range Interpretation Comments Glucose (test code = 82 mg/dL 65-99 2345-7) BUN (test code = 7 mg/dL 6-20 3094-0) Creatinine (test code 0.80 mg/dL 0.76-1.27 = 2160-0) eGFR If NonAfricn Am 121 mL/min/1.73 >59 (test code = 89735-0) eGFR If Africn Am 140 mL/min/1.73 >59 (test code = 93922-5) BUN/Creatinine Ratio 9 9-20 (test code = 3097-3) Sodium (test code = 140 mmol/L 615-820 6802-2) Potassium (test code 3.8 mmol/L 3.5-5.2 = 2823-3) Chloride (test code = 101 mmol/L 96-106 2075-0) Carbon Dioxide, Total 24 mmol/L 20-29 (test code = 2027-9) Calcium (test code = 9.8 mg/dL 8.7-10.2 47933-5) Protein, Total (test 7.7 g/dL 6.0-8.5 code = 2885-2) Albumin (test code = 4.5 g/dL 4.1-5.2 Plea se note 1751-7) reference inter crystal changePerform ed by:[facility] ([place]) Globulin, Total (test 3.2 g/dL 1.5-4.5 code = 13626-8) A/G Ratio (test code 1.4 1.2-2.2 = 1759-0) Bilirubin, Total 0.4 mg/dL 0.0-1.2 (test code = 1975-2) Alkaline Phosphatase 111 IU/L 39-117 (test code = 6768-6) AST (SGOT) (test code 18 IU/L 0-40 = 1920-8) ALT (SGPT) (test code 12 IU/L 0-44 = 1742-6) [facility] Description: Comp. Metabolic Panel (14)2019-07-18 03:38:00 Test Item Value Reference Range Interpretation Comments Glucose (test code = 82 mg/dL 65-99 2345-7) BUN (test code = 7 mg/dL 6-20 3094-0) Creatinine (test code 0.80 mg/dL 0.76-1.27 = 2160-0) eGFR If NonAfricn Am 121 mL/min/1.73 >59 (test code = 68750-7) eGFR If Africn Am 140 mL/min/1.73 >59 (test code = 84290-5) BUN/Creatinine Ratio 9 9-20 (test code = 3097-3) Sodium (test code = 140 mmol/L 149-866 9540-2) Potassium (test code 3.8 mmol/L 3.5-5.2 = 2823-3) Chloride (test code = 101 mmol/L 96-106 2075-0) Carbon Dioxide, Total 24 mmol/L 20-29 (test code = 2027-9) Calcium (test code = 9.8 mg/dL 8.7-10.2 21130-9) Protein, Total (test 7.7 g/dL 6.0-8.5 code = 2885-2) Albumin (test code = 4.5 g/dL 4.1-5.2 Plea se note 1751-7) reference inter crystal changePerform ed by:[facility] ([place]) Globulin, Total (test 3.2 g/dL 1.5-4.5 code = 29648-4) A/G Ratio (test code 1.4 1.2-2.2 = 1759-0) Bilirubin, Total 0.4 mg/dL 0.0-1.2 (test code = 1975-2) Alkaline Phosphatase 111 IU/L 39-117 (test code = 6768-6) AST (SGOT) (test code 18 IU/L 0-40 = 1920-8) ALT (SGPT) (test code 12 IU/L 0-44 = 1742-6) [facility] Description: Comp. Metabolic Panel (14)2019-07-18 03:38:00 Test Item Value Reference Range Interpretation Comments Glucose (test code = 82 mg/dL 65-99 2345-7) BUN (test code = 7 mg/dL 6-20 3094-0) Creatinine (test code 0.80 mg/dL 0.76-1.27 = 2160-0) eGFR If NonAfricn Am 121 mL/min/1.73 >59 (test code = 99868-1) eGFR If Africn Am 140 mL/min/1.73 >59 (test code = 08866-4) BUN/Creatinine Ratio 9 9-20 (test code = 3097-3) Sodium (test code = 140 mmol/L 411-255 6231-2) Potassium (test code 3.8 mmol/L 3.5-5.2 = 2823-3) Chloride (test code = 101 mmol/L 96-106 2075-0) Carbon Dioxide, Total 24 mmol/L 20-29 (test code = 2027-9) Calcium (test code = 9.8 mg/dL 8.7-10.2 09135-5) Protein, Total (test 7.7 g/dL 6.0-8.5 code = 2885-2) Albumin (test code = 4.5 g/dL 4.1-5.2 Plea se note 1751-7) reference inter crystal changePerform ed by:[facility] [facility] ([place]) Globulin, Total (test 3.2 g/dL 1.5-4.5 code = 27628-7) A/G Ratio (test code 1.4 1.2-2.2 = 1759-0) Bilirubin, Total 0.4 mg/dL 0.0-1.2 (test code = 1974-) Alkaline Phosphatase 111 IU/L 39-117 (test code = 6768-6) AST (SGOT) (test code 18 IU/L 0-40 = 1920-8) ALT (SGPT) (test code 12 IU/L 0-44 = 1742-6) [facility] Description: Comp. Metabolic Panel (142019-07-18 03:38:00 Test Item Value Reference Range Interpretation Comments Glucose (test code = 82 mg/dL 65-99 2345-7) BUN (test code = 7 mg/dL 6-20 3094-0) Creatinine (test code 0.80 mg/dL 0.76-1.27 = 2160-0) eGFR If NonAfricn Am 121 mL/min/1.73 >59 (test code = 53160-1) eGFR If Africn Am 140 mL/min/1.73 >59 (test code = 65084-4) BUN/Creatinine Ratio 9 9-20 (test code = 3097-3) Sodium (test code = 140 mmol/L 582-638 0967-2) Potassium (test code 3.8 mmol/L 3.5-5.2 = 2823-3) Chloride (test code = 101 mmol/L 96-106 2075-0) Carbon Dioxide, Total 24 mmol/L 20-29 (test code = 2027-9) Calcium (test code = 9.8 mg/dL 8.7-10.2 07492-8) Protein, Total (test 7.7 g/dL 6.0-8.5 code = 2885-2) Albumin (test code = 4.5 g/dL 4.1-5.2 Plea se note 1751-7) reference inter crystal changePerform ed by:[facility] [place] ([place]) Globulin, Total (test 3.2 g/dL 1.5-4.5 code = 01238-6) A/G Ratio (test code 1.4 1.2-2.2 = 1759-0) Bilirubin, Total 0.4 mg/dL 0.0-1.2 (test code = 1974-07) Alkaline Phosphatase 111 IU/L 39-117 (test code = 6768-6) AST (SGOT) (test code 18 IU/L 0-40 = 1920-8) ALT (SGPT) (test code 12 IU/L 0-44 = 1742-6) [facility] Description: Comp. Metabolic Panel (14)2019-07-18 03:38:00 Test Item Value Reference Range Interpretation Comments Glucose (test code = 82 mg/dL 65-99 2345-7) BUN (test code = 7 mg/dL 6-20 3094-0) Creatinine (test code 0.80 mg/dL 0.76-1.27 = 2160-0) eGFR If NonAfricn Am 121 mL/min/1.73 >59 (test code = 92839-5) eGFR If Africn Am 140 mL/min/1.73 >59 (test code = 31951-6) BUN/Creatinine Ratio 9 9-20 (test code = 3097-3) Sodium (test code = 140 mmol/L 246-949 2416-2) Potassium (test code 3.8 mmol/L 3.5-5.2 = 2823-3) Chloride (test code = 101 mmol/L 96-106 2075-0) Carbon Dioxide, Total 24 mmol/L 20-29 (test code = 2027-9) Calcium (test code = 9.8 mg/dL 8.7-10.2 19166-1) Protein, Total (test 7.7 g/dL 6.0-8.5 code = 2885-2) Albumin (test code = 4.5 g/dL 4.1-5.2 Plea se note 1751-7) reference inter crystal changePerform ed by:[facility] ([place]) Globulin, Total (test 3.2 g/dL 1.5-4.5 code = 02133-8) A/G Ratio (test code 1.4 1.2-2.2 = 1759-0) Bilirubin, Total 0.4 mg/dL 0.0-1.2 (test code = 1975-2) Alkaline Phosphatase 111 IU/L 39-117 (test code = 6768-6) AST (SGOT) (test code 18 IU/L 0-40 = 1920-8) ALT (SGPT) (test code 12 IU/L 0-44 = 1742-6) [facility] Description: Comp. Metabolic Panel (14)2019-07-18 03:38:00 Test Item Value Reference Range Interpretation Comments Glucose (test code = 82 mg/dL 65-99 2345-7) BUN (test code = 7 mg/dL 6-20 3094-0) Creatinine (test code 0.80 mg/dL 0.76-1.27 = 2160-0) eGFR If NonAfricn Am 121 mL/min/1.73 >59 (test code = 07109-3) eGFR If Africn Am 140 mL/min/1.73 >59 (test code = 56821-9) BUN/Creatinine Ratio 9 9-20 (test code = 3097-3) Sodium (test code = 140 mmol/L 597-777 5531-2) Potassium (test code 3.8 mmol/L 3.5-5.2 = 2823-3) Chloride (test code = 101 mmol/L 96-106 2075-0) Carbon Dioxide, Total 24 mmol/L 20-29 (test code = 2027-9) Calcium (test code = 9.8 mg/dL 8.7-10.2 81105-3) Protein, Total (test 7.7 g/dL 6.0-8.5 code = 2885-2) Albumin (test code = 4.5 g/dL 4.1-5.2 Plea se note 1751-7) reference inter crystal change
<b r/> Performed by:
[facility] [place] ()

Globulin, Total (test 3.2 g/dL 1.5-4.5 code = 78558-6) A/G Ratio (test code 1.4 1.2-2.2 = 1759-0) Bilirubin, Total 0.4 mg/dL 0.0-1.2 (test code = 1975-2) Alkaline Phosphatase 111 IU/L 39-117 (test code = 6768-6) AST (SGOT) (test code 18 IU/L 0-40 = 1920-8) ALT (SGPT) (test code 12 IU/L 0-44 = 1742-6) [facility]: Comp[facility] Panel (14)2019-07-18 03:38:00 Test Item Value Reference Range Interpretation Comments Glucose (test code = 82 mg/dL 65-99 2345-7) BUN (test code = 7 mg/dL 6-20 3094-0) Creatinine (test code 0.80 mg/dL 0.76-1.27 = 2160-0) eGFR If NonAfricn Am 121 mL/min/1.73 >59 (test code = 63000-4) eGFR If Africn Am 140 mL/min/1.73 >59 (test code = 50228-8) BUN/Creatinine Ratio 9 9-20 (test code = 3097-3) Sodium (test code = 140 mmol/L 593-974 8899-2) Potassium (test code 3.8 mmol/L 3.5-5.2 = 2823-3) Chloride (test code = 101 mmol/L 96-106 2075-0) Carbon Dioxide, Total 24 mmol/L 20-29 (test code = 2027-9) Calcium (test code = 9.8 mg/dL 8.7-10.2 16413-8) Protein, Total (test 7.7 g/dL 6.0-8.5 code = 2885-2) Albumin (test code = 4.5 g/dL 4.1-5.2 Plea se note 1751-7) reference inter crystal change
<b r/> Performed by:
[facility] [place] ([place])

Globulin, Total (test 3.2 g/dL 1.5-4.5 code = 63782-2) A/G Ratio (test code 1.4 1.2-2.2 = 1759-0) Bilirubin, Total 0.4 mg/dL 0.0-1.2 (test code = 1975-2) Alkaline Phosphatase 111 IU/L 39-117 (test code = 6768-6) AST (SGOT) (test code 18 IU/L 0-40 = 1920-8) ALT (SGPT) (test code 12 IU/L 0-44 = 1742-6) [facility] Description: Comp. Metabolic Panel (14)2019-07-18 03:38:00 Test Item Value Reference Range Interpretation Comments Glucose (test code = 82 mg/dL 65-99 2345-7) BUN (test code = 7 mg/dL 6-20 3094-0) Creatinine (test code 0.80 mg/dL 0.76-1.27 = 2160-0) eGFR If NonAfricn Am 121 mL/min/1.73 >59 (test code = 20869-7) eGFR If Africn Am 140 mL/min/1.73 >59 (test code = 33605-5) BUN/Creatinine Ratio 9 9-20 (test code = 3097-3) Sodium (test code = 140 mmol/L 071-112 0166-2) Potassium (test code 3.8 mmol/L 3.5-5.2 = 2823-3) Chloride (test code = 101 mmol/L 96-106 2075-0) Carbon Dioxide, Total 24 mmol/L 20-29 (test code = 2027-9) Calcium (test code = 9.8 mg/dL 8.7-10.2 92327-8) Protein, Total (test 7.7 g/dL 6.0-8.5 code = 2885-2) Albumin (test code = 4.5 g/dL 4.1-5.2 Plea se note 1751-7) reference inter crystal change
<b r/> Performed by:
[facility] ([place])

Globulin, Total (test 3.2 g/dL 1.5-4.5 code = 59216-9) A/G Ratio (test code 1.4 1.2-2.2 = 1759-0) Bilirubin, Total 0.4 mg/dL 0.0-1.2 (test code = 1975-2) Alkaline Phosphatase 111 IU/L 39-117 (test code = 6768-6) AST (SGOT) (test code 18 IU/L 0-40 = 1920-8) ALT (SGPT) (test code 12 IU/L 0-44 = 1742-6) [facility] Description: Comp. Metabolic Panel (142019-07-18 03:38:00 Test Item Value Reference Range Interpretation Comments Glucose (test code = 82 mg/dL 65-99 2345-7) BUN (test code = 7 mg/dL 6-20 3094-0) Creatinine (test code 0.80 mg/dL 0.76-1.27 = 2160-0) eGFR If NonAfricn Am 121 mL/min/1.73 >59 (test code = 96952-6) eGFR If Africn Am 140 mL/min/1.73 >59 (test code = 94061-2) BUN/Creatinine Ratio 9 9-20 (test code = 3097-3) Sodium (test code = 140 mmol/L 993-542 2088-2) Potassium (test code 3.8 mmol/L 3.5-5.2 = 2823-3) Chloride (test code = 101 mmol/L 96-106 2075-0) Carbon Dioxide, Total 24 mmol/L -29 (test code = 2027-9) Calcium (test code = 9.8 mg/dL 8.7-10.2 94976-0) Protein, Total (test 7.7 g/dL 6.0-8.5 code = 2885-2) Albumin (test code = 4.5 g/dL 4.1-5.2 Plea se note 1751-7) reference inter crystal change
<b r/> Performed by:
[facility] [place] ([place])

Globulin, Total (test 3.2 g/dL 1.5-4.5 code = 53282-8) A/G Ratio (test code 1.4 1.2-2.2 = 1759-0) Bilirubin, Total 0.4 mg/dL 0.0-1.2 (test code = 1975-2) Alkaline Phosphatase 111 IU/L 39-117 (test code = 6768-6) AST (SGOT) (test code 18 IU/L 0-40 = 1920-8) ALT (SGPT) (test code 12 IU/L 0-44 = 1742-6) [facility] Description: Comp. Metabolic Panel (2019-07-18 03:38:00 Test Item Value Reference Range Interpretation Comments Glucose (test code = 82 mg/dL 65-99 2345-7) BUN (test code = 7 mg/dL 6-20 3094-0) Creatinine (test code 0.80 mg/dL 0.76-1.27 = 2160-0) eGFR If NonAfricn Am 121 mL/min/1.73 >59 (test code = 92940-8) eGFR If Africn Am 140 mL/min/1.73 >59 (test code = 74899-9) BUN/Creatinine Ratio 9 9-20 (test code = 3097-3) Sodium (test code = 140 mmol/L 521-829 3191-2) Potassium (test code 3.8 mmol/L 3.5-5.2 = 2823-3) Chloride (test code = 101 mmol/L 96-106 2075-0) Carbon Dioxide, Total 24 mmol/L 20-29 (test code = 8-9) Calcium (test code = 9.8 mg/dL 8.7-10.2 55941-8) Protein, Total (test 7.7 g/dL 6.0-8.5 code = 2885-2) Albumin (test code = 4.5 g/dL 4.1-5.2 Ple ase note 1751-7) reference inter crystal change
<b r/> Performed by:
[facility] [place] ([place])

Globulin, Total (test 3.2 g/dL 1.5-4.5 code = 92079-4) A/G Ratio (test code 1.4 1.2-2.2 = 1759-0) Bilirubin, Total 0.4 mg/dL 0.0-1.2 (test code = 1975-2) Alkaline Phosphatase 111 IU/L 39-117 (test code = 6768-6) AST (SGOT) (test code 18 IU/L 0-40 = 1920-8) ALT (SGPT) (test code 12 IU/L 0-44 = 1742-6) [facility] Description: Comp. Metabolic Panel (142019-07-18 03:38:00 Test Item Value Reference Range Interpretation Comments Glucose (test code = 82 mg/dL 65-99 2345-7) BUN (test code = 7 mg/dL 6-20 3094-0) Creatinine (test code 0.80 mg/dL 0.76-1.27 = 2160-0) eGFR If NonAfricn Am 121 mL/min/1.73 >59 (test code = 13003-1) eGFR If Africn Am 140 mL/min/1.73 >59 (test code = 43509-5) BUN/Creatinine Ratio 9 9-20 (test code = 3097-3) Sodium (test code = 140 mmol/L 929-444 2644-2) Potassium (test code 3.8 mmol/L 3.5-5.2 = 2823-3) Chloride (test code = 101 mmol/L 96-106 2075-0) Carbon Dioxide, Total 24 mmol/L 20-29 (test code = 2027-9) Calcium (test code = 9.8 mg/dL 8.7-10.2 71142-9) Protein, Total (test 7.7 g/dL 6.0-8.5 code = 2885-2) Albumin (test code = 4.5 g/dL 4.1-5.2 Plea se note 1751-7) reference inter crystal change
<b r/> Performed by:
[facility] ([place])

Globulin, Total (test 3.2 g/dL 1.5-4.5 code = 42645-5) A/G Ratio (test code 1.4 1.2-2.2 = 1759-0) Bilirubin, Total 0.4 mg/dL 0.0-1.2 (test code = 1975-2) Alkaline Phosphatase 111 IU/L 39-117 (test code = 6768-6) AST (SGOT) (test code 18 IU/L 0-40 = 1920-8) ALT (SGPT) (test code 12 IU/L 0-44 = 1742-6) [facility] Description: Comp. Metabolic Panel (2019-07-18 03:38:00 Test Item Value Reference Range Interpretation Comments Glucose (test code = 82 mg/dL 65-99 2345-7) BUN (test code = 7 mg/dL 6-20 3094-0) Creatinine (test code 0.80 mg/dL 0.76-1.27 = 2160-0) eGFR If NonAfricn Am 121 mL/min/1.73 >59 (test code = 42060-8) eGFR If Africn Am 140 mL/min/1.73 >59 (test code = 85731-2) BUN/Creatinine Ratio 9 -20 (test code = 3097-3) Sodium (test code = 140 mmol/L 562-846 8824-2) Potassium (test code 3.8 mmol/L 3.5-5.2 = 2823-3) Chloride (test code = 101 mmol/L 96-106 2075-0) Carbon Dioxide, Total 24 mmol/L 20-29 (test code = 2027-9) Calcium (test code = 9.8 mg/dL 8.7-10.2 19488-3) Protein, Total (test 7.7 g/dL 6.0-8.5 code = 2885-2) Albumin (test code = 4.5 g/dL 4.1-5.2 Plea se note 1751-7) reference inter crystal change
<b r/> Performed by:
[facility] [place] ([place])

Globulin, Total (test 3.2 g/dL 1.5-4.5 code = 10077-6) A/G Ratio (test code 1.4 1.2-2.2 = 1759-0) Bilirubin, Total 0.4 mg/dL 0.0-1.2 (test code = 1975-2) Alkaline Phosphatase 111 IU/L 39-117 (test code = 6768-6) AST (SGOT) (test code 18 IU/L 0-40 = 1920-8) ALT (SGPT) (test code 12 IU/L 0-44 = 1742-6) [facility] Description: Comp. Metabolic Panel (14)2019-07-18 03:38:00 Test Item Value Reference Range Interpretation Comments Glucose (test code = 82 mg/dL 65-99 2345-7) BUN (test code = 7 mg/dL 6-20 3094-0) Creatinine (test code 0.80 mg/dL 0.76-1.27 = 2160-0) eGFR If NonAfricn Am 121 mL/min/1.73 >59 (test code = 15251-2) eGFR If Africn Am 140 mL/min/1.73 >59 (test code = 49066-4) BUN/Creatinine Ratio 9 9-20 (test code = 3097-3) Sodium (test code = 140 mmol/L 497-633 8730-2) Potassium (test code 3.8 mmol/L 3.5-5.2 = 2823-3) Chloride (test code = 101 mmol/L 96-106 2075-0) Carbon Dioxide, Total 24 mmol/L 20-29 (test code = 8-9) Calcium (test code = 9.8 mg/dL 8.7-10.2 23609-2) Protein, Total (test 7.7 g/dL 6.0-8.5 code = 2885-2) Albumin (test code = 4.5 g/dL 4.1-5.2 Plea se note 1751-7) reference inter crystal change
<b r/> Performed by:
[facility] [place] ([place])

Globulin, Total (test 3.2 g/dL 1.5-4.5 code = 68534-6) A/G Ratio (test code 1.4 1.2-2.2 = 1759-0) Bilirubin, Total 0.4 mg/dL 0.0-1.2 (test code = 1975-2) Alkaline Phosphatase 111 IU/L 39-117 (test code = 6768-6) AST (SGOT) (test code 18 IU/L 0-40 = 1920-8) ALT (SGPT) (test code 12 IU/L 0-44 = 1742-6) [facility] [id number] 18:28:00 Test Item Value Reference Range Interpretation Comments Influ A (test code = Negative (05/13/17 12:28 Influ A) PM) [facility] [id number] 18:28:00 Test Item Value Reference Range Interpretation Comments Influ B (test code = Negative (05/13/17 12:28 Influ B) PM) [facility]
--- NOTE | 2022-11-08 21:51 | EDPHYS ---
Physician Documentation [facility] Name: Roque Jones Age: 31 yrs Sex: Male : 1990 Arrival Date: 11/08/2022 Time: 18:42 Bed 11 Private MD: ED Physician Arnaldo Martin HPI: 11/08 19:10 This 31 yrs old Black Male presents to ER via Ambulatory with complaints of Chills, cp Sore Throat, Vomiting. 19:10 The patient reports fever, with an emergency department temperature of 101.2 degrees cp Fahrenheit. Onset: The symptoms/episode began/occurred suddenly, today. Associated signs and symptoms: Pertinent positives: chills, nausea, sore throat, vomiting, body aches. Severity of symptoms: in the emergency department the symptoms are unchanged despite home interventions. Historical: - Allergies: 18:49 PENICILLINS; iw - Home Meds: 18:49 None [Active]; iw - PMHx: 18:49 None; iw - PSHx: 18:49 Tonsillectomy; iw - Immunization history:: Adult Immunizations. - Social history:: Smoking status: Reported history of juuling and/or vaping. ROS: 19:15 Constitutional: Positive for chills, fever, Negative for poor PO intake. cp 19:15 Eyes: Negative for injury, pain, redness, and discharge. cp 19:15 Respiratory: Negative for cough, shortness of breath, wheezing. cp Exam: 19:20 Constitutional: The patient appears in no acute distress, alert, awake, well developed, cp well nourished, uncomfortable. 19:20 Head/Face: Normocephalic, atraumatic. cp 19:20 Eyes: Periorbital structures: appear normal, Conjunctiva: normal, no exudate, no injection, Sclera: no appreciated abnormality, Lids and lashes: appear normal, bilaterally. 19:20 ENT: External ear(s): are unremarkable, Nose: is normal, Mouth: Lips: moist, Oral mucosa: moist, Posterior pharynx: Airway: no evidence of obstruction, patent, Tonsils: with erythema, no enlargement, no exudate, erythema, that is mild, exudate, is not appreciated. 19:20 Neck: ROM/movement: is normal, is supple, without pain, no range of motions limitations, no meningismus, no nuchal rigidity, Lymph nodes: no appreciated lymphadenopathy. 19:20 Chest/axilla: Inspection: normal. 19:20 Cardiovascular: Rate: normal, Rhythm: regular. 19:20 Respiratory: the patient does not display signs of respiratory distress, Respirations: normal, no use of accessory muscles, no retractions, labored breathing, is not present, Breath sounds: are clear throughout, no decreased breath sounds, no stridor, no wheezing. 19:20 Abdomen/GI: Inspection: abdomen appears normal, Palpation: abdomen is soft and non-tender, in all quadrants. 19:20 Skin: no rash present. 19:20 Neuro: Orientation: to person, place \T\ time. Mentation: is normal, Motor: moves all fours, strength is normal, Sensation: is normal. Vital Signs: 18:47 BP 130 / 92; Pulse 97; Resp 16; Temp 101.2; Pulse Ox 100% on R/A; Weight 59.42 kg; iw Height 5 ft. 4 in. ; Pain 6/10; 21:56 BP 110 / 82; Pulse 90; Resp 16; Temp 99.3; Pulse Ox 98% on R/A; Pain 0/10; pf1 18:47 Body Mass Index 22.49 (59.42 kg, 162.56 cm) iw 18:47 Pain Scale: Adult iw 21:56 Pain Scale: Adult pf1 MDM: 19:02 Patient medically screened. cp 21:50 Data reviewed: vital signs, nurses notes, lab test result(s). cp 21:50 Differential diagnosis: viral Infection, bacterial infection, URI, bronchitis, cp pneumonia. Consideration of Admission/Observation Escalation of care including admission/observation considered. I considered the following discharge prescriptions or medication management in the emergency department Medications were administered in the Emergency Department. See MAR. Counseling: I had a detailed discussion with the patient and/or guardian regarding: the historical points, exam findings, and any diagnostic results supporting the discharge/admit diagnosis, lab results, to return to the emergency department if symptoms worsen or persist or if there are any questions or concerns that arise at home. 11/08 19:03 Order name: Strep; Complete Time: 21:52 cp 11/08 19:03 Order name: COVID-19 SARS RT PCR; Complete Time: 21:52 cp 11/08 19:03 Order name: Influenza Screen (a \T\ B); Complete Time: 21:52 cp 11/08 19:56 Order name: Throat Culture EDID 11/08 21:04 Order name: PO challenge; Complete Time: 21:54 cp 11/08 21:26 Order name: Vital Signs: recheck to include temp; Complete Time: 21:54 cp Administered Medications: 19:09 Drug: Ondansetron PO 4 mg Route: PO; as6 20:00 Follow up: Response: No adverse reaction; Marked relief of symptoms pf1 19:09 Drug: Acetaminophen PO 650 mg Route: PO; as6 20:00 Follow up: Response: No adverse reaction; Marked relief of symptoms pf1 Disposition: 11/09 11:11 Co-signature as Attending Physician, Arnaldo HAJI was immediately available on-site ms3 in the Emergency Department for consultation in the care of the patient. Disposition Summary: 11/08/22 21:51 Discharge Ordered Location: Home cp Problem: new cp Symptoms: have improved cp Condition: Stable cp Diagnosis - Acute pharyngitis, unspecified cp - Fever, unspecified cp - Nausea with vomiting, unspecified cp Followup: cp - With: Private Physician - When: 1 - 2 days - Reason: Worsening of condition Discharge Instructions: - Discharge Summary Sheet cp - Fever, Adult cp - Nausea and Vomiting, Adult cp - Sore Throat cp Forms: - Medication Reconciliation Form cp - Thank You Letter cp - Antibiotic Education cp - Prescription Opioid Use cp - Work release form pf1 Prescriptions: - Ibuprofen 600 mg Oral Tablet - take 1 tablet by ORAL route every 8 hours As needed take with food; 30 tablet; cp Refills: 0, Product Selection Permitted - Zofran 4 mg Oral Tablet - take 1 tablet by ORAL route every 12 hours As needed; 20 tablet; Refills: 0, cp Product Selection Permitted Signatures: Dispatcher [employer] EDKatya Cordova RN Karthikeyan Pulido PA PA cp Sims, Marcus, DO DO ms3 Kenji Pollack RN RN as6 Christine Hernández RN pf1
--- NOTE | 2022-11-08 21:51 | ER ---
Nurse's Notes [facility] Name: Roque Jones Age: 31 yrs Sex: Male : 1990 Arrival Date: 11/08/2022 Time: 18:42 Bed 11 Private MD: Diagnosis: Acute pharyngitis, unspecified;Fever, unspecified;Nausea with vomiting, unspecified Presentation: 11/08 18:47 Chief complaint: Patient states: chills, sore throat, vomited once, started today , iw body aches , no cough. Coronavirus screen: Client presents with at least one sign or symptom that may indicate coronavirus-19. Ebola Screen: Patient negative for fever greater than or equal to 101.5 degrees Fahrenheit, and additional compatible Ebola Virus Disease symptoms Patient denies exposure to infectious person. Patient denies travel to an Ebola-affected area in the 21 days before illness onset. No symptoms or risks identified at this time. Initial Sepsis Screen: Does the patient meet any 2 criteria? No. Patient's initial sepsis screen is negative. Does the patient have a suspected source of infection? No. Patient's initial sepsis screen is negative. Risk Assessment: Do you want to hurt yourself or someone else? Patient reports no desire to harm self or others. Onset of symptoms was November 08, 2022. 18:47 Method Of Arrival: Ambulatory iw 18:47 Acuity: MARCIANO 4 iw Triage Assessment: 19:55 EENT: Reports pain in sore throat. pf1 Historical: - Allergies: 18:49 PENICILLINS; iw - Home Meds: 18:49 None [Active]; iw - PMHx: 18:49 None; iw - PSHx: 18:49 Tonsillectomy; iw - Immunization history:: Adult Immunizations. - Social history:: Smoking status: Reported history of juuling and/or vaping. Screenin:55 [facility] ED Fall Risk Assessment (Adult) History of falling in the last 3 months, pf1 including since admission No falls in past 3 months (0 pts) Confusion or Disorientation No (0 pts) Intoxicated or Sedated No (0 pts) Impaired Gait No (0 pts) Mobility Assist Device Used No (0 pt) Altered Elimination No (0 pt) Score/Fall Risk Level 0 - 2 = Low Risk Oriented to surroundings, Maintained a safe environment, Educated pt \T\ family on fall prevention, incl call for assistance when getting out of bed, Assessed \T\ reinforced patient's understanding of fall precautions, Provided non-skid footwear, Hourly rounding (assess needs \T\ fall precautionary measures) done, Used ambulatory aids as needed (educated on \T\ assisted with), Used gait belt as appropriate. 19:55 Abuse screen: Denies threats or abuse. Nutritional screening: No deficits noted. pf1 Tuberculosis screening: No symptoms or risk factors identified. Assessment: 20:00 Respiratory: Breath sounds are clear bilaterally. pf1 20:06 Reassessment: Patient appears in no apparent distress at this time. Patient and/or nj1 family updated on plan of care and expected duration. Pain level reassessed. Patient is alert, oriented x 3, equal unlabored respirations, skin warm/dry/pink. General: Appears in no apparent distress. comfortable, Behavior is calm, cooperative, appropriate for age. Pain: Complains of pain in throat Pain currently is 4 out of 10 on a pain scale. Neuro: Level of Consciousness is awake, alert, obeys commands, Oriented to person, place, time, situation. Cardiovascular: Patient's skin is warm and dry. Respiratory: Airway is patent Respiratory effort is even, unlabored. Vital Signs: 18:47 BP 130 / 92; Pulse 97; Resp 16; Temp 101.2; Pulse Ox 100% on R/A; Weight 59.42 kg; iw Height 5 ft. 4 in. ; Pain 6/10; 21:56 BP 110 / 82; Pulse 90; Resp 16; Temp 99.3; Pulse Ox 98% on R/A; Pain 0/10; pf1 18:47 Body Mass Index 22.49 (59.42 kg, 162.56 cm) iw 18:47 Pain Scale: Adult iw 21:56 Pain Scale: Adult pf1 ED Course: 18:43 Patient arrived in ED. rg4 18:44 Karthikeyan Cortez PA is PHCP. cp 18:44 Arnaldo Martin DO is Attending Physician. cp 18:49 Triage completed. iw 18:49 Arm band placed on. iw 19:11 Influenza Screen (a \T\ B) Sent. as6 19:11 COVID-19 SARS RT PCR Sent. as6 19:11 Strep Sent. as6 19:55 No provider procedures requiring assistance completed. pf1 19:59 Brenda Guzmán, RN is Primary Nurse. nj1 20:00 Patient has correct armband on for positive identification. Bed in low position. Call pf1 light in reach. 22:06 Patient did not have IV access during this emergency room visit. pf1 Administered Medications: 19:09 Drug: Ondansetron PO 4 mg Route: PO; as6 20:00 Follow up: Response: No adverse reaction; Marked relief of symptoms pf1 19:09 Drug: Acetaminophen PO 650 mg Route: PO; as6 20:00 Follow up: Response: No adverse reaction; Marked relief of symptoms pf1 Medication: 20:00 VIS not applicable for this client. pf1 Outcome: 21:51 Discharge ordered by MD. cp 22:05 Discharged to home ambulatory, with family. pf1 22:05 Condition: improved 22:05 Discharge instructions given to patient, family, Instructed on discharge instructions, follow up and referral plans. Demonstrated understanding of instructions, follow-up care, medications, Prescriptions given X 2. 22:06 Patient left the ED. pf1 Signatures: Katya Jones, RN RN iw Karthikeyan Cortez PA PA cp Garcia, Rubi rg4 Kenji Pollack RN RN as6 Christine Hernández RN RN pf1 Brenda Guzmán, PASCUAL RN nj1 Corrections: (The following items were deleted from the chart) 18:49 18:47 Pulse 97bpm; Resp 16bpm; Pulse Ox 100% RA; Temp 101.2F; 59.42 kg; Height 5 ft. 4 iw in.; BMI: 22.4; Pain 6/10, Adult; iw
[2022-11-08 22:37] VITALS: BP 110/82; TEMP 99.3; O2SAT 98
== END 2022-11-08 22:06 | disposition home or self-care (01) ==
LOC: ER 18:42
DX: J02.9 Acute pharyngitis, unspecified (principal); R11.2 Nausea with vomiting, unspecified; R50.9 Fever, unspecified; F17.290 Nicotine dependence, other tobacco product, uncomplicated; Z20.822 Contact with and (suspected) exposure to COVID-19; Z88.0 Allergy status to penicillin
CPT/HCPCS: 87070; 87081; 87804 ×2; 99284; U0003; Q0162